=== PATIENT | male | born 1960 | race Caucasian/White ===

== ENCOUNTER → 2018-03-26 | Outpatient (CLI) | payer MEDICARE ==
[2018-03-26 14:36] VITALS: BP 140/82; PULSE 91; RESP 16; TEMP 98.3; BMI 43.4
--- NOTE | 2018-03-26 15:11 | P.HPBAR ---
Bariatric H&P - History & Physicial H&P Date: 03/26/18 History & Physicial: Visit/CC: initial visit Patient initial contact: Initial weight: 153.314 kg Initial weight in pounds: 338.00 Height: 6 ft 2 in Initial BMI: 43.4 Last weight: Current weight: 153.314 kg Current weight in pounds: 338.00 Current BMI: 43.4 [place] body weight (based on NIH guidelines): 86.183 kg Excess body weight loss: 0.0% The patient is a 57 year-old M who presents for Bariatric Assessment. Patient presents today for preoperative sleeve gastrectomy consultation. He has lifetime problems obesity. His current BMI is 44. Past Medical History Past Medical History: Diabetes Mellitus, Hyperlipidemia, Hypertension Additional Past Medical History / Comment(s): Type 2 DM, Right knee ( Orthoscopic x2, replaced x1). Left knee replaced 3x (First time repair broke, 2nd became infected withMRSA, replaced 3rd time). Right rotator cuff repair 2013. History of Any Multi-Drug Resistant Organisms: MRSA Year Discovered:: 2007 MDRO Source:: LEFT KNEE Past Surgical History: Cholecystectomy, Tonsillectomy Additional Past Surgical History / Comment(s): carpal tunnel surgey bilaterally. Right knee (Orthoscopic x2, replaced x1). Left knee replaced 3x ( First time repair broke, 2nd became infected withMRSA, replaced 3rd time). Right rotator cuff repair 09/2014. Past Psychological History: Anxiety, Depression Smoking Status: Current some day smoker Past Alcohol Use History: Daily Additional Past Alcohol Use History / Comment(s): every other day, does drinkn more than 7 drinks/week Past Drug Use History: None Reported, Marijuana - Past Family History Father Family Medical History: Deep Vein Thrombosis (DVT) Mother Family Medical History: No Reported History Surgical - Exam Vital Signs Temp Pulse Resp BP 98.3 F 91 16 140/82 03/26/18 14:30 03/26/18 14:30 03/26/18 14:30 03/26/18 14:30 - General well developed, no distress - Eyes PERRL - ENT normal pinna - Neck no masses - Respiratory normal expansion - Cardiovascular Rhythm: regular - Abdomen Abdomen: soft, non tender Bariatric Assessment & Plan Plan: Morbid obesity with BMI 44. Patient will undergo EGD. We will attempt to obtain insurance authorization for a gastric sleeve surgery. I went over the risks and benefits of surgery. I discussed the risk of possible bleeding, scarring and gastric sleeve perforation. Bariatric Checklist Checklist: Plan: Checklist: EGD: 1. Hiatal hernia: 2. H. Pylori: HgbA1c: Vitamin D: Smoking: Current some day smoker Primary care physician referral: Psychiatry clearance: Cardiology clearance: Sleep study: Diet journal: VTE risk score: VTE risk level: Rehab needs at discharge:
[2018-03-26 15:41] LABS: HCT 39.7 % (39.0-53.0); MCHC 35.4 g/dL (31.0-37.0); MCV 90.5 fL (80.0-100.0); Mean Platelet Volume 7.4; Platelet Count 223 k/uL (150-450); RBC 4.38 m/uL (4.30-5.90); RDW 12.8 % (11.5-15.5); WBC 6.3 k/uL (3.8-10.6)
[2018-03-26 16:07] LABS: ALT 32 U/L (21-72); AST 32 U/L (17-59); Albumin 4.4 g/dL (3.5-5.0); Alkaline Phosphatase 64 U/L (38-126); Anion Gap 14 mmol/L; Blood Urea Nitrogen 18 mg/dL (9-20); Calcium 10.2 mg/dL (8.4-10.2); Carbon Dioxide 26 mmol/L (22-30); Chloride 101 mmol/L (98-107); Glucose 211 mg/dL (74-99); Potassium 4.9 mmol/L (3.5-5.1); Sodium 141 mmol/L (137-145); Total Bilirubin 0.7 mg/dL (0.2-1.3)
[2018-03-27 02:11] LABS: Vitamin D 25 Hydroxy 30.1 ng/mL (30.0-100.0)
[2018-03-27 03:49] LABS: Hemoglobin A1C 6.8 % (4.0-6.0)
== END | disposition home or self-care (01) ==
LOC: BARWHC3 14:11
PROVIDERS: ATTEND Surgery
DX: E66.01 Morbid (severe) obesity due to excess calories (principal); E11.9 Type 2 diabetes mellitus without complications; E78.5 Hyperlipidemia, unspecified; E55.9 Vitamin D deficiency, unspecified; I10 Essential (primary) hypertension; F41.9 Anxiety disorder, unspecified; F32.9 Major depressive disorder, single episode, unspecified; F17.200 Nicotine dependence, unspecified, uncomplicated; Z68.41 Body mass index [BMI] 40.0-44.9, adult; Z98.890 Other specified postprocedural states; Z90.49 Acquired absence of other specified parts of digestive tract
CPT/HCPCS: 80053; 82607; 85027; 82306; 83036; 36415; G0463; 99201

== ENCOUNTER 2018-04-02 10:24 | Day surgery (SDC) | payer MEDICARE ==
[2018-03-29 14:58] VITALS: BMI 42.3
[2018-04-02 11:13] VITALS: TEMP 98.1
[2018-04-02] MEDS: LACTATED RINGERS 1,000 ML IV SCH ×2 (11:23→11:24)
[2018-04-02 11:25] LABS: Glucose,Whole Blood 203 mg/dL (75-99)
[2018-04-02] MEDS ORDERED: PROPOFOL 10 MG/ML 20 ML VIAL IV ONE (11:27)
[2018-04-02] MEDS ORDERED: LIDOCAINE 1% INJ 10MG/ML (20 ML MDV) ONE (11:27)
[2018-04-02] MEDS ORDERED: GLYCOPYRROLATE 0.2 MG/ML 2 ML VIAL ONE (11:27)
[2018-04-02] MEDS ORDERED: KETAMINE 10 MG/ML 20 ML VIAL ONE (11:27)
--- NOTE | 2018-04-02 11:29 | P.GSHP ---
History of Present Illness H&P Date: 04/02/18 Chief Complaint: GERD, morbid obesity Is a 57-year-old male who is undergoing workup for sleeve gastrectomy. Patient' s morbidly obese with BMI 43. He's had issues with GERD. Past Medical History Past Medical History: Diabetes Mellitus, GERD/Reflux, Hyperlipidemia, Hypertension, Sleep Apnea/CPAP/BIPAP Additional Past Medical History / Comment(s): UNABLE TO USE C-PAP MACHINE, HX ULCERATIVE COLITIS, DEGENERATIVE ARTHRITIS, DDD, STATES HX OF RENAL FAILURE 4 YRS AGO BUT RESOLVED., STATES USES INHALER FOR EPISODES OF RASPY VOICE USUALLY IN THE WINTER., CHRONIC KNEE PAIN AND LEG CRAMPS. History of Any Multi-Drug Resistant Organisms: MRSA Date of last positivie culture/infection: 2007 MDRO Source:: LEFT KNEE Past Surgical History: Cholecystectomy, Tonsillectomy Additional Past Surgical History / Comment(s): CATALINO CARPAL TUNNEL. Right knee arthroscopy x2, Total Right Knee. Left knee replaced 3x (First time repair broke, 2nd became infected with MRSA, replaced 3rd time). Right rotator cuff repair Past Anesthesia/Blood Transfusion Reactions: No Reported Reaction Past Psychological History: Anxiety, Depression, Panic Disorder Smoking Status: Current some day smoker Past Alcohol Use History: Heavy Additional Past Alcohol Use History / Comment(s): STATES USUALLY DRINKS OVER 14 DRINKS PER WEEK. SMOKING ON AND OFF FOR 6 YRS. Past Drug Use History: Marijuana Additional Drug Use History / Comment(s): DENIES CURRENT MARIJUANA USE. - Past Family History Brother(s) Family Medical History: CVA/TIA Father Family Medical History: Deep Vein Thrombosis (DVT) Mother Family Medical History: No Reported History Medications and Allergies Home Medications Medication Instructions Recorded Confirmed Type ALPRAZolam [Xanax] 0.25 mg PO TID PRN 11/27/14 04/02/18 History HYDROcodone/APAP 7.5-325MG [[place] 1 tab PO Q4-6H PRN 11/27/14 04/02/18 History 7.5-325] Benazepril HCl [Lotensin] 40 mg PO HS 03/26/18 04/02/18 History Cholecalciferol (Vitamin D3) 50,000 unit PO QMONTH 03/26/18 04/02/18 History [Vitamin D3] Cyclobenzaprine [Flexeril] 10 mg PO TID PRN 03/26/18 04/02/18 History Insulin NPH Hum/Reg Insulin Hm 40 unit SQ BID 03/26/18 04/02/18 History [NovoLIN 70-30 100 UNIT/ML VIAL] Pravastatin Sodium [Pravachol] 80 mg PO HS 03/26/18 04/02/18 History buPROPion HCL [Wellbutrin SR] 150 mg PO BID 03/26/18 04/02/18 History Aspirin [Adult Low Dose Aspirin EC] 81 mg PO DAILY 03/29/18 04/02/18 History Fluticasone Propionate [Flovent 2 puff INHALATION BID PRN 03/29/18 04/02/18 History Hfa 110mcg] Ibuprofen [Motrin] 800 mg PO QID PRN 03/29/18 04/02/18 History hydrALAZINE HCL [Apresoline] 100 mg PO TID 03/29/18 04/02/18 History Allergies Allergy/AdvReac Type Severity Reaction Status Date / Time sulfamethoxazole Allergy Unknown DIZZY, Verified 04/02/18 11:02 [From Bactrim] FELT LIKE HE HAD THE FLU, HOT & COLD FLASHES trimethoprim [From Bactrim] Allergy Unknown DIZZY, Verified 04/02/18 11:02 FELT LIKE HE HAD THE FLU, HOT & COLD FLASHES Surgical - Exam Vital Signs Temp Pulse Resp BP Pulse Ox 98.1 F 78 18 114/78 97 04/02/18 11:12 04/02/18 11:12 04/02/18 11:12 04/02/18 11:12 04/02/18 11:12 - General well developed, well nourished, no distress - Eyes PERRL - ENT normal pinna - Neck no masses - Respiratory normal expansion - Cardiovascular Rhythm: regular - Abdomen Abdomen: soft, non tender Results - Labs Abnormal Lab Results - Last 24 Hours (Table) 04/02/18 Range/Units 11:19 POC Glucose (mg/dL) 203 H (75-99) mg/dL Assessment and Plan Assessment: Morbid obesity GERD. We'll perform EGD
[2018-04-02 11:43] VITALS: RESP 16
[2018-04-02 12:14] VITALS: BP 108/74; PULSE 79
--- NOTE | 2018-04-10 10:54 | P.OP ---
Date of Procedure: 04/10/18 Preoperative Diagnosis: Morbid obesity GERD Postoperative Diagnosis: Antral gastritis Procedure(s) Performed: EGD Anesthesia: MAC Surgeon: Keanu Henderson Pathology: other (Antrum) Condition: stable Disposition: PACU Description of Procedure: The patient's placed on the endoscopy table in the lateral position. The gastric scope was then placed oropharynx passed in the esophagus and stomach. The scope was then placed through the pylorus. The first and second portion of the duodenum appeared normal. The scope was then brought back the antrum this. Mildly inflamed. A biopsies performed. Scope was unretroflexed and remainder stomach appeared normal. There is no significant hiatal hernia. The GE junction was at 40 cm. The distal esophagus appeared normal. The proximal esophagus. Normal. Scope was withdrawn for patient.
== END 2018-04-02 12:14 | disposition home or self-care (01) ==
LOC: ORWHC2ENDO 10:24
PROVIDERS: ATTEND Surgery
DX: K31.9 Disease of stomach and duodenum, unspecified (principal); E66.01 Morbid (severe) obesity due to excess calories; Z68.41 Body mass index [BMI] 40.0-44.9, adult; K21.9 Gastro-esophageal reflux disease without esophagitis; E11.9 Type 2 diabetes mellitus without complications; E78.5 Hyperlipidemia, unspecified; I10 Essential (primary) hypertension; G47.33 Obstructive sleep apnea (adult) (pediatric); K51.90 Ulcerative colitis, unspecified, without complications; M19.90 Unspecified osteoarthritis, unspecified site; M25.569 Pain in unspecified knee; G89.29 Other chronic pain; R25.2 Cramp and spasm; F41.9 Anxiety disorder, unspecified; F32.9 Major depressive disorder, single episode, unspecified; F41.0 Panic disorder [episodic paroxysmal anxiety]; F17.200 Nicotine dependence, unspecified, uncomplicated; Z96.653 Presence of artificial knee joint, bilateral; Z99.89 Dependence on other enabling machines and devices; Z79.82 Long term (current) use of aspirin; Z79.4 Long term (current) use of insulin; Z79.891 Long term (current) use of opiate analgesic; Z79.899 Other long term (current) drug therapy; Z86.14 Personal history of Methicillin resistant Staphylococcus aureus infection; Z88.1 Allergy status to other antibiotic agents; Z88.2 Allergy status to sulfonamides
CPT/HCPCS: 88305; 43239; J2001; J2704

== ENCOUNTER → 2018-04-30 | Outpatient (CLI) | payer MEDICARE ==
[2018-04-30 13:22] VITALS: BP 148/80; PULSE 87; RESP 15; TEMP 98.3; BMI 43.4
--- NOTE | 2018-04-30 15:09 | P.HPBAR ---
Bariatric H&P - History & Physicial H&P Date: 04/30/18 History & Physicial: Visit/CC: sleeve consult Patient initial contact: Initial weight: 153.314 kg Initial weight in pounds: 338.00 Height: 6 ft 2 in Initial BMI: 43.4 Last weight: Current weight: 153.45 kg Current weight in pounds: 338.30 Current BMI: 43.4 [place] body weight (based on NIH guidelines): 86.183 kg Excess body weight loss: The patient is a 57 year-old M who presents for Bariatric Assessment. Patient presents today for preoperative surgical consultation. He is ready be scheduled for sleeve instructed. We will over the consent for sleep yesterday. His BMI is stable at 44. Past Medical History Past Medical History: Diabetes Mellitus, GERD/Reflux, Hyperlipidemia, Hypertension, Sleep Apnea/CPAP/BIPAP Additional Past Medical History / Comment(s): UNABLE TO USE C-PAP MACHINE, HX ULCERATIVE COLITIS, DEGENERATIVE ARTHRITIS, DDD, STATES HX OF RENAL FAILURE 4 YRS AGO BUT RESOLVED., STATES USES INHALER FOR EPISODES OF RASPY VOICE USUALLY IN THE WINTER., CHRONIC KNEE PAIN AND LEG CRAMPS. 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 Right knee arthroscopy x2, Total Right Knee. Left knee replaced 3x (First time repair broke, 2nd became infected with MRSA, replaced 3rd time). Right rotator cuff repair Past Anesthesia/Blood Transfusion Reactions: No Reported Reaction Smoking Status: Current some day smoker - Past Family History Brother(s) Family Medical History: CVA/TIA Father Family Medical History: Deep Vein Thrombosis (DVT) Mother Family Medical History: No Reported History Surgical - Exam Vital Signs Temp Pulse Resp BP 98.3 F 87 15 148/80 04/30/18 13:03 04/30/18 13:03 04/30/18 13:03 04/30/18 13:03 - General well developed, well nourished, no distress - Eyes PERRL - ENT normal pinna - Abdomen Abdomen: soft Bariatric Assessment & Plan Plan: BC with BMI 44. Patient will be scheduled received yesterday. We went over the risks and benefits of surgery including gastric staple line, bleeding scarring or perforation. Bariatric Checklist Checklist: Plan: Checklist: EGD: 1. Hiatal hernia: 2. H. Pylori: HgbA1c: Vitamin D: Smoking: Current some day smoker Primary care physician referral: Sue Psychiatry clearance: Cardiology clearance: Sleep study: Diet journal: VTE risk score: VTE risk level: Rehab needs at discharge:
== END | disposition home or self-care (01) ==
LOC: BARWHC3 12:47
PROVIDERS: ATTEND Surgery
DX: Z01.818 Encounter for other preprocedural examination (principal); F17.200 Nicotine dependence, unspecified, uncomplicated
CPT/HCPCS: 99211

== ENCOUNTER → 2018-05-07 | Outpatient (CLI) | payer MEDICARE ==
[2018-05-07 11:58] VITALS: BMI 43.1
== END | disposition home or self-care (01) ==
LOC: BARWHC3 08:20
PROVIDERS: ATTEND Surgery
DX: E66.01 Morbid (severe) obesity due to excess calories (principal)
CPT/HCPCS: 97804

== ENCOUNTER → 2018-05-07 | Outpatient (CLI) | payer MEDICARE ==
[2018-05-07 13:16] LABS: Basophils % (A) 0 %; Eosinophils # (A) 0.1 k/uL (0-0.7); Eosinophils % (A) 1 %; HCT 42.4 % (39.0-53.0); HGB 14.4 gm/dL (13.0-17.5); Lymphocytes % (A) 25 %; MCH 31.3 pg (25.0-35.0); MCHC 33.9 g/dL (31.0-37.0); MCV 92.3 fL (80.0-100.0); Monocytes # (A) 0.4 k/uL (0-1.0); Monocytes % (A) 6 %; Neutrophils % (A) 65 %; Platelet Count 229 k/uL (150-450); RBC 4.59 m/uL (4.30-5.90); RDW 13.4 % (11.5-15.5); WBC 7.8 k/uL (3.8-10.6)
[2018-05-07 13:31] LABS: ALT 49 U/L (21-72); AST 33 U/L (17-59); Albumin 4.3 g/dL (3.5-5.0); Alkaline Phosphatase 65 U/L (38-126); Anion Gap 12 mmol/L; Blood Urea Nitrogen 14 mg/dL (9-20); Calcium 9.5 mg/dL (8.4-10.2); Carbon Dioxide 26 mmol/L (22-30); Chloride 102 mmol/L (98-107); Glucose 117 mg/dL (74-99); Potassium 4.1 mmol/L (3.5-5.1); Sodium 140 mmol/L (137-145); Total Bilirubin 0.8 mg/dL (0.2-1.3); Total Protein 6.8 g/dL (6.3-8.2)
== END | disposition home or self-care (01) ==
LOC: LABPAT 11:54
PROVIDERS: ATTEND Surgery
DX: Z01.818 Encounter for other preprocedural examination (principal); Z01.812 Encounter for preprocedural laboratory examination
CPT/HCPCS: 36415; 80053; 85025; 93005

== ENCOUNTER 2018-06-04 07:45 | Inpatient (IN) | payer MEDICARE ==
[2018-06-11] MEDS ORDERED: ENOXAPARIN 40 MG/0.4 ML SYRINGE SQ ONE (05:00)
[2018-06-11] MEDS ORDERED: MIDAZOLAM 2 MG/2 ML VIAL IV PRN (06:47)
[2018-06-11] MEDS ORDERED: ONDANSETRON 4 MG/2 ML VIAL IVP ONE (06:47)
[2018-06-11] MEDS ORDERED: fentaNYL (PF) 50 MCG/ML 2 ML AMP IV PRN (06:47)
[2018-06-11] MEDS ORDERED: DEXAMETHASONE SOD PHOSPHATE 10 MG/ML 1 ML VIAL IV ONE (06:47)
[2018-06-11] MEDS ORDERED: LIDOCAINE 1% 20 ML VIAL (10MG/ML) FOR IV START INTRADERMA PRN (06:47)
[2018-06-11] MEDS: LACTATED RINGERS 1,000 ML IV SCH (08:27)
[2018-06-11 08:29] LABS: Glucose,Whole Blood 189 mg/dL (75-99)
--- NOTE | 2018-06-11 08:43 | P.GSHP ---
History of Present Illness H&P Date: 06/11/18 Chief Complaint: Morbid obesity, BMI 43 This is a 57-year-old male who presents today for laparoscopic sleeve yesterday. Patient has had lifetime problems obesity. Patient is well detailed on the procedure sleeve gastrectomy. He is aware the risk of possible gastric staple line disruption, bleeding and scarring and dysphagia and GERD.. He is also aware the risk of possible conversion O procedure and injury to the stomach liver or spleen. Past Medical History Past Medical History: Diabetes Mellitus, GERD/Reflux, Hyperlipidemia, Hypertension, Osteoarthritis (OA), Sleep Apnea/CPAP/BIPAP Additional Past Medical History / Comment(s): UNABLE TO USE C-PAP MACHINE, HX ULCERATIVE COLITIS, DDD, STATES HX OF RENAL FAILURE 4 YRS AGO BUT RESOLVED., STATES USES INHALER FOR EPISODES OF RASPY VOICE USUALLY IN THE WINTER., CHRONIC KNEE PAIN AND LEG CRAMPS. History of Any Multi-Drug Resistant Organisms: MRSA Date of last positivie culture/infection: 2007 MDRO Source:: LEFT KNEE Past Surgical History: Cholecystectomy, Tonsillectomy Additional Past Surgical History / Comment(s): CATALINO CARPAL TUNNEL. Right knee arthroscopy x2, Total Right Knee. Left knee replaced 3x (First time repair broke, 2nd became infected with MRSA, replaced 3rd time). Right rotator cuff repair Past Anesthesia/Blood Transfusion Reactions: No Reported Reaction Smoking Status: Current some day smoker - Past Family History Brother(s) Family Medical History: CVA/TIA Father Family Medical History: Deep Vein Thrombosis (DVT) Mother Family Medical History: No Reported History Medications and Allergies Home Medications Medication Instructions Recorded Confirmed Type ALPRAZolam [Xanax] 0.25 mg PO TID PRN 11/27/14 06/11/18 History HYDROcodone/APAP 7.5-325MG [[place] 1 tab PO Q4-6H PRN 11/27/14 06/11/18 History 7.5-325] Benazepril HCl [Lotensin] 40 mg PO HS 03/26/18 06/11/18 History Cholecalciferol (Vitamin D3) 50,000 unit PO QMONTH 03/26/18 06/11/18 History [Vitamin D3] Cyclobenzaprine [Flexeril] 10 mg PO TID PRN 03/26/18 06/11/18 History Insulin NPH Hum/Reg Insulin Hm 40 unit SQ BID 03/26/18 06/11/18 History [NovoLIN 70-30 100 UNIT/ML VIAL] Pravastatin Sodium [Pravachol] 80 mg PO HS 03/26/18 06/11/18 History buPROPion HCL [Wellbutrin SR] 150 mg PO BID 03/26/18 06/11/18 History Aspirin [Adult Low Dose Aspirin EC] 81 mg PO DAILY 03/29/18 06/11/18 History Fluticasone Propionate [Flovent 2 puff INHALATION BID PRN 03/29/18 06/11/18 History Hfa 110mcg] Ibuprofen [Motrin] 800 mg PO QID PRN 03/29/18 06/11/18 History hydrALAZINE HCL [Apresoline] 100 mg PO TID 03/29/18 06/11/18 History Allergies Allergy/AdvReac Type Severity Reaction Status Date / Time sulfamethoxazole Allergy Unknown DIZZY, Verified 06/11/18 08:15 [From Bactrim] FELT LIKE HE HAD THE FLU, HOT & COLD FLASHES trimethoprim [From Bactrim] Allergy Unknown DIZZY, Verified 06/11/18 08:15 FELT LIKE HE HAD THE FLU, HOT & COLD FLASHES Surgical - Exam Vital Signs Temp Pulse Resp BP Pulse Ox 98.3 F 92 16 149/70 99 06/11/18 08:18 06/11/18 08:18 06/11/18 08:18 06/11/18 08:18 06/11/18 08:18 Body mass index 43 - General well developed, no distress - Eyes PERRL - ENT normal pinna - Neck no masses - Respiratory normal expansion - Cardiovascular Rhythm: regular - Abdomen Abdomen: soft, non tender Results - Labs Abnormal Lab Results - Last 24 Hours (Table) 06/11/18 Range/Units 08:20 POC Glucose (mg/dL) 189 H (75-99) mg/dL Assessment and Plan Assessment: Morbid obesity, BMI 43. We'll perform laparoscopic sleeve gastrectomy.
[2018-06-11] MEDS ORDERED: GLYCOPYRROLATE 0.2 MG/ML 2 ML VIAL ONE (09:18)
[2018-06-11] MEDS ORDERED: PROPOFOL 10 MG/ML 20 ML VIAL IV ONE (09:18)
[2018-06-11] MEDS ORDERED: fentaNYL (PF) 50 MCG/ML 2 ML AMP ONE (09:18)
[2018-06-11] MEDS ORDERED: NEOSTIGMINE 1 MG/ML 10 ML VIAL ONE (09:18)
[2018-06-11] MEDS ORDERED: SUCCINYLCHOLINE CHLORIDE 100 MG/5 ML SYR IV ONE (09:18)
[2018-06-11] MEDS ORDERED: PHENYLEPHRINE-0.9% NACL SYG 1 MG/10 ML SYRINGE ONE (09:18)
[2018-06-11] MEDS ORDERED: HYDROmorphone (PF) 1 MG/ML ONE (09:18)
[2018-06-11] MEDS ORDERED: MIDAZOLAM 2 MG/2 ML VIAL ONE (09:18)
[2018-06-11] MEDS ORDERED: LIDOCAINE 1% INJ 10MG/ML (20 ML MDV) ONE (09:18)
[2018-06-11] MEDS ORDERED: ROCURONIUM BROMIDE 10 MG/ML 10 ML VIAL IV ONE (09:18)
[2018-06-11] MEDS ORDERED: BUPIVACAINE (PF) 0.5% 30 ML VIAL SQ ONE (09:30)
[2018-06-11] MEDS ORDERED: ROPIVACAINE 5 MG/ML 30 ML VIAL MISCELLANE ONE (09:30)
[2018-06-11] MEDS ORDERED: LACTATED RINGERS 1,000 ML IV ONE ×3 (09:47→11:24)
[2018-06-11] MEDS: HYDROmorphone 1 MG/ML 1 ML SYRINGE IVP PRN ×6 (11:05→21:33)
[2018-06-11] MEDS ORDERED: NALOXONE 0.4 MG/ML 1 ML VIAL IV PRN (11:09)
--- NOTE | 2018-06-11 11:14 | P.OP ---
Date of Procedure: 06/11/18 Preoperative Diagnosis: Morbid obesity, BMI 43 Postoperative Diagnosis: Morbid obesity Procedure(s) Performed: Laparoscopic sleeve gastrectomy Anesthesia: [facility] Surgeon: Keanu Henderson Estimated Blood Loss (ml): 10 Pathology: other (Stomach) Condition: stable Disposition: PACU Description of Procedure: The patient was placed on the operating room table in the supine position. She received general anesthesia and then was placed in dorsal lithotomy position. Her abdomen was prepped and draped in sterile fashion. The skin incision sites were anesthetized 1% local Xylocaine. And then the skin was incised with an 11 blade in the left lateral position. Using a blade less trocar under direct visualization the peritoneal cavity was entered. The abdomen was insufflated and then a 5 mm laparoscope was placed into the peritoneal cavity. A 5 mm trocar was placed in the right epigastric, and right lateral position. A 15 mm trocar was placed in the supra-umbilical position and another 5 mm trocar was placed in the left lateral position. The left lateral lobe of the liver was retracted. The stomach was visualized. The greater curvature of the stomach was then dissected using the Harmonic scissors. The dissection occurred approximately 5 cm from the pylorus to the level of the left nehemiah. There was no hiatal hernia seen. At this point a 40-[place] bougie dilator was placed the oropharynx and passed into the esophagus and into the stomach by the ECONOMICS LECTURER. The sleeve gastrectomy was performed by using the powered echelon stapler with a seam guard buttress material. Sequential firings of the stapler were performed. The gastric remnant was then brought out through the 15 mm trocar site. The dilator was withdrawn. And a orogastric tube was replaced into the stomach. The stomach was insufflated with 200 mL of methylene blue normal saline. There was no evidence of extravasation. The abdomen was irrigated there is no bleeding seen. The Kareem-Zbigniew device was used to close the 15 mm trocar with 0 Vicryl. Skin was closed with interrupted 3-0 Monocryl sutures once the trochars withdrawn. Dermabond dressing was applied. Patient was sent to recovery in stable condition.
[2018-06-11] MEDS: ALBUTEROL NEBULIZED 2.5 MG/3 ML INHALATION SCH ×3 (11:27→20:06)
[2018-06-11] MEDS: MEPERIDINE 50 MG/ML SYRINGE IVP ONE ×2 (11:30→11:45)
[2018-06-11 12:06] LABS: Glucose,Whole Blood 304 mg/dL (75-99)
[2018-06-11] MEDS ORDERED: INSULIN ASPART 100 UNIT/ML 1 ML 10 ML VIAL SQ ONE (12:08)
[2018-06-11] MEDS: KETOROLAC 30 MG/ML 1 ML VIAL IVP SCH ×3 (12:24→23:34)
[2018-06-11 12:53] VITALS: BMI 42.7
[2018-06-11] MEDS: 0.9% NACL WITH KCL 20 MEQ/L 1,000 ML IV SCH ×2 (13:07→22:06)
[2018-06-11] MEDS: AMPICILLIN-SULBACTAM 3 GM in SODIUM CHLORIDE 0.9% 100 ML IVPB SCH ×2 (13:09→18:08)
[2018-06-11] MEDS ORDERED: ONDANSETRON 4 MG/2 ML VIAL IVP PRN (14:50)
[2018-06-11] MEDS: hydrALAZINE HCL 50 MG TAB PO SCH (16:35)
[2018-06-11 17:04] LABS: Glucose,Whole Blood 271 mg/dL (75-99)
[2018-06-11] MEDS: INSULIN ASPART 100 UNIT/ML 1 ML 10 ML VIAL SQ SCH ×2 (17:35→21:03)
[2018-06-11 20:54] LABS: Glucose,Whole Blood 248 mg/dL (75-99)
[2018-06-11] MEDS: buPROPion SR 150 MG TABLET.ER PO SCH (21:00)
[2018-06-11] MEDS: INSULIN NPH/REG INSULIN 70/30 300 UNIT/3 ML VIAL SQ SCH (21:01)
[2018-06-12 00:41] LABS: Glucose,Whole Blood 180 mg/dL (75-99)
[2018-06-12] MEDS: HYDROmorphone 1 MG/ML 1 ML SYRINGE IVP PRN ×5 (00:41→19:53)
[2018-06-12] MEDS: SIMETHICONE 40 MG/0.6 ML DROPS 2,000 MG/30 ML BOTTLE PO PRN ×3 (00:41→19:53)
[2018-06-12] MEDS: HYOSCYAMINE ORAL DROPS 1.875 MG/15 ML BOTTLE PO PRN ×3 (00:43→19:53)
[2018-06-12] MEDS: LISINOPRIL 20 MG TAB PO SCH ×2 (00:52→19:54)
[2018-06-12] MEDS: hydrALAZINE HCL 50 MG TAB PO SCH ×4 (00:52→22:34)
[2018-06-12] MEDS: LACTATED RINGERS 1,000 ML IV SCH (02:17)
[2018-06-12] MEDS: 0.9% NACL WITH KCL 20 MEQ/L 1,000 ML IV SCH ×2 (04:39→09:13)
[2018-06-12] MEDS: KETOROLAC 30 MG/ML 1 ML VIAL IVP SCH ×3 (05:15→18:20)
[2018-06-12 07:22] LABS: Glucose,Whole Blood 170 mg/dL (75-99)
[2018-06-12 07:22] LABS: Basophils % (A) 0 %; Eosinophils % (A) 0 %; HCT 36.3 % (39.0-53.0); HGB 12.5 gm/dL (13.0-17.5); Lymphocytes # (A) 1.5 k/uL (1.0-4.8); Lymphocytes % (A) 20 %; MCH 32.1 pg (25.0-35.0); MCHC 34.3 g/dL (31.0-37.0); MCV 93.5 fL (80.0-100.0); Mean Platelet Volume 7.4; Monocytes # (A) 0.7 k/uL (0-1.0); Monocytes % (A) 9 %; Neutrophils # (A) 5.2 k/uL (1.3-7.7); Neutrophils % (A) 69 %; Platelet Count 188 k/uL (150-450); RBC 3.88 m/uL (4.30-5.90); RDW 13.2 % (11.5-15.5); WBC 7.5 k/uL (3.8-10.6)
[2018-06-12] MEDS: ASPIRIN 81 MG PO SCH (07:25)
[2018-06-12] MEDS: buPROPion SR 150 MG TABLET.ER PO SCH ×2 (07:25→19:54)
[2018-06-12] MEDS: INSULIN ASPART 100 UNIT/ML 1 ML 10 ML VIAL SQ SCH ×4 (07:27→20:00)
[2018-06-12] MEDS: ALBUTEROL NEBULIZED 2.5 MG/3 ML INHALATION SCH ×4 (07:32→19:57)
[2018-06-12 07:38] LABS: Anion Gap 6 mmol/L; Blood Urea Nitrogen 18 mg/dL (9-20); Calcium 8.5 mg/dL (8.4-10.2); Carbon Dioxide 28 mmol/L (22-30); Chloride 105 mmol/L (98-107); Magnesium 1.6 mg/dL (1.6-2.3); Phosphorus 4.4 mg/dL (2.5-4.5); Potassium 4.8 mmol/L (3.5-5.1); Sodium 139 mmol/L (137-145)
[2018-06-12] MEDS: ENOXAPARIN 40 MG/0.4 ML SYRINGE SQ SCH ×2 (08:24→19:54)
[2018-06-12] MEDS: 1: MVI, ADULT NO.4 WITH VIT K 10 ML, THIAMINE 100 MG, FOLIC ACID 1 MG, POTASSIUM CHLORID IV SCH ×12 (08:24→16:20)
[2018-06-12] MEDS: INSULIN NPH/REG INSULIN 70/30 300 UNIT/3 ML VIAL SQ SCH ×2 (08:24→19:58)
[2018-06-12] MEDS: PANTOPRAZOLE 40 MG/10 ML VIAL IV SCH (08:25)
--- NOTE | 2018-06-12 10:20 | FL ---
EXAMINATION TYPE: FL UGI DATE OF EXAM: 06/12/2018 CLINICAL HISTORY: Status post gastric sleeve Post- op Gastric sleeve. [address] Narvaez. Isovue 370 50ML. The patient ingested contrast without difficulty or delay. Noted are postsurgical changes of gastric sleeve. There is no evidence for leak or obstruction. Contrast is noted within the duodenum. IMPRESSION: Post-surgical change of gastric sleeve without evidence for obstruction or leak at this point in time.
[2018-06-12 11:13] LABS: Glucose,Whole Blood 101 mg/dL (75-99)
--- NOTE | 2018-06-12 11:46 | PN ---
PROGRESS NOTE DATE OF SERVICE: 06/12/2018 CHIEF COMPLAINT: Status post gastric stapling. HISTORY OF PRESENT ILLNESS: This gentleman is having some mild discomfort, but otherwise doing well. He has no fever, chills, significant pain, nausea, vomiting, etc. PHYSICAL EXAM: Vital signs are normal. Color is good. Chest is clear. Cardiac exam is normal. IMPRESSION: Status post gastric sleeve. PLAN: Probably home today. MMODL / IJN: [id number] /
[2018-06-12 11:50] LABS: Hemoglobin A1C 7.2 % (4.0-6.0)
--- NOTE | 2018-06-12 11:55 | P.PN ---
Subjective Progress Note Date: 06/12/18 Principal diagnosis: Morbid obesity Patient's postoperative day 1 from sleeve gastrectomy. He has some complaints of epigastric pain. His esophagram performed shows no evidence of leak or obstruction. Objective - Vital Signs Vital signs: Vital Signs Temp 98.1 F 06/12/18 07:00 Pulse 88 06/12/18 11:34 Resp 16 06/12/18 11:24 BP 134/83 06/12/18 07:00 Pulse Ox 94 L 06/12/18 07:40 Intake & Output 06/11/18 06/12/18 06/12/18 18:59 06:59 18:59 Intake Total 2500 Output Total 20 350 Balance 2480 -350 Weight 150.9 kg Intake: IV 2500 Output: Urine 350 Estimated Blood Loss 20 Other: Voiding Method Urinal # Voids 1 - Gastrointestinal Gastrointestinal Comment(s): Abdomen soft. Incision sites are clean dry and intact. - Labs CBC & Chem 7: 06/12/18 06:50 06/12/18 06:50 Labs: Abnormal Lab Results - Last 24 Hours (Table) 06/11/18 06/11/18 06/11/18 Range/Units 11:59 17:00 20:40 RBC (4.30-5.90) m/uL Hgb (13.0-17.5) gm/dL Hct (39.0-53.0) % POC Glucose (mg/dL) 304 H 271 H 248 H (75-99) mg/dL 06/12/18 06/12/18 06/12/18 Range/Units 00:39 06:50 07:03 RBC 3.88 L (4.30-5.90) m/uL Hgb 12.5 L (13.0-17.5) gm/dL Hct 36.3 L (39.0-53.0) % POC Glucose (mg/dL) 180 H 170 H (75-99) mg/dL 06/12/18 Range/Units 11:12 RBC (4.30-5.90) m/uL Hgb (13.0-17.5) gm/dL Hct (39.0-53.0) % POC Glucose (mg/dL) 101 H (75-99) mg/dL Assessment and Plan Assessment: Status post sleeve gastrectomy. Patient is doing quite well. He is not ready for discharge. He has had limited oral intake. And has some complaints of pain. Hopefully he'll be discharged home tomorrow.
--- NOTE | 2018-06-12 12:02 | CONS ---
CONSULTATION CHIEF COMPLAINT: Obesity and diabetes with hypertension. HISTORY OF PRESENT ILLNESS: This is another admission for this 57-year-old white male with type 2 insulin-dependent diabetes mellitus, hypertension, and history of alcohol and tobacco abuse. He is brought in for an elective bariatric procedure. REVIEW OF SYSTEMS: He has had no headaches, CVAs, TIAs, difficulty with vision, hearing, chest pain, shortness of breath, cough, hemoptysis, heart disease, angina, orthopnea, PND, murmurs, rheumatic fever. He has had no abdominal pain, vomiting, hematemesis, melena, hematochezia, jaundice, hepatitis, hematuria, frequency, renal disease, arthritis issues except for some problems with his knees and back. Past medical history, family history, personal and social histories reveal he is allergic to SULFA. He is on vitamin D 50,000 units a month, Novolin 70/30 forty units twice a day, Pravastatin 80 mg once a day, benazepril 40 mg a day, bupropion 150 twice a day, hydralazine 100 mg t.i.d., ibuprofen q.i.d. p.r.n., cyclobenzaprine 10 mg t.i.d. p.r.n., alprazolam 0.25 t.i.d. p.r.n., Flovent 110 one puff twice a day, 81 mg of aspirin. Past medical history, family history personal and social histories reveal he has had a T and A and cholecystectomy before. He continues to smoke lightly. He considers himself to be a moderate alcohol consumer. PHYSICAL EXAM: Blood pressure 130/80 with a pulse of 90 and regular, respirations 16 and he is afebrile. In general, he appeared to be well developed, well nourished, in no acute distress and overweight. Head, ears, eyes, nose, mouth, and throat were normal and neck veins are not distended. Thyroid is not enlarged. The chest is clear to auscultation and percussion and the cardiac exam demonstrated normal sinus rhythm and no murmurs or extra sounds. The abdomen is protuberant, soft and there are no masses or visceromegaly. There is no tenderness. The extremities are normal, neurologically intact. IMPRESSION: 1. Obesity. 2. Insulin-dependent diabetes mellitus. 3. Hypertension. 4. Tobacco abuse. 5. Alcohol abuse. PLAN: No change in the treatment plan and I will be happy to follow especially regarding his diabetes. MMODL / IJN: [id number] /
[2018-06-12] MEDS: HYDROcodone/APAP 15 ML SOLUTION PO PRN ×2 (16:26→22:34)
[2018-06-12 17:29] LABS: Glucose,Whole Blood 106 mg/dL (75-99)
[2018-06-12 19:58] LABS: Glucose,Whole Blood 132 mg/dL (75-99)
[2018-06-13] MEDS: KETOROLAC 30 MG/ML 1 ML VIAL IVP SCH ×2 (01:26→05:02)
[2018-06-13] MEDS: 1: MVI, ADULT NO.4 WITH VIT K 10 ML, THIAMINE 100 MG, FOLIC ACID 1 MG, POTASSIUM CHLORID IV SCH ×12 (03:28→12:30)
[2018-06-13] MEDS: HYDROcodone/APAP 15 ML SOLUTION PO PRN (04:26)
[2018-06-13 06:51] LABS: Glucose,Whole Blood 91 mg/dL (75-99)
[2018-06-13] MEDS: LACTATED RINGERS 1,000 ML IV SCH (07:35)
[2018-06-13] MEDS: INSULIN ASPART 100 UNIT/ML 1 ML 10 ML VIAL SQ SCH ×2 (07:35→11:30)
[2018-06-13] MEDS: ALBUTEROL NEBULIZED 2.5 MG/3 ML INHALATION SCH ×2 (07:46→12:01)
[2018-06-13] MEDS: ASPIRIN 81 MG PO SCH (08:08)
[2018-06-13] MEDS: hydrALAZINE HCL 50 MG TAB PO SCH (08:08)
[2018-06-13] MEDS: ENOXAPARIN 40 MG/0.4 ML SYRINGE SQ SCH (08:08)
[2018-06-13] MEDS: buPROPion SR 150 MG TABLET.ER PO SCH (08:08)
[2018-06-13] MEDS: PANTOPRAZOLE 40 MG/10 ML VIAL IV SCH (08:08)
[2018-06-13] MEDS: INSULIN NPH/REG INSULIN 70/30 300 UNIT/3 ML VIAL SQ SCH (08:14)
[2018-06-13 08:16] VITALS: BP 149/81; PULSE 80; RESP 14; TEMP 97.8
[2018-06-13 11:08] LABS: Glucose,Whole Blood 128 mg/dL (75-99)
--- NOTE | 2018-06-13 15:26 | P.DS ---
Providers Date of admission: 06/11/18 07:44 Expected date of discharge: 06/13/18 Attending physician: Keanu Henderson Consults: 06/11/18 11:09 Consult Physician Routine Consulting Provider: Oz Rogers Consult Reason/Comments: Medical management Do you want consulting provider notified?: Yes Primary care physician: Oz Rogers Hospital Course: This is a 57-year-old male who underwent laparoscopic sleeve gastrectomy. Please see hospital chart for details. Procedures: Laparoscopic sleeve gastrectomy Patient Condition at Discharge: Good Plan - Discharge Summary Discharge Rx Participant: Yes New Discharge Prescriptions: New Bisacodyl [Dulcolax] 5 mg PO DAILY PRN #10 tablet. PRN Reason: Constipation Ondansetron Odt [Zofran Odt] 4 mg PO Q8HR PRN #9 tab PRN Reason: Nausea Simethicone 40 mg/0.6 ml Drops [Mylicon Drops] 40 mg PO PCHS PRN #30 ml PRN Reason: Gas Omeprazole 40 mg PO DAILY #60 capsule. Bisacodyl [Dulcolax] 5 mg PO DAILY PRN #10 tablet. PRN Reason: Constipation Ondansetron Odt [Zofran Odt] 4 mg PO Q8HR PRN #9 tab PRN Reason: Nausea Simethicone 40 mg/0.6 ml Drops [Mylicon Drops] 40 mg PO PCHS PRN #30 ml PRN Reason: Gas Omeprazole 40 mg PO DAILY #60 capsule. No Action HYDROcodone/APAP 7.5-325MG [[place] 7.5-325] 1 tab PO Q4-6H PRN PRN Reason: Pain ALPRAZolam [Xanax] 0.25 mg PO TID PRN PRN Reason: Anxiety Insulin NPH Hum/Reg Insulin Hm [NovoLIN 70-30 100 UNIT/ML VIAL] 40 unit SQ BID Pravastatin Sodium [Pravachol] 80 mg PO HS Cyclobenzaprine [Flexeril] 10 mg PO TID PRN PRN Reason: Muscle Spasm buPROPion HCL [Wellbutrin SR] 150 mg PO BID Benazepril HCl [Lotensin] 40 mg PO HS Cholecalciferol (Vitamin D3) [Vitamin D3] 50,000 unit PO Q30D hydrALAZINE HCL [Apresoline] 100 mg PO TID Fluticasone Propionate [Flovent Hfa 110mcg] 2 puff INHALATION RT-BID PRN PRN Reason: Shortness Of Breath Ibuprofen [Motrin] 800 mg PO QID PRN PRN Reason: Pain Aspirin [Adult Low Dose Aspirin EC] 81 mg PO DAILY Discharge Medication List ALPRAZolam [Xanax] 0.25 mg PO TID PRN 11/27/14 [History] HYDROcodone/APAP 7.5-325MG [[place] 7.5-325] 1 tab PO Q4-6H PRN 11/27/14 [History] Benazepril HCl [Lotensin] 40 mg PO HS 03/26/18 [History] Cholecalciferol (Vitamin D3) [Vitamin D3] 50,000 unit PO Q30D 03/26/18 [History] Cyclobenzaprine [Flexeril] 10 mg PO TID PRN 03/26/18 [History] Insulin NPH Hum/Reg Insulin Hm [NovoLIN 70-30 100 UNIT/ML VIAL] 40 unit SQ BID 03/26/18 [History] Pravastatin Sodium [Pravachol] 80 mg PO HS 03/26/18 [History] buPROPion HCL [Wellbutrin SR] 150 mg PO BID 03/26/18 [History] Aspirin [Adult Low Dose Aspirin EC] 81 mg PO DAILY 03/29/18 [History] Fluticasone Propionate [Flovent Hfa 110mcg] 2 puff INHALATION RT-BID PRN [History] Ibuprofen [Motrin] 800 mg PO QID PRN 03/29/18 [History] hydrALAZINE HCL [Apresoline] 100 mg PO TID 03/29/18 [History] Bisacodyl [Dulcolax] 5 mg PO DAILY PRN #10 tablet. 06/13/18 [Rx] Bisacodyl [Dulcolax] 5 mg PO DAILY PRN #10 tablet. 06/13/18 [Rx] Omeprazole 40 mg PO DAILY #60 capsule. 06/13/18 [Rx] Omeprazole 40 mg PO DAILY #60 capsule. 06/13/18 [Rx] Ondansetron Odt [Zofran Odt] 4 mg PO Q8HR PRN #9 tab 06/13/18 [Rx] Ondansetron Odt [Zofran Odt] 4 mg PO Q8HR PRN #9 tab 06/13/18 [Rx] Simethicone 40 mg/0.6 ml Drops [Mylicon Drops] 40 mg PO PCHS PRN #30 ml [Rx] Simethicone 40 mg/0.6 ml Drops [Mylicon Drops] 40 mg PO PCHS PRN #30 ml [Rx] Follow up Appointment(s)/Referral(s): [facility] [[facility]-STAFF] - 07/04/18 1:20 pm Patient Instructions/Handouts: Nutrition after Bariatric Surgery (DC), Laparoscopic Sleeve Gastrectomy (DC) Discharge Disposition: HOME SELF-CARE
--- NOTE | 2018-06-13 16:52 | PN ---
PROGRESS NOTE CHIEF COMPLAINT: Abdominal pain. HISTORY OF PRESENT ILLNESS: This gentleman is having significant amount of generalized abdominal pain following surgery. He has had no fever and chills, vomiting, etc. PHYSICAL EXAM: Bowel sounds are present. Incisions are clean. Chest is clear. Cardiac exam is normal. IMPRESSION: Abdominal pain following a gastric sleeve procedure. PLAN: He will be re-evaluated by surgery this morning before he can go home. MMODL / IJN: [id number] /
== END 2018-06-13 15:15 | disposition home or self-care (01) | DRG 621 ==
LOC: 2ORMAIN 06-11 07:44 → 3SUR 06-11 10:51
PROVIDERS: ADMIT Surgery; ATTEND Surgery
PROC: 0DB64Z3 Excision of Stomach, Percutaneous Endoscopic Approach, Vertical (ICD-10-PCS; principal; 2018-06-11 09:20)
DX: E66.01 Morbid (severe) obesity due to excess calories (principal); Z68.41 Body mass index [BMI] 40.0-44.9, adult; E11.9 Type 2 diabetes mellitus without complications; E78.5 Hyperlipidemia, unspecified; K21.9 Gastro-esophageal reflux disease without esophagitis; I10 Essential (primary) hypertension; G47.30 Sleep apnea, unspecified; G89.29 Other chronic pain; F10.10 Alcohol abuse, uncomplicated; M25.569 Pain in unspecified knee; M19.91 Primary osteoarthritis, unspecified site; F17.200 Nicotine dependence, unspecified, uncomplicated; Z79.82 Long term (current) use of aspirin; Z79.4 Long term (current) use of insulin; Z79.51 Long term (current) use of inhaled steroids; Z79.899 Other long term (current) drug therapy; Z90.49 Acquired absence of other specified parts of digestive tract; Z86.14 Personal history of Methicillin resistant Staphylococcus aureus infection; Z96.653 Presence of artificial knee joint, bilateral; Z88.2 Allergy status to sulfonamides; Z82.3 Family history of stroke; Z83.2 Family history of diseases of the blood and blood-forming organs and certain disorders involving the immune mechanism
CPT/HCPCS: 74240; 80051; 82310; 82565; 83036; 83735; 84100; 84520; 85025; 88307; 94640; 94760; 94762

== ENCOUNTER → 2018-06-25 | Outpatient (CLI) | payer MEDICARE ==
[2018-06-25 14:36] VITALS: BP 128/86; PULSE 91; RESP 16; TEMP 98.4; BMI 41.1
--- NOTE | 2018-06-25 15:19 | P.HPBAR ---
Bariatric H&P - History & Physicial H&P Date: 06/25/18 History & Physicial: Visit/CC: post sleeve Patient initial contact: Initial weight: 153.314 kg Initial weight in pounds: 338.00 Height: 6 ft 2 in Initial BMI: 43.4 Last weight: Current weight: 145.15 kg Current weight in pounds: 320.00 Current BMI: 41.1 [place] body weight (based on NIH guidelines): 86.183 kg Excess body weight loss: 12.1% The patient is a 57 year-old M who presents for Bariatric Assessment. Patient presents today for sleeve gastrectomy follow-up. He really has no complaints. He's had some mild GERD. Past Medical History Past Medical History: Diabetes Mellitus, GERD/Reflux, Hyperlipidemia, Hypertension, Osteoarthritis (OA), Sleep Apnea/CPAP/BIPAP Additional Past Medical History / Comment(s): UNABLE TO USE C-PAP MACHINE, HX ULCERATIVE COLITIS, DDD, STATES HX OF RENAL FAILURE 4 YRS AGO BUT RESOLVED., STATES USES INHALER FOR EPISODES OF RASPY VOICE USUALLY IN THE WINTER., CHRONIC KNEE PAIN AND LEG CRAMPS. 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 Right knee arthroscopy x2, Total Right Knee. Left knee replaced 3x (First time repair broke, 2nd became infected with MRSA, replaced 3rd time). Right rotator cuff repair Past Anesthesia/Blood Transfusion Reactions: No Reported Reaction Smoking Status: Current some day smoker - Past Family History Brother(s) Family Medical History: CVA/TIA Father Family Medical History: Deep Vein Thrombosis (DVT) Mother Family Medical History: No Reported History Surgical - Exam Vital Signs Temp Pulse Resp BP 98.4 F 91 16 128/86 06/25/18 14:34 06/25/18 14:34 06/25/18 14:34 06/25/18 14:34 - General well developed, no distress - Eyes PERRL - ENT normal pinna - Neck no masses - Respiratory normal expansion - Abdomen Abdomen: soft, non tender Bariatric Assessment & Plan Plan: Status post sleeve yesterday. Patient is doing quite well. He will follow-up in 2 weeks. weeks. Bariatric Checklist Checklist: Plan: Checklist: EGD: 1. Hiatal hernia: 2. H. Pylori: HgbA1c: Vitamin D: Smoking: Current some day smoker Primary care physician referral: Sue Psychiatry clearance: Cardiology clearance: Sleep study: Diet journal: VTE risk score: VTE risk level: Rehab needs at discharge:
== END | disposition home or self-care (01) ==
LOC: BARWHC3 13:58
PROVIDERS: ATTEND Surgery
DX: Z48.815 Encounter for surgical aftercare following surgery on the digestive system (principal); F17.200 Nicotine dependence, unspecified, uncomplicated; E11.9 Type 2 diabetes mellitus without complications; K21.9 Gastro-esophageal reflux disease without esophagitis; E78.5 Hyperlipidemia, unspecified; I10 Essential (primary) hypertension; M19.90 Unspecified osteoarthritis, unspecified site; E66.01 Morbid (severe) obesity due to excess calories; Z90.49 Acquired absence of other specified parts of digestive tract; Z90.89 Acquired absence of other organs; Z98.84 Bariatric surgery status; Z68.41 Body mass index [BMI] 40.0-44.9, adult
CPT/HCPCS: 97803; G0463; 99211

== ENCOUNTER → 2018-07-09 | Outpatient (CLI) | payer MEDICARE ==
[2018-07-09 15:39] VITALS: BMI 40.3
--- NOTE | 2018-07-09 16:46 | P.HPBAR ---
Bariatric H&P - History & Physicial H&P Date: 07/18/18 History & Physicial: Visit/CC: Patient initial contact: Initial weight: 153.314 kg Initial weight in pounds: Height: 6 ft 2 in Initial BMI: Last weight: Current weight: 142.428 kg Current weight in pounds: Current BMI: 40.3 [place] body weight (based on NIH guidelines): Excess body weight loss: The patient is a 57 year-old M who presents for Bariatric Assessment. Patient presents today for sleeve gastrectomy follow-up. He has some mild GERD. Past Medical History Past Medical History: Diabetes Mellitus, GERD/Reflux, Hyperlipidemia, Hypertension, Osteoarthritis (OA), Sleep Apnea/CPAP/BIPAP Additional Past Medical History / Comment(s): UNABLE TO USE C-PAP MACHINE, HX ULCERATIVE COLITIS, DDD, STATES HX OF RENAL FAILURE 4 YRS AGO BUT RESOLVED., STATES USES INHALER FOR EPISODES OF RASPY VOICE USUALLY IN THE WINTER., CHRONIC KNEE PAIN AND LEG CRAMPS. 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 Right knee arthroscopy x2, Total Right Knee. Left knee replaced 3x (First time repair broke, 2nd became infected with MRSA, replaced 3rd time). Right rotator cuff repair Past Anesthesia/Blood Transfusion Reactions: No Reported Reaction Smoking Status: Current some day smoker - Past Family History Brother(s) Family Medical History: CVA/TIA Father Family Medical History: Deep Vein Thrombosis (DVT) Mother Family Medical History: No Reported History Surgical - Exam - General well developed, no distress - Eyes PERRL - Abdomen Abdomen: soft, non tender Bariatric Assessment & Plan Plan: Status post sleeve gastrectomy. Patient is doing quite well. His GERD is minimal old be observed. Bariatric Checklist Checklist: Plan: Checklist: EGD: 1. Hiatal hernia: 2. H. Pylori: HgbA1c: Vitamin D: Smoking: Current some day smoker Primary care physician referral: Sue Psychiatry clearance: Cardiology clearance: Sleep study: Diet journal: VTE risk score: VTE risk level: Rehab needs at discharge:
[2018-07-10 09:06] VITALS: BP 135/85; PULSE 80; RESP 16; TEMP 98.3
== END | disposition home or self-care (01) ==
LOC: BARWHC3 14:17
PROVIDERS: ATTEND Surgery
DX: Z48.815 Encounter for surgical aftercare following surgery on the digestive system (principal); F17.200 Nicotine dependence, unspecified, uncomplicated; E66.01 Morbid (severe) obesity due to excess calories; Z68.41 Body mass index [BMI] 40.0-44.9, adult; Z90.49 Acquired absence of other specified parts of digestive tract; Z90.89 Acquired absence of other organs; Z98.84 Bariatric surgery status
CPT/HCPCS: 97803; 99211

== ENCOUNTER 2018-09-09 06:54 | Observation (INO) | payer MEDICARE ==
[2018-09-09] MEDS ORDERED: IOPAMIDOL-300 CONTRAST 30 ML VIAL (ORAL USE) PO PRN (07:07)
[2018-09-09] MEDS ORDERED: HYDROmorphone 1 MG/ML 1 ML SYRINGE IVP STA ×3 (07:07→09:36)
[2018-09-09] MEDS ORDERED: SODIUM CHLORIDE 0.9% 1,000 ML IV STA (07:07)
[2018-09-09] MEDS ORDERED: ONDANSETRON 4 MG/2 ML VIAL IVP STA (07:07)
--- NOTE | 2018-09-09 07:20 | ED ---
Abdominal Pain HPI <Ean Stroud - Last Filed: 09/09/18 10:01> - General Source: patient, RN notes reviewed Mode of arrival: ambulatory Limitations: no limitations <Adán Wahl - Last Filed: 09/09/18 10:22> - General Chief Complaint: Abdominal Pain Stated Complaint: Abdominal Pain Time Seen by Provider: 09/09/18 07:05 - History of Present Illness Initial Comments: This a 58-year-old male presents emergency Department chief complaint of abdominal pain. Patient is 3 months status post gastric sleeve by Dr. Henderson. Patient had no postsurgical complications until last night he developed severe abdominal pain which has worsened throughout the night. He states is nonradiating pain he does admit to slight nausea no vomiting no diarrhea no constipation. Patient states that he has been having bowel movements no difficulty no dysuria no hematuria. Denies any chest pain or shortness of breath. (Adán Wahl) - Related Data Home Medications Medication Instructions Recorded Confirmed ALPRAZolam [Xanax] 0.25 mg PO TID PRN 11/27/14 09/09/18 HYDROcodone/APAP 7.5-325MG [[place] 1 tab PO Q4-6H PRN 11/27/14 09/09/18 7.5-325] Benazepril HCl [Lotensin] 40 mg PO HS 03/26/18 09/09/18 Cholecalciferol (Vitamin D3) 50,000 unit PO Q30D 03/26/18 09/09/18 [Vitamin D3] Cyclobenzaprine [Flexeril] 10 mg PO TID PRN 03/26/18 09/09/18 Pravastatin Sodium [Pravachol] 80 mg PO HS 03/26/18 09/09/18 Aspirin [Adult Low Dose Aspirin EC] 81 mg PO DAILY 03/29/18 09/09/18 Fluticasone Propionate [Flovent 2 puff INHALATION RT-BID PRN 03/29/18 09/09/18 Hfa 110mcg] Ibuprofen [Motrin] 800 mg PO QID PRN 03/29/18 09/09/18 hydrALAZINE HCL [Apresoline] 100 mg PO TID 03/29/18 09/09/18 Previous Rx's Medication Instructions Recorded Omeprazole 40 mg PO DAILY #60 capsule. 06/13/18 Ondansetron Odt [Zofran Odt] 4 mg PO Q8HR PRN #9 tab 06/13/18 Simethicone 40 mg/0.6 ml Drops 40 mg PO PCHS PRN #30 ml 06/13/18 [Mylicon Drops] Allergies Allergy/AdvReac Type Severity Reaction Status Date / Time sulfamethoxazole Allergy Unknown DIZZY, Verified 07/10/18 15:28 [From Bactrim] FELT LIKE HE HAD THE FLU, HOT & COLD FLASHES trimethoprim [From Bactrim] Allergy Unknown DIZZY, Verified 07/10/18 15:28 FELT LIKE HE HAD THE FLU, HOT & COLD FLASHES Review of Systems ROS Other: All systems not noted in ROS Statement are negative. <Ean Stroud - Last Filed: 09/09/18 10:01> ROS Other: All systems not noted in ROS Statement are negative. <Adán Wahl - Last Filed: 09/09/18 10:22> ROS Statement: Those systems with pertinent positive or pertinent negative responses have been documented in the HPI. Past Medical History Past Medical History: Diabetes Mellitus, GERD/Reflux, Hyperlipidemia, Hypertension, Osteoarthritis (OA), Sleep Apnea/CPAP/BIPAP Additional Past Medical History / Comment(s): UNABLE TO USE C-PAP MACHINE, HX ULCERATIVE COLITIS, DDD, STATES HX OF RENAL FAILURE 4 YRS AGO BUT RESOLVED., STATES USES INHALER FOR EPISODES OF RASPY VOICE USUALLY IN THE WINTER., CHRONIC KNEE PAIN AND LEG CRAMPS. History of Any Multi-Drug Resistant Organisms: MRSA Date of last positivie culture/infection: 2007 MDRO Source:: LEFT KNEE Past Surgical History: Cholecystectomy, Tonsillectomy Additional Past Surgical History / Comment(s): CATALINO CARPAL TUNNEL, Gastric sleeve by Dr Henderson. Right knee arthroscopy x2, Total Right Knee. Left knee replaced 3x (First time repair broke, 2nd became infected with MRSA, replaced 3rd time). Right rotator cuff repair Past Anesthesia/Blood Transfusion Reactions: No Reported Reaction Past Psychological History: Anxiety, Depression, Panic Disorder Smoking Status: Current some day smoker - Past Family History Brother(s) Family Medical History: CVA/TIA Father Family Medical History: Deep Vein Thrombosis (DVT) Mother Family Medical History: No Reported History <Adán Wahl - Last Filed: 09/09/18 10:22> General Exam Limitations: no limitations General appearance: alert, in no apparent distress Head exam: Present: atraumatic, normocephalic, normal inspection Neck exam: Present: normal inspection, full ROM. Absent: tenderness, meningismus, lymphadenopathy Respiratory exam: Present: normal lung sounds bilaterally. Absent: respiratory distress, wheezes, rales, rhonchi, stridor Cardiovascular Exam: Present: regular rate, normal rhythm, normal heart sounds. Absent: systolic murmur, diastolic murmur, rubs, gallop, clicks GI/Abdominal exam: Present: soft, tenderness (Severe tenderness in the upper abdomen), normal bowel sounds. Absent: distended, guarding, rebound, rigid Neurological exam: Present: alert, oriented X3, CN II-XII intact Skin exam: Present: warm, dry, intact, normal color. Absent: rash <Adán Wahl - Last Filed: 09/09/18 10:22> Course <Ean Stroud - Last Filed: 09/09/18 10:01> <Adán Wahl - Last Filed: 09/09/18 10:22> Vital Signs 09/09/18 09/09/18 09/09/18 06:58 07:30 07:40 Temperature 98.4 F Pulse Rate 91 77 68 Respiratory 30 H 24 26 H Rate Blood Pressure 135/87 130/80 123/79 O2 Sat by Pulse 100 98 99 Oximetry 09/09/18 09/09/18 09/09/18 08:00 09:00 09:30 Temperature Pulse Rate 67 68 70 Respiratory 22 18 24 Rate Blood Pressure 123/79 125/74 124/78 O2 Sat by Pulse 97 95 96 Oximetry 09/09/18 10:00 Temperature Pulse Rate 67 Respiratory 24 Rate Blood Pressure 145/94 O2 Sat by Pulse 99 Oximetry - Reevaluation(s) Reevaluation #1: 09/09/18 10:01 PA supervision: I proceeded a [id number] evaluation the patient he is had abdominal pain at least since last evening episodic in nature severe. No overt fevers chills sweats he is some discomfort to palpation the epigastrium. No overt guarding rebound masses or bruits. Lab work was evaluated by me as well as CAT scan no definite acute findings. He does have an elevated lactic acid. I did discuss the case with him and his family. I also did discuss case with Dr. Villa. Patient be admitted for inpatient evaluation and hydration. (Ean Stroud) Medical Decision Making - Lab Data Result diagrams: 09/09/18 07:30 09/09/18 07:30 <Ean Stroud - Last Filed: 09/09/18 10:01> - Lab Data Result diagrams: 09/09/18 07:30 09/09/18 07:30 <Adán Wahl - Last Filed: 09/09/18 10:22> - Lab Data Lab Results 09/09/18 09/09/18 09/09/18 Range/Units 07:30 07:30 07:30 WBC 7.1 (3.8-10.6) k/uL RBC 4.49 (4.30-5.90) m/uL Hgb 14.4 (13.0-17.5) gm/dL Hct 42.9 (39.0-53.0) % MCV 95.5 (80.0-100.0) fL MCH 32.1 (25.0-35.0) pg MCHC 33.6 (31.0-37.0) g/dL RDW 14.1 (11.5-15.5) % Plt Count 254 (150-450) k/uL Neutrophils % 45 % Lymphocytes % 42 % Monocytes % 6 % Eosinophils % 3 % Basophils % 0 % Neutrophils # 3.2 (1.3-7.7) k/uL Lymphocytes # 3.0 (1.0-4.8) k/uL Monocytes # 0.5 (0-1.0) k/uL Eosinophils # 0.2 (0-0.7) k/uL Basophils # 0.0 (0-0.2) k/uL PT 9.9 (9.0-12.0) sec INR 1.0 (<1.2) APTT 22.5 (22.0-30.0) sec Sodium 140 (137-145) mmol/L Potassium 4.6 (3.5-5.1) mmol/L Chloride 103 (98-107) mmol/L Carbon Dioxide 21 L (22-30) mmol/L Anion Gap 16 mmol/L BUN 11 (9-20) mg/dL Creatinine 0.72 (0.66-1.25) mg/dL Est GFR (CKD-EPI)AfAm >90 (>60 ml/min/1.73 sqM) Est GFR (CKD-EPI)NonAf >90 (>60 ml/min/1.73 sqM) Glucose 120 H (74-99) mg/dL Plasma Lactic Acid [place] (0.7-2.0) mmol/L Calcium 9.9 (8.4-10.2) mg/dL Total Bilirubin 0.8 (0.2-1.3) mg/dL AST 69 H (17-59) U/L ALT 73 H (21-72) U/L Alkaline Phosphatase 89 (38-126) U/L Total Protein 7.4 (6.3-8.2) g/dL Albumin 4.4 (3.5-5.0) g/dL Amylase 36 (30-110) U/L Lipase 74 (23-300) U/L 09/09/18 Range/Units 07:30 WBC (3.8-10.6) k/uL RBC (4.30-5.90) m/uL Hgb (13.0-17.5) gm/dL Hct (39.0-53.0) % MCV (80.0-100.0) fL MCH (25.0-35.0) pg MCHC (31.0-37.0) g/dL RDW (11.5-15.5) % Plt Count (150-450) k/uL Neutrophils % % Lymphocytes % % Monocytes % % Eosinophils % % Basophils % % Neutrophils # (1.3-7.7) k/uL Lymphocytes # (1.0-4.8) k/uL Monocytes # (0-1.0) k/uL Eosinophils # (0-0.7) k/uL Basophils # (0-0.2) k/uL PT (9.0-12.0) sec INR (<1.2) APTT (22.0-30.0) sec Sodium (137-145) mmol/L Potassium (3.5-5.1) mmol/L Chloride (98-107) mmol/L Carbon Dioxide (22-30) mmol/L Anion Gap mmol/L BUN (9-20) mg/dL Creatinine (0.66-1.25) mg/dL Est GFR (CKD-EPI)AfAm (>60 ml/min/1.73 sqM) Est GFR (CKD-EPI)NonAf (>60 ml/min/1.73 sqM) Glucose (74-99) mg/dL Plasma Lactic Acid [place] 3.9 H* (0.7-2.0) mmol/L Calcium (8.4-10.2) mg/dL Total Bilirubin (0.2-1.3) mg/dL AST (17-59) U/L ALT (21-72) U/L Alkaline Phosphatase (38-126) U/L Total Protein (6.3-8.2) g/dL Albumin (3.5-5.0) g/dL Amylase (30-110) U/L Lipase (23-300) U/L Disposition <Ean Stroud - Last Filed: 09/09/18 10:01> <Adán Wahl - Last Filed: 09/09/18 10:22> Clinical Impression: Intractable epigastric abdominal pain, Dehydration, Status post gastric surgery Disposition: ADMITTED IP TO [facility] Condition: Fair Referrals: Oz Rogers MD [Primary Care Provider] - 1-2 days
[2018-09-09 07:41] LABS: Basophils % (A) 0 %; Eosinophils # (A) 0.2 k/uL (0-0.7); Eosinophils % (A) 3 %; HCT 42.9 % (39.0-53.0); HGB 14.4 gm/dL (13.0-17.5); Lymphocytes % (A) 42 %; MCH 32.1 pg (25.0-35.0); MCHC 33.6 g/dL (31.0-37.0); MCV 95.5 fL (80.0-100.0); Mean Platelet Volume 7.2; Monocytes # (A) 0.5 k/uL (0-1.0); Monocytes % (A) 6 %; Neutrophils # (A) 3.2 k/uL (1.3-7.7); Neutrophils % (A) 45 %; Platelet Count 254 k/uL (150-450); RBC 4.49 m/uL (4.30-5.90); RDW 14.1 % (11.5-15.5); WBC 7.1 k/uL (3.8-10.6)
[2018-09-09 07:52] LABS: ALT 73 U/L (21-72); AST 69 U/L (17-59); Albumin 4.4 g/dL (3.5-5.0); Alkaline Phosphatase 89 U/L (38-126); Amylase 36 U/L (30-110); Anion Gap 16 mmol/L; Blood Urea Nitrogen 11 mg/dL (9-20); Calcium 9.9 mg/dL (8.4-10.2); Carbon Dioxide 21 mmol/L (22-30); Chloride 103 mmol/L (98-107); Glucose 120 mg/dL (74-99); Lipase 74 U/L (23-300); Potassium 4.6 mmol/L (3.5-5.1); Sodium 140 mmol/L (137-145); Total Bilirubin 0.8 mg/dL (0.2-1.3); Total Protein 7.4 g/dL (6.3-8.2)
[2018-09-09 08:00] LABS: Partial Thromboplastin Time 22.5 sec (22.0-30.0); Prothrombin Time 9.9 sec (9.0-12.0)
[2018-09-09] MEDS ORDERED: SODIUM CHLORIDE 0.9% 1,000 ML IV ONE (08:28)
--- NOTE | 2018-09-09 08:57 | CT ---
EXAMINATION TYPE: CT abdomen pelvis w con DATE OF EXAM: 09/09/2018 REFERENCE: NONE. HISTORY: abdominal pain HISTORY: epigastric pain REFERENCE: NONE CT DLP: 1690.4 mGy Automated exposure control for dose reduction was used. TECHNIQUE: Helical acquisition through the abdomen and pelvis was obtained following the oral ingesti on of with Oral Contrast and following intravenous administration of 100 mL of Isovue 300. The data w as reformatted in axial, coronal and sagittal projections. FINDINGS: Visualized portions of the lungs are clear. There is no pleural or pericardial fluid. The heart is minimally enlarged. Within the abdomen, the gallbladder is been removed. The liver is upper limits of normal in size at 1 7.3 cm. It is low attenuating and likely fatty infiltrated. The spleen is unremarkable. There is been previous gastric surgery. Both adrenal glands are normal. Both kidneys demonstrate function and are morphologically normal. The pancreas is unremarkable. There is no significant retroperitoneal, iliac or inguinal adenopathy. The bladder is unremarkable. There is apparent mucosal thickening of part of the sigmoid colon. This may be secondary to lack of d istention. The appendix is normal. Small bowel loops are normal. There is no free fluid and no free air identified. There is a small periumbilical hernia containing fat only with a mouth measuring 12.1 mm. There is degenerative disc disease and hypertrophic spondylosis at L5-S1 as well as T12-L1 there is a bilateral lysis at L5 with a grade 1 spondylolisthesis of L5 on S1. There is a tiny sclerotic focus in the right sixth rib. In light of the lack of additional foci this likely represents a bone island. IMPRESSION: 1. THICKENING OF THE SIGMOID COLON MAY REFLECT LACK OF DISTENTION. PLEASE CORRELATE TO EXCLUDE COLITI S. 2. PROBABLE FATTY INFILTRATION OF THE LIVER. 3. POSTSURGICAL CHANGE. 4. BILATERAL LYSIS AT L5 WITH A GRADE 1 SPONDYLOLISTHESIS OF L5 ON S1. 5. SMALL PERIUMBILICAL HERNIA CONTAINING FAT ONLY WITH A MOUTH MEASURING 12.1 CM. 6. DEGENERATIVE CHANGES WITHIN THE SPINE.
[2018-09-09] MEDS ORDERED: HYDROmorphone 1 MG/ML 1 ML SYRINGE IVP PRN (10:22)
[2018-09-09] MEDS ORDERED: NALOXONE 0.4 MG/ML 1 ML VIAL IV PRN (10:22)
[2018-09-09] MEDS ORDERED: ONDANSETRON 4 MG/2 ML VIAL IVP PRN (10:22)
[2018-09-09] MEDS: SODIUM CHLORIDE 0.9% 1,000 ML IV SCH ×2 (12:01→22:39)
[2018-09-09] MEDS: HYDROmorphone 1 MG/ML 1 ML SYRINGE IVP PRN ×4 (12:07→22:32)
[2018-09-09 18:06] VITALS: BMI 35.9
[2018-09-09 20:02] LABS: Glucose,Whole Blood 88 mg/dL (75-99)
[2018-09-09 20:24] LABS: Appearance,Urine Clear (Clear); Bilirubin,Urine Negative (Negative); Blood,Urine Negative (Negative); Color,Urine Yellow; Glucose,Urine (UA) Negative (Negative); Ketones,Urine 2+ (Negative); Leukocyte Esterase,Urine Negative (Negative); Nitrite,Urine Negative (Negative); PH, Urine 5.5 (5.0-8.0); Protein,Urine Negative (Negative)
[2018-09-09] MEDS ORDERED: CYCLOBENZAPRINE 10 MG TAB PO PRN (22:58)
[2018-09-09] MEDS ORDERED: PRAVASTATIN SODIUM 40 MG TAB PO SCH (23:00)
[2018-09-09] MEDS ORDERED: LISINOPRIL 20 MG TAB PO SCH (23:00)
[2018-09-09] MEDS: buPROPion SR 150 MG TABLET.ER PO SCH (23:44)
[2018-09-09] MEDS: hydrALAZINE HCL 50 MG TAB PO SCH (23:44)
[2018-09-10] MEDS: SODIUM CHLORIDE 0.9% 1,000 ML IV SCH ×2 (05:55→08:58)
[2018-09-10 07:29] LABS: Glucose,Whole Blood 79 mg/dL (75-99)
[2018-09-10 07:31] VITALS: BP 123/80; PULSE 69; RESP 16; TEMP 98
[2018-09-10] MEDS: hydrALAZINE HCL 50 MG TAB PO SCH (08:58)
[2018-09-10] MEDS: buPROPion SR 150 MG TABLET.ER PO SCH (08:58)
[2018-09-10] MEDS ORDERED: FLUoxetine HCL 20 MG CAP PO SCH (09:00)
[2018-09-10 11:29] LABS: Hemoglobin A1C 5.4 % (4.0-6.0)
[2018-09-10] MEDS ORDERED: MULTIVITAMINS, THERA 1 EACH TAB PO SCH (12:00)
--- NOTE | 2018-09-10 12:06 | P.GSHP ---
History of Present Illness H&P Date: 09/10/18 Chief Complaint: Abdominal pain 58-year-old male presented to the emergency room to be evaluated for chief complaint of developing mid epigastric abdominal pain. Patient stated his pain was intense.points to the mid epigastric areas to the reference point. Stated felt nauseated no vomiting. stated that he has not had a bowel movement in several days. Patient states he normally has a bowel movement everyday . Patient is 3 months out from having a post gastric sleeve for morbid obesity. Patient states he has lost 60 pounds since the procedure has been tolerating the diet and doing well up until this event. Patient states the pain felt similar to when he was told he had pancreatitis lipase on admission 74 in the emergency room CAT scan abdomen and pelvis obtained revealing report indicate thickening of the sigmoid colon may reflect lack of distention, probable fatty infiltrations of the liver no free air small bowel loops normal small. Umbilical hernia Currently at the time of my examination states the abdominal pain has completely resolved "feel better now no nausea no vomiting no bowel movement Past surgical history cholecystectomy, tonsillectomy, Past medical history osteoarthritis, sleep apnea, hyperlipidemia - Review of Systems Comment: Essentially unremarkable except as mentioned in the present illness Past Medical History Past Medical History: Diabetes Mellitus, GERD/Reflux, Hypertension, Osteoarthritis (OA), Sleep Apnea/CPAP/BIPAP Additional Past Medical History / Comment(s): UNABLE TO USE C-PAP MACHINE, HX ULCERATIVE COLITIS, DDD, STATES HX OF RENAL FAILURE 4 YRS AGO BUT RESOLVED., STATES USES INHALER FOR EPISODES OF RASPY VOICE USUALLY IN THE WINTER., CHRONIC KNEE PAIN AND LEG CRAMPS. History of Any Multi-Drug Resistant Organisms: MRSA Date of last positivie culture/infection: 2007 MDRO Source:: LEFT KNEE Past Surgical History: Cholecystectomy, Tonsillectomy Additional Past Surgical History / Comment(s): CATALINO CARPAL TUNNEL, Gastric sleeve by Dr Henderson. Right knee arthroscopy x2, Total Right Knee. Left knee replaced 3x (First time repair broke, 2nd became infected with MRSA, replaced 3rd time). Right rotator cuff repair Past Anesthesia/Blood Transfusion Reactions: No Reported Reaction Past Psychological History: Anxiety, Depression, Panic Disorder Smoking Status: Former smoker Past Alcohol Use History: Heavy Additional Past Alcohol Use History / Comment(s): STATES USUALLY DRINKS OVER 14 DRINKS PER WEEK. hasn't smoked since sleeve in may 2018 Past Drug Use History: Marijuana Additional Drug Use History / Comment(s): DENIES CURRENT MARIJUANA USE-years ago - Past Family History Brother(s) Family Medical History: CVA/TIA Father Family Medical History: Deep Vein Thrombosis (DVT) Mother Family Medical History: No Reported History Medications and Allergies Home Medications Medication Instructions Recorded Confirmed Type ALPRAZolam [Xanax] 0.25 mg PO TID PRN 11/27/14 09/09/18 History HYDROcodone/APAP 7.5-325MG [[place] 1 tab PO Q4-6H PRN 11/27/14 09/09/18 History 7.5-325] Benazepril HCl [Lotensin] 40 mg PO HS 03/26/18 09/09/18 History Cholecalciferol (Vitamin D3) 50,000 unit PO Q30D 03/26/18 09/09/18 History [Vitamin D3] Cyclobenzaprine [Flexeril] 10 mg PO TID PRN 03/26/18 09/09/18 History Pravastatin Sodium [Pravachol] 40 mg PO HS 03/26/18 09/09/18 History Aspirin [Adult Low Dose Aspirin EC] 81 mg PO DAILY 03/29/18 09/09/18 History Fluticasone Propionate [Flovent 2 puff INHALATION RT-BID PRN 03/29/18 09/09/18 History Hfa 110mcg] hydrALAZINE HCL [Apresoline] 100 mg PO BID 03/29/18 09/09/18 History buPROPion HCL [Wellbutrin SR] 150 mg PO BID 09/09/18 09/09/18 History Allergies Allergy/AdvReac Type Severity Reaction Status Date / Time sulfamethoxazole Allergy Unknown DIZZY, Verified 09/09/18 10:33 [From Bactrim] FELT LIKE HE HAD THE FLU, HOT & COLD FLASHES trimethoprim [From Bactrim] Allergy Unknown DIZZY, Verified 09/09/18 10:33 FELT LIKE HE HAD THE FLU, HOT & COLD FLASHES Surgical - Exam Vital Signs Temp Pulse Resp BP Pulse Ox 98.4 F 91 30 H 135/87 100 09/09/18 06:58 09/09/18 06:58 09/09/18 06:58 09/09/18 06:58 09/09/18 06:58 GENERAL APPEARANCE: Pleasant 58-year-old male patient is alert, oriented, in no acute distress. States abdominal pain is gone now VITAL SIGNS: Reviewed HEENT: Head is normocephalic and atraumatic. Pupils are equal and reactive. The nares are patent. Oropharynx is clear without lesions. NECK: Supple without lymphadenopathy. Traches midline. HEART: S1, S2. Regular rate and rhythm. Denying chest pain no murmur LUNGS: No crackles or wheezes are heard. Air movement on room air ABDOMEN: Soft, nontender, nondistended with good bowel sounds. No peritoneal signs. No palpable organomegaly or masses. States no nausea vomiting passing gas no stool urinating no difficulty EXTREMITIES: Normal skin color and turgor. No cyanosis, rash, ulceration, clubbing or edema. Radial pedal pulses are 2/4 bilaterally. NEUROLOGICAL: No focal deficits. Strength and sensation are grossly intact. Results - Labs 09/09/18 07:30 09/09/18 07:30 Abnormal Lab Results - Last 24 Hours (Table) 09/09/18 Range/Units 20:10 Urine Ketones 2+ H (Negative) Diabetes panel 09/09/18 Range/Units 07:30 Hemoglobin A1c 5.4 (4.0-6.0) % Assessment and Plan Assessment: Impression Present on admission midepigastric pain unclear etiology History of a recent 3 month prior gastric sleeve done for morbid obesity Obesity BMI 35 History of cholecystectomy Plan Resume home meds as appropriate Resume bariatric diet DVT and GI prophylaxis Increase activity No evidence of an acute surgical abdomen Possible discharge in the next 24 hours The above impression and plan of care have been discussed and directed by signing physician. Brandy Antoine nurse practitioner acting as scribe for signing physician.
[2018-09-10 12:18] LABS: Glucose,Whole Blood 83 mg/dL (75-99)
--- NOTE | 2018-09-10 14:00 | P.DS ---
Providers Date of admission: 09/09/18 10:03 Expected date of discharge: 09/10/18 Attending physician: Keanu Clark Primary care physician: Oz [facility] Hospital Course: Pleasant 58-year-old presented to the emergency room on the day of admission with episode of severe midepigastric abdominal pain. Stated the pain did not radiate. Slightly nauseated no vomiting no diarrhea Patient stated that the pain was unbearable was pain that he had not experienced in the past. Came on suddenly. Continue to persist came into the emergency room to be evaluated. Patient stated that he was told in the past he had pancreatitis unclear the details lipase on admission was 74. Patient has a history of a recent 3 month prior gastric sleeve done for morbid obesity states he has lost 60 pounds since the surgery had been doing well In the emergency room a computed tomography scan of the abdomen pelvis. Reviewing the report the gallbladder has been removed thickening of the sigmoid colon may reflect lack of distention correlate to exclude colitis. Probable fatty infiltration of the liver. Degenerative changes in the spine and a small. Umbilical hernia containing fat only measuring 12 x 1 cm. Patient stated that shortly after being admitted the pain in his abdomen is completely gone patient was able to tolerate his bariatric diet with no difficulty On the day of discharge patient was pain-free up ambulating on the unit no nausea no vomiting tolerating diet and was anxious to be discharged. Impression discharge diagnosis Present on admission midepigastric pain unclear etiology History of a recent 3 month prior gastric sleeve done for morbid obesity Obesity BMI 35 History of cholecystectomy The above impression and plan of care have been discussed and directed by signing physician. Brandy Antoine nurse practitioner acting as scribe for signing physician. Patient Condition at Discharge: Fair Plan - Discharge Summary Discharge Rx Participant: Yes New Discharge Prescriptions: Continue HYDROcodone/APAP 7.5-325MG [[place] 7.5-325] 1 tab PO Q4-6H PRN PRN Reason: Pain ALPRAZolam [Xanax] 0.25 mg PO TID PRN PRN Reason: Anxiety Pravastatin Sodium [Pravachol] 40 mg PO HS Cyclobenzaprine [Flexeril] 10 mg PO TID PRN PRN Reason: Muscle Spasm Benazepril HCl [Lotensin] 40 mg PO HS Cholecalciferol (Vitamin D3) [Vitamin D3] 50,000 unit PO Q30D hydrALAZINE HCL [Apresoline] 100 mg PO BID Fluticasone Propionate [Flovent Hfa 110mcg] 2 puff INHALATION RT-BID PRN PRN Reason: Shortness Of Breath Aspirin [Adult Low Dose Aspirin EC] 81 mg PO DAILY buPROPion HCL [Wellbutrin SR] 150 mg PO BID Discharge Medication List ALPRAZolam [Xanax] 0.25 mg PO TID PRN 11/27/14 [History] HYDROcodone/APAP 7.5-325MG [[place] 7.5-325] 1 tab PO Q4-6H PRN 11/27/14 [History] Benazepril HCl [Lotensin] 40 mg PO HS 03/26/18 [History] Cholecalciferol (Vitamin D3) [Vitamin D3] 50,000 unit PO Q30D 03/26/18 [History] Cyclobenzaprine [Flexeril] 10 mg PO TID PRN 03/26/18 [History] Pravastatin Sodium [Pravachol] 40 mg PO HS 03/26/18 [History] Aspirin [Adult Low Dose Aspirin EC] 81 mg PO DAILY 03/29/18 [History] Fluticasone Propionate [Flovent Hfa 110mcg] 2 puff INHALATION RT-BID PRN [History] hydrALAZINE HCL [Apresoline] 100 mg PO BID 03/29/18 [History] buPROPion HCL [Wellbutrin SR] 150 mg PO BID 09/09/18 [History] Follow up Appointment(s)/Referral(s): Oz Rogers MD [Primary Care Provider] - 1-2 days Keanu Clark MD [STAFF PHYSICIAN] - 09/13/18 Activity/Diet/Wound Care/Special Instructions: Resume home meds Follow-up with Dr. clark in the bariatric clinic this Resume home diet Discharge Disposition: HOME SELF-CARE
--- NOTE | 2018-09-10 18:10 | PN ---
PROGRESS NOTE DATE OF SERVICE: 09/10/2018. CHIEF COMPLAINT: Abdominal pain. HISTORY OF PRESENT ILLNESS: This gentleman is doing a little bit better. Discomfort seems to be improving. He has had no further vomiting. PHYSICAL EXAM: Hydration is good. Color is good. He had generalized mild upper abdominal tenderness without masses. IMPRESSION: 1. Upper abdominal pain. 2. History of pancreatitis. 3. Diabetes. 4. Hypertension. PLAN: Continue to follow with Surgery. He seems to be somewhat improved. MMODL / IJN: [id number] /
--- NOTE | 2018-09-10 18:13 | CONS ---
CONSULTATION CHIEF COMPLAINT: Abdominal pain. HISTORY OF PRESENT ILLNESS: This gentleman presented to the emergency room after 2-day history of fairly generalized, but mostly upper abdominal pain. He has had pancreatitis in the past and this reminded him of it. He has had no nausea or vomiting. He has had no fever chills. He has had no diarrhea. He has had a gastric stapling in the recent past and he is diabetic. He also abuses alcohol and nicotine. REVIEW OF SYSTEMS: He has had no jaundice, neurologic problems, change in vision hearing, cough, hemoptysis, shortness of breath, chest pain, palpitations, orthopnea, PND, syncope, melena, hematochezia, urinary complaints, etc. Past medical history, family history personal and social histories are all otherwise essentially unremarkable or unchanged. MEDICATIONS: He is currently on Prozac, vitamin D, Novolin 70/30 40 units twice a day, pravastatin 80, benazepril 40, bupropion 150 twice a day, hydralazine 100 3 times a day, Motrin 800, cyclobenzaprine, Xanax 0.25, Flovent, aspirin. The remainder of his history is unremarkable. He has had some problems with depression in the past. PHYSICAL EXAM: VITAL SIGNS: Blood pressure 138/82 with a pulse of 90, respirations 16. He is afebrile. GENERAL: He appeared to be overweight in no acute distress. Skin color is normal. Skin is warm, dry. Lymph nodes are not enlarged. Head, ears, eyes, nose, mouth, and throat were normal and neck veins not distended. Thyroid not enlarged. CHEST: Clear. Cardiac exam is normal. The abdomen is protuberant, soft, nontender. There are no definite masses. Bowel sounds present. EXTREMITIES normal. NEUROLOGICAL is intact. IMPRESSION: 1. Abdominal pain, etiology unknown. 2. History of pancreatitis. 3. History of type 2 IDDM. 4. History of hypertension. 5. History of alcohol abuse. 6. History of nicotine abuse. PLAN: Follow with General surgery looking for the etiology of his pain. MMODL / IJN: [id number] /
== END 2018-09-10 15:24 | disposition home or self-care (01) ==
LOC: EC 06:54 → 4SSUR 10:03
PROVIDERS: ADMIT Surgery; ATTEND Surgery
DX: R10.13 Epigastric pain (principal); R10.10 Upper abdominal pain, unspecified; Z98.84 Bariatric surgery status; E66.9 Obesity, unspecified; Z68.35 Body mass index [BMI] 35.0-35.9, adult; R11.0 Nausea; E11.9 Type 2 diabetes mellitus without complications; K21.9 Gastro-esophageal reflux disease without esophagitis; E78.5 Hyperlipidemia, unspecified; I10 Essential (primary) hypertension; M19.90 Unspecified osteoarthritis, unspecified site; G47.30 Sleep apnea, unspecified; R74.0 Nonspecific elevation of levels of transaminase and lactic acid dehydrogenase [LDH]; R25.2 Cramp and spasm; G89.29 Other chronic pain; M25.569 Pain in unspecified knee; F17.200 Nicotine dependence, unspecified, uncomplicated; F41.0 Panic disorder [episodic paroxysmal anxiety]; F32.9 Major depressive disorder, single episode, unspecified; E86.0 Dehydration; F10.10 Alcohol abuse, uncomplicated; Z90.49 Acquired absence of other specified parts of digestive tract; Z79.82 Long term (current) use of aspirin; Z79.899 Other long term (current) drug therapy; Z88.2 Allergy status to sulfonamides; Z86.14 Personal history of Methicillin resistant Staphylococcus aureus infection; Z87.19 Personal history of other diseases of the digestive system; Z82.49 Family history of ischemic heart disease and other diseases of the circulatory system; Z82.3 Family history of stroke
CPT/HCPCS: 99285; 96374 ×2; 96375 ×2; 96361 ×5; 96376 ×6; 36415; 80053; 82150; 83605; 83690; 85025; 85610; 85730; 81003; 83036; 74177; G0378 ×2; S0106; J2405; J1170; Q9967

== ENCOUNTER → 2018-10-08 | Outpatient (CLI) | payer MEDICARE ==
[2018-10-08 15:27] VITALS: BP 141/86; PULSE 86; TEMP 97.8; BMI 35.4
--- NOTE | 2018-10-08 15:43 | P.HPBAR ---
Bariatric H&P - History & Physicial H&P Date: 10/08/18 History & Physicial: Visit/CC: three month follow up Patient initial contact: Initial weight: 153.314 kg Initial weight in pounds: 338.00 Height: 6 ft 2 in Initial BMI: 43.4 Last weight: Current weight: 125.191 kg Current weight in pounds: 276.00 Current BMI: 35.4 [place] body weight (based on NIH guidelines): 86.183 kg Excess body weight loss: 41.8% The patient is a 58 year-old M who presents for Bariatric Assessment. Patient has had complaints of some rectal bleeding. He states he has a family history of ulcerative colitis. Past Medical History Past Medical History: Diabetes Mellitus, GERD/Reflux, Hypertension, Osteoarthritis (OA), Sleep Apnea/CPAP/BIPAP Additional Past Medical History / Comment(s): UNABLE TO USE C-PAP MACHINE, HX ULCERATIVE COLITIS, DDD, STATES HX OF RENAL FAILURE 4 YRS AGO BUT RESOLVED., STATES USES INHALER FOR EPISODES OF RASPY VOICE USUALLY IN THE WINTER., CHRONIC KNEE PAIN AND LEG CRAMPS. History of Any Multi-Drug Resistant Organisms: MRSA Year Discovered:: 2007 MDRO Source:: LEFT KNEE Past Surgical History: Cholecystectomy, Tonsillectomy Additional Past Surgical History / Comment(s): CATALINO CARPAL TUNNEL, Gastric sleeve by Dr Henderson. Right knee arthroscopy x2, Total Right Knee. Left knee replaced 3x (First time repair broke, 2nd became infected with MRSA, replaced 3rd time). Right rotator cuff repair Past Anesthesia/Blood Transfusion Reactions: No Reported Reaction Past Psychological History: Anxiety, Depression, Panic Disorder Smoking Status: Former smoker Past Alcohol Use History: Heavy Additional Past Alcohol Use History / Comment(s): STATES USUALLY DRINKS OVER 14 DRINKS PER WEEK. hasn't smoked since sleeve in may 2018 Past Drug Use History: Marijuana Additional Drug Use History / Comment(s): DENIES CURRENT MARIJUANA USE-years ago - Past Family History Brother(s) Family Medical History: CVA/TIA Father Family Medical History: Deep Vein Thrombosis (DVT) Mother Family Medical History: No Reported History Surgical - Exam Vital Signs Temp Pulse BP 97.8 F 86 141/86 10/08/18 15:22 10/08/18 15:22 10/08/18 15:22 - General well developed, well nourished, no distress - Eyes PERRL - ENT normal pinna - Neck no masses - Respiratory normal expansion - Cardiovascular Rhythm: regular - Abdomen Abdomen: soft, non tender Bariatric Assessment & Plan Plan: GI bleed. Patient was scheduled for upper and lower endoscopy. Bariatric Checklist Checklist: Plan: Checklist: EGD: 1. Hiatal hernia: 2. H. Pylori: HgbA1c: Vitamin D: Smoking: Former smoker Primary care physician referral: Sue Psychiatry clearance: Cardiology clearance: Sleep study: Diet journal: VTE risk score: VTE risk level: Rehab needs at discharge:
== END ==
LOC: BARWHC3 13:06
PROVIDERS: ATTEND Surgery
DX: Z48.815 Encounter for surgical aftercare following surgery on the digestive system (principal); K92.2 Gastrointestinal hemorrhage, unspecified; Z87.891 Personal history of nicotine dependence; Z98.84 Bariatric surgery status
CPT/HCPCS: 99211

== ENCOUNTER 2018-10-25 07:39 | Day surgery (SDC) | payer MEDICARE ==
[2018-10-23 15:45] VITALS: BMI 34.7
[~2018-10-25 07:39] MED LIST: LACTATED RINGERS 1,000 ML IV SCH
[2018-10-25] MEDS ORDERED: KETAMINE 10 MG/ML 20 ML VIAL ONE (08:43)
[2018-10-25] MEDS ORDERED: LIDOCAINE 1% INJ 10MG/ML (20 ML MDV) ONE (08:43)
[2018-10-25] MEDS ORDERED: GLYCOPYRROLATE 0.2 MG/ML 2 ML VIAL ONE (08:43)
[2018-10-25] MEDS ORDERED: PROPOFOL 10 MG/ML 20 ML VIAL IV ONE (08:43)
--- NOTE | 2018-10-25 08:48 | P.GSHP ---
History of Present Illness H&P Date: 10/25/18 Chief Complaint: GI bleed, dysphagia This a 58-year-old male presents today for EGD and colonoscopy. Patient's had issues with rectal bleeding. He states he sees blood when he wipes himself. He is also had some mild dysphagia. He has previous history of gastric sleeve. Past Medical History Past Medical History: Diabetes Mellitus, GERD/Reflux, Hypertension, Osteoarthritis (OA), Sleep Apnea/CPAP/BIPAP Additional Past Medical History / Comment(s): UNABLE TO USE C-PAP MACHINE, HX ULCERATIVE COLITIS YEARS AGO., DDD, STATES HX OF RENAL FAILURE WITH DIALYSIS., STATES USES INHALER FOR EPISODES OF RASPY VOICE USUALLY IN THE WINTER (NO CURRENT RX), CHRONIC KNEE PAIN ., TYPE 2 DIABETES- NO RX SINCE SLEEVE., NO GERD SINCE SLEEVE., STATES ABDOMINAL PAIN AND BLOOD IN STOOL. History of Any Multi-Drug Resistant Organisms: MRSA Date of last positivie culture/infection: 2007 MDRO Source:: LEFT KNEE Past Surgical History: Bariatric Surgery, Cholecystectomy, Tonsillectomy Additional Past Surgical History / Comment(s): CATALINO CARPAL TUNNEL, Gastric sleeve ( Dr Henderson 06/11/18). Right knee arthroscopy x2, Total Right Knee. Left knee replaced 3x (First time repair broke, 2nd became infected with MRSA, replaced 3rd time). Right rotator cuff repair Past Anesthesia/Blood Transfusion Reactions: No Reported Reaction Past Psychological History: Anxiety, Depression, Panic Disorder Smoking Status: Former smoker Past Alcohol Use History: Daily, Heavy Additional Past Alcohol Use History / Comment(s): STATES USUALLY DRINKS OVER 14 DRINKS PER WEEK. QUIT SMOKING MAY 2018, SMOKED ON AND OFF SINCE 23 YRS OLD . Past Drug Use History: Marijuana Additional Drug Use History / Comment(s): DENIES CURRENT MARIJUANA USE-years ago - Past Family History Brother(s) Family Medical History: CVA/TIA Father Family Medical History: Deep Vein Thrombosis (DVT) Mother Family Medical History: No Reported History Medications and Allergies Home Medications Medication Instructions Recorded Confirmed Type ALPRAZolam [Xanax] 0.25 mg PO TID PRN 11/27/14 10/25/18 History Benazepril HCl [Lotensin] 40 mg PO HS 03/26/18 10/23/18 History Cholecalciferol (Vitamin D3) 50,000 unit PO Q30D 03/26/18 10/23/18 History [Vitamin D3] Pravastatin Sodium [Pravachol] 80 mg PO Q48H 03/26/18 10/23/18 History Aspirin [Adult Low Dose Aspirin EC] 81 mg PO DAILY 03/29/18 10/23/18 History hydrALAZINE HCL [Apresoline] 100 mg PO BID 03/29/18 10/23/18 History buPROPion HCL [Wellbutrin SR] 150 mg PO BID 09/09/18 10/23/18 History FLUoxetine HCL [PROzac] 40 mg PO DAILY 10/23/18 10/23/18 History HYDROcodone/APAP 5-325MG [[place] 1 tab PO Q4-6H PRN 10/23/18 10/23/18 History 5-325] Ibuprofen [Motrin] 800 mg PO DIRECTED PRN 10/23/18 10/23/18 History Multivitamins, Thera [Multivitamin 1 tab PO DAILY 10/23/18 10/25/18 History (formulary)] Allergies Allergy/AdvReac Type Severity Reaction Status Date / Time sulfamethoxazole Allergy Unknown DIZZY, Verified 10/25/18 07:52 [From Bactrim] FELT LIKE HE HAD THE FLU, HOT & COLD FLASHES trimethoprim [From Bactrim] Allergy Unknown DIZZY, Verified 10/25/18 07:52 FELT LIKE HE HAD THE FLU, HOT & COLD FLASHES Surgical - Exam Vital Signs Pulse Resp BP Pulse Ox 87 16 141/84 97 10/25/18 07:57 10/25/18 07:57 10/25/18 07:57 10/25/18 07:57 - General well developed, no distress - Eyes PERRL - ENT normal pinna - Neck no masses - Respiratory normal expansion - Cardiovascular Rhythm: regular - Abdomen Abdomen: soft, non tender Assessment and Plan Assessment: GI bleed, dysphagia. We'll perform EGD and colonoscopy.
[2018-10-25 09:19] VITALS: RESP 18
--- NOTE | 2018-10-25 09:20 | P.OP ---
Date of Procedure: 10/25/18 Preoperative Diagnosis: GI bleed Dysphagia Postoperative Diagnosis: Antral gastritis Esophagitis Colitis of mid transverse and descending colon Inflammatory polyp left colon Procedure(s) Performed: EGD Colonoscopy Anesthesia: MAC Surgeon: Keanu Henderson Pathology: other (Multiple biopsies of distal transverse and left colon) Condition: stable Disposition: PACU Description of Procedure: The patient's placed on the endoscopy table in the lateral position. He received IV sedation. The gastric was placed oropharynx and passed in the esophagus and into the stomach. Scope was placed through the pylorus. The first and second portion of the duodenum appeared normal. Scope was then brought back the antrum and this appeared mildly inflamed. A biopsies performed. Scope was then brought back through the gastric sleeve and this appeared normal. The GE junction was at 40 cm. There was evidence of some esophagitis this was biopsied. The proximal esophagus appeared normal. Scope was then withdrawn. Next digital rectal exam was performed which revealed no abnormalities. The flexible colonoscope was then placed patient anus and passed throughout the entire colon. The ileocecal valve was visualized. The cecum appeared normal. The ascending colon was normal. The proximal transverse colon appeared normal. In the distal transverse colon and left colon there was evidence of inflammation. Multiple biopsies of the this area was performed with a cold forcep. There was also inflammatory polyp was removed with a snare. The mid descending colon then appeared to be normal. The sigmoid colon was normal. Scope was then brought back the rectum and this was normal.. Scope was withdrawn for patient.
[2018-10-25 09:38] VITALS: BP 125/86; PULSE 75
== END 2018-10-25 09:55 | disposition home or self-care (01) ==
LOC: ORWHC2ENDO 07:39
PROVIDERS: ATTEND Surgery
DX: K51.90 Ulcerative colitis, unspecified, without complications (principal); K52.9 Noninfective gastroenteritis and colitis, unspecified; K21.0 Gastro-esophageal reflux disease with esophagitis; K29.50 Unspecified chronic gastritis without bleeding; M19.90 Unspecified osteoarthritis, unspecified site; I10 Essential (primary) hypertension; E11.9 Type 2 diabetes mellitus without complications; G47.33 Obstructive sleep apnea (adult) (pediatric); K51.40 Inflammatory polyps of colon without complications; F32.9 Major depressive disorder, single episode, unspecified; F41.0 Panic disorder [episodic paroxysmal anxiety]; F39 Unspecified mood [affective] disorder; G89.29 Other chronic pain; M25.569 Pain in unspecified knee; Z79.82 Long term (current) use of aspirin; Z87.891 Personal history of nicotine dependence; Z88.2 Allergy status to sulfonamides; Z98.84 Bariatric surgery status; Z79.891 Long term (current) use of opiate analgesic; Z99.89 Dependence on other enabling machines and devices; Z86.14 Personal history of Methicillin resistant Staphylococcus aureus infection; Z96.652 Presence of left artificial knee joint; Z79.899 Other long term (current) drug therapy
CPT/HCPCS: 88305; 45385; 45380; 43239; J2001; J2704

== ENCOUNTER → 2018-11-05 | Outpatient (CLI) | payer MEDICARE ==
[2018-11-05 14:22] VITALS: BP 156/92; PULSE 83; TEMP 98.3; BMI 35.6
--- NOTE | 2018-11-09 14:37 | P.HPBAR ---
Bariatric H&P - History & Physicial H&P Date: 11/05/18 History & Physicial: Visit/CC: 5 month sleeve f/u (EGD colonsocopy results) Patient initial contact: Initial weight: 153.314 kg Initial weight in pounds: 338.00 Height: 6 ft 2 in Initial BMI: 43.4 Last weight: Current weight: 125.917 kg Current weight in pounds: 277.60 Current BMI: 35.6 [place] body weight (based on NIH guidelines): 86.183 kg Excess body weight loss: 40.8% The patient is a 58 year-old M who presents for Bariatric Assessment. Patient presents today for sleeve gastrectomy follow-up. He was recently diagnosed with colitis. He has been on steroids. He states his diarrhea has improved. 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 History of Any Multi-Drug Resistant Organisms: MRSA Year Discovered:: 2007 MDRO Source:: LEFT KNEE Past Surgical History: Bariatric Surgery, Cholecystectomy, Tonsillectomy Additional Past Surgical History / Comment(s): CATALINO CARPAL TUNNEL, Gastric sleeve ( Dr Henderson 06/11/18). Right knee arthroscopy x2, Total Right Knee. Left knee replaced 3x (First time repair broke, 2nd became infected with MRSA, replaced 3rd time). Right rotator cuff repair Past Anesthesia/Blood Transfusion Reactions: No Reported Reaction Past Psychological History: Anxiety, Depression, Panic Disorder Smoking Status: Former smoker Past Alcohol Use History: Daily, Heavy Additional Past Alcohol Use History / Comment(s): STATES USUALLY DRINKS OVER 14 DRINKS PER WEEK. QUIT SMOKING MAY 2018, SMOKED ON AND OFF SINCE 23 YRS OLD . Past Drug Use History: Marijuana Additional Drug Use History / Comment(s): DENIES CURRENT MARIJUANA USE-years ago - Past Family History Brother(s) Family Medical History: CVA/TIA Father Family Medical History: Deep Vein Thrombosis (DVT) Mother Family Medical History: No Reported History Surgical - Exam Vital Signs Temp Pulse BP 98.3 F 83 156/92 11/05/18 14:18 11/05/18 14:18 11/05/18 14:18 - General well developed, no distress - Eyes PERRL - ENT normal pinna - Cardiovascular Rhythm: regular - Abdomen Abdomen: soft, non tender Bariatric Assessment & Plan Plan: Patient's obesity has improved. His current BMI is 35. His colitis has improved. He'll continue to maintain on prednisone. He'll follow-up in 4 weeks. Bariatric Checklist Checklist: Plan: Checklist: EGD: 1. Hiatal hernia: 2. H. Pylori: HgbA1c: Vitamin D: Smoking: Former smoker Primary care physician referral: Sue Psychiatry clearance: Cardiology clearance: Sleep study: Diet journal: VTE risk score: VTE risk level: Rehab needs at discharge:
== END | disposition home or self-care (01) ==
LOC: BARWHC3 13:41
PROVIDERS: ATTEND Surgery
DX: Z48.815 Encounter for surgical aftercare following surgery on the digestive system (principal); Z98.84 Bariatric surgery status; Z90.49 Acquired absence of other specified parts of digestive tract; Z87.891 Personal history of nicotine dependence; Z79.899 Other long term (current) drug therapy
CPT/HCPCS: 99211

== ENCOUNTER → 2018-11-16 | Outpatient (CLI) | payer MEDICARE ==
[2018-11-16 14:17] LABS: HCT 40.1 % (39.0-53.0); HGB 13.1 gm/dL (13.0-17.5); MCH 32.6 pg (25.0-35.0); MCHC 32.7 g/dL (31.0-37.0); MCV 99.9 fL (80.0-100.0); Platelet Count 231 k/uL (150-450); RBC 4.01 m/uL (4.30-5.90); RDW 12.4 % (11.5-15.5); WBC 6.3 k/uL (3.8-10.6)
[2018-11-16 14:29] LABS: ALT 59 U/L (21-72); AST 35 U/L (17-59); Albumin 4.1 g/dL (3.5-5.0); Alkaline Phosphatase 49 U/L (38-126); Anion Gap 9 mmol/L; Blood Urea Nitrogen 20 mg/dL (9-20); Calcium 9.6 mg/dL (8.4-10.2); Carbon Dioxide 26 mmol/L (22-30); Chloride 104 mmol/L (98-107); Glucose 220 mg/dL (74-99); Potassium 4.5 mmol/L (3.5-5.1); Sodium 139 mmol/L (137-145); Total Bilirubin 0.4 mg/dL (0.2-1.3); Total Protein 6.8 g/dL (6.3-8.2)
[2018-11-16 18:58] LABS: Vitamin D 25 Hydroxy 34.9 ng/mL (30.0-100.0)
== END | disposition home or self-care (01) ==
LOC: LABPAT 13:24
PROVIDERS: ATTEND Surgery
DX: E44.0 Moderate protein-calorie malnutrition (principal); E55.9 Vitamin D deficiency, unspecified
CPT/HCPCS: 80053; 82306; 82607; 82746; 84134; 84425; 84443; 85027

== ENCOUNTER → 2018-12-03 | Outpatient (CLI) | payer MEDICARE ==
[2018-12-03 13:55] VITALS: BP 147/92; PULSE 71; RESP 16; TEMP 98.3; BMI 35.0
--- NOTE | 2018-12-03 16:43 | P.HPBAR ---
Bariatric H&P - History & Physicial H&P Date: 12/03/18 History & Physicial: Visit/CC: sleeve follow up Patient initial contact: Initial weight: 153.314 kg Initial weight in pounds: 338.00 Height: 6 ft 2 in Initial BMI: 43.4 Last weight: Current weight: 123.831 kg Current weight in pounds: 273.00 Current BMI: 35.0 [place] body weight (based on NIH guidelines): 86.183 kg Excess body weight loss: 43.9% The patient is a 58 year-old M who presents for Bariatric Assessment. Patient presents today for sleeve gastrectomy follow-up. He still has some issues with some minimal rectal bleeding. He's had some trouble constipation. He is currently weaning his steroids. 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 History of Any Multi-Drug Resistant Organisms: MRSA Year Discovered:: 2007 MDRO Source:: LEFT KNEE Past Surgical History: Bariatric Surgery, Cholecystectomy, Tonsillectomy Additional Past Surgical History / Comment(s): CATALINO CARPAL TUNNEL, Gastric sleeve ( Dr Henderson 06/11/18). Right knee arthroscopy x2, Total Right Knee. Left knee replaced 3x (First time repair broke, 2nd became infected with MRSA, replaced 3rd time). Right rotator cuff repair Past Anesthesia/Blood Transfusion Reactions: No Reported Reaction Past Psychological History: Anxiety, Depression, Panic Disorder Smoking Status: Former smoker Past Alcohol Use History: Daily, Heavy Additional Past Alcohol Use History / Comment(s): STATES USUALLY DRINKS OVER 14 DRINKS PER WEEK. QUIT SMOKING MAY 2018, SMOKED ON AND OFF SINCE 23 YRS OLD . Past Drug Use History: Marijuana Additional Drug Use History / Comment(s): DENIES CURRENT MARIJUANA USE-years ago - Past Family History Brother(s) Family Medical History: CVA/TIA Father Family Medical History: Deep Vein Thrombosis (DVT) Mother Family Medical History: No Reported History Surgical - Exam Vital Signs Temp Pulse Resp BP 98.3 F 71 16 147/92 12/03/18 13:52 12/03/18 13:52 12/03/18 13:52 12/03/18 13:52 - General well developed, no distress - Abdomen Abdomen: soft, non tender Bariatric Assessment & Plan Plan: The patient's colitis is improved. I've asked him to increase his water intake and a trial Metamucil or Benefiber daily. He'll follow-up in 8 weeks. Bariatric Checklist Checklist: Plan: Checklist: EGD: 1. Hiatal hernia: 2. H. Pylori: HgbA1c: Vitamin D: Smoking: Former smoker Primary care physician referral: Sue Psychiatry clearance: Cardiology clearance: Sleep study: Diet journal: VTE risk score: VTE risk level: Rehab needs at discharge:
== END ==
LOC: BARWHC3 13:28
PROVIDERS: ATTEND Surgery
DX: Z48.815 Encounter for surgical aftercare following surgery on the digestive system (principal); K59.00 Constipation, unspecified; K52.9 Noninfective gastroenteritis and colitis, unspecified; E66.01 Morbid (severe) obesity due to excess calories; Z98.84 Bariatric surgery status; Z87.891 Personal history of nicotine dependence; Z90.49 Acquired absence of other specified parts of digestive tract; Z68.35 Body mass index [BMI] 35.0-35.9, adult
CPT/HCPCS: 99211

== ENCOUNTER 2019-08-21 13:08 | Inpatient (IN) | payer MEDICARE ==
[2019-08-21] MEDS ORDERED: SODIUM CHLORIDE 0.9% 500 ML 500 ML IV STA (13:33)
--- NOTE | 2019-08-21 13:40 | ED ---
General Adult HPI - General Chief complaint: Arrhythmia/Palpitations Stated complaint: A Fib/chest pain Time Seen by Provider: 08/21/19 13:10 Source: patient, RN notes reviewed Mode of arrival: ambulatory Limitations: no limitations - History of Present Illness Initial comments: This is a 59-year-old male with a past medical history significant for gastric bypass and high blood pressure. Patient states over the last week he has been having some left shoulder pain that is very sharp in severe in nature. Patient states Motrin does help knock it down. Patient states she's also noticed the pain changing areas. Patient states it's always in the shoulder but he also has had in his back and underneath the left rib cage. Patient states all of the a reas are sharp in nature. Patient states she's also very short of breath. Patient denies any diaphoresis patient denies any palpitations. Patient denies any nausea. Patient denies abdominal pain. Patient denies any headache patient denies any confusion patient denies any numbness or weakness. Patient denies any anterior chest pain. Patient states the pain is in the left shoulder area. Movement does not seem to make it worse nor does palpation. Patient denies any recent fever chills or cough. - Related Data Home Medications Medication Instructions Recorded Confirmed ALPRAZolam [Xanax] 0.25 mg PO TID PRN 11/27/14 08/21/19 Benazepril HCl [Lotensin] 40 mg PO HS 03/26/18 08/21/19 Pravastatin Sodium [Pravachol] 80 mg PO Q48H 03/26/18 08/21/19 hydrALAZINE HCL [Apresoline] 100 mg PO BID 03/29/18 08/21/19 buPROPion HCL [Wellbutrin SR] 150 mg PO BID 09/09/18 08/21/19 Ibuprofen [Motrin] 800 mg PO QID PRN 10/23/18 08/21/19 Cyclobenzaprine [Flexeril] 10 mg PO TID PRN 08/21/19 08/21/19 Ergocalciferol (Vitamin D2) 50,000 unit PO Q30D 08/21/19 08/21/19 [Drisdol] HYDROcodone/APAP 7.5-325MG [[place] 1 tab PO Q4-6H PRN 08/21/19 08/21/19 7.5-325] Allergies Allergy/AdvReac Type Severity Reaction Status Date / Time sulfamethoxazole AdvReac Unknown DIZZY, Verified 08/21/19 14:04 [From Bactrim] FELT LIKE HE HAD THE FLU, HOT & COLD FLASHES trimethoprim [From Bactrim] AdvReac Unknown DIZZY, Verified 08/21/19 14:04 FELT LIKE HE HAD THE FLU, HOT & COLD FLASHES Review of Systems ROS Statement: Those systems with pertinent positive or pertinent negative responses have been documented in the HPI. ROS Other: All systems not noted in ROS Statement are negative. 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 History of Any Multi-Drug Resistant Organisms: MRSA Date of last positivie culture/infection: 2007 MDRO Source:: LEFT KNEE Past Surgical History: Bariatric Surgery, Cholecystectomy, Tonsillectomy Additional Past Surgical History / Comment(s): CATALINO CARPAL TUNNEL, Gastric sleeve ( Dr Henderson 06/11/18). Right knee arthroscopy x2, Total Right Knee. Left knee replaced 3x (First time repair broke, 2nd became infected with MRSA, replaced 3rd time). Right rotator cuff repair Past Anesthesia/Blood Transfusion Reactions: No Reported Reaction Past Psychological History: Anxiety, Depression, Panic Disorder Smoking Status: Former smoker Past Alcohol Use History: Daily Past Drug Use History: None Reported - Past Family History Brother(s) Family Medical History: CVA/TIA Father Family Medical History: Deep Vein Thrombosis (DVT) Mother Family Medical History: No Reported History General Exam - General Exam Comments Initial Comments: GENERAL: Patient is well-developed and well-nourished. Patient is nontoxic and well- hydrated and is in mild distress. ENT: Neck is soft and supple. No significant lymphadenopathy is noted. Oropharynx is clear. Moist mucous membranes. Neck has full range of motion without eliciting any pain. EYES: The sclera were anicteric and conjunctiva were pink and moist. Extraocular movements were intact and pupils were equal round and reactive to light. Eyelids were unremarkable. PULMONARY: Unlabored respirations. Good breath sounds bilaterally. No audible rales rhonchi or wheezing was noted. CARDIOVASCULAR: Patient is a regular rate and rhythm at about 150 beats a minute. ABDOMEN: Soft and nontender with normal bowel sounds. No palpable organomegaly was noted. There is no palpable pulsatile mass. SKIN: Skin is clear with no lesions or rashes and otherwise unremarkable. NEUROLOGIC: Patient is alert and oriented x3. Cranial nerves II through XII are grossly intact. Motor and sensory are also intact. Normal speech, volume and content. Symmetrical smile. MUSCULOSKELETAL: Normal extremities with adequate strength and full range of motion. LYMPHATICS: No significant lymphadenopathy is noted PSYCHIATRIC: Normal psychiatric evaluation. Limitations: no limitations Course Vital Signs 08/21/19 08/21/19 13:09 14:06 Temperature 97.8 F Pulse Rate 155 H 152 H Respiratory 18 18 Rate Blood Pressure 120/80 118/96 O2 Sat by Pulse 99 94 L Oximetry Medical Decision Making - Medical Decision Making EKG shows atrial flutter with a 2-1 block at 141 bpm QRS is 100 QT interval is 262 QT C is 411. No ST segment elevation or depression Patient's chest x-ray shows possible left sided infiltrate. Patient had an elevated d-dimer so I did a computed tomography scan that showed that there was a significant pleural effusion on the left as well as pericardial effusion which was described as mild to moderate which was not there one year ago. I started the patient on heparin I also started the patient on Cardizem and Cardizem drip secondary to the flutter. I spoke with Dr. Liriano and he agreed to admit the patient admitted the patient I consult to cardiology. I continued heparin and Cardizem on the floor - Lab Data Result diagrams: 08/21/19 13:33 08/21/19 13:33 Lab Results 08/21/19 08/21/19 08/21/19 Range/Units 13:33 13:33 13:33 WBC 8.8 (3.8-10.6) k/uL RBC 4.29 L (4.30-5.90) m/uL Hgb 14.1 (13.0-17.5) gm/dL Hct 41.6 (39.0-53.0) % MCV 97.1 (80.0-100.0) fL MCH 32.9 (25.0-35.0) pg MCHC 33.9 (31.0-37.0) g/dL RDW 12.2 (11.5-15.5) % Plt Count 370 (150-450) k/uL Neutrophils % 73 % Lymphocytes % 14 % Monocytes % 6 % Eosinophils % 5 % Basophils % 1 % Neutrophils # 6.5 (1.3-7.7) k/uL Lymphocytes # 1.2 (1.0-4.8) k/uL Monocytes # 0.5 (0-1.0) k/uL Eosinophils # 0.4 (0-0.7) k/uL Basophils # 0.1 (0-0.2) k/uL PT 11.2 (9.0-12.0) sec INR 1.1 (<1.2) APTT 27.7 (22.0-30.0) sec D-Dimer 6.60 H (<0.60) mg/L FEU Sodium 139 (137-145) mmol/L Potassium 4.0 (3.5-5.1) mmol/L Chloride 100 (98-107) mmol/L Carbon Dioxide 26 (22-30) mmol/L Anion Gap 13 mmol/L BUN 18 (9-20) mg/dL Creatinine 0.71 (0.66-1.25) mg/dL Est GFR (CKD-EPI)AfAm >90 (>60 ml/min/1.73 sqM) Est GFR (CKD-EPI)NonAf >90 (>60 ml/min/1.73 sqM) Glucose 150 H (74-99) mg/dL Calcium 9.7 (8.4-10.2) mg/dL Magnesium 1.8 (1.6-2.3) mg/dL Total Bilirubin 0.8 (0.2-1.3) mg/dL AST 37 (17-59) U/L ALT 36 (21-72) U/L Alkaline Phosphatase 146 H (38-126) U/L Troponin I (0.000-0.034) ng/mL Total Protein 7.1 (6.3-8.2) g/dL Albumin 4.0 (3.5-5.0) g/dL TSH 2.380 (0.465-4.680) mIU/L 08/21/19 Range/Units 13:33 WBC (3.8-10.6) k/uL RBC (4.30-5.90) m/uL Hgb (13.0-17.5) gm/dL Hct (39.0-53.0) % MCV (80.0-100.0) fL MCH (25.0-35.0) pg MCHC (31.0-37.0) g/dL RDW (11.5-15.5) % Plt Count (150-450) k/uL Neutrophils % % Lymphocytes % % Monocytes % % Eosinophils % % Basophils % % Neutrophils # (1.3-7.7) k/uL Lymphocytes # (1.0-4.8) k/uL Monocytes # (0-1.0) k/uL Eosinophils # (0-0.7) k/uL Basophils # (0-0.2) k/uL PT (9.0-12.0) sec INR (<1.2) APTT (22.0-30.0) sec D-Dimer (<0.60) mg/L FEU Sodium (137-145) mmol/L Potassium (3.5-5.1) mmol/L Chloride (98-107) mmol/L Carbon Dioxide (22-30) mmol/L Anion Gap mmol/L BUN (9-20) mg/dL Creatinine (0.66-1.25) mg/dL Est GFR (CKD-EPI)AfAm (>60 ml/min/1.73 sqM) Est GFR (CKD-EPI)NonAf (>60 ml/min/1.73 sqM) Glucose (74-99) mg/dL Calcium (8.4-10.2) mg/dL Magnesium (1.6-2.3) mg/dL Total Bilirubin (0.2-1.3) mg/dL AST (17-59) U/L ALT (21-72) U/L Alkaline Phosphatase (38-126) U/L Troponin I <0.012 (0.000-0.034) ng/mL Total Protein (6.3-8.2) g/dL Albumin (3.5-5.0) g/dL TSH (0.465-4.680) mIU/L Critical Care Time Critical Care Time: Yes Total Critical Care Time: 35 Disposition Clinical Impression: Atrial flutter with rapid ventricular response, Pleural effusion, Pericardial effusion Disposition: ADMITTED IP TO THIS HOSP Referrals: Oz Rogers MD [Primary Care Provider] - 1-2 days Time of Disposition: 16:05
--- NOTE | 2019-08-21 13:54 | XR ---
EXAMINATION TYPE: XR chest 2V DATE OF EXAM: 08/21/2019 1:58:38 PM COMPARISON: 04/17/15 HISTORY: Shortness of breath TECHNIQUE: Frontal and lateral views of the chest are obtained. FINDINGS: Scattered senescent parenchymal changes noted. Hyperinflation compatible with COPD. Patchy density left lower lobe may reflect pneumonia. Correlate clinically and progress studies are a dvised. Heart size is stable. Mediastinal structures are stable and grossly unremarkable. No evidence for hilar prominence. Degenerative changes dorsal spine. IMPRESSION: 1. No evidence for acute pulmonary disease.
[2019-08-21 13:57] LABS: Basophils # (A) 0.1 k/uL (0-0.2); Basophils % (A) 1 %; Eosinophils # (A) 0.4 k/uL (0-0.7); Eosinophils % (A) 5 %; HCT 41.6 % (39.0-53.0); HGB 14.1 gm/dL (13.0-17.5); Lymphocytes # (A) 1.2 k/uL (1.0-4.8); Lymphocytes % (A) 14 %; MCH 32.9 pg (25.0-35.0); MCHC 33.9 g/dL (31.0-37.0); MCV 97.1 fL (80.0-100.0); Mean Platelet Volume 7.1; Monocytes # (A) 0.5 k/uL (0-1.0); Monocytes % (A) 6 %; Neutrophils # (A) 6.5 k/uL (1.3-7.7); Neutrophils % (A) 73 %; Platelet Count 370 k/uL (150-450); RBC 4.29 m/uL (4.30-5.90); RDW 12.2 % (11.5-15.5); WBC 8.8 k/uL (3.8-10.6)
[2019-08-21] MEDS ORDERED: HYDROmorphone 1 MG/ML 1 ML SYRINGE IVP STA (13:58)
[2019-08-21] MEDS ORDERED: ONDANSETRON 4 MG/2 ML VIAL IVP STA (13:58)
[2019-08-21 14:12] LABS: ALT 36 U/L (21-72); AST 37 U/L (17-59); African American GFR (CKD) >90 (>60 ml/min/1.73 sqM); Alkaline Phosphatase 146 U/L (38-126); Anion Gap 13 mmol/L; Blood Urea Nitrogen 18 mg/dL (9-20); Calcium 9.7 mg/dL (8.4-10.2); Carbon Dioxide 26 mmol/L (22-30); Chloride 100 mmol/L (98-107); Glucose 150 mg/dL (74-99); Magnesium 1.8 mg/dL (1.6-2.3); Non-African American GFR(CKD) >90 (>60 ml/min/1.73 sqM); Sodium 139 mmol/L (137-145); Total Bilirubin 0.8 mg/dL (0.2-1.3); Total Protein 7.1 g/dL (6.3-8.2)
[2019-08-21 14:27] LABS: INR 1.1 (<1.2); Partial Thromboplastin Time 27.7 sec (22.0-30.0); Prothrombin Time 11.2 sec (9.0-12.0)
[2019-08-21 14:31] LABS: D-Dimer 6.6 mg/L FEU (<0.60)
--- NOTE | 2019-08-21 15:20 | CT ---
EXAMINATION TYPE: CT chest angio for PE DATE OF EXAM: 08/21/2019 COMPARISON: Same day chest x-ray. HISTORY: Bilateral shoulder pain and Left sided chest pain with shortness of breath. CT DLP: 812.3 mGycm. Automated Exposure Control for Dose Reduction was Utilized. CONTRAST: CTA scan of the thorax is performed with IV Contrast, patient injected with 100 mL of Isovue 370, pul monary embolism protocol. MIP Images are created on CT scanner and reviewed. FINDINGS: LUNGS: Small to borderline moderate sized left pleural effusion with associated compressive atelectas is in the left lung base. Additional patchy left basilar linear scarring and/or atelectasis Patchy de pendent atelectatic changes right lower lobe. No suspicious masses. No pneumothorax bilaterally. MEDIASTINUM: There is suboptimal study with near equal contrast the right and left heart systems with no convincing CT evidence for significant pulmonary embolism. There are no greater than 1 cm hilar or mediastinal lymph nodes. Cardiomegaly is seen. Small to moderate-sized pericardial effusion measur ing up to 21 mm in thickness anteriorly image 99. OTHER: Partial visualization of 2.0 cm low dense lesion anterior left kidney upper to midpole level l ikely reflecting simple exophytic cyst axial image 174. Slight scoliotic curvature with mild to moder ate multilevel spurring. There is bilateral subareolar gynecomastia was slightly more nodular promine nce on the right axial image 67. Correlation with physical exam is advised to rule out mass. IMPRESSION: 1. Suboptimal study without CT evidence for acute pulmonary embolism. 2. New small to borderline moderate size left pleural effusion with associated basilar compressive at electasis. New small to moderate-sized pericardial effusion. 3. Attention to right breast as detailed above.
[2019-08-21] MEDS ORDERED: KETOROLAC 60 MG/2 ML VIAL IVP STA (15:34)
[2019-08-21] MEDS ORDERED: DILTIAZEM DRIP BOLUS FROM BAG 1 MG SOLN IV ONE (15:36)
[2019-08-21] MEDS ORDERED: HEPARIN SODIUM,PORCINE 5,000 UNIT/ML 1 ML VIAL IV ONE (15:38)
[2019-08-21] MEDS ORDERED: HEPARIN SOD,PORK IN 0.45% NACL 25,000 UNIT in 0.45% NACL 1 250ML.BAG IV SCH ×2 (15:45→19:45)
[2019-08-21] MEDS ORDERED: NITROGLYCERIN SL TABS 0.4 MG TAB SUBLINGUAL PRN (16:05)
[2019-08-21] MEDS: DILTIAZEM 125 MG in SODIUM CHLORIDE 0.9% 100 ML IV SCH (16:10)
[2019-08-21] MEDS ORDERED: HEPARIN SODIUM,PORCINE 5,000 UNIT/ML 1 ML VIAL IV PRN (19:33)
[2019-08-21] MEDS ORDERED: HEPARIN SODIUM,PORCINE 10,000 UNIT/ML 1 ML VIAL IV ONE (19:33)
[2019-08-21] MEDS: HEPARIN SOD,PORK IN 0.45% NACL 25,000 UNIT in 0.45% NACL 1 250ML.BAG IV SCH (20:58)
[2019-08-21 21:43] LABS: Glucose,Whole Blood 175 mg/dL (75-99)
[2019-08-21 21:55] VITALS: BMI 36.3
[2019-08-21] MEDS ORDERED: ALPRAZolam 0.25 MG TAB PO PRN (22:07)
[2019-08-21] MEDS: HYDROmorphone 0.5 MG/0.5 ML SYRINGE IVP PRN (22:13)
[2019-08-22] MEDS: HYDROmorphone 0.5 MG/0.5 ML SYRINGE IVP PRN ×3 (04:13→18:03)
[2019-08-22 06:20] LABS: Glucose,Whole Blood 129 mg/dL (75-99)
[2019-08-22 07:24] LABS: Cholesterol 124 mg/dL (<200); HDL Cholesterol 52 mg/dL (40-60); LDL Cholesterol,Calculated 53 mg/dL (0-99); Triglycerides 96 mg/dL (<150)
--- NOTE | 2019-08-22 08:54 | P.CRDCN ---
History of Present Illness Consult date: 08/22/19 Requesting physician: Oz Rogers Consult reason: atrial flutter Chief complaint: Left shoulder pain, pain in the left chest area just beneath his breast. History of present illness: This is a 59-year-old gentleman with history of hypertension, diabetes, hyperlipidemia, who underwent gastric sleep surgery, since then the patient no longer requires diabetic medications, does not take medications for his cholesterol, continues to take blood pressure pills. He presented to the hospital with symptoms of left shoulder discomfort, with a sharp discomfort underneath his left breast. The patient states he's been taking Motrin at home which seemed to be helping initially. He does also state that he's been having some episodes where he wakes up quite diaphoretic, unsure if he actually has a fever or not. Denies any recent upper respiratory infection. His EKG on presentation here shows atrial flutter with a rapid ventricular response. Chest x-ray did not show any evidence for acute pulmonary disease. CT of the chest was performed, did not reveal any evidence for acute pulmonary embolism. New small to borderline moderate sized left pleural effusion with associated basilar compressive atelectasis. New small to moderate pericardial effusion. Blood pressure 120/80, with a heart rate of 150 on arrival, 99% on room air. Blood pressure this morning 120/70 with a heart rate in the 80s, 94% on 2 L of oxygen. White blood cell count 8.8, hemoglobin 14.1, platelet count 370. D-dimer 6.6. Sodium 139, potassium 4.0, BUN 18, creatinine 0.7. Troponin 0.0123, magnesium 1.8. TSH 2.3. At the time of my examination this morning, patient continues to complain of pain underneath his left breast area, worse with deep breathing. Past Medical History Past Medical History: Diabetes Mellitus, GERD/Reflux, Hypertension, Osteoa rthritis (OA), Sleep Apnea/CPAP/BIPAP Additional Past Medical History / Comment(s): UNABLE TO USE C-PAP MACHINE, ULCERATIVE COLITIS "years ago", (Colitis /gastritis dx October 2018) DDD, STATES HX OF RENAL FAILURE WITH DIALYSIS., STATES USES INHALER FOR EPISODES OF RASPY VOICE USUALLY IN THE WINTER (NO CURRENT RX), CHRONIC KNEE PAIN ., TYPE 2 DIABETES- NO RX SINCE SLEEVE., NO GERD SINCE SLEEVE., STATES ABDOMINAL PAIN AND BLOOD IN STOOL. History of Any Multi-Drug Resistant Organisms: MRSA Date of last positivie culture/infection: 2007 MDRO Source:: LEFT KNEE Past Surgical History: Bariatric Surgery, Cholecystectomy, Tonsillectomy Additional Past Surgical History / Comment(s): CATALINO CARPAL TUNNEL, Gastric sleeve ( Dr Henderson 06/11/18). Right knee arthroscopy x2, Total Right Knee. Left knee replaced 3x (First time repair broke, 2nd became infected with MRSA, replaced 3rd time). Right rotator cuff repair Past Anesthesia/Blood Transfusion Reactions: No Reported Reaction Past Psychological History: Anxiety, Depression, Panic Disorder Smoking Status: Former smoker Past Alcohol Use History: Daily Additional Past Alcohol Use History / Comment(s): STATES USUALLY DRINKS OVER 14 DRINKS PER WEEK. QUIT SMOKING MAY 2018, SMOKED ON AND OFF SINCE 23 YRS OLD . Past Drug Use History: None Reported Additional Drug Use History / Comment(s): DENIES CURRENT MARIJUANA USE-years ago - Past Family History Brother(s) Family Medical History: CVA/TIA Father Family Medical History: Deep Vein Thrombosis (DVT) Mother Family Medical History: No Reported History Medications and Allergies Home Medications Medication Instructions Recorded Confirmed Type ALPRAZolam [Xanax] 0.25 mg PO TID PRN 11/27/14 08/21/19 History Benazepril HCl [Lotensin] 40 mg PO HS 03/26/18 08/21/19 History Pravastatin Sodium [Pravachol] 80 mg PO Q48H 03/26/18 08/21/19 History hydrALAZINE HCL [Apresoline] 100 mg PO BID 03/29/18 08/21/19 History buPROPion HCL [Wellbutrin SR] 150 mg PO BID 09/09/18 08/21/19 History Ibuprofen [Motrin] 800 mg PO QID PRN 10/23/18 08/21/19 History Cyclobenzaprine [Flexeril] 10 mg PO TID PRN 08/21/19 08/21/19 History Ergocalciferol (Vitamin D2) 50,000 unit PO Q30D 08/21/19 08/21/19 History [Drisdol] HYDROcodone/APAP 7.5-325MG [[place] 1 tab PO Q4-6H PRN 08/21/19 08/21/19 History 7.5-325] Allergies Allergy/AdvReac Type Severity Reaction Status Date / Time sulfamethoxazole AdvReac Unknown DIZZY, Verified 08/21/19 14:04 [From Bactrim] FELT LIKE HE HAD THE FLU, HOT & COLD FLASHES trimethoprim [From Bactrim] AdvReac Unknown DIZZY, Verified 08/21/19 14:04 FELT LIKE HE HAD THE FLU, HOT & COLD FLASHES Physical Exam Vitals: Vital Signs Temp Pulse Pulse Resp BP BP Pulse Ox 08/22/19 03:10 97.8 F 86 17 120/70 94 L 08/21/19 23:23 98.9 F 87 18 118/72 92 L 08/21/19 21:41 99.0 F 87 22 135/80 95 08/21/19 17:00 116 H 26 H 110/79 98 08/21/19 16:30 125 H 20 115/95 98 08/21/19 16:00 121 H 18 127/94 96 08/21/19 15:30 141 H 17 112/95 93 L 08/21/19 14:30 151 H 18 118/96 95 08/21/19 14:06 152 H 18 118/96 94 L 08/21/19 14:00 146 H 17 116/78 98 08/21/19 13:30 154 H 17 131/92 98 08/21/19 13:09 97.8 F 155 H 18 120/80 99 Intake and Output 08/21/19 08/22/19 08/22/19 22:59 06:59 14:59 Intake Total 54.167 102.635 Balance 54.167 102.635 Intake: Intake, IV Titration 54.167 102.635 Amount Diltiazem 125 mg In 20 Sodium Chloride 0.9% 100 ml @ 5 MG/HR 5 mls/hr IV .Q24H [facility] Rx#:[id number] Heparin Sod,Pork in 0.45% 34.167 102.635 NaCl 25,000 unit In 0.45 % NaCl 1 250ml.bag @ 8. 165 UNITS/KG/HR 10 mls/hr IV .Q24H [facility] Rx#: [id number] Other: Voiding Method Toilet Toilet Urinal Urinal # Voids 1 Weight 128.5 kg PHYSICAL EXAMINATION: GENERAL: 59-year-old gentleman in no acute distress at the time of my examination HEENT: Head is atraumatic, normocephalic. Pupils equal, round. Sclera anicteric. Conjunctiva are clear. Mucous membranes of the mouth are moist. Neck is supple. There is no elevated jugular venous pressure. No carotid bruit is heard. HEART EXAMINATION: Heart S1 and S2 irregularly irregular CHEST EXAMINATION: Lungs are clear to auscultation and precussion. Positive chest wall tenderness is noted on palpation and with deep breathing. ABDOMEN: Soft, nontender. Bowel sounds are heard. No organomegaly noted. EXTREMITIES: 2+ peripheral pulses with no evidence of peripheral edema and no calf tenderness noted. NEUROLOGIC patient is awake, alert and oriented 3 . . Results 08/21/19 13:33 08/21/19 13:33 Cardiac Enzymes 08/21/19 08/21/19 08/21/19 Range/Units 13:33 13:33 19:54 AST 37 (17-59) U/L Troponin I <0.012 <0.012 (0.000-0.034) ng/mL 08/22/19 Range/Units 01:40 AST (17-59) U/L Troponin I <0.012 (0.000-0.034) ng/mL Coagulation 08/21/19 08/21/19 08/22/19 Range/Units 13:33 22:55 06:15 PT 11.2 (9.0-12.0) sec APTT 27.7 27.0 27.4 (22.0-30.0) sec Lipids 08/22/19 Range/Units 06:15 Triglycerides 96 (<150) mg/dL Cholesterol 124 (<200) mg/dL HDL Cholesterol 52 (40-60) mg/dL CBC 08/21/19 Range/Units 13:33 WBC 8.8 (3.8-10.6) k/uL RBC 4.29 L (4.30-5.90) m/uL Hgb 14.1 (13.0-17.5) gm/dL Hct 41.6 (39.0-53.0) % Plt Count 370 (150-450) k/uL Comprehensive Metabolic Panel 08/21/19 Range/Units 13:33 Sodium 139 (137-145) mmol/L Potassium 4.0 (3.5-5.1) mmol/L Chloride 100 (98-107) mmol/L Carbon Dioxide 26 (22-30) mmol/L BUN 18 (9-20) mg/dL Creatinine 0.71 (0.66-1.25) mg/dL Glucose 150 H (74-99) mg/dL Calcium 9.7 (8.4-10.2) mg/dL AST 37 (17-59) U/L ALT 36 (21-72) U/L Alkaline Phosphatase 146 H (38-126) U/L Total Protein 7.1 (6.3-8.2) g/dL Albumin 4.0 (3.5-5.0) g/dL Current Medications Generic Name Dose Route Start Last Admin Trade Name Freq PRN Reason Stop Dose Admin Alprazolam 0.25 mg 08/21/19 22:07 08/21/19 22:12 Xanax PO 0.25 mg TID PRN Administration Anxiety Aspirin 325 mg 08/22/19 09:00 Aspirin PO DAILY MIGUEL Heparin Sodium (Porcine) 0 unit 08/21/19 19:46 Heparin IV PER PROTOCOL PRN Low PTT Protocol Hydromorphone HCl 0.5 mg 08/21/19 22:08 08/22/19 04:13 Dilaudid IVP 0.5 mg Q6HR PRN Administration Pain Diltiazem HCl 125 mg/ Sodium 125 mls @ 5 mls/hr 08/21/19 15:45 08/21/19 16:10 Chloride IV 5 mg/hr .Q24H MIGUEL 5 mls/hr Administration 5 MG/HR Heparin Sodium/Sodium Chloride 250 mls @ 10 mls/hr 08/21/19 20:00 08/22/19 0 7:56 25,000 unit/ Sodium Chloride IV 14.41 units/kg/hr .Q24H [facility]EL 17.648 mls/hr Titration Protocol 8.165 UNITS/KG/HR Nitroglycerin 0.4 mg 08/21/19 16:05 Nitrostat SUBLINGUAL Q5M PRN Chest Pain Intake and Output 08/21/19 08/22/19 08/22/19 22:59 06:59 14:59 Intake Total 54.167 102.635 Balance 54.167 102.635 Intake: Intake, IV Titration 54.167 102.635 Amount Diltiazem 125 mg In 20 Sodium Chloride 0.9% 100 ml @ 5 MG/HR 5 mls/hr IV .Q24H [facility] Rx#:[id number] Heparin Sod,Pork in 0.45% 34.167 102.635 NaCl 25,000 unit In 0.45 % NaCl 1 250ml.bag @ 8. 165 UNITS/KG/HR 10 mls/hr IV .Q24H [facility] Rx#: [id number] Other: Voiding Method Toilet Toilet Urinal Urinal # Voids 1 Weight 128.5 kg 08/21/19 13:33 08/21/19 13:33 EKG Interpretations (text) EKG shows atrial flutter with a rapid ventricular response Assessment and Plan Plan: Assessment and plan #1 atypical atrial flutter with rapid ventricular response #2 left shoulder and left chest discomfort, atypical for acute coronary syndrome, worsens with deep breathing. Troponins negative 3. Evidence of small to moderate pericardial effusion on CAT scan. Evidence of left sided pleural effusion. CTA of the chest negative for pulmonary embolism. #3 history of gastric sleeve surgery #4 hypertension #5 prior history of diabetes, since his gastric sleeve surgery he does not take any diabetic meds #6 hyperlipidemia Plan We will continue heparin drip, obtain echocardiogram with Doppler study, continue Cardizem drip. Request an ultrasound of the chest to assess the pleural effusion. Obtain sed rate. Further recommendations to follow. DNP note has been reviewed, I agree with a documented findings and plan of care. Patient was seen and examined.
[2019-08-22] MEDS ORDERED: ASPIRIN 325 MG TAB PO SCH (09:00)
[2019-08-22] MEDS: HEPARIN SOD,PORK IN 0.45% NACL 25,000 UNIT in 0.45% NACL 1 250ML.BAG IV SCH ×2 (09:43→22:36)
[2019-08-22] MEDS: HEPARIN SODIUM,PORCINE 5,000 UNIT/ML 1 ML VIAL IV PRN ×2 (09:43→15:58)
[2019-08-22] MEDS: ASPIRIN 81 MG PO SCH (10:04)
--- NOTE | 2019-08-22 10:54 | US ---
EXAMINATION TYPE: US chest DATE OF EXAM: 08/22/2019 COMPARISON: CT & xray CLINICAL HISTORY: left sided pleural effusion. TECHNIQUE: Targeted ultrasound of the posterior lower left hemithorax EXAM MEASUREMENTS: Left Pleural Effusion pocket size: 5.8 cm Left skin surface to fluid distance: 5.0 cm Left side marked for possible thoracentesis outside the dept. Pulmonologists are able to review the images in the patient?s EMR. IMPRESSIONS: Small left pleural effusion
[2019-08-22 11:49] LABS: Glucose,Whole Blood 126 mg/dL (75-99)
--- NOTE | 2019-08-22 11:55 | ECHOF ---
Referral Reason:aflutter MEASUREMENTS -------- HEIGHT: 182.9 cm WEIGHT: 117.9 kg BP: RVIDd: 4.2 cm (< 3.3) IVSd: 1.4 cm (0.6 - 1.1) LVIDd: 4.5 cm (3.9 - 5.3) LVPWd: 1.3 cm (0.6 - 1.1) IVSs: 1.6 cm LVIDs: 4.6 cm LVPWs: 1.5 cm Ao Diam: 3.4 cm (2.0 - 3.7) AV Cusp: 2.2 cm (1.5 - 2.6) LA Diam: 4.5 cm (2.7 - 3.8) MV EXCURSION: 17.354 mm (> 18.000) MV EF SLOPE: 114 mm/s (70 - 150) EPSS: 0.5 cm FINDINGS -------- The rhythm appears to be atrial flutter. Morbid Obesity This was a techncally difficult study with suboptimal views, , Lumason utilized for enhancement of im ages. The left ventricular size is normal. There is mild concentric left ventricular hypertrophy. Overa ll left ventricular systolic function is normal with, an EF between 55 - 60 %. The right ventricle is moderate to severely enlarged. The left atrial size is normal. The right atrial size is normal. 5.0mg OF Lumason UTLIZED: 2 OR MORE WALL SEGMENTS NOT VISUALIZED. The aortic valve was not well visualized. The mitral valve was not well visualized. The tricuspid valve was not well visualized. The pulmonic valve was not well visualized. There is a small, generalized pericardial effusion present. CONCLUSIONS -------- 1. The rhythm appears to be atrial flutter. 2. Morbid Obesity 3. This was a techncally difficult study with suboptimal views, , Lumason utilized for enhancement of images. 4. The left ventricular size is normal. 5. There is mild concentric left ventricular hypertrophy. 6. Overall left ventricular systolic function is normal with, an EF between 55 - 60 %. 7. The right ventricle is moderate to severely enlarged. 8. The left atrial size is normal. 9. The right atrial size is normal. 10. 5.0mg OF Lumason UTLIZED: 2 OR MORE WALL SEGMENTS NOT VISUALIZED. 11. The aortic valve was not well visualized. 12. The mitral valve was not well visualized. 13. The tricuspid valve was not well visualized. 14. The pulmonic valve was not well visualized. 15. There is a small, generalized pericardial effusion present. BAIL BOND AGENT: Melissa Lara RDCS
[2019-08-22] MEDS: NAPROXEN 250 MG TAB PO SCH ×2 (12:31→20:45)
[2019-08-22] MEDS: methylPREDNISolone SOD SUCCI 40 MG/ML 1 ML VIAL IV SCH ×2 (12:32→20:45)
[2019-08-22] MEDS: COLCHICINE 0.6 MG EACH PO SCH ×2 (12:32→20:45)
--- NOTE | 2019-08-22 13:18 | P.CNPUL ---
History of Present Illness Consult date: 08/22/19 Requesting physician: Oz Rogers Reason for consult: dyspnea, chest pain, pleural effusion Chief complaint: Pleuritic chest pain, shortness of breath History of present illness: This is a 59-year-old white male patient of Dr. Rogers, with past medical history of diabetes mellitus, hypertension, sleep apnea intolerant to CPAP, morbid obesity status post gastric sleeve surgery in May 2018, previous MRSA infection in the left knee, anxiety, depression, brief history of smoking less than a pack a day for 4 years, in remission for last 4 years. Patient presented to the emergency department on 08/21/2019 with complaints of stabbing sharp pain across the shoulders, anterior chest, and along the rib cage margin anteriorly. The pain was aggravated with deep breathing and moving, and would get better with NSAIDs. The pain started on Monday, last week patient had some fever and c hills and night sweats on 2 different occasions at night. He normally has a cough with some mucus production related to his chronic sinus problem, and patient states his been coughing up more phlegm. Denied any heaviness or dizziness, denied any syncopal episodes. No hemoptysis. No lower extremity swelling. Denies any chronic lung condition, no history of asthma or COPD, not on any inhalers oxygen or nebulized treatments at home. Denied any palpitations, on presentation to the emergency department patient was found to be in atrial flutter with rapid ventricular response, which is new for the patient, chest x-ray showed no evidence of acute pulmonary disease, labs showed normal white count, hemoglobin was 14.1, d-dimer was 6.60, electrolytes and renal profile were within normal limits, ESR was only mildly elevated at 22, bun was negative 3. CTA chest was a suboptimal study without evidence of acute pulmonary embolism, and it showed new small to borderline moderate size left pleural effusion with basilar compressive atelectasis, and a small to moderate- sized pericardial effusion. Echocardiogram showed a small generalized pericardial effusion present, LVEF of 55-60%, moderate to severe enlargement of the right ventricle, aortic, mitral, tricuspid and pulmonic valves not well visualized. Chest ultrasound was obtained showing left pleural effusion pocket of 5.8 cm. Review of Systems All systems: negative Constitutional: Denies chills, Denies fever Eyes: denies blurred vision, denies pain Ears, nose, mouth and throat: Denies headache, Denies sore throat Cardiovascular: Reports chest pain, Denies shortness of breath Respiratory: Reports dyspnea, Reports pain on inspiration, Denies cough Gastrointestinal: Denies abdominal pain, Denies diarrhea, Denies nausea, Denies vomiting Musculoskeletal: Denies myalgias Integumentary: Denies pruritus, Denies rash Neurological: Denies numbness, Denies weakness Psychiatric: Denies anxiety, Denies depression Endocrine: Denies fatigue, Denies weight change Past Medical History Past Medical History: Diabetes Mellitus, GERD/Reflux, Hypertension, Osteoarthritis (OA), Sleep Apnea/CPAP/BIPAP Additional Past Medical History / Comment(s): UNABLE TO USE C-PAP MACHINE, ULCERATIVE COLITIS "years ago", (Colitis /gastritis dx October 2018) DDD, STATES HX OF RENAL FAILURE WITH DIALYSIS., STATES USES INHALER FOR EPISODES OF RASPY VOICE USUALLY IN THE WINTER (NO CURRENT RX), CHRONIC KNEE PAIN ., TYPE 2 DIABETES- NO RX SINCE SLEEVE., NO GERD SINCE SLEEVE., STATES ABDOMINAL PAIN AND BLOOD IN STOOL. History of Any Multi-Drug Resistant Organisms: MRSA Date of last positivie culture/infection: 2007 MDRO Source:: LEFT KNEE Past Surgical History: Bariatric Surgery, Cholecystectomy, Tonsillectomy Additional Past Surgical History / Comment(s): CATALINO CARPAL TUNNEL, Gastric sleeve ( Dr Henderson 06/11/18). Right knee arthroscopy x2, Total Right Knee. Left knee replaced 3x (First time repair broke, 2nd became infected with MRSA, replaced 3rd time). Right rotator cuff repair Past Anesthesia/Blood Transfusion Reactions: No Reported Reaction Past Psychological History: Anxiety, Depression, Panic Disorder Smoking Status: Former smoker Past Alcohol Use History: Daily Additional Past Alcohol Use History / Comment(s): STATES USUALLY DRINKS OVER 14 DRINKS PER WEEK. QUIT SMOKING MAY 2018, SMOKED ON AND OFF SINCE 23 YRS OLD . Past Drug Use History: None Reported Additional Drug Use History / Comment(s): DENIES CURRENT MARIJUANA USE-years ago - Past Family History Brother(s) Family Medical History: CVA/TIA Father Family Medical History: Deep Vein Thrombosis (DVT) Mother Family Medical History: No Reported History Medications and Allergies Home Medications Medication Instructions Recorded Confirmed Type ALPRAZolam [Xanax] 0.25 mg PO TID PRN 11/27/14 08/21/19 History Benazepril HCl [Lotensin] 40 mg PO HS 03/26/18 08/21/19 History Pravastatin Sodium [Pravachol] 80 mg PO Q48H 03/26/18 08/21/19 History hydrALAZINE HCL [Apresoline] 100 mg PO BID 03/29/18 08/21/19 History buPROPion HCL [Wellbutrin SR] 150 mg PO BID 09/09/18 08/21/19 History Ibuprofen [Motrin] 800 mg PO QID PRN 10/23/18 08/21/19 History Cyclobenzaprine [Flexeril] 10 mg PO TID PRN 08/21/19 08/21/19 History Ergocalciferol (Vitamin D2) 50,000 unit PO Q30D 08/21/19 08/21/19 History [Drisdol] HYDROcodone/APAP 7.5-325MG [[place] 1 tab PO Q4-6H PRN 08/21/19 08/21/19 History 7.5-325] Allergies Allergy/AdvReac Type Severity Reaction Status Date / Time sulfamethoxazole AdvReac Unknown DIZZY, Verified 08/21/19 14:04 [From Bactrim] FELT LIKE HE HAD THE FLU, HOT & COLD FLASHES trimethoprim [From Bactrim] AdvReac Unknown DIZZY, Verified 08/21/19 14:04 FELT LIKE HE HAD THE FLU, HOT & COLD FLASHES Physical Exam Vitals: Vital Signs Temp Pulse Pulse Resp BP BP Pulse Ox 08/22/19 11:07 100.0 F H 65 21 120/76 94 L 08/22/19 09:25 130 H 18 08/22/19 07:40 99.2 F 130 H 18 125/81 96 08/22/19 03:10 97.8 F 86 17 120/70 94 L 08/21/19 23:23 98.9 F 87 18 118/72 92 L 08/21/19 21:41 99.0 F 87 22 135/80 95 08/21/19 17:00 116 H 26 H 110/79 98 08/21/19 16:30 125 H 20 115/95 98 08/21/19 16:00 121 H 18 127/94 96 08/21/19 15:30 141 H 17 112/95 93 L 08/21/19 14:30 151 H 18 118/96 95 08/21/19 14:06 152 H 18 118/96 94 L 08/21/19 14:00 146 H 17 116/78 98 08/21/19 13:30 154 H 17 131/92 98 08/21/19 13:09 97.8 F 155 H 18 120/80 99 Intake and Output 08/21/19 08/22/19 08/22/19 22:59 06:59 14:59 Intake Total 54.167 134.107 Balance 54.167 134.107 Intake: Intake, IV Titration 54.167 134.107 Amount Diltiazem 125 mg In 20 Sodium Chloride 0.9% 100 ml @ 5 MG/HR 5 mls/hr IV .Q24H [facility] Rx#:[id number] Heparin Sod,Pork in 0.45% 34.167 134.107 NaCl 25,000 unit In 0.45 % NaCl 1 250ml.bag @ 8. 165 UNITS/KG/HR 10 mls/hr IV .Q24H [facility] Rx#: [id number] Oral 0 Other: Voiding Method Toilet Toilet Toilet Urinal Urinal Urinal # Voids 1 1 Weight 128.5 kg GENERAL EXAM: Alert, pleasant, 59-year-old white male, on room air, with a pulse ox of 94%. Patient is in mild to moderate amount of discomfort with deep breathing and pleuritic chest pain HEAD: Normocephalic/atraumatic. EYES: Normal reaction of pupils, equal size. Conjunctiva pink, sclera white. NOSE: Clear with pink turbinates. THROAT: No erythema or exudates. NECK: No masses, no JVD, no thyroid enlargement, no adenopathy. CHEST: No chest wall deformity. Symmetrical expansion. LUNGS: Diminished air entry with bibasilar rales, wheeze, rhonchi. Diminished breath sounds at left lower lobe, with dullness to percussion CVS: Regular rate and rhythm, normal S1 and S2, no gallops, no murmurs, no rubs ABDOMEN: Soft, nontender. No hepatosplenomegaly, normal bowel sounds, no guarding or rigidity. EXTREMITIES: No clubbing, no edema, no cyanosis, 2+ pulses and upper and lower extremities. MUSCULOSKELETAL: Muscle strength and tone normal. SPINE: No scoliosis or deformity SKIN: No rashes CENTRAL NERVOUS SYSTEM: Alert and oriented -3. No focal deficits, tone is normal in all 4 extremities. PSYCHIATRIC: Alert and oriented -3. Appropriate affect. Intact judgment and insight. Results - Laboratory Findings CBC and BMP: 08/21/19 13:33 08/21/19 13:33 PT/INR, D-dimer PT 11.2 sec (9.0-12.0) 08/21/19 13:33 INR 1.1 (<1.2) 08/21/19 13:33 D-Dimer 8.92 mg/L FEU (<0.60) H 08/22/19 06:15 Abnormal lab findings: Abnormal Labs 08/21/19 08/21/19 08/21/19 13:33 13:33 13:33 RBC 4.29 L ESR D-Dimer 6.60 H Glucose 150 H POC Glucose (mg/dL) Alkaline Phosphatase 146 H 08/21/19 08/22/19 08/22/19 21:41 06:15 06:15 RBC ESR 22 H D-Dimer 8.92 H Glucose POC Glucose (mg/dL) 175 H Alkaline Phosphatase 08/22/19 08/22/19 06:18 11:47 RBC ESR D-Dimer Glucose POC Glucose (mg/dL) 129 H 126 H Alkaline Phosphatase - Diagnostic Findings Chest x-ray: report reviewed, image reviewed CT scan - chest: report reviewed, image reviewed Additional studies: Echocardiogram reviewed, chest ultrasound reviewed, EKG reviewed Assessment and Plan Plan: Assessment: #1. Pleuritic chest pain, CTA chest negative for any evidence of PE, but did show small left pleural effusion #2. New onset A. fib flutter with a rapid ventricular response #3. Small generalized pericardial effusion with unknown etiology #4. Morbid obesity status post gastric sleeve #5. Hypertension #6. Hyperlipidemia #7. Obstructive sleep apnea unable to use CPAP machine #8. Diabetes mellitus type 2 #9. Osteoarthritis #10. Severe of previous MRSA infection #11. Brief history of smoking, in remission, patient only smoked for 4 years less than a pack a day, no chronic lung disease #12. Anxiety/depression/panic disorder Plan: Results of the chest x-ray, CTA chest, and echocardiogram have been reviewed, ultrasound chest showed a small pleural effusion pocket on the left, which we may consider draining if the pain persists. Patient is still having significant pleuritic chest pain, will add IV steroids. Did not set of blood cultures, procalcitonin, will check influenza screen. ESR was not significantly elevated only at 22, cardiology is following, and patient is on IV diltiazem and heparin drip for a flutter with RVR. Does have JVD, but good peripheral pulses, no hypotension. Echocardiogram showed a small generalized pericardial effusion. We'll continue to follow and make further recommendations I performed a history & physical examination of the patient and discussed their management with my nurse practitioner, Lorelei Ellison. I reviewed the nurse practitioner's note and agree with the documented findings and plan of care. Lung sounds are positive for diminished breath sounds at the left base. The findings and the impression was discussed with the patient. I attest to the documentation by the nurse practitioner.
[2019-08-22] MEDS: DILTIAZEM 125 MG in SODIUM CHLORIDE 0.9% 100 ML IV SCH (15:54)
[2019-08-22] MEDS: FUROSEMIDE 20 MG TAB PO SCH (15:54)
[2019-08-22 17:09] LABS: Glucose,Whole Blood 218 mg/dL (75-99)
[2019-08-22] MEDS: INSULIN ASPART (NovoLOG) 100 UNIT/ML VIAL SQ SCH ×2 (18:04→20:47)
--- NOTE | 2019-08-22 18:35 | HP ---
HISTORY AND PHYSICAL CHIEF COMPLAINT: Chest pain, shortness of breath and tightness in his shoulders. HISTORY OF PRESENT ILLNESS: This is another admission for this is a 59-year-old white male who has a history of alcoholism, COPD and diabetes. He came into the office after a 4- or 5-day history of some pain across the anterior chest from shoulder to shoulder and up into his collar bones. In the office he was found to have atrial fib fibrillation/flutter with a rate of 150. X-ray did not demonstrate any evidence of heart failure, hemo- or pneumothorax, etc. He was directed to the emergency room, where he was to be evaluated and admitted. There was no suggestion of ischemia on his EKG. In the ER, his D-dimer was high and CTA revealed pulmonary emboli. REVIEW OF SYSTEMS: He has no other complaints. He has had no syncope and he has had no vomiting. Past medical history, family history, and personal and social histories reveal that he is ALLERGIC to SULFA. He is currently on: 1. Prozac. 2. Bupropion 150 mg twice a day. 3. Vicodin p.r.n. 4. Cyclobenzaprine 10 mg t.i.d. p.r.n. 5. Benazepril 40 mg once a day. 6. Vitamin D. 7. Pravastatin 80 mg once a day. 8. Hydralazine 100 t.i.d. 9. Ibuprofen. 10.Xanax 0.25 t.i.d. p.r.n. 11.Aspirin 81 mg. He used to smoke but has not lately. He does drink heavy quantities of alcohol. PHYSICAL EXAMINATION: Pulse is 150 and irregularly irregular. Blood pressure 112/80, respirations of 36. In general he appeared to be acutely ill. He was slightly pale. He was not diaphoretic. Head, ears, eyes, nose, mouth and throat were otherwise normal. Neck veins were are not distended and the thyroid was not enlarged. Chest demonstrated decreased breath sounds with occasional rales and rhonchi scattered throughout the lung nobles. Cardiac exam demonstrated tachycardia. Abdomen was soft, nontender. Extremities were normal. Neurologically he was intact. He was admitted to the hospital with the diagnoses: 1. Chest pain with new-onset atrial fibrillation with rapid ventricular response. 2. Hypertension. 3. Diabetes. 4. Chronic obstructive pulmonary disease. PLAN: 1. Bed rest. 2. IV fluids. 3. Nasal oxygen. 4. IV heparin. 5. Analgesics. MMODL / IJN: [id number] /
[2019-08-22 20:31] LABS: Glucose,Whole Blood 260 mg/dL (75-99)
[2019-08-22 23:42] VITALS: RESP 18
[2019-08-23] MEDS: HYDROmorphone 0.5 MG/0.5 ML SYRINGE IVP PRN (00:22)
[2019-08-23] MEDS: methylPREDNISolone SOD SUCCI 40 MG/ML 1 ML VIAL IV SCH (04:07)
[2019-08-23] MEDS: DILTIAZEM 125 MG in SODIUM CHLORIDE 0.9% 100 ML IV SCH (04:47)
[2019-08-23 06:20] LABS: Glucose,Whole Blood 224 mg/dL (75-99)
[2019-08-23] MEDS: INSULIN ASPART (NovoLOG) 100 UNIT/ML VIAL SQ SCH (06:25)
[2019-08-23] MEDS: NAPROXEN 250 MG TAB PO SCH (09:36)
[2019-08-23] MEDS: ASPIRIN 81 MG PO SCH (09:37)
[2019-08-23] MEDS: FUROSEMIDE 20 MG TAB PO SCH (09:38)
[2019-08-23] MEDS: COLCHICINE 0.6 MG EACH PO SCH (09:38)
[2019-08-23] MEDS ORDERED: DILTIAZEM CD 120 MG CAP.ER.24H PO SCH (10:15)
--- NOTE | 2019-08-23 10:41 | XR ---
EXAMINATION TYPE: XR chest 2V DATE OF EXAM: 08/23/2019 COMPARISON: 08/21/2019 INDICATION: Pleural effusion TECHNIQUE: Frontal and lateral views of the chest are obtained. FINDINGS: The heart size is normal. The pulmonary vasculature is normal. There is a small left pleural effusion. This is slightly greater than comparison. Suspicious consolid ations are not evident.. IMPRESSION: 1. Small left pleural effusion.
[2019-08-23 11:32] VITALS: BP 125/70; PULSE 89; TEMP 97.8
[2019-08-23 14:31] LABS: Hemoglobin A1C 5.4 % (4.0-6.0)
--- NOTE | 2019-08-23 16:02 | PN ---
PROGRESS NOTE DATE OF SERVICE: 08/22/2019 CHIEF COMPLAINT: Atrial fibrillation with RVR. HISTORY OF PRESENT ILLNESS: This gentleman continues to have a great deal of shortness of breath and bilateral anterior chest pain which is a little bit worse on the left than on the right. He has had no hemoptysis and he has had no fever or chills. PHYSICAL EXAMINATION: His color is good. Chest demonstrates decreased breath sounds throughout with scattered rales and rhonchi. He is still in atrial flutter. Abdomen is soft and nontender. IMPRESSION: 1. New-onset atrial fibrillation. 2. Continued chest pain. 3. Possible pulmonary embolism. PLAN: 1. Continue with current treatment. 2. Increase his analgesics. 3. He continues with Cardizem and has not converted. MMODL / IJN: [id number] /
--- NOTE | 2019-08-23 16:20 | P.PN ---
Subjective Progress Note Date: 08/23/19 Principal diagnosis: Pleuritic chest pain, pleural effusion, pericardial effusion This is a 59-year-old white male patient of Dr. Rogers, with past medical history of diabetes mellitus, hypertension, sleep apnea intolerant to CPAP, morbid obesity status post gastric sleeve surgery in May 2018, previous MRSA infection in the left knee, anxiety, depression, brief history of smoking less than a pack a day for 4 years, in remission for last 4 years. Patient presented to the emergency department on 08/21/2019 with complaints of stabbing sharp pain across the shoulders, anterior chest, and along the rib cage margin anteriorly. The pain was aggravated with deep breathing and moving, and would get better with NSAIDs. The pain started on Monday, last week patient had some fever and chills and night sweats on 2 different occasions at night. He normally has a cough with some mucus production related to his chronic sinus problem, and patient states his been coughing up more phlegm. Denied any heaviness or dizziness, denied any syncopal episodes. No hemoptysis. No lower extremity swelling. Denies any chronic lung condition, no history of asthma or COPD, not on any inhalers oxygen or nebulized treatments at home. Denied any palpitations, on presentation to the emergency department patient was found to be in atrial flutter with rapid ventricular response, which is new for the patient, chest x-ray showed no evidence of acute pulmonary disease, labs showed normal white count, hemoglobin was 14.1, d-dimer was 6.60, electrolytes and renal profile were within normal limits, ESR was only mildly elevated at 22, bun was negative 3. CTA chest was a suboptimal study without evidence of acute pulmonary embolism, and it showed new small to borderline moderate size left pleural effusion with basilar compressive atelectasis, and a small to moderate- sized pericardial effusion. Echocardiogram showed a small generalized pericardial effusion present, LVEF of 55-60%, moderate to severe enlargement of the right ventricle, aortic, mitral, tricuspid and pulmonic valves not well visualized. Chest ultrasound was obtained showing left pleural effusion pocket of 5.8 cm. On 08/23/2019 patient seen in follow-up. His pleuritic chest pain has completely resolved, no complaint of chest pain, no dyspnea, patient is afebrile, lung sounds are clear to auscultation, blood cultures showed no growth, no acute events overnight, his been treated with a combination of Solu- Medrol, colchicine, and NSAIDs, his echocardiogram showed only small pericardial effusion, left pleural effusion pocket was 5.8 cm, she was given a dose of IV Lasix, he diuresis, he is feeling better today, tolerating ambulation, his discharge home is pending today, he will need follow-up appointment with Dr. Buchanan in the office Objective - Vital Signs Vital signs: Vital Signs Temp 97.8 F 08/23/19 11:31 Pulse 89 08/23/19 11:31 Resp 18 08/23/19 11:31 BP 125/70 08/23/19 11:31 Pulse Ox 96 08/23/19 11:31 Intake & Output 08/22/19 08/23/19 08/23/19 18:59 06:59 18:59 Intake Total 924.721 428.470 180 Output Total 600 Balance 924.721 -171.530 180 Weight 126.7 kg Intake: Intake, IV Titration 360.721 206.470 Amount Diltiazem 125 mg In 118.667 64.417 Sodium Chloride 0.9% 100 ml @ 10 MG/HR 10 mls/hr IV .[id number] MIGUEL Rx#: [id number] Heparin Sod,Pork in 0.45% 242.054 142.053 NaCl 25,000 unit In 0.45 % NaCl 1 250ml.bag @ 8. 165 UNITS/KG/HR 10 mls/hr IV .Q24H MIGUEL Rx#: [id number] Oral 564 222 180 Output: Urine 600 Other: Voiding Method Toilet Toilet Toilet Urinal # Voids 1 1 - Exam GENERAL EXAM: Alert, pleasant, 59-year-old white male, on room air, with a pulse ox of 94%. HEAD: Normocephalic/atraumatic. EYES: Normal reaction of pupils, equal size. Conjunctiva pink, sclera white. NOSE: Clear with pink turbinates. THROAT: No erythema or exudates. NECK: No masses, no JVD, no thyroid enlargement, no adenopathy. CHEST: No chest wall deformity. Symmetrical expansion. LUNGS: Diminished air entry with bibasilar rales, wheeze, rhonchi. Diminished breath sounds at left lower lobe, with dullness to percussion CVS: Regular rate and rhythm, normal S1 and S2, no gallops, no murmurs, no rubs ABDOMEN: Soft, nontender. No hepatosplenomegaly, normal bowel sounds, no guarding or rigidity. EXTREMITIES: No clubbing, no edema, no cyanosis, 2+ pulses and upper and lower extremities. MUSCULOSKELETAL: Muscle strength and tone normal. SPINE: No scoliosis or deformity SKIN: No rashes CENTRAL NERVOUS SYSTEM: Alert and oriented -3. No focal deficits, tone is normal in all 4 extremities. PSYCHIATRIC: Alert and oriented -3. Appropriate affect. Intact judgment and insight - Labs CBC & Chem 7: 08/21/19 13:33 08/21/19 13:33 Labs: Abnormal Lab Results - Last 24 Hours (Table) 08/22/19 08/22/19 08/22/19 Range/Units 10:41 17:07 20:30 APTT (22.0-30.0) sec POC Glucose (mg/dL) 218 H 260 H (75-99) mg/dL Procalcitonin 0.13 H (0.02-0.09) ng/mL 08/22/19 08/23/19 08/23/19 Range/Units 21:59 06:00 06:19 APTT 40.6 H 49.6 H (22.0-30.0) sec POC Glucose (mg/dL) 224 H (75-99) mg/dL Procalcitonin (0.02-0.09) ng/mL Microbiology - Last 24 Hours (Table) 08/22/19 10:48 Blood Culture - Preliminary Blood No Growth after 24 hours 08/22/19 10:41 Blood Culture - Preliminary Blood No Growth after 24 hours Assessment and Plan Plan: Assessment: #1. Pleuritic chest pain, CTA chest negative for any evidence of PE, but did show small left pleural effusion #2. New onset A. fib flutter with a rapid ventricular response #3. Small generalized pericardial effusion with unknown etiology #4. Morbid obesity status post gastric sleeve #5. Hypertension #6. Hyperlipidemia #7. Obstructive sleep apnea unable to use CPAP machine #8. Diabetes mellitus type 2 #9. Osteoarthritis #10. Severe of previous MRSA infection #11. Brief history of smoking, in remission, patient only smoked for 4 years less than a pack a day, no chronic lung disease #12. Anxiety/depression/panic disorder Plan: Patient is doing much better today, his pleuritic chest pain has resolved, no acute events overnight, from pulmonary perspective he can be discharged home today, he will need outpatient follow-up with Dr. Buchanan in the office I performed a history & physical examination of the patient and discussed their management with my nurse practitioner, Lorelei Ellison. I reviewed the nurse practitioner's note and agree with the documented findings and plan of care. Lung sounds are positive for diminished breath sounds at the left base. The findings and the impression was discussed with the patient. I attest to the documentation by the nurse practitioner. Time with Patient: Less than 30
[2019-08-23] MEDS ORDERED: RIVAROXABAN 15 MG TAB PO SCH (17:30)
--- NOTE | 2019-08-23 22:35 | PN ---
PROGRESS NOTE Mr. Rojas came in with atrial fibrillation, paroxysmal in nature. Also had some pericardial fluid. Clinical picture was that of pericarditis. He has converted to sinus rhythm. He feels well. Vitals stable. S1-S2 heard normally. Short systolic murmur audible. Lungs reveal decent air entry. Abdomen and lower extremity exam unchanged. I am going to give him colchicine 0.6 mg b.i.d. for 2 weeks and also Naprosyn with antacids and I will see him in the office in 2 weeks and we will repeat echocardiogram at that time. He has hypertension and pericarditis. We will not anticoagulate him because of his low DWIGHT score and pericardial effusion. MMODL / IJN: [id number] /
--- NOTE | 2019-08-24 01:47 | DS ---
DISCHARGE SUMMARY CHIEF COMPLAINT: Chest pain and shortness of breath. HISTORY OF PRESENT ILLNESS AND PHYSICAL EXAM: Details of this man's history and physical can be found in the initial workup. LABORATORY STUDIES: While he was in a hospital he had laboratory studies, details of which can be found in the laboratory section of his chart. COURSE IN HOSPITAL: After admission he was placed on bedrest, started on intravenous fluids, Cardizem drip and anticoagulation. Report from the emergency room was that his CTA was positive for pulmonary embolism after his D-dimer was reported elevated. However, the final report did not confirm the presence of a pulmonary embolism. He was seen by Cardiology and he subsequently converted to normal sinus rhythm. Pain disappeared as well as shortness of breath. He is doing well. It was felt that he could go home on the . He will go home on the usual activity and will be on 81 mg of aspirin a day along with Cardizem. He will be seen in the office in a day or two. FINAL DIAGNOSES: 1. New onset atrial fibrillation/atrial flutter with rapid ventricular response. 2. History of type 2 diabetes mellitus. 3. Nicotine abuse. 4. Alcohol abuse. 5. Probable alcoholic cardiomyopathy. OPERATIONS: None. CONSULTATIONS: Cardiology. He is improved. MMODL / IJN: [id number] /
== END 2019-08-23 12:55 | disposition home or self-care (01) | DRG 309 ==
LOC: EC 13:08 → 3SCARD 16:05
PROVIDERS: ADMIT Family Medicine; ATTEND Family Medicine
DX: I48.4 Atypical atrial flutter (principal); I31.3 Pericardial effusion (noninflammatory); J90 Pleural effusion, not elsewhere classified; J98.11 Atelectasis; I48.0 Paroxysmal atrial fibrillation; I42.6 Alcoholic cardiomyopathy; E66.01 Morbid (severe) obesity due to excess calories; I10 Essential (primary) hypertension; E78.5 Hyperlipidemia, unspecified; E11.9 Type 2 diabetes mellitus without complications; J44.9 Chronic obstructive pulmonary disease, unspecified; F32.9 Major depressive disorder, single episode, unspecified; F41.0 Panic disorder [episodic paroxysmal anxiety]; F10.20 Alcohol dependence, uncomplicated; G47.33 Obstructive sleep apnea (adult) (pediatric); M25.512 Pain in left shoulder; M19.90 Unspecified osteoarthritis, unspecified site; Z68.35 Body mass index [BMI] 35.0-35.9, adult; Z79.899 Other long term (current) drug therapy; Z98.84 Bariatric surgery status; Z87.19 Personal history of other diseases of the digestive system; Z86.14 Personal history of Methicillin resistant Staphylococcus aureus infection; Z90.49 Acquired absence of other specified parts of digestive tract; Z96.653 Presence of artificial knee joint, bilateral; Z87.891 Personal history of nicotine dependence; Z88.2 Allergy status to sulfonamides; Z82.3 Family history of stroke; Z83.2 Family history of diseases of the blood and blood-forming organs and certain disorders involving the immune mechanism
CPT/HCPCS: 36415; 71046; 71275; 76604; 80053; 80061; 83036; 83735; 84145; 84443; 84484; 85025; 85379; 85610; 85652; 85730; 87040; 87502; 93005; 93306; 94760; 96361; 96365; 96366; 96368; 96375; 96376; 99291

== ENCOUNTER → 2019-08-30 | Outpatient (CLI) | payer MEDICARE ==
[2019-08-30 13:58] LABS: HCT 36.7 % (39.0-53.0); HGB 12.6 gm/dL (13.0-17.5); MCH 33.1 pg (25.0-35.0); MCHC 34.2 g/dL (31.0-37.0); MCV 96.8 fL (80.0-100.0); Mean Platelet Volume 5.9; Platelet Count 374 k/uL (150-450); Poikilocytosis Slight; RBC 3.79 m/uL (4.30-5.90); RDW 11.9 % (11.5-15.5); WBC 7.3 k/uL (3.8-10.6)
[2019-08-30 21:14] LABS: African American GFR (CKD) 121.4 (60.0-200.0)
== END ==
LOC: LABWHC1 13:03
PROVIDERS: ATTEND Internal Medicine Interventional Cardiology
DX: I31.9 Disease of pericardium, unspecified (principal)
CPT/HCPCS: 36415; 82565; 84450; 84460; 84520; 85027

== ENCOUNTER 2019-09-16 12:53 | Observation (INO) | payer MEDICARE ==
[2019-09-16 12:59] VITALS: RESP 18
[2019-09-16] MEDS ORDERED: ASPIRIN 81 MG PO STA (13:28)
--- NOTE | 2019-09-16 13:38 | ED ---
General Adult HPI - General Chief complaint: Chest Pain Stated complaint: Chest Pain Time Seen by Provider: 09/16/19 13:13 Source: patient Mode of arrival: wheelchair Limitations: no limitations - History of Present Illness Initial comments: Dictation was produced using [employer] dictation software. please excuse any grammatical, word or spelling errors. Chief Complaint: 59-year-old male presents with chest pain. History of Present Illness: 9-year-old male who presents today with chest pain. Patient states he's been having intermittent episodes for the last month. Patient was admitted earlier this month on the third where he was diagnosed with pericardial effusion. He is evaluated by cardiology and found to have pe ricarditis P she states that he has sharp stabbing chest pain to the left anterior chest worse with deep inspiration. He states the pain does radiate to the left shoulder and left jaw. He does report worsening pain with lying flat versus sitting up and with deep inspiration. Patient does have associated diaphoresis. Patient states that his symptoms have been ongoing the last month. This episode feels slightly improved. He was supposed follow-up with cardiology however has not made that appointment since being discharge. The ROS documented in this emergency department record has been reviewed and confirmed by me. Those systems with pertinent positive or negative responses have been documented in the HPI. All other systems are other negative and/or noncontributory. PHYSICAL EXAM: General Impression: Alert and oriented x3, mild distress secondary to pain, diaphoretic HEENT: Normocephalic atraumatic, extra-ocular movements intact, pupils equal and reactive to light bilaterally, mucous membranes moist. Cardiovascular: Heart regular rate and rhythm, S1&S2 audible, no murmurs, rubs or gallops Chest: Lungs clear to auscultation bilaterally, no rhonchi, no wheeze, no rales Abdomen: Bowel sounds present, abdomen soft, non-tender, non-distended, no organomegaly Musculoskeletal: Pulses present and equal in all extremities, no peripheral edema Motor: no focal deficits noted Neurological: CN II-XII grossly intact, no focal motor or sensory deficits noted Skin: Intact with no visualized rashes Psych: Normal affect and mood ED course: 59-year-old male with recently diagnosed pericarditis presents with persistent chest pain. Signs upon arrival are within acceptable limits. EKG was obtained right away showing possible inferior ST elevations with reciprocal T-wave inversions possibly depressions and high lateral leads. EKG was obtained 10 minutes later showing no dynamic changes. The patient case was discussed with Dr. Pineda upon obtaining EKG. It was discussed with him that there is some concern for infarction given EKG however given history of recent pericarditis Dr. Pineda requested that patient get stat echocardiogram and to not call a code STEMI at this time. His symptomatology is suggestive of pericarditis is post infarction however he does have some features concerning for myocardial infarction. Chart review was performed. Patient did have CT angioma showing pericardial effusion. Did have echocardiogram that showed suboptimal study. Cardiology at bedside evaluated patient. They also evaluated the stat echocardiogram. No other recommendations patient at this time. They will order patient steroids and have patient observed overnight. Lab return evaluation obtained. CBC, coag panel, metabolic panel was obtained. Patient is magnesium 1.5. Negative troponin. Patient given pain medicine for pain control. Patient understandable and agreeable disposition. He received an aspirin. EKG interpretation: Ventricular rate 86, normal sinus rhythm, OK interval 160, care is 80, QTc 423. ST elevations in II, III, and F aVF with T-wave inversions in the high lateral leads. No obvious reciprocal changes. - Related Data Home Medications Medication Instructions Recorded Confirmed ALPRAZolam [Xanax] 0.25 mg PO HS 11/27/14 09/16/19 Benazepril HCl [Lotensin] 40 mg PO HS 03/26/18 09/16/19 Pravastatin Sodium [Pravachol] 80 mg PO HS 03/26/18 09/16/19 buPROPion HCL [Wellbutrin SR] 150 mg PO BID 09/09/18 09/16/19 Cyclobenzaprine [Flexeril] 10 mg PO TID PRN 08/21/19 09/16/19 Ergocalciferol (Vitamin D2) 50,000 unit PO Q30D 08/21/19 09/16/19 [Drisdol] HYDROcodone/APAP 7.5-325MG [[place] 1 tab PO Q4-6H PRN 08/21/19 09/16/19 7.5-325] Aspirin 81 mg PO HS 09/16/19 09/16/19 Fluticasone Propionate [Flovent 2 puff INHALATION RT-BID PRN 09/16/19 09/16/19 Hfa 110 mcg] Previous Rx's Medication Instructions Recorded Diltiazem HCl [Cardizem CD] 120 mg PO DAILY #90 cap 08/23/19 Allergies Allergy/AdvReac Type Severity Reaction Status Date / Time sulfamethoxazole AdvReac Unknown DIZZY, Verified 09/16/19 13:42 [From Bactrim] FELT LIKE HE HAD THE FLU, HOT & COLD FLASHES trimethoprim [From Bactrim] AdvReac Unknown DIZZY, Verified 09/16/19 13:42 FELT LIKE HE HAD THE FLU, HOT & COLD FLASHES Review of Systems ROS Statement: Those systems with pertinent positive or pertinent negative responses have been documented in the HPI. ROS Other: All systems not noted in ROS Statement are negative. 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 History of Any Multi-Drug Resistant Organisms: MRSA Date of last positivie culture/infection: 2007 MDRO Source:: LEFT KNEE Past Surgical History: Bariatric Surgery, Cholecystectomy, Tonsillectomy Additional Past Surgical History / Comment(s): CATALINO CARPAL TUNNEL, Gastric sleeve ( Dr Hendreson 06/11/18). Right knee arthroscopy x2, Total Right Knee. Left knee replaced 3x (First time repair broke, 2nd became infected with MRSA, replaced 3rd time). Right rotator cuff repair Past Anesthesia/Blood Transfusion Reactions: No Reported Reaction Past Psychological History: No Psychological Hx Reported, Anxiety, Depression, Panic Disorder Smoking Status: Former smoker Past Alcohol Use History: Daily Past Drug Use History: None Reported - Past Family History Brother(s) Family Medical History: CVA/TIA Father Family Medical History: Deep Vein Thrombosis (DVT) Mother Family Medical History: No Reported History General Exam Limitations: no limitations Course Vital Signs 09/16/19 09/16/19 09/16/19 12:54 13:24 14:33 Temperature 97.8 F Pulse Rate 91 87 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 ] Respiratory 18 18 Rate Blood Pressure 138/88 126/93 O2 Sat by Pulse 98 98 Oximetry Medical Decision Making - Lab Data Result diagrams: 09/16/19 13:10 09/16/19 13:10 Lab Results 09/16/19 09/16/19 09/16/19 Range/Units 13:10 13:10 13:10 WBC 8.9 (3.8-10.6) k/uL RBC 4.35 (4.30-5.90) m/uL Hgb 14.3 (13.0-17.5) gm/dL Hct 41.2 (39.0-53.0) % MCV 94.7 (80.0-100.0) fL MCH 32.8 (25.0-35.0) pg MCHC 34.6 (31.0-37.0) g/dL RDW 13.3 (11.5-15.5) % Plt Count 240 (150-450) k/uL Neutrophils % 71 % Lymphocytes % 18 % Monocytes % 7 % Eosinophils % 1 % Basophils % 1 % Neutrophils # 6.4 (1.3-7.7) k/uL Lymphocytes # 1.6 (1.0-4.8) k/uL Monocytes # 0.6 (0-1.0) k/uL Eosinophils # 0.1 (0-0.7) k/uL Basophils # 0.1 (0-0.2) k/uL PT 10.9 (9.0-12.0) sec INR 1.0 (<1.2) APTT 25.8 (22.0-30.0) sec Sodium 138 (137-145) mmol/L Potassium 4.0 (3.5-5.1) mmol/L Chloride 101 (98-107) mmol/L Carbon Dioxide 24 (22-30) mmol/L Anion Gap 13 mmol/L BUN 13 (9-20) mg/dL Creatinine 0.53 L (0.66-1.25) mg/dL Est GFR (CKD-EPI)AfAm >90 (>60 ml/min/1.73 sqM) Est GFR (CKD-EPI)NonAf >90 (>60 ml/min/1.73 sqM) Glucose 164 H (74-99) mg/dL Calcium 9.5 (8.4-10.2) mg/dL Magnesium 1.5 L (1.6-2.3) mg/dL Total Bilirubin 1.6 H (0.2-1.3) mg/dL AST 20 (17-59) U/L ALT 30 (21-72) U/L Alkaline Phosphatase 83 (38-126) U/L Troponin I (0.000-0.034) ng/mL Total Protein 7.3 (6.3-8.2) g/dL Albumin 4.2 (3.5-5.0) g/dL 09/16/19 Range/Units 13:10 WBC (3.8-10.6) k/uL RBC (4.30-5.90) m/uL Hgb (13.0-17.5) gm/dL Hct (39.0-53.0) % MCV (80.0-100.0) fL MCH (25.0-35.0) pg MCHC (31.0-37.0) g/dL RDW (11.5-15.5) % Plt Count (150-450) k/uL Neutrophils % % Lymphocytes % % Monocytes % % Eosinophils % % Basophils % % Neutrophils # (1.3-7.7) k/uL Lymphocytes # (1.0-4.8) k/uL Monocytes # (0-1.0) k/uL Eosinophils # (0-0.7) k/uL Basophils # (0-0.2) k/uL PT (9.0-12.0) sec INR (<1.2) APTT (22.0-30.0) sec Sodium (137-145) mmol/L Potassium (3.5-5.1) mmol/L Chloride (98-107) mmol/L Carbon Dioxide (22-30) mmol/L Anion Gap mmol/L BUN (9-20) mg/dL Creatinine (0.66-1.25) mg/dL Est GFR (CKD-EPI)AfAm (>60 ml/min/1.73 sqM) Est GFR (CKD-EPI)NonAf (>60 ml/min/1.73 sqM) Glucose (74-99) mg/dL Calcium (8.4-10.2) mg/dL Magnesium (1.6-2.3) mg/dL Total Bilirubin (0.2-1.3) mg/dL AST (17-59) U/L ALT (21-72) U/L Alkaline Phosphatase (38-126) U/L Troponin I <0.012 (0.000-0.034) ng/mL Total Protein (6.3-8.2) g/dL Albumin (3.5-5.0) g/dL Disposition Clinical Impression: Chest pain Disposition: ADMITTED IP TO THIS HOSP Condition: Fair Referrals: Oz Rogers MD [Primary Care Provider] - 1-2 days Decision Time: 14:49
[2019-09-16 13:40] LABS: Basophils # (A) 0.1 k/uL (0-0.2); Basophils % (A) 1 %; Eosinophils # (A) 0.1 k/uL (0-0.7); Eosinophils % (A) 1 %; HCT 41.2 % (39.0-53.0); HGB 14.3 gm/dL (13.0-17.5); Lymphocytes # (A) 1.6 k/uL (1.0-4.8); Lymphocytes % (A) 18 %; MCH 32.8 pg (25.0-35.0); MCHC 34.6 g/dL (31.0-37.0); MCV 94.7 fL (80.0-100.0); Mean Platelet Volume 6.3; Monocytes # (A) 0.6 k/uL (0-1.0); Monocytes % (A) 7 %; Neutrophils # (A) 6.4 k/uL (1.3-7.7); Neutrophils % (A) 71 %; Platelet Count 240 k/uL (150-450); RBC 4.35 m/uL (4.30-5.90); RDW 13.3 % (11.5-15.5); WBC 8.9 k/uL (3.8-10.6)
--- NOTE | 2019-09-16 13:44 | XR ---
EXAMINATION TYPE: XR chest 1V portable DATE OF EXAM: 09/16/2019 COMPARISON: Prior chest x-ray 08/23/2019 CT chest 08/21/2019 HISTORY: Chest pain and shortness of breath TECHNIQUE: Single frontal view of the chest is obtained. FINDINGS: There are overlying cardiac leads. Patient is rotated. Heart remains enlarged. Left hemidia phragm is obscured. There is some perihilar vascular indistinctness. IMPRESSION: Correlate for possible interstitial edema or interstitial lung disease, possible left lo wer lobe atelectasis versus pneumonia and associated effusion. Follow-up recommended. Appearance of t he heart may be accentuated by technique, patient with previously identified pericardial effusion.
[2019-09-16 13:49] LABS: ALT 30 U/L (21-72); AST 20 U/L (17-59); African American GFR (CKD) >90 (>60 ml/min/1.73 sqM); Albumin 4.2 g/dL (3.5-5.0); Alkaline Phosphatase 83 U/L (38-126); Anion Gap 13 mmol/L; Blood Urea Nitrogen 13 mg/dL (9-20); Calcium 9.5 mg/dL (8.4-10.2); Carbon Dioxide 24 mmol/L (22-30); Chloride 101 mmol/L (98-107); Glucose 164 mg/dL (74-99); Magnesium 1.5 mg/dL (1.6-2.3); Non-African American GFR(CKD) >90 (>60 ml/min/1.73 sqM); Sodium 138 mmol/L (137-145); Total Bilirubin 1.6 mg/dL (0.2-1.3); Total Protein 7.3 g/dL (6.3-8.2)
[2019-09-16 13:55] LABS: Prothrombin Time 10.9 sec (9.0-12.0)
[2019-09-16 13:56] LABS: Partial Thromboplastin Time 25.8 sec (22.0-30.0)
--- NOTE | 2019-09-16 14:44 | P.CRDCN ---
History of Present Illness Consult date: 09/16/19 Requesting physician: Oz Rogers Consult reason: chest pain Chief complaint: Chest pain History of present illness: This is a 59-year-old gentleman with history of hypertension, diabetes, hyperlipidemia, who underwent gastric sleep surgery, since then the patient no longer requires diabetic medications, does not take medications for his cholesterol, continues to take blood pressure pills. Patient was just recently in the hospital on August 22, presented at that time with symptoms of left shoulder discomfort with sharp discomfort underneath the left breast area. On that admission the patient was in atrial flutter with a rapid ventricular response, he also had an echocardiogram with Doppler study performed on August 22 which revealed a small generalized pericardial effusion. An ultrasound of the chest was also performed on that admission which revealed a left-sided pleural effusion measuring 5.8 cm. Patient was seen by Dr. MAL Umanzor prior to discharge, his recommendation was to start the patient on colchicine 0.6 mg twice a day for 2 weeks as well as Naprosyn with antiacids, a follow-up appointment was recommended in the office in 2 weeks with a repeat echo. Patient was felt to have pericarditis. He was not anticoagulated on that admission, because of his low chads score and evidence of pericardial effusion. He presents to the hospital on this occasion again with similar symptoms to what he had earlier in the month, he was also extremely diaphoretic in the emergency room. According to the patient, he gets extremely diaphoretic whenever he walks into a hospital. His EKG performed here showed normal sinus rhythm with T wave inversion noted in 1 [address] mild [address]-T wave changes noted in the inferior leads. A repeat echocardiogram with Doppler study has been performed, not yet reviewed by cardiology. His chest x-ray performed here showed possible interstitial edema or interstitial lung disease, possible left lower lobe atelectasis versus pneumonia and associated effusion. His blood pressure is 126/90 with a heart rate in the 80s, 98% on room air. White blood cell count 8.9, hemoglobin 14.3, platelet count 240. Sodium 138, potassium 4.0, BUN 13 and creatinine 0.5. Magnesium level is 1.5 total bilirubin 1.6 troponin 0.012. We will repeat a sed rate as well as a d-dimer. We will also start the patient on some steroids as it does appear he has persistent pericarditis. Further recommendations to follow. 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 History of Any Multi-Drug Resistant Organisms: MRSA Date of last positivie culture/infection: 2007 MDRO Source:: LEFT KNEE Past Surgical History: Bariatric Surgery, Cholecystectomy, Tonsillectomy Additional Past Surgical History / Comment(s): CATALINO CARPAL TUNNEL, Gastric sleeve ( Dr Henderson 06/11/18). Right knee arthroscopy x2, Total Right Knee. Left knee replaced 3x (First time repair broke, 2nd became infected with MRSA, replaced 3rd time). Right rotator cuff repair Past Anesthesia/Blood Transfusion Reactions: No Reported Reaction Past Psychological History: No Psychological Hx Reported, Anxiety, Depression, Panic Disorder Smoking Status: Former smoker Past Alcohol Use History: Daily Past Drug Use History: None Reported - Past Family History Brother(s) Family Medical History: CVA/TIA Father Family Medical History: Deep Vein Thrombosis (DVT) Mother Family Medical History: No Reported History Medications and Allergies Home Medications Medication Instructions Recorded Confirmed Type ALPRAZolam [Xanax] 0.25 mg PO HS 11/27/14 09/16/19 History Benazepril HCl [Lotensin] 40 mg PO HS 03/26/18 09/16/19 History Pravastatin Sodium [Pravachol] 80 mg PO HS 03/26/18 09/16/19 History buPROPion HCL [Wellbutrin SR] 150 mg PO BID 09/09/18 09/16/19 History Cyclobenzaprine [Flexeril] 10 mg PO TID PRN 08/21/19 09/16/19 History Ergocalciferol (Vitamin D2) 50,000 unit PO Q30D 08/21/19 09/16/19 History [Drisdol] HYDROcodone/APAP 7.5-325MG [[place] 1 tab PO Q4-6H PRN 08/21/19 09/16/19 History 7.5-325] Diltiazem HCl [Cardizem CD] 120 mg PO DAILY #90 cap 08/23/19 09/16/19 Rx Aspirin 81 mg PO HS 09/16/19 09/16/19 History Fluticasone Propionate [Flovent 2 puff INHALATION RT-BID PRN 09/16/19 09/16/19 History Hfa 110 mcg] Allergies Allergy/AdvReac Type Severity Reaction Status Date / Time sulfamethoxazole AdvReac Unknown DIZZY, Verified 09/16/19 13:42 [From Bactrim] FELT LIKE HE HAD THE FLU, HOT & COLD FLASHES trimethoprim [From Bactrim] AdvReac Unknown DIZZY, Verified 09/16/19 13:42 FELT LIKE HE HAD THE FLU, HOT & COLD FLASHES Physical Exam Vitals: Vital Signs Temp Pulse Pulse Resp BP Pulse Ox 09/16/19 13:24 86 09/16/19 12:54 97.8 F 91 18 138/88 98 Intake and Output 09/15/19 09/16/19 09/16/19 22:59 06:59 14:59 Other: Weight 124.738 kg PHYSICAL EXAMINATION: GENERAL: 59-year-old gentleman in no acute distress at the time of my examination HEENT: Head is atraumatic, normocephalic. Pupils equal, round. Sclera anicter ic. Conjunctiva are clear. Mucous membranes of the mouth are moist. Neck is supple. There is no elevated jugular venous pressure. No carotid bruit is heard. HEART EXAMINATION: Heart S1 and S2 irregularly irregular CHEST EXAMINATION: Lungs are clear with diminished air entry to the bases . Po sitive chest wall tenderness is noted on palpation and with deep breathing. ABDOMEN: Soft, nontender. Bowel sounds are heard. No organomegaly noted. EXTREMITIES: 2+ peripheral pulses with no evidence of peripheral edema and no calf tenderness noted. NEUROLOGIC patient is awake, alert and oriented 3 . Results 09/16/19 13:10 09/16/19 13:10 Cardiac Enzymes 09/16/19 09/16/19 Range/Units 13:10 13:10 AST 20 (17-59) U/L Troponin I <0.012 (0.000-0.034) ng/mL Coagulation 09/16/19 Range/Units 13:10 PT 10.9 (9.0-12.0) sec APTT 25.8 (22.0-30.0) sec CBC 09/16/19 Range/Units 13:10 WBC 8.9 (3.8-10.6) k/uL RBC 4.35 (4.30-5.90) m/uL Hgb 14.3 (13.0-17.5) gm/dL Hct 41.2 (39.0-53.0) % Plt Count 240 (150-450) k/uL Comprehensive Metabolic Panel 09/16/19 Range/Units 13:10 Sodium 138 (137-145) mmol/L Potassium 4.0 (3.5-5.1) mmol/L Chloride 101 (98-107) mmol/L Carbon Dioxide 24 (22-30) mmol/L BUN 13 (9-20) mg/dL Creatinine 0.53 L (0.66-1.25) mg/dL Glucose 164 H (74-99) mg/dL Calcium 9.5 (8.4-10.2) mg/dL AST 20 (17-59) U/L ALT 30 (21-72) U/L Alkaline Phosphatase 83 (38-126) U/L Total Protein 7.3 (6.3-8.2) g/dL Albumin 4.2 (3.5-5.0) g/dL Intake and Output 09/15/19 09/16/19 09/16/19 22:59 06:59 14:59 Other: Weight 124.738 kg Patient Weight 09/17/19 06:59 Weight 124.738 kg 09/16/19 13:10 09/16/19 13:10 EKG Interpretations (text) EKG shows a normal sinus rhythm with lateral T-wave inversion and mild ST changes in the inferior leads Assessment and Plan Plan: Assessment and plan #1 pleuritic type chest pain, likely secondary to persistent pericarditis #2 hypertension #3 history of gastric sleep surgery #4 prior history of diabetes, since his gastric sleep surgery has not taken any diabetic meds #5 hyperlipidemia #6 episode of atrial flutter earlier this month. Plan We will repeat an echocardiogram with Doppler study to assess the pericardial effusion. We will continue the colchicine along with nonsteroidals and PPI, but we will also initiate steroids. And we'll give the patient a dose of Toradol for his pain. It appears that the patient has likely persistent pericarditis. Initial troponin was negative, we will subsequent troponins, repeat a sed rate and d-dimer. Further recommendations to follow. DNP note has been reviewed, I agree with a documented findings and plan of care. Patient was seen and examined.
[2019-09-16] MEDS ORDERED: NALOXONE 0.4 MG/ML 1 ML VIAL IV PRN (14:49)
[2019-09-16] MEDS ORDERED: KETOROLAC 30 MG/ML 1 ML VIAL IM STA (14:52)
[2019-09-16] MEDS ORDERED: SODIUM CHLORIDE 0.9% 1,000 ML IV SCH (15:00)
[2019-09-16] MEDS ORDERED: HYDROmorphone 0.5 MG/0.5 ML SYRINGE IVP STA (15:04)
[2019-09-16] MEDS ORDERED: prednisoLONE ORAL SOLUTION 15MG/5ML CUP PO SCH (15:15)
[2019-09-16] MEDS: COLCHICINE 0.6 MG EACH PO SCH ×2 (15:55→20:13)
--- NOTE | 2019-09-16 19:17 | CT ---
EXAMINATION TYPE: CT angio chest DATE OF EXAM: 09/16/2019 7:11 PM COMPARISON: HISTORY: Elevated d-dimer and chest pain. CT DLP: 720.3 mGycm Automated exposure control for dose reduction was used. CONTRAST: CTA scan of the thorax is performed with IV Contrast, patient injected with 100ml mL of Isovue 300, p ulmonary embolism protocol. There are 3-D post processed images.. FINDINGS: There is mild to moderate left pleural effusion. There is left basilar atelectasis. Heart size is nor mal. There is small pericardial effusion. There is no mediastinal adenopathy. Thoracic aorta shows no aneurysm or dissection. There is normal contrast opacification of the pulmonary arteries. There are no filling defects. Upper abdominal soft tissues are intact. There is bariatric surgery on the stomach. IMPRESSION: NO EVIDENCE OF PULMONARY EMBOLISM. LEFT BASILAR ATELECTASIS AND LEFT PLEURAL EFFUSION. SMALL PERICARDIAL EFFUSION.
[2019-09-16] MEDS: HYDROcodone/APAP 7.5-325MG 1 EACH TAB PO PRN ×2 (19:36→23:50)
[2019-09-16] MEDS ORDERED: ALPRAZolam 0.25 MG TAB PO SCH (21:00)
[2019-09-16] MEDS ORDERED: PRAVASTATIN SODIUM 80 MG TAB PO SCH (21:00)
[2019-09-17] MEDS: HYDROcodone/APAP 7.5-325MG 1 EACH TAB PO PRN (03:37)
[2019-09-17 07:31] VITALS: BP 116/79; PULSE 68; TEMP 97.4
--- NOTE | 2019-09-17 07:32 | ECHOF ---
Referral Reason:chest pain MEASUREMENTS -------- HEIGHT: 182.9 cm WEIGHT: 124.7 kg BP: FINDINGS -------- Echo 08/22/19: Limited study. Overall left ventricular systolic function is normal with, an EF between 55 - 60 %. 5.0mg OF [place] UTLIZED: 2 OR MORE WALL SEGMENTS NOT VISUALIZED. Echo free space represents a pericardial fat pad. CONCLUSIONS -------- 1. Overall left ventricular systolic function is normal with, an EF between 55 - 60 %. 2. 5.0mg OF [place] UTLIZED: 2 OR MORE WALL SEGMENTS NOT VISUALIZED. 3. Echo free space represents a pericardial fat pad. SHANK THREADER: Melissa Lara RDCS
[2019-09-17] MEDS ORDERED: COLCHICINE 0.6 MG EACH PO SCH (09:00)
[2019-09-17] MEDS ORDERED: DILTIAZEM CD 120 MG CAP.ER.24H PO SCH (09:00)
--- NOTE | 2019-09-17 09:05 | P.PN ---
Subjective This is a pleasant 59-year-old male past medical history significant for hypertension, dyslipidemia, diabetes mellitus and atrial flutter. He was recently discharged from the hospital with the diagnosis of pericarditis. He states he finished his course of prescribed colchicine however a few days later he had another episode of pleuritic chest discomfort similar to how he felt earlier this month however less intense. He has been started again on colchicine and steroids for recurrent pericarditis. He is seen and examined resting comfortably in bed in no acute distress. He denies any symptoms of chest discomfort. He is able to take a deep breath without recurrent pain. He denies shortness of breath, dizziness or palpitations. Repeat echocardiogram revealed preserved LV systolic function with ejection fraction 55-60%. CT chest is negative for pulmonary embolism, left basilar atelectasis and left pleural effusion with a small pericardial effusion noted. Blood pressure 116/79 heart rate 68 afebrile maintaining oxygen saturation on room air. GENERAL: Well-appearing, well-nourished and in no acute distress. NECK: Supple without JVD or thyromegaly. LUNGS: Breath sounds clear to auscultation bilaterally. Respiration equal and unlabored. No wheezes, rales or rhonchi. HEART: Regular rate and rhythm without murmurs, rubs or gallops. S1 and S2 heard. EXTREMITIES: Normal range of motion, no edema. No clubbing or cyanosis. Peripheral pulses intact. ASSESSMENT Pleuritic chest discomfort secondary to recurrent pericarditis Hypertension History of gastric sleeve Prior history of diabetes that has resolved since weight loss surgery Episode of atrial flutter earlier this month however continues to maintain sinus mechanism currently. Dyslipidemia Obstructive sleep apnea Daily alcohol intake Former nicotine dependence Anxiety Obesity, BMI 35 PLAN Discontinue prednisone. Decrease colchicine to 0.3 mg BID and continue this dose at home for 3 weeks. Complete alcohol cessation recommended. Follow up with Dr. Umanzor in the office 09/27/2019. Compliance with medical therapy and office visits strongly advised. Nurse Practitioner note has been reviewed, I agree with a documented findings and plan of care. Patient was seen and examined. Objective - Vital Signs Vital signs: Vital Signs Temp 97.4 F L 09/17/19 07:00 Pulse 68 09/17/19 07:00 Resp 18 09/17/19 07:00 BP 116/79 09/17/19 07:00 Pulse Ox 94 L 09/17/19 07:00 Intake & Output 09/16/19 09/17/19 09/17/19 18:59 06:59 18:59 Weight 124.738 kg Other: Voiding Method Toilet Toilet # Voids 1 1 - Labs CBC & Chem 7: 09/16/19 13:10 09/16/19 13:10 Labs: Abnormal Lab Results - Last 24 Hours (Table) 09/16/19 09/16/19 09/16/19 Range/Units 13:10 13:10 13:10 ESR 16 H (0-15) mm/hr D-Dimer 1.57 H (<0.60) mg/L FEU Creatinine 0.53 L (0.66-1.25) mg/dL Glucose 164 H (74-99) mg/dL Magnesium 1.5 L (1.6-2.3) mg/dL Total Bilirubin 1.6 H (0.2-1.3) mg/dL
--- NOTE | 2019-09-17 16:49 | HP ---
HISTORY AND PHYSICAL CHIEF COMPLAINT: Anterior chest pain. HISTORY OF PRESENT ILLNESS: This is another recent admission for this 59-year-old white male. He was recently in the hospital for chest pain. At that time he was found to have bilateral small effusions and a small pericardial effusion and was diagnosed as having pericarditis. At that time there was a question as to whether or not he also had a pulmonary embolism on the right, but this was not confirmed on the CTA. He went home and he has been doing well until the day of admission, when he redeveloped left anterior chest pain just at the left sternal border. He did have some shortness of breath but no fever, chills, hemoptysis, sputum production, diaphoresis, etc. Pain hurts when he takes a deep breath or coughs. He also has a history of alcoholism, diabetes mellitus and smoking. REVIEW OF SYSTEMS: He has had no neurologic problems, difficulty with the vision or the hearing, murmurs, rheumatic fever, orthopnea, PND, abdominal pain, nausea, vomiting, hematemesis, melena, hematochezia, jaundice, hepatitis, cirrhosis, renal failure, hematuria, dysuria, urgency, incontinence, fever, chills, etc. Past medical history, family history, and personal and social histories are unchanged from his recent admitting and discharge summaries. He is ALLERGIC to SULFA. He is on: 1. Pravastatin 80. 2. Prozac 40. 3. Colcrys 0.6 twice a day. 4. Bupropion 150 mg twice a day. 5. Benazepril 40 mg once a day. 6. Cardizem CD 120 mg once a day. 7. Vicodin 7.5. 8. Flexeril p.r.n. 9. Vitamin D 50,000 units a month. 10.Ibuprofen 800 mg 4 times a day as needed. 11.Xanax 0.250 t.i.d. p.r.n. 12.Aspirin once a day. The remainder of his history is unremarkable. PHYSICAL EXAMINATION: Blood pressure is 124/82 with a pulse of 80, respirations of 16. He is afebrile. In general he appeared to be well developed, well nourished, slightly overweight and slightly sweaty. Skin color was normal. Head, ears, eyes, nose, mouth and throat were normal. Neck veins were not distended. Carotids were normal. Chest was clear. There was no chest wall tenderness. There was no evidence of any rales, rhonchi, pleural rubs, pericardial rubs, murmurs, etc. Abdomen was soft, nontender without visceromegaly or masses. Bowel sounds were present. Extremities were normal. Neurologically he was intact. ADMITTING DIAGNOSES: He is admitted to the hospital with diagnoses: 1. Left anterior chest pain. 2. Pleurisy. 3. Recent episode of pericarditis. 4. History of nicotine use. 5. Type 2 [id number] diabetes mellitus. 6. Recent episode of atrial fibrillation. PLAN: 1. Bed rest. 2. Serial EKGs and enzymes. 3. Consult with Cardiology. 4. Rule out pulmonary embolism. BELODL / COLEMANN: [id number] /
--- NOTE | 2019-09-19 09:40 | DS ---
DISCHARGE SUMMARY CHIEF COMPLAINT: Chest pain. HISTORY OF PRESENT ILLNESS AND PHYSICAL EXAMINATION: Details of this man's history and physical can be found in the initial workup. LABORATORY STUDIES: While he was in the hospital he had laboratory studies, details of which can be found in the laboratory section of his chart. COURSE IN THE HOSPITAL: After admission he was placed on bedrest and started on intravenous fluids. He had serial EKGs and enzymes that are normal. He was seen by Cardiology and it was felt that his pain was probably chest wall. It was felt that he could be discharged home and he will go home on his usual activity, diet, and medications and be seen in the office in several days. FINAL DIAGNOSES: 1. Left anterior chest wall pain. 2. History of recent pericarditis. 3. History of recent pneumonitis. 4. History of recent episode of atrial fibrillation-resolved. 5. Nicotine abuse. 6. Alcoholism. 7. Type 2 diabetes mellitus. OPERATIONS: None. CONSULTATIONS: Cardiology. He is improved. MMODL / IJN: [id number] /
== END 2019-09-17 11:40 | disposition home or self-care (01) ==
LOC: EC 12:53 → 1SOBS 14:49
PROVIDERS: ADMIT Family Medicine; ATTEND Family Medicine
DX: R07.89 Other chest pain (principal); I31.3 Pericardial effusion (noninflammatory); I10 Essential (primary) hypertension; E11.9 Type 2 diabetes mellitus without complications; J98.11 Atelectasis; J90 Pleural effusion, not elsewhere classified; M19.90 Unspecified osteoarthritis, unspecified site; K21.9 Gastro-esophageal reflux disease without esophagitis; I48.91 Unspecified atrial fibrillation; I48.92 Unspecified atrial flutter; G47.33 Obstructive sleep apnea (adult) (pediatric); E78.5 Hyperlipidemia, unspecified; F41.9 Anxiety disorder, unspecified; G89.29 Other chronic pain; M25.569 Pain in unspecified knee; E66.9 Obesity, unspecified; F41.0 Panic disorder [episodic paroxysmal anxiety]; F32.9 Major depressive disorder, single episode, unspecified; F17.200 Nicotine dependence, unspecified, uncomplicated; Z68.35 Body mass index [BMI] 35.0-35.9, adult; F10.20 Alcohol dependence, uncomplicated; Z99.89 Dependence on other enabling machines and devices; Z79.82 Long term (current) use of aspirin; Z79.891 Long term (current) use of opiate analgesic; Z79.51 Long term (current) use of inhaled steroids; Z79.899 Other long term (current) drug therapy; Z88.1 Allergy status to other antibiotic agents; Z88.2 Allergy status to sulfonamides; Z86.14 Personal history of Methicillin resistant Staphylococcus aureus infection; Z87.01 Personal history of pneumonia (recurrent); Z90.49 Acquired absence of other specified parts of digestive tract; Z98.84 Bariatric surgery status; Z87.19 Personal history of other diseases of the digestive system; Z87.448 Personal history of other diseases of urinary system; Z96.653 Presence of artificial knee joint, bilateral; Z82.49 Family history of ischemic heart disease and other diseases of the circulatory system; Z82.3 Family history of stroke
CPT/HCPCS: 93005 ×2; 96372; 96374; 99285; 36415; 85379; 80053; 85652; 83735; 84484 ×2; 85025; 85610; 85730; 71045; 71275; G0378 ×2; C8924; J1885; J7510; J1170; Q9950; Q9967; 93308

== ENCOUNTER → 2019-10-18 | Outpatient (CLI) | payer MEDICARE ==
[2019-10-18 18:47] LABS: African American GFR (CKD) 109.5 (60.0-200.0); Albumin 4.7 g/dL (3.80-4.90); Albumin/Globulin Ratio 2.04 (1.60-3.17); Anion Gap 11.3 mmol/L (4.00-12.00); BUN/Creat Ratio 17.78 Ratio (12.00-20.00); Calcium 9.7 mg/dL (8.7-10.3); Carbon Dioxide 26.7 mmol/L (21.6-31.8); Globulin 2.3 g/dL (1.6-3.3); Magnesium 1.5 mg/dL (1.5-2.4); Non-African American GFR(CKD) 94.5 (60.0-200.0); Potassium 4.4 mmol/L (3.5-5.5); Total Bilirubin 0.6 mg/dL (0.3-1.2)
== END | disposition home or self-care (01) ==
LOC: LABWHC1 13:25
PROVIDERS: ATTEND Nurse Practitioner
DX: I31.3 Pericardial effusion (noninflammatory) (principal)
CPT/HCPCS: 36415; 80053; 83735

== ENCOUNTER 2019-11-29 12:12 | Day surgery (SDC) | payer MEDICAID, MEDICARE ==
[2019-11-27 10:39] VITALS: BMI 35.3
[~2019-11-29 12:12] MED LIST changes: +DEXAMETHASONE SOD PHOSPHATE 10 MG/ML 1 ML VIAL IV ONE; +HYDROmorphone 0.5 MG/0.5 ML SYRINGE IVP PRN; +MIDAZOLAM 2 MG/2 ML VIAL IV PRN; +ONDANSETRON 4 MG/2 ML VIAL IVP ONE; +Pre Op ABX Message 1 EACH MISC MISCELLANE ONE; +SCOPOLAMINE 1.5MG/72HR PATCH TRANSDERM ONE
[2019-11-29] MEDS ORDERED: LIDOCAINE 1% 20 ML VIAL (10MG/ML) FOR IV START INTRADERMA ONE (13:00)
[2019-11-29] MEDS ORDERED: ROPIVACAINE 5 MG/ML 30 ML VIAL MISCELLANE ONE ×2 (14:32→15:27)
[2019-11-29] MEDS ORDERED: LIDOCAINE 2%-EPI 1:100,000 20 ML VIAL SQ ONE ×2 (14:32→15:27)
[2019-11-29] MEDS ORDERED: LACTATED RINGERS 1,000 ML IV ONE (14:33)
[2019-11-29 15:49] VITALS: TEMP 98
[2019-11-29 16:06] VITALS: RESP 18
[2019-11-29 16:23] VITALS: PULSE 77
[2019-11-29 16:37] VITALS: BP 114/75
--- NOTE | 2019-12-04 14:55 | P.OP ---
Date of Procedure: 11/29/19 Preoperative Diagnosis: Left cubital tunnel syndrome Postoperative Diagnosis: Left cubital tunnel syndrome Procedure(s) Performed: Left elbow ulnar nerve decompression (cubital tunnel release) Anesthesia: ROLANDA Surgeon: Javier Skaggs Estimated Blood Loss (ml): 3 Condition: stable Disposition: PACU Indications for Procedure: The patient is a 59-year-old male, who was diagnosed with left cubital tunnel syndrome. Treatment options (and associated risks and benefits) were discussed in the office. The patient elected to undergo surgical release. In preop, additional questions/concerns were addressed and the patient wished to proceed with surgery. Consent forms were signed. The operative site was confirmed and marked. Description of Procedure: The patient was positioned supine with the operative limb on a hand table. Anesthesia was administered uneventfully. A tourniquet was placed on the left arm, which was then prepped and draped in standard, sterile fashion. A time-out was performed, confirming patient identifiers, the operative side, the site and the procedure to be performed: all team members expressed agreement. The limb was exsanguinated with an Esmarch and the tourniquet was inflated. A curvilinear incision was marked, just posterior to the medial epicondyle. Loupe magnification was utilized throughout the case for optimum visualization. The skin was sharply incised and the subcutaneous tissues were spread, cauterizing superficial vessels as needed. Spreading dissection proceeded down to the medial epicondyle. The ulnar nerve was palpated behind the epicondyle. The medial head of the triceps was quite prominent and causing additional compr ession. Peripheral expansions of the triceps fascia were released, which helped to decompress the nerve, but the triceps insertion itself was left undisturbed. The nerve was carefully dissected free. Proximal fascial adhesions along the medial intermuscular septum were released under direct visualization. The nerve was then traced distally to the cubital tunnel itself. Mehta's ligament was s harply released on its posterior aspect, leaving a cuff of tissue to prevent anterior subluxation. A thick fascial band was identified, extending obliquely from the flexor-pronator fascia and causing direct compression just distal to the cubital tunnel. This was sharply released. The fascia over the flexor- pronator musculature was sharply incised and the muscle fibers were bluntly spread. The nerve was carefully dissected free distally, taking care to protect the exiting motor branches. The segment of the nerve between the epicondyle and the first motor branch was encased in a thick sheet of perineural tissue, causing persistent compression. A neurolysis was performed, which substantially improved both the appearance and mobility of the nerve. Once adequate release had been achieved, the elbow was taken through a full range of motion: there was no tethering or steffanie subluxation, but the nerve did perch slightly at the epicondyle with full flexion. It did not demonstrate gross instability. No further treatment was deemed necessary. No other sites of compression were identified. The tourniquet was released. Good overall hemostasis was obtained with manual pressure and bleeding vessels were coagulated with electrocautery; however, some diffuse, persistent sanguineous drainage was noted throughout the subcutaneous tissues. The wound was thoroughly irrigated with normal saline. The subcutaneous tissues were reapproximated with interrupted Vicryl sutures. The incision was closed with 4-0 nylon. Local anesthetic with epinephrine was injected into the perioperative s ubcutaneous tissues for adjunctive postoperative pain control and hemostasis. A soft, sterile dressing was applied, followed by a long arm plaster splint with the elbow in approximately 50 of flexion. All sponge, needle and instrument counts were correct at the end of the case. The patient tolerated the procedure well and was transferred to recovery in stable condition.
== END 2019-11-29 17:00 | disposition home or self-care (01) ==
LOC: OR 12:12
PROVIDERS: ATTEND Orthopaedic Surgery
DX: G56.22 Lesion of ulnar nerve, left upper limb (principal); I48.91 Unspecified atrial fibrillation; I11.0 Hypertensive heart disease with heart failure; I50.9 Heart failure, unspecified; G47.33 Obstructive sleep apnea (adult) (pediatric); E11.9 Type 2 diabetes mellitus without complications; K52.9 Noninfective gastroenteritis and colitis, unspecified; Z88.2 Allergy status to sulfonamides; Z79.82 Long term (current) use of aspirin; Z79.899 Other long term (current) drug therapy; Z90.49 Acquired absence of other specified parts of digestive tract; Z98.84 Bariatric surgery status; Z96.653 Presence of artificial knee joint, bilateral; Z98.890 Other specified postprocedural states; Z87.891 Personal history of nicotine dependence; Z99.89 Dependence on other enabling machines and devices
CPT/HCPCS: 64718; J1100; J2405; J2795

== ENCOUNTER 2019-12-17 04:21 | Inpatient (IN) | payer MEDICAID, MEDICARE ==
[2019-12-17] MEDS ORDERED: MORPHINE SULFATE 4 MG/ML SYRINGE IVP STA (04:26)
[2019-12-17] MEDS ORDERED: MORPHINE SULFATE 4 MG/ML SYRINGE IM STA (04:31)
--- NOTE | 2019-12-17 04:35 | ED ---
Extremity Problem HPI - General Stated complaint: arm pain, post op Time Seen by Provider: 12/17/19 04:23 - History of Present Illness Initial comments: Adán is a 59-year-old gentleman who underwent left cubital tunnel surgery on November 29 patient had been healing well. Patient reports he was in his usual state of health when he went to bed last night, he woke up from sleep with a severe 10 out of 10 stabbing aching pain in his left elbow. Pain is worse with any movement or palpation, no relieving factors to the pain. He took [place] with no relief. at bedside reports that they've been following with orthopedic there has been some weeping from the wound but no purulent drainage, today she noticed that the wound is very swollen and red prior to deciding to drive him to the hospital. - Related Data Home Medications Medication Instructions Recorded Confirmed ALPRAZolam [Xanax] 0.25 mg PO HS 11/27/14 11/29/19 Benazepril HCl [Lotensin] 40 mg PO HS 03/26/18 11/29/19 Pravastatin Sodium [Pravachol] 80 mg PO HS 03/26/18 11/29/19 buPROPion HCL [Wellbutrin SR] 150 mg PO BID 09/09/18 11/29/19 Cyclobenzaprine [Flexeril] 10 mg PO TID PRN 08/21/19 11/29/19 HYDROcodone/APAP 7.5-325MG [[place] 1 tab PO Q4-6H PRN 08/21/19 11/29/19 7.5-325] Aspirin 81 mg PO HS 09/16/19 11/29/19 Fluticasone Propionate [Flovent 2 puff INHALATION RT-BID PRN 09/16/19 11/29/19 Hfa 110 mcg] FLUoxetine HCL [PROzac] 40 mg PO DAILY 11/27/19 11/29/19 Ibuprofen 800 mg PO Q6H PRN 11/27/19 11/29/19 Previous Rx's Medication Instructions Recorded Diltiazem HCl [Cardizem CD] 120 mg PO DAILY #90 cap 08/23/19 Allergies Allergy/AdvReac Type Severity Reaction Status Date / Time sulfamethoxazole AdvReac Unknown DIZZY, Verified 11/29/19 12:41 [From Bactrim] FELT LIKE HE HAD THE FLU, HOT & COLD FLASHES trimethoprim [From Bactrim] AdvReac Unknown DIZZY, Verified 11/29/19 12:41 FELT LIKE HE HAD THE FLU, HOT & COLD FLASHES Review of Systems ROS Statement: Those systems with pertinent positive or pertinent negative responses have been documented in the HPI. ROS Other: All systems not noted in ROS Statement are negative. Past Medical History Past Medical History: Atrial Fibrillation, Atrial Flutter, Diabetes Mellitus, GERD/Reflux, GI Bleed, Hyperlipidemia, Hypertension, Osteoarthritis (OA), Sleep Apnea/CPAP/BIPAP Additional Past Medical History / Comment(s): one episode of Afib/flutter with RVR/small pericardial effusion/L pleural effusion, pericarditis in 2018-no further problems, Other hx: NIDDM type II-not on any Rx since wt loss, chronic knee pain, L foot neuropathy, L shoulder pain, PAULINA-never able to tolerate mask and thinks no longer an issue since weight loss, past lower GI bleed, hx acute kidney failure 4 yrs. ago-one dialysis tx. & kidneys functioning fine now per pt-not sure what caused it History of Any Multi-Drug Resistant Organisms: MRSA Date of last positivie culture/infection: 2007 MDRO Source:: LEFT KNEE Past Surgical History: Bariatric Surgery, Cholecystectomy, Joint Replacement, Orthopedic Surgery, Tonsillectomy Additional Past Surgical History / Comment(s): 2018 gastric sleeve, bilateral carpal tunnel releases, R knee arthroscopies, R total knee arthroplasty, L knee arthroscopy, L total knee-hardware problem/replaced then infection and replaced again-multiple surgeries on, R rotator cuff repair, L patellar stabilization, EGD, colonoscopy. Past Anesthesia/Blood Transfusion Reactions: No Reported Reaction Smoking Status: Former smoker - Past Family History Brother(s) Family Medical History: CVA/TIA Additional Family Medical History / Comment(s): Brother had a CVA at the age of 52 yrs. Father Additional Family Medical History / Comment(s): Father had phlebitis. Mother Family Medical History: No Reported History General Exam - General Exam Comments Initial Comments: Physical Exam GENERAL: Acutely distressed due to pain HENT: Normocephalic, Atraumatic. EYES: PERRL, EOMI PULMONARY: Tachypnea CARDIOVASCULAR: Tachycardia ABDOMEN: Soft and nontender with normal bowel sounds. SKIN: Left elbow surgical incision, mildly red with no purulent or malodorous discharge Erythema surrounding incision : Deferred NEUROLOGIC: Patient is alert and oriented x3. Moving all extremities spontaneously MUSCULOSKELETAL: Normal extremities with adequate strength and full range of motion. No lower extremity swelling or edema. No calf tenderness. PSYCHIATRIC: Normal psychiatric evaluation. Course Vital Signs 12/17/19 12/17/19 04:22 06:09 Temperature 97.9 F 99 F Pulse Rate 122 H 104 H Respiratory 18 20 Rate Blood Pressure 115/94 147/98 O2 Sat by Pulse 98 98 Oximetry Medical Decision Making - Medical Decision Making The patient was seen and evaluated, history was obtained from the patient and at bedside History and physical exam are concerning for postoperative infection as the patient has redness swelling and decreased range of motion of the elbow in a sinus sepsis workup was initiated Labs resulted with mild leukocytosis of 12, lactic acidosis of 3, mildly elevated CRP and hyperglycemia likely reactive Patient care was discussed with Dr. Betancourt's partner Dr. Holland who recommended the patient be admitted to Dr. Skaggs with medicine on consult for IV antibiotics for presumed postoperative infection. - Lab Data Result diagrams: 12/17/19 04:29 12/17/19 04:29 Lab Results 12/17/19 12/17/19 12/17/19 Range/Units 04:29 04:29 04:29 WBC 12.0 H (3.8-10.6) k/uL RBC 4.54 (4.30-5.90) m/uL Hgb 14.3 (13.0-17.5) gm/dL Hct 41.9 (39.0-53.0) % MCV 92.3 (80.0-100.0) fL MCH 31.5 (25.0-35.0) pg MCHC 34.1 (31.0-37.0) g/dL RDW 12.7 (11.5-15.5) % Plt Count 360 (150-450) k/uL Neutrophils % 77 % Lymphocytes % 15 % Monocytes % 5 % Eosinophils % 1 % Basophils % 1 % Neutrophils # 9.3 H (1.3-7.7) k/uL Lymphocytes # 1.7 (1.0-4.8) k/uL Monocytes # 0.6 (0-1.0) k/uL Eosinophils # 0.1 (0-0.7) k/uL Basophils # 0.1 (0-0.2) k/uL PT (9.0-12.0) sec INR (<1.2) APTT (22.0-30.0) sec Sodium 137 (137-145) mmol/L Potassium 4.3 (3.5-5.1) mmol/L Chloride 99 (98-107) mmol/L Carbon Dioxide 25 (22-30) mmol/L Anion Gap 13 mmol/L BUN 14 (9-20) mg/dL Creatinine 0.79 (0.66-1.25) mg/dL Est GFR (CKD-EPI)AfAm >90 (>60 ml/min/1.73 sqM) Est GFR (CKD-EPI)NonAf >90 (>60 ml/min/1.73 sqM) Glucose 247 H (74-99) mg/dL Plasma Lactic Acid [place] 3.0 H* (0.7-2.0) mmol/L Calcium 9.7 (8.4-10.2) mg/dL Total Bilirubin 0.4 (0.2-1.3) mg/dL AST 28 (17-59) U/L ALT 23 (4-49) U/L Alkaline Phosphatase 101 (38-126) U/L Creatine Kinase 91 (55-170) U/L C-Reactive Protein 29.5 H (<10.0) mg/L Total Protein 7.8 (6.3-8.2) g/dL Albumin 4.5 (3.5-5.0) g/dL Urine Color Urine Appearance (Clear) Urine pH (5.0-8.0) Ur Specific [place] (1.001-1.035) Urine Protein (Negative) Urine Glucose (UA) (Negative) Urine Ketones (Negative) Urine Blood (Negative) Urine Nitrite (Negative) Urine Bilirubin (Negative) Urine Urobilinogen (<2.0) mg/dL Ur Leukocyte Esterase (Negative) 12/17/19 12/17/19 Range/Units 04:29 06:08 WBC (3.8-10.6) k/uL RBC (4.30-5.90) m/uL Hgb (13.0-17.5) gm/dL Hct (39.0-53.0) % MCV (80.0-100.0) fL MCH (25.0-35.0) pg MCHC (31.0-37.0) g/dL RDW (11.5-15.5) % Plt Count (150-450) k/uL Neutrophils % % Lymphocytes % % Monocytes % % Eosinophils % % Basophils % % Neutrophils # (1.3-7.7) k/uL Lymphocytes # (1.0-4.8) k/uL Monocytes # (0-1.0) k/uL Eosinophils # (0-0.7) k/uL Basophils # (0-0.2) k/uL PT 10.4 (9.0-12.0) sec INR 1.0 (<1.2) APTT 23.0 (22.0-30.0) sec Sodium (137-145) mmol/L Potassium (3.5-5.1) mmol/L Chloride (98-107) mmol/L Carbon Dioxide (22-30) mmol/L Anion Gap mmol/L BUN (9-20) mg/dL Creatinine (0.66-1.25) mg/dL Est GFR (CKD-EPI)AfAm (>60 ml/min/1.73 sqM) Est GFR (CKD-EPI)NonAf (>60 ml/min/1.73 sqM) Glucose (74-99) mg/dL Plasma Lactic Acid [place] (0.7-2.0) mmol/L Calcium (8.4-10.2) mg/dL Total Bilirubin (0.2-1.3) mg/dL AST (17-59) U/L ALT (4-49) U/L Alkaline Phosphatase (38-126) U/L Creatine Kinase (55-170) U/L C-Reactive Protein (<10.0) mg/L Total Protein (6.3-8.2) g/dL Albumin (3.5-5.0) g/dL Urine Color Yellow Urine Appearance Clear (Clear) Urine pH 6.0 (5.0-8.0) Ur Specific [place] 1.014 (1.001-1.035) Urine Protein Negative (Negative) Urine Glucose (UA) Trace H (Negative) Urine Ketones 1+ H (Negative) Urine Blood Negative (Negative) Urine Nitrite Negative (Negative) Urine Bilirubin Negative (Negative) Urine Urobilinogen <2.0 (<2.0) mg/dL Ur Leukocyte Esterase Negative (Negative) - EKG Data -: EKG Interpreted by Me EKG Comments: EKG was obtained as part of sepsis workup EKG was obtained at 4:45 AM, rate was 109 rhythm was sinus tachycardia normal axis normal intervals, MA 154, QRS 84, QTC 428 there are no acute ST elevations or depressions no evidence of acute ischemia or infarction. No evidence of A. fib which patient has had previously. Disposition Clinical Impression: Post-operative pain Disposition: ADMITTED IP TO THIS HOSP Condition: Stable Is patient prescribed a controlled substance at d/c from ED?: No Referrals: Oz Rogers MD [Primary Care Provider] - 1-2 days
[2019-12-17] MEDS ORDERED: HYDROmorphone 1 MG/ML 1 ML SYRINGE IVP STA (04:44)
[2019-12-17 04:51] LABS: Basophils # (A) 0.1 k/uL (0-0.2); Basophils % (A) 1 %; Eosinophils # (A) 0.1 k/uL (0-0.7); Eosinophils % (A) 1 %; HCT 41.9 % (39.0-53.0); HGB 14.3 gm/dL (13.0-17.5); Lymphocytes # (A) 1.7 k/uL (1.0-4.8); Lymphocytes % (A) 15 %; MCH 31.5 pg (25.0-35.0); MCHC 34.1 g/dL (31.0-37.0); MCV 92.3 fL (80.0-100.0); Mean Platelet Volume 7.4; Monocytes # (A) 0.6 k/uL (0-1.0); Monocytes % (A) 5 %; Neutrophils # (A) 9.3 k/uL (1.3-7.7); Neutrophils % (A) 77 %; Platelet Count 360 k/uL (150-450); RBC 4.54 m/uL (4.30-5.90); RDW 12.7 % (11.5-15.5)
[2019-12-17 05:06] LABS: Prothrombin Time 10.4 sec (9.0-12.0)
[2019-12-17 05:16] LABS: ALT 23 U/L (4-49); AST 28 U/L (17-59); African American GFR (CKD) >90 (>60 ml/min/1.73 sqM); Albumin 4.5 g/dL (3.5-5.0); Alkaline Phosphatase 101 U/L (38-126); Anion Gap 13 mmol/L; Blood Urea Nitrogen 14 mg/dL (9-20); Calcium 9.7 mg/dL (8.4-10.2); Carbon Dioxide 25 mmol/L (22-30); Chloride 99 mmol/L (98-107); Creatine Kinase 91 U/L (55-170); Glucose 247 mg/dL (74-99); Non-African American GFR(CKD) >90 (>60 ml/min/1.73 sqM); Potassium 4.3 mmol/L (3.5-5.1); Sodium 137 mmol/L (137-145); Total Bilirubin 0.4 mg/dL (0.2-1.3); Total Protein 7.8 g/dL (6.3-8.2)
[2019-12-17 05:35] LABS: C Reactive Protein 29.5 mg/L (<10.0)
--- NOTE | 2019-12-17 05:50 | XR ---
EXAM: XR Left Elbow Complete, 2 Views CLINICAL HISTORY: post op swelling TECHNIQUE: Frontal and lateral views of the left elbow. Oblique view was not provided, which limits evaluation. COMPARISON: No relevant prior studies available. FINDINGS: Bones/joints: No evidence of acute fracture or dislocation. Soft tissues: Moderate soft tissue swelling overlying the posteromedial aspect of the elbow, likely postoperative. IMPRESSION: 1. No evidence of acute fracture or dislocation. 2. Moderate soft tissue swelling overlying the posteromedial aspect of the elbow, likely postoperative. Correlate clinically.
[2019-12-17] MEDS ORDERED: SODIUM CHLORIDE 0.9% 1,000 ML IV STA (05:58)
[2019-12-17 06:21] LABS: Appearance,Urine Clear (Clear); Bilirubin,Urine Negative (Negative); Blood,Urine Negative (Negative); Color,Urine Yellow; Glucose,Urine (UA) Trace (Negative); Ketones,Urine 1+ (Negative); Leukocyte Esterase,Urine Negative (Negative); Nitrite,Urine Negative (Negative); Protein,Urine Negative (Negative); Specific Gravity,Urine 1.014 (1.001-1.035); Urobilinogen,Urine <2.0 mg/dL (<2.0)
[2019-12-17] MEDS ORDERED: VANCOMYCIN IV PER PHARMACY 1 EACH MISC MISCELLANE PRN (06:37)
[2019-12-17] MEDS ORDERED: NALOXONE 0.4 MG/ML 1 ML VIAL IV PRN (06:57)
[2019-12-17] MEDS ORDERED: VANCOMYCIN 2,000 MG in SODIUM CHLORIDE 0.9% 500 ML 500 ML IVPB ONE (07:00)
[2019-12-17 07:34] LABS: Glucose,Whole Blood 176 mg/dL (75-99)
[2019-12-17] MEDS: HYDROmorphone 1 MG/ML 1 ML SYRINGE IVP PRN ×6 (07:45→23:39)
[2019-12-17] MEDS: INSULIN ASPART (NovoLOG) 100 UNIT/ML VIAL SQ SCH ×3 (07:46→16:58)
[2019-12-17] MEDS: ACETAMINOPHEN TAB 325 MG TAB PO PRN (09:15)
--- NOTE | 2019-12-17 13:27 | P.HPOR ---
<Janae Thompson Shadia - Last Filed: 12/17/19 13:08> History of Present Illness H&P Date: 12/17/19 Chief Complaint: Left elbow post op infection The patient is a 59-year-old male who is status post cubital tunnel release of the left elbow on 11/29/[address] Skaggs. He states he was doing well p ostoperatively with some drainage from the incision site especially in the morning. He was seen in the office last week and sutures were kept in place. No wound dehiscence was noted at that time. The patient states that the elbow seemed to be improving until 4:00 am this morning when he woke up with excruciating pain in the elbow. There was also increased swelling and redness. He states that he had some increased left shoulder pain yesterday but denies fever or chills and rigors yesterday. The patient came to the emergency department early this morning due to the severe elbow pain and not feeling well. Labs in the ER revealed white blood cell count 12.0, lactic acid 3.0, and C-reactive protein 29.5. An x-ray was taken of the elbow as well with evidence of soft tissue swelling. He was started on Vancomycin and admitted to orthopedics for further treatment. Upon exam in the emergency department, the patient is visibly diaphoretic and shaky. He states his pain is somewhat controlled at this time and the IV pain medications seem to help. Review of Systems Constitutional: Reports chills, Reports fever Cardiovascular: Denies chest pain, Denies shortness of breath Respiratory: Denies cough Gastrointestinal: Denies abdominal pain, Denies diarrhea, Denies nausea, Denies vomiting Musculoskeletal: left: elbow pain, elbow stiffness, elbow swelling Past Medical History Past Medical History: Atrial Fibrillation, Atrial Flutter, Diabetes Mellitus, GERD/Reflux, GI Bleed, Hyperlipidemia, Hypertension, Osteoarthritis (OA), Sleep Apnea/CPAP/BIPAP Additional Past Medical History / Comment(s): one episode of Afib/flutter with RVR/small pericardial effusion/L pleural effusion, pericarditis in 2018-no further problems, Other hx: NIDDM type II-not on any Rx since wt loss, chronic knee pain, L foot neuropathy, L shoulder pain, PAULINA-never able to tolerate mask and thinks no longer an issue since weight loss, past lower GI bleed, hx acute kidney failure 4 yrs. ago-one dialysis tx. & kidneys functioning fine now per pt-not sure what caused it History of Any Multi-Drug Resistant Organisms: MRSA Date of last positivie culture/infection: 2007 MDRO Source:: LEFT KNEE Past Surgical History: Bariatric Surgery, Cholecystectomy, Joint Replacement, Orthopedic Surgery, Tonsillectomy Additional Past Surgical History / Comment(s): 2018 gastric sleeve, bilateral carpal tunnel releases, R knee arthroscopies, R total knee arthroplasty, L knee arthroscopy, L total knee-hardware problem/replaced then infection and replaced again-multiple surgeries on, R rotator cuff repair, L patellar stabilization, EGD, colonoscopy. Past Anesthesia/Blood Transfusion Reactions: No Reported Reaction Smoking Status: Former smoker - Past Family History Brother(s) Family Medical History: CVA/TIA Additional Family Medical History / Comment(s): Brother had a CVA at the age of 52 yrs. Father Additional Family Medical History / Comment(s): Father had phlebitis. Mother Family Medical History: No Reported History Medications and Allergies Home Medications Medication Instructions Recorded Confirmed Type ALPRAZolam [Xanax] 0.25 mg PO TID PRN 11/27/14 12/17/19 History Benazepril HCl [Lotensin] 40 mg PO HS 03/26/18 12/17/19 History Pravastatin Sodium [Pravachol] 80 mg PO HS 03/26/18 12/17/19 History buPROPion HCL [Wellbutrin SR] 150 mg PO BID 09/09/18 12/17/19 History HYDROcodone/APAP 7.5-325MG [[place] 1 tab PO Q4-6H PRN 08/21/19 12/17/19 History 7.5-325] Diltiazem HCl [Cardizem CD] 120 mg PO DAILY #90 cap 08/23/19 12/17/19 Rx Aspirin 81 mg PO HS 09/16/19 12/17/19 History FLUoxetine HCL [PROzac] 40 mg PO DAILY 11/27/19 12/17/19 History Ibuprofen 800 mg PO Q6H PRN 11/27/19 12/17/19 History Allergies Allergy/AdvReac Type Severity Reaction Status Date / Time sulfamethoxazole AdvReac Unknown DIZZY, Verified 12/17/19 07:40 [From Bactrim] FELT LIKE HE HAD THE FLU, HOT & COLD FLASHES trimethoprim [From Bactrim] AdvReac Unknown DIZZY, Verified 12/17/19 07:40 FELT LIKE HE HAD THE FLU, HOT & COLD FLASHES Physical Examination The patient is a 59-year-old male who is visibly diaphoretic and shaky on exam. He is alert and oriented 3. Exam of the left upper extremity reveals swelling and redness to the left elbow incision site. Some sutures were removed and about 10 cc of purulent fluid was expressed. Dressing applied. Erythema and swelling extends into the upper arm and forearm. Minimal swelling to the hand and fingers. Pain with any motion of the arm and elbow. Neurological status is intact. Circulatory status is intact, capillary refill less than 2 seconds. Results - Labs Labs: Abnormal Lab Results - Last 24 Hours (Table) 12/17/19 12/17/19 12/17/19 Range/Units 04:29 04:29 04:29 WBC 12.0 H (3.8-10.6) k/uL Neutrophils # 9.3 H (1.3-7.7) k/uL Glucose 247 H (74-99) mg/dL POC Glucose (mg/dL) (75-99) mg/dL Plasma Lactic Acid [place] 3.0 H* (0.7-2.0) mmol/L C-Reactive Protein 29.5 H (<10.0) mg/L Urine Glucose (UA) (Negative) Urine Ketones (Negative) 12/17/19 12/17/19 Range/Units 06:08 07:33 WBC (3.8-10.6) k/uL Neutrophils # (1.3-7.7) k/uL Glucose (74-99) mg/dL POC Glucose (mg/dL) 176 H (75-99) mg/dL Plasma Lactic Acid [place] (0.7-2.0) mmol/L C-Reactive Protein (<10.0) mg/L Urine Glucose (UA) Trace H (Negative) Urine Ketones 1+ H (Negative) H & H 12/17/19 Range/Units 04:29 Hgb 14.3 (13.0-17.5) gm/dL Hct 41.9 (39.0-53.0) % Coagulation 12/17/19 Range/Units 04:29 INR 1.0 (<1.2) Result Diagrams: 12/17/19 04:29 12/17/19 04:29 - Diagnostic results Elbow x-ray: image reviewed (Two views of the left elbow reveal soft tissue swelling. No bony destruction present.) Assessment and Plan (1) Fever Current Visit: Yes Status: Acute Code(s): R50.9 - FEVER, UNSPECIFIED SNOMED Code(s): 573760669 (2) Cellulitis of left elbow Current Visit: Yes Status: Acute Code(s): L03.114 - CELLULITIS OF LEFT UPPER LIMB SNOMED Code(s): 106797175 (3) Post-operative infection Current Visit: Yes Status: Acute Code(s): T81.40XA - INFECTION FOLLOWING A PROCEDURE, UNSPECIFIED, INIT SNOMED Code(s): 45404772 (4) Diabetes type 2, controlled Current Visit: Yes Status: Acute Code(s): E11.9 - TYPE 2 DIABETES MELLITUS WITHOUT COMPLICATIONS SNOMED Code(s): 30275829 (5) Hypertension Current Visit: Yes Status: Acute Code(s): I10 - ESSENTIAL (PRIMARY) HYPERTENSION SNOMED Code(s): 89033243 (6) A-fib Current Visit: Yes Status: Acute Code(s): I48.91 - UNSPECIFIED ATRIAL FIBRILLATION SNOMED Code(s): 03593777 Plan: The clinical, x-ray, and lab findings were discussed with the patient. The case was discussed at length with Dr. Skaggs. The patient will be NPO today for an urgent I&D of the left elbow this afternoon. Continue IV antibiotics. Continue pain control. Continue sepsis treatment. We will continue to follow patient closely and make further recommendations after the I&D this afternoon. <Javier Skaggs - Last Filed: 12/17/19 20:51> Results - Labs Labs: Abnormal Lab Results - Last 24 Hours (Table) 12/17/19 12/17/19 12/17/19 Range/Units 04:29 04:29 04:29 WBC 12.0 H (3.8-10.6) k/uL Neutrophils # 9.3 H (1.3-7.7) k/uL ESR (0-15) mm/hr Glucose 247 H (74-99) mg/dL POC Glucose (mg/dL) (75-99) mg/dL Plasma Lactic Acid [place] 3.0 H* (0.7-2.0) mmol/L C-Reactive Protein 29.5 H (<10.0) mg/L Urine Glucose (UA) (Negative) Urine Ketones (Negative) 12/17/19 12/17/19 12/17/19 Range/Units 04:29 06:08 07:33 WBC (3.8-10.6) k/uL Neutrophils # (1.3-7.7) k/uL ESR 25 H (0-15) mm/hr Glucose (74-99) mg/dL POC Glucose (mg/dL) 176 H (75-99) mg/dL Plasma Lactic Acid [place] (0.7-2.0) mmol/L C-Reactive Protein (<10.0) mg/L Urine Glucose (UA) Trace H (Negative) Urine Ketones 1+ H (Negative) 12/17/19 Range/Units 16:26 WBC (3.8-10.6) k/uL Neutrophils # (1.3-7.7) k/uL ESR (0-15) mm/hr Glucose (74-99) mg/dL POC Glucose (mg/dL) 256 H (75-99) mg/dL Plasma Lactic Acid [place] (0.7-2.0) mmol/L C-Reactive Protein (<10.0) mg/L Urine Glucose (UA) (Negative) Urine Ketones (Negative) Microbiology - Last 24 Hours (Table) 12/17/19 11:00 Anaerobic Culture - Preliminary Elbow - Left 12/17/19 11:00 Fungal Culture - Preliminary Elbow - Left 12/17/19 11:00 Wound Culture - Preliminary Elbow - Left H & H 12/17/19 Range/Units 04:29 Hgb 14.3 (13.0-17.5) gm/dL Hct 41.9 (39.0-53.0) % Coagulation 12/17/19 Range/Units 04:29 INR 1.0 (<1.2) Result Diagrams: 12/17/19 04:29 12/17/19 04:29 Assessment and Plan Plan: Discussed with CATHY Thompson and agree with above. Patient was also seen and examined by me. S: He states that the pain woke amount of a sound sleep last night. He did note some flulike symptoms a few days after the cubital tunnel release which seemed to improve gradually over the next several days. He admits that he has not been checking his blood sugars regularly. O: Significant soft tissue swelling on the medial aspect of the arm with surro unding erythema. Two of the crossing sutures at the center of the incision were released and about 10 mL of purulent fluid was expressed. Culture swab of this fluid was obtained. A: 1. Postoperative wound infection/cellulitis status post cubital tunnel release 2. Sepsis 3. Diabetes mellitus P: Recommend formal surgical irrigation and debridement. Continue empiric antibiotics. PRN pain management. NPO. Javier Skaggs D.O. [facility]
[2019-12-17] MEDS ORDERED: ALPRAZolam 0.25 MG TAB PO PRN (15:46)
[2019-12-17] MEDS ORDERED: IBUPROFEN 800 MG TAB PO PRN (15:46)
[2019-12-17 16:31] LABS: Glucose,Whole Blood 256 mg/dL (75-99)
[2019-12-17] MEDS: VANCOMYCIN 2,000 MG in SODIUM CHLORIDE 0.9% 500 ML 500 ML IVPB SCH (16:37)
[2019-12-17] MEDS ORDERED: HYDROmorphone 0.5 MG/0.5 ML SYRINGE IVP PRN (20:22)
[2019-12-17] MEDS ORDERED: ACETAMINOPHEN IV (For NPO) 1,000 MG in EMPTY BAG 1 BAG IVPB ONE (20:30)
[2019-12-17] MEDS ORDERED: SUCCINYLCHOLINE CHLORIDE 100 MG/5 ML SYR IV ONE (20:57)
[2019-12-17] MEDS ORDERED: ONDANSETRON 4 MG/2 ML VIAL ONE (20:57)
[2019-12-17] MEDS ORDERED: PHENYLEPHRINE-0.9% NACL SYG 1 MG/10 ML SYRINGE ONE (20:57)
[2019-12-17] MEDS ORDERED: MIDAZOLAM 2 MG/2 ML VIAL ONE (20:57)
[2019-12-17] MEDS ORDERED: IV FLUID CONTINUATION 1,000 ML IV ONE (20:57)
[2019-12-17] MEDS ORDERED: PROPOFOL 10 MG/ML 20 ML VIAL IV ONE (20:57)
[2019-12-17] MEDS ORDERED: KETOROLAC 30 MG/ML 1 ML VIAL ONE (20:57)
[2019-12-17] MEDS ORDERED: fentaNYL (PF) 50 MCG/ML 2 ML AMP ONE (20:57)
[2019-12-17] MEDS ORDERED: LACTATED RINGERS 1,000 ML IV ONE (22:03)
[2019-12-17] MEDS ORDERED: ROPIVACAINE 5 MG/ML 30 ML VIAL MISCELLANE ONE (22:14)
--- NOTE | 2019-12-17 22:35 | HP ---
HISTORY AND PHYSICAL CHIEF COMPLAINT: Pain and swelling in the left elbow. HISTORY OF PRESENT ILLNESS: This is another admission for this 59-year-old white male. He just had an elective procedure on his left elbow and it gradually became more painful, red and swollen. On the morning of admission, the pain became acutely severe and he could not move the elbow. He came to the emergency room. It was felt that he had a wound infection. REVIEW OF SYSTEMS: He has had no confusion, shortness of breath, chest pain, abdominal pain, vomiting and diarrhea, etc. Past medical history, family history, personal and social histories are otherwise unremarkable. ALLERGIES: ALLERGIC to SULFA. MEDICATIONS: He takes Prozac 40 mg a day, bupropion 150 mg twice a day, benazepril 40 mg once a day, Flovent HFA, cyclobenzaprine 10 mg t.i.d. p.r.n., colchicine 0.5 mg twice a day, Cardizem CD 120 mg once a day, Xanax 0.25 q.h.s., pravastatin 80 mg once a day, Vicodin 7.5 q.4h p.r.n., ibuprofen 800 mg q.i.d., and aspirin 81 mg a day. The remainder of history is unremarkable. REVIEW OF SYSTEMS: He has had no headaches, neurologic problems, difficulty with the vision, hearing, chest pain, cough, hemoptysis, heart disease, syncope, palpitations, orthopnea, PND, abdominal pain, nausea, vomiting, hematemesis, melena, hematochezia, colitis, diverticulosis, hematuria, renal failure, dysuria, etc. He used to drink a significant amount of alcohol but has cut down and he is not smoking at the present time. PHYSICAL EXAMINATION: Blood pressure 118/80 with a pulse of 94, respirations 35 and temperature of 100.1. In general, he appeared to be uncomfortable with the elbow. Skin was dry. Head, ears, eyes, nose, mouth, and throat were normal and the chest is clear to auscultation and percussion. Cardiac exam is normal. No murmurs or extra sounds. Abdomen is soft and nontender and extremities are normal except for the left elbow where he had extensive cellulitis and slight drainage from the recent operative incision. Neurologically he is intact. IMPRESSION: He is admitted to the hospital with diagnoses of: 1. Cellulitis left elbow and secondary surgical wound infection. 2. Hypertension. 3. Diet-controlled noninsulin diabetes mellitus. PLAN: 1. Bed rest. 2. IV fluids. 3. IV antibiotics. 4. Consult with Orthopedics and Infectious Disease. KIMBERLEY / UMM: [id number] /
[2019-12-17] MEDS ORDERED: ONDANSETRON 4 MG/2 ML VIAL IVP PRN (22:38)
--- NOTE | 2019-12-17 23:03 | P.OP ---
Date of Procedure: 12/17/19 Preoperative Diagnosis: 1. Left elbow postoperative wound infection status post cubital tunnel release Postoperative Diagnosis: 1. Left elbow postoperative wound infection status post cubital tunnel release Procedure(s) Performed: Irrigation and debridement of left elbow wound Anesthesia: [facility]PSON Surgeon: Javier Skaggs Estimated Blood Loss (ml): 35 Pathology: none sent Condition: stable Disposition: PACU Indications for Procedure: The patient is a 59-year-old male who underwent left ulnar nerve decompression (cubital tunnel release) on 11/29/19. He presented to the emergency department with increasing pain and swelling. The wound showed evidence of acute infection and surgical debridement was recommended. Risks and benefits were reviewed including (but not limited to) the risks of bleeding, injury to tendons or neurovascular structures, persistent or recurrent infection, wound healing problems, scar tissue formation and possible need for additional surgery. The patient expressed understanding, willingness to accept these risks and wished to proceed with surgery. Consent forms were signed. The surgical site was confirmed and marked preoperatively. Description of Procedure: The patient was brought to the operating suite by the anesthesia team and was positioned supine. All bony prominences were well-padded. General anesthesia was administered uneventfully. The left upper extremity was prepped and draped in standard, sterile fashion. A sterile tourniquet was placed on the operative limb, but was not inflated. The arm was positioned across the chest. A time-out was performed, confirming patient identifiers, the operative side, site and the procedure to be performed: all team members expressed agreement. The sutures from the prior surgery were removed and the central aspect of the incision was bluntly spread. A moderate amount of thin, cloudy fluid was encountered. Cultures of this fluid had been obtained previously in the ER. The proximal and distal aspects of the incision was sharply reopened. Spreading dissection was used to explore the wound. There was moderate amount of thickened, fibrous tissue throughout the wound. The ulnar nerve was identified, encased in scar tissue. This was carefully dissected free. A Demetrio drain was passed around the nerve for atraumatic handling. Finger dissection was used to explore the wound. Several pockets of thin fluid were encountered but no large area of purulent fluid was encountered that would represent a likely source of the infection. A combination of sharp and mechanical debridement was used to resect infected/unhealthy tissue. The wound was copiously irrigated with 6 L of normal saline using cystoscopy tubing with gravity inflow. The surrounding soft tissues were mechanically debrided with a curette. Good hemostasis was maintained throughout the case without using a tourniquet. Small bleeders were controlled with electrocautery. The subcutaneous tissues were reapproximated with interrupted 2-0 PDS sutures. A 10 mm channel drain was inserted into the wound and passed through a small stab incision at the distal end of the wound. Incision was loosely closed with interrupted 3-0 Prolene sutures. Local anesthetic without epinephrine was injected into the perioperative subcutaneous tissues for postoperative pain control. Sterile dressings of Adaptic, 4 x 4's, Kerlix and Coban were applied. All sponge, needle and instrument counts were correct at the end of the case. The patient tolerated the procedure well and was taken to recovery in stable condition. The patient will be returned to the floor for continued monitoring and IV antibiotics, to be guided by intraoperative cultures.
[2019-12-17 23:16] LABS: Glucose,Whole Blood 208 mg/dL (75-99)
[2019-12-17] MEDS ORDERED: SODIUM CHLORIDE 0.9% 1,000 ML IV ONE (23:16)
[2019-12-18 00:01] LABS: Glucose,Whole Blood 193 mg/dL (75-99)
[2019-12-18] MEDS: buPROPion SR 150 MG TABLET.ER PO SCH ×3 (00:02→22:46)
[2019-12-18] MEDS: ASPIRIN 81 MG PO SCH ×2 (00:02→22:18)
[2019-12-18] MEDS: CEFEPIME 2 GM in SODIUM CHLORIDE 0.9% 100 ML IVPB SCH ×2 (00:05→10:55)
[2019-12-18] MEDS: INSULIN ASPART (NovoLOG) 100 UNIT/ML VIAL SQ SCH ×5 (00:06→22:20)
[2019-12-18] MEDS: LISINOPRIL 20 MG TAB PO SCH ×2 (00:07→22:19)
[2019-12-18] MEDS: VANCOMYCIN 2,000 MG in SODIUM CHLORIDE 0.9% 500 ML 500 ML IVPB SCH ×2 (01:26→07:40)
[2019-12-18] MEDS: HYDROmorphone 1 MG/ML 1 ML SYRINGE IVP PRN ×6 (01:40→22:19)
[2019-12-18 03:31] LABS: Glucose,Whole Blood 117 mg/dL (75-99)
[2019-12-18] MEDS: LACTATED RINGERS 1,000 ML IV SCH ×2 (06:18→22:20)
[2019-12-18] MEDS: ACETAMINOPHEN TAB 325 MG TAB PO PRN (06:18)
--- NOTE | 2019-12-18 06:36 | CONS ---
CONSULTATION DATE OF SERVICE: 12/17/2019 REASON FOR CONSULTATION: Sepsis. HISTORY OF PRESENT ILLNESS: The patient is a 59-year-old male who is status post cubital tunnel release of the left elbow on November 29, [address] Skaggs. The patient was doing well postoperatively and apparently the patient did have some serous drainage from the incision site that apparently was slowly slowing down. The patient woke up this morning with significant pain to the left elbow area which is becoming more swollen and red. The patient describes the pain to be sharp, excruciating, almost 10/10 with associated swelling and redness. The patient also started running a fever with rigors and chills. With these symptoms, the patient presented to hospital. On arrival to the ER, the patient has been afebrile. Subsequently did spike a fever 102.9 degrees Fahrenheit. The patient has been tachycardic. White count was elevated at 12 and Sed rate to 25, lactic acid of 3. The patient did have a local wound cultures obtained as well as blood culture. He was started on vancomycin and admitted to the hospital. Infectious Disease was consulted for further recommendations regarding antibiotic therapy. REVIEW OF SYSTEMS: CONSTITUTIONAL: Positive for fever and weakness. EYES: No complaint. ENT: No complaint. RESPIRATORY: No shortness of breath. CARDIOVASCULAR: No complaint. GENITOURINARY: No complaint. GASTROINTESTINAL: No complaint. MUSCULOSKELETAL: As per HPI. INTEGUMENTARY: As per HPI. PSYCHOLOGIC: No complaint. ENDOCRINE: No complaint. NEUROLOGICAL: No complaint. PAST MEDICAL HISTORY: Atrial fibrillation, atrial flutter, diabetes mellitus, gastroesophageal reflux disease, GI bleed, hypertension, hyperlipidemia, osteoarthritis, sleep apnea. PAST SURGICAL HISTORY: Bariatric surgery, cholecystectomy, bilateral carpal tunnel release, right knee arthroscopy, right knee arthroplasty, left total knee hardware problem, replaced, rotator cuff repair. SOCIAL HISTORY: Remote history of smoking. No drinking or drug use. FAMILY HISTORY: Brother has a CVA, TIA. ALLERGIES: Allergies to BACTRIM. MEDICATIONS: Medications include the patient is currently on Tylenol, [place], Xanax, aspirin, Wellbutrin SR, Cardizem, Prozac, Dilaudid, Motrin, NovoLog, vancomycin q.8 hour. PHYSICAL EXAMINATION: Blood pressure is 119/73 with a pulse of 120, temperature 102.3. He is 97% on room air. General description is a middle-aged male lying in bed in no distress. No tachypnea or accessory muscle of respiration use. HEENT: Examination shows no pallor or scleral icterus. Oral mucous membranes dry. No pharyngeal erythema or thrush. NECK: Trachea central. No thyromegaly. LUNGS: Unlabored breathing. Clear to auscultation anteriorly. No wheeze or crackles. HEART: S1, S2. Tachycardic. ABDOMEN: Soft. No tenderness. No guarding or rigidity. EXTREMITIES: No edema of feet. Examination of the left elbow area swollen and red, warm to touch and tender. Minimal drainage. NEUROLOGICALLY: Patient is awake, alert, oriented x3. Mood and affect normal. LABS: Hemoglobin is 14.3, white count 12,000. BUN of 14, creatinine 0.79. Electrolytes have been normal. Liver enzymes are normal. CRP 29.5. Lactic acid showed 3 on arrival down to 1.9. DIAGNOSTIC IMPRESSION AND PLAN: Patient admitted to the hospital with sepsis in this patient recently had surgery on the left elbow now with that site swollen and red with concern for underlying infection and abscess. Likely from a gram-positive skin garrick such as strep and methicillin- resistant Staphylococcus aureus. Gram-negative infection not entirely excluded. PLAN: 1. Vancomycin pharmacy to dose target of 15, . 2. Will add cefepime 2 grams q.12 hours . 3. Await surgical exploration and drainage of the abscess and deep cultures. 4. We will follow up on clinical condition and culture to further adjust medication if needed. Thank you for this consultation. Will follow this patient along with you. MMODL / IJN: [id number] /
[2019-12-18 06:59] LABS: Glucose,Whole Blood 212 mg/dL (75-99)
[2019-12-18] MEDS: FLUoxetine HCL 20 MG CAP PO SCH (07:33)
[2019-12-18] MEDS: DILTIAZEM CD 120 MG CAP.ER.24H PO SCH (07:34)
[2019-12-18] MEDS: HYDROcodone/APAP 7.5-325MG 1 EACH TAB PO PRN ×2 (08:38→12:05)
[2019-12-18 09:55] LABS: ALT 92 U/L (4-49); AST 159 U/L (17-59); African American GFR (CKD) >90 (>60 ml/min/1.73 sqM); Albumin 3.4 g/dL (3.5-5.0); Alkaline Phosphatase 130 U/L (38-126); Anion Gap 15 mmol/L; Blood Urea Nitrogen 19 mg/dL (9-20); Calcium 8.3 mg/dL (8.4-10.2); Carbon Dioxide 20 mmol/L (22-30); Chloride 99 mmol/L (98-107); Glucose 225 mg/dL (74-99); Non-African American GFR(CKD) >90 (>60 ml/min/1.73 sqM); Potassium 4.2 mmol/L (3.5-5.1); Sodium 134 mmol/L (137-145); Total Bilirubin 1.1 mg/dL (0.2-1.3); Total Protein 6.3 g/dL (6.3-8.2)
[2019-12-18 10:19] LABS: HCT 37.7 % (39.0-53.0); HGB 12.7 gm/dL (13.0-17.5); MCH 31.8 pg (25.0-35.0); MCHC 33.6 g/dL (31.0-37.0); MCV 94.6 fL (80.0-100.0); Mean Platelet Volume 8.7; Platelet Count 241 k/uL (150-450); RBC 3.99 m/uL (4.30-5.90); RDW 12.9 % (11.5-15.5); WBC 26.2 k/uL (3.8-10.6)
[2019-12-18 10:42] LABS: Band Neutrophils % 9 %; Lymphocytes # (M) 0.26 k/uL (1.0-4.8); Monocytes # (M) 0.52 k/uL (0-1.0); Myelocytes # (M) 0.26 k/uL (0); Myelocytes % 1 %; Neutrophils % (M) 89 %; Nucleated Red Blood Cells 0 /100 WBC (0-0); Total Cells Counted 200; Toxic Granulation Present
[2019-12-18 10:43] LABS: Anisocytosis (M) Present; Toxic Vacuolation Present
[2019-12-18 11:30] LABS: Glucose,Whole Blood 152 mg/dL (75-99)
[2019-12-18] MEDS: CLINDAMYCIN 900 MG in DEXTROSE 5% IN WATER 50 ML IVPB SCH ×6 (11:54→23:36)
[2019-12-18] MEDS: SODIUM CHLORIDE 0.9% 1,000 ML IV SCH ×2 (11:55→22:21)
--- NOTE | 2019-12-18 14:48 | XR ---
EXAMINATION TYPE: XR chest 1V portable DATE OF EXAM: 12/18/2019 COMPARISON: Prior chest x-ray 09/08/2019 HISTORY: Sepsis protocol, atrial fibrillation and abnormal chest x-ray TECHNIQUE: Single frontal view of the chest is obtained. FINDINGS: Technique somewhat apical lordotic and rotated. There are overlying cardiac leads. There i s no focal air space opacity, pleural effusion, or pneumothorax seen. The cardiac silhouette size is enlarged. The osseous structures are intact. IMPRESSION: Rotated exam. No acute abnormalities evident. Cardiomegaly.
[2019-12-18 15:23] LABS: Amorphous Sediment,Urine Rare /hpf; Appearance,Urine Cloudy (Clear); Bacteria,Urine Occasional /hpf; Bilirubin,Urine Negative (Negative); Blood,Urine Negative (Negative); Color,Urine Yellow; Glucose,Urine (UA) Negative (Negative); Ketones,Urine Negative (Negative); Leukocyte Esterase,Urine Negative (Negative); Mucus,Urine Rare /hpf; Nitrite,Urine Negative (Negative); Protein,Urine 1+ (Negative); RBC,Urine 1 /hpf (0-5); Specific Gravity,Urine 1.026 (1.001-1.035); Squamous Epithelial Cell,Urine <1 /hpf (0-4); Urobilinogen,Urine <2.0 mg/dL (<2.0); WBC,Urine 4 /hpf (0-5)
[2019-12-18] MEDS ORDERED: HYDROcodone/APAP 7.5-325MG 1 EACH TAB PO PRN ×2 (17:12→17:13)
[2019-12-18 17:13] LABS: Glucose,Whole Blood 114 mg/dL (75-99)
--- NOTE | 2019-12-18 19:20 | P.PN ---
Subjective Progress Note Date: 12/18/19 The patient states that the pain in the left elbow has improved slightly compared to its preoperative level. He reports intermittent chills. He still feels lousy. He admits to a sore throat today, but also had similar symptoms several days prior to admission and he felt he might have an upper respiratory infection. He is still requiring IV narcotics at regular intervals. Objective - Vital Signs Vital signs: Vital Signs Temp 97.6 F 12/18/19 10:25 Pulse 91 12/18/19 10:25 Resp 16 12/18/19 10:25 BP 96/65 12/18/19 10:25 Pulse Ox 98 12/18/19 10:25 Intake & Output 12/17/19 12/18/19 12/18/19 18:59 06:59 18:59 Intake Total 1300 Output Total 190 275 Balance 1110 -275 Weight 122.47 kg Intake: IV 1300 Output: Drainage 80 Left Elbow 80 Urine 75 275 Estimated Blood Loss 35 Other: Voiding Method Toilet Urinal # Voids 2 2 1 - Exam General: Upon entering, the patient was ambulating unassisted, returning from the bathroom. Slow, but steady gait. Demonstrates shaking & c/o chills Patient still appears ill, but not in acute distress. Musculoskeletal: The dressings were removed. There is diffuse erythema along the medial aspect of the elbow and distal arm. The redness is much less intense and not as well- demarcated as it was before surgery. Mild calor. Is still quite tender to palpation. No discrete subcutaneous fluctuance. The drain is in place with about 10-15 cc of serosanguineous output. - Labs CBC & Chem 7: 12/18/19 09:09 12/18/19 09:09 Labs: Abnormal Lab Results - Last 24 Hours (Table) 12/17/19 12/17/19 12/18/19 Range/Units 23:08 23:58 03:26 WBC (3.8-10.6) k/uL RBC (4.30-5.90) m/uL Hgb (13.0-17.5) gm/dL Hct (39.0-53.0) % Neutrophils # (Manual) (1.3-7.7) k/uL Lymphocytes # (Manual) (1.0-4.8) k/uL Myelocytes # (Manual) (0) k/uL Sodium (137-145) mmol/L Carbon Dioxide (22-30) mmol/L Glucose (74-99) mg/dL POC Glucose (mg/dL) 208 H 193 H 117 H (75-99) mg/dL Plasma Lactic Acid [place] (0.7-2.0) mmol/L Calcium (8.4-10.2) mg/dL AST (17-59) U/L ALT (4-49) U/L Alkaline Phosphatase (38-126) U/L Albumin (3.5-5.0) g/dL Urine Protein (Negative) Amorphous Sediment (None) /hpf Urine Bacteria (None) /hpf Urine Mucus (None) /hpf 12/18/19 12/18/19 12/18/19 Range/Units 06:56 09:09 09:09 WBC 26.2 H (3.8-10.6) k/uL RBC 3.99 L (4.30-5.90) m/uL Hgb 12.7 L (13.0-17.5) gm/dL Hct 37.7 L (39.0-53.0) % Neutrophils # (Manual) 25.60 H (1.3-7.7) k/uL Lymphocytes # (Manual) 0.26 L (1.0-4.8) k/uL Myelocytes # (Manual) 0.26 H (0) k/uL Sodium 134 L (137-145) mmol/L Carbon Dioxide 20 L (22-30) mmol/L Glucose 225 H (74-99) mg/dL POC Glucose (mg/dL) 212 H (75-99) mg/dL Plasma Lactic Acid [place] (0.7-2.0) mmol/L Calcium 8.3 L (8.4-10.2) mg/dL AST 159 H (17-59) U/L ALT 92 H (4-49) U/L Alkaline Phosphatase 130 H (38-126) U/L Albumin 3.4 L (3.5-5.0) g/dL Urine Protein (Negative) Amorphous Sediment (None) /hpf Urine Bacteria (None) /hpf Urine Mucus (None) /hpf 12/18/19 12/18/19 12/18/19 Range/Units 09:09 11:27 13:17 WBC (3.8-10.6) k/uL RBC (4.30-5.90) m/uL Hgb (13.0-17.5) gm/dL Hct (39.0-53.0) % Neutrophils # (Manual) (1.3-7.7) k/uL Lymphocytes # (Manual) (1.0-4.8) k/uL Myelocytes # (Manual) (0) k/uL Sodium (137-145) mmol/L Carbon Dioxide (22-30) mmol/L Glucose (74-99) mg/dL POC Glucose (mg/dL) 152 H (75-99) mg/dL Plasma Lactic Acid [place] 3.8 H* 2.2 H* (0.7-2.0) mmol/L Calcium (8.4-10.2) mg/dL AST (17-59) U/L ALT (4-49) U/L Alkaline Phosphatase (38-126) U/L Albumin (3.5-5.0) g/dL Urine Protein (Negative) Amorphous Sediment (None) /hpf Urine Bacteria (None) /hpf Urine Mucus (None) /hpf 12/18/19 12/18/19 Range/Units 17:06 Unknown WBC (3.8-10.6) k/uL RBC (4.30-5.90) m/uL Hgb (13.0-17.5) gm/dL Hct (39.0-53.0) % Neutrophils # (Manual) (1.3-7.7) k/uL Lymphocytes # (Manual) (1.0-4.8) k/uL Myelocytes # (Manual) (0) k/uL Sodium (137-145) mmol/L Carbon Dioxide (22-30) mmol/L Glucose (74-99) mg/dL POC Glucose (mg/dL) 114 H (75-99) mg/dL Plasma Lactic Acid [place] (0.7-2.0) mmol/L Calcium (8.4-10.2) mg/dL AST (17-59) U/L ALT (4-49) U/L Alkaline Phosphatase (38-126) U/L Albumin (3.5-5.0) g/dL Urine Protein 1+ H (Negative) Amorphous Sediment Rare H (None) /hpf Urine Bacteria Occasional H (None) /hpf Urine Mucus Rare H (None) /hpf Microbiology - Last 24 Hours (Table) 12/17/19 11:00 Gram Stain - Preliminary Elbow - Left Wound Culture - Preliminary Strep pyogenes (grp a) 12/17/19 04:40 Blood Culture - Preliminary Blood No Growth after 24 hours 12/17/19 11:00 Anaerobic Culture - Preliminary Elbow - Left 12/17/19 11:00 Fungal Culture - Preliminary Elbow - Left Assessment and Plan Assessment: Postoperative day #1 status post irrigation & debridement of left elbow abscess Wound infection/cellulitis status post left cubital tunnel release on 11/29/19 Preliminary wound cultures positive for Group A strep pyogenes Sepsis Diabetes mellitus Plan: I discussed the clinical and intraoperative findings with the patient. A new dressing was applied. The dressing and drain should remain in place. Empty drain and record output every six hours. The patient was instructed to perform active and passive range of motion of the hand, wrist and elbow frequently throughout the day. Encourage ambulation for DVT prophylaxis. Continue IV antibiotics per infectious disease recommendations. Increase [place] to 2 tabs every 4 hours PRN. Dilaudid for breakthrough pain only. We will obtain a throat swab for rapid strep test.
--- NOTE | 2019-12-18 20:24 | PN ---
PROGRESS NOTE CHIEF COMPLAINT: Postoperative infection of the left elbow. HISTORY OF PRESENT ILLNESS: This gentleman is doing well. The elbow was drained. He is on IV fluids and antibiotics and having quite a bit of discomfort. Later in the morning he apparently became hypotensive and tachycardic and the A-team was called. He was given a fluid bolus and moved to telemetry. PHYSICAL EXAMINATION: Chest is clear. Cardiac exam is normal. Abdomen is soft, nontender. Left arm is dressed with Fausto wraps and a drain. IMPRESSION: 1. Septicemia. 2. Postoperative infection of the left elbow after ulnar release. 3. Hypertension. 4. Diabetes. 5. History of alcohol abuse. PLAN: Continue with IV fluids and antibiotics and obtain appropriate cultures. He will also be sent for a chest x-ray and have a urinalysis done. MMODL / IJN: [id number] /
[2019-12-18 20:54] LABS: Glucose,Whole Blood 210 mg/dL (75-99)
--- NOTE | 2019-12-18 21:58 | PN ---
PROGRESS NOTE DATE OF SERVICE: 12/18/2019 REASON FOR FOLLOWUP: Left elbow abscess and cellulitis. HISTORY OF PRESENT ILLNESS: The patient is a 59-year-old male who presented to hospital with left elbow abscess and cellulitis. The patient was taken to the OR last night and the patient did have I&D of the left elbow wound. The patient tolerated the procedure. This morning he overall feels better and has improved compared to yesterday. He is feeling slightly better. Denies having any chest pain, shortness of breath or cough. Pain to the left elbow is still throbbing, about 7 to 8 out of 10, and no radiation. No nausea, vomiting or diarrhea. PHYSICAL EXAMINATION: Blood pressure 96/65 with a pulse of 91, temperature 97.6. He is 98% on room air. General description is a middle-aged male lying in bed in no distress. RESPIRATORY SYSTEM: Unlabored breathing. Clear to auscultation anteriorly. HEART: S1, S2. Regular rate and rhythm. ABDOMEN: Soft. No tenderness. Left elbow is currently dressed up. No obvious drainage on the dressing. LAB: Hemoglobin is 12.7, white 26.2. The wound culture finalized with Streptococcus pyogenes. DIAGNOSTIC IMPRESSION AND PLAN: Patient admitted to hospital with sepsis secondary to left elbow infection in this patient who recently did have surgery. The patient is status post drainage of the left elbow abscess. The patient's culture has been positive for Streptococcus pyogenes. The patient's antibiotic has been adjusted to cefazolin and clindamycin this morning. That will be continued. We will monitor his clinical course closely. In view of extensive infection, he will need outpatient IV antibiotic therapy on discharge. Continue with supportive care. MMODL / IJN: [id number] /
[2019-12-18] MEDS ORDERED: VANCOMYCIN TROUGH DUE 1 EACH MISC MISCELLANE ONE (23:00)
[2019-12-19] MEDS: HYDROmorphone 1 MG/ML 1 ML SYRINGE IVP PRN (03:16)
[2019-12-19] MEDS: SODIUM CHLORIDE 0.9% 1,000 ML IV SCH ×3 (03:16→16:07)
[2019-12-19 06:02] LABS: Glucose,Whole Blood 172 mg/dL (75-99)
[2019-12-19] MEDS: INSULIN ASPART (NovoLOG) 100 UNIT/ML VIAL SQ SCH ×4 (06:39→22:10)
[2019-12-19] MEDS: CLINDAMYCIN 900 MG in DEXTROSE 5% IN WATER 50 ML IVPB SCH ×4 (08:24→16:07)
[2019-12-19] MEDS: DILTIAZEM CD 120 MG CAP.ER.24H PO SCH (08:33)
[2019-12-19] MEDS: FLUoxetine HCL 20 MG CAP PO SCH (08:34)
[2019-12-19] MEDS: buPROPion SR 150 MG TABLET.ER PO SCH ×2 (08:36→22:10)
--- NOTE | 2019-12-19 08:45 | P.PN ---
Subjective Progress Note Date: 12/19/19 Principal diagnosis: Status post left elbow I&D. This is a 59 year-old male post op left elbow I&D. This is post-op day 2. The patient was evaluated at the bedside today. The patient denies nausea, vomiting, abdominal pain, chest pain, or shortness of breath this morning. He is still not feeling well. He states his pain is not controlled and he is unable to sleep due to the pain. He is currently on cefazolin and clindamycin. No new complaints today. Rapid strep was negative. Objective - Vital Signs Vital signs: Vital Signs Temp 98.9 F 12/19/19 07:32 Pulse 93 12/19/19 07:32 Resp 18 12/19/19 07:32 BP 104/71 12/19/19 07:32 Pulse Ox 98 12/19/19 07:32 Intake & Output 12/18/19 12/19/19 12/19/19 18:59 06:59 18:59 Intake Total 100 Output Total 295 445 Balance -295 -345 Weight 128.7 kg Intake: Oral 100 Output: Drainage 20 20 Left Elbow 20 20 Urine 275 425 Other: # Voids 1 1 - Exam The patient is a 59 y/o male who still appears ill but not in acute distress. Demonstrates shaking & c/o chills. Fausto wrap were removed and rewrapped per patient request.. There is diffuse erythema along the medial aspect of the elbow and distal arm. The redness is much less intense and not as well- demarcated as it was before surgery. The elbow still quite tender to palpation. No discrete subcutaneous fluctuance. The drain is in place with minimal serosanguineous output in the drain at this time. No numbness present. Circulatory status is intact. - Labs CBC & Chem 7: 12/19/19 11:53 12/19/19 11:53 Labs: Abnormal Lab Results - Last 24 Hours (Table) 12/18/19 12/18/19 12/18/19 Range/Units 09:09 09:09 09:09 WBC 26.2 H (3.8-10.6) k/uL RBC 3.99 L (4.30-5.90) m/uL Hgb 12.7 L (13.0-17.5) gm/dL Hct 37.7 L (39.0-53.0) % Neutrophils # (Manual) 25.60 H (1.3-7.7) k/uL Lymphocytes # (Manual) 0.26 L (1.0-4.8) k/uL Myelocytes # (Manual) 0.26 H (0) k/uL Sodium 134 L (137-145) mmol/L Carbon Dioxide 20 L (22-30) mmol/L Glucose 225 H (74-99) mg/dL POC Glucose (mg/dL) (75-99) mg/dL Plasma Lactic Acid [place] 3.8 H* (0.7-2.0) mmol/L Calcium 8.3 L (8.4-10.2) mg/dL AST 159 H (17-59) U/L ALT 92 H (4-49) U/L Alkaline Phosphatase 130 H (38-126) U/L Albumin 3.4 L (3.5-5.0) g/dL Urine Protein (Negative) Amorphous Sediment (None) /hpf Urine Bacteria (None) /hpf Urine Mucus (None) /hpf 12/18/19 12/18/19 12/18/19 Range/Units 11:27 13:17 17:06 WBC (3.8-10.6) k/uL RBC (4.30-5.90) m/uL Hgb (13.0-17.5) gm/dL Hct (39.0-53.0) % Neutrophils # (Manual) (1.3-7.7) k/uL Lymphocytes # (Manual) (1.0-4.8) k/uL Myelocytes # (Manual) (0) k/uL Sodium (137-145) mmol/L Carbon Dioxide (22-30) mmol/L Glucose (74-99) mg/dL POC Glucose (mg/dL) 152 H 114 H (75-99) mg/dL Plasma Lactic Acid [place] 2.2 H* (0.7-2.0) mmol/L Calcium (8.4-10.2) mg/dL AST (17-59) U/L ALT (4-49) U/L Alkaline Phosphatase (38-126) U/L Albumin (3.5-5.0) g/dL Urine Protein (Negative) Amorphous Sediment (None) /hpf Urine Bacteria (None) /hpf Urine Mucus (None) /hpf 12/18/19 12/18/19 12/18/19 Range/Units 17:13 20:52 Unknown WBC (3.8-10.6) k/uL RBC (4.30-5.90) m/uL Hgb (13.0-17.5) gm/dL Hct (39.0-53.0) % Neutrophils # (Manual) (1.3-7.7) k/uL Lymphocytes # (Manual) (1.0-4.8) k/uL Myelocytes # (Manual) (0) k/uL Sodium (137-145) mmol/L Carbon Dioxide (22-30) mmol/L Glucose (74-99) mg/dL POC Glucose (mg/dL) 210 H (75-99) mg/dL Plasma Lactic Acid [place] 4.3 H* (0.7-2.0) mmol/L Calcium (8.4-10.2) mg/dL AST (17-59) U/L ALT (4-49) U/L Alkaline Phosphatase (38-126) U/L Albumin (3.5-5.0) g/dL Urine Protein 1+ H (Negative) Amorphous Sediment Rare H (None) /hpf Urine Bacteria Occasional H (None) /hpf Urine Mucus Rare H (None) /hpf 12/19/19 Range/Units 06:01 WBC (3.8-10.6) k/uL RBC (4.30-5.90) m/uL Hgb (13.0-17.5) gm/dL Hct (39.0-53.0) % Neutrophils # (Manual) (1.3-7.7) k/uL Lymphocytes # (Manual) (1.0-4.8) k/uL Myelocytes # (Manual) (0) k/uL Sodium (137-145) mmol/L Carbon Dioxide (22-30) mmol/L Glucose (74-99) mg/dL POC Glucose (mg/dL) 172 H (75-99) mg/dL Plasma Lactic Acid [place] (0.7-2.0) mmol/L Calcium (8.4-10.2) mg/dL AST (17-59) U/L ALT (4-49) U/L Alkaline Phosphatase (38-126) U/L Albumin (3.5-5.0) g/dL Urine Protein (Negative) Amorphous Sediment (None) /hpf Urine Bacteria (None) /hpf Urine Mucus (None) /hpf Microbiology - Last 24 Hours (Table) 12/17/19 04:40 Blood Culture - Preliminary Blood No Growth after 48 hours 12/18/19 17:52 Group A Strep Throat Culture - Preliminary Throat 12/17/19 11:00 Gram Stain - Preliminary Elbow - Left Wound Culture - Preliminary Strep pyogenes (grp a) Assessment and Plan (1) Fever Current Visit: Yes Status: Acute Code(s): R50.9 - FEVER, UNSPECIFIED SNOMED Code(s): 641546374 (2) Cellulitis of left elbow Current Visit: Yes Status: Acute Code(s): L03.114 - CELLULITIS OF LEFT UPPER LIMB SNOMED Code(s): 830465785 (3) Post-operative infection Current Visit: Yes Status: Acute Code(s): T81.40XA - INFECTION FOLLOWING A PROCEDURE, UNSPECIFIED, INIT SNOMED Code(s): 14979360 (4) Diabetes type 2, controlled Current Visit: Yes Status: Acute Code(s): E11.9 - TYPE 2 DIABETES MELLITUS WITHOUT COMPLICATIONS SNOMED Code(s): 64500774 (5) Hypertension Current Visit: Yes Status: Acute Code(s): I10 - ESSENTIAL (PRIMARY) HYPERTENSION SNOMED Code(s): 83948509 (6) A-fib Current Visit: Yes Status: Acute Code(s): I48.91 - UNSPECIFIED ATRIAL FIBRILLATION SNOMED Code(s): 91147407 Plan: The clinical findings were discussed with patient. The dressing and drain should remain in place. Empty drain and record output every six hours. The patient was instructed to perform active and passive range of motion of the hand, wrist and elbow frequently throughout the day. Encourage ambulation for DVT prophylaxis. Continue IV antibiotics per infectious disease recommendations. Increase to [place] 10 1-2 tabs PRN. Dilaudid for breakthrough pain only. We will await probable PICC line placement.
[2019-12-19] MEDS: HYDROcodone/APAP 10-325MG 1 EACH TAB PO PRN ×4 (09:42→19:51)
[2019-12-19 12:08] LABS: Glucose,Whole Blood 181 mg/dL (75-99)
[2019-12-19 12:36] LABS: ALT 70 U/L (4-49); AST 79 U/L (17-59); African American GFR (CKD) >90 (>60 ml/min/1.73 sqM); Albumin 3.2 g/dL (3.5-5.0); Alkaline Phosphatase 190 U/L (38-126); Anion Gap 12 mmol/L; Blood Urea Nitrogen 11 mg/dL (9-20); Calcium 8.5 mg/dL (8.4-10.2); Carbon Dioxide 23 mmol/L (22-30); Chloride 102 mmol/L (98-107); Glucose 151 mg/dL (74-99); Non-African American GFR(CKD) >90 (>60 ml/min/1.73 sqM); Potassium 3.9 mmol/L (3.5-5.1); Sodium 137 mmol/L (137-145); Total Bilirubin 1.1 mg/dL (0.2-1.3); Total Protein 6.2 g/dL (6.3-8.2)
[2019-12-19 12:44] LABS: Basophils # (A) 0.1 k/uL (0-0.2); Basophils % (A) 1 %; Eosinophils # (A) 0.3 k/uL (0-0.7); Eosinophils % (A) 2 %; HCT 35.3 % (39.0-53.0); HGB 11.9 gm/dL (13.0-17.5); Lymphocytes # (A) 0.6 k/uL (1.0-4.8); Lymphocytes % (A) 4 %; MCH 31.7 pg (25.0-35.0); MCHC 33.6 g/dL (31.0-37.0); MCV 94.3 fL (80.0-100.0); Mean Platelet Volume 8.3; Monocytes # (A) 0.2 k/uL (0-1.0); Monocytes % (A) 1 %; Neutrophils # (A) 14.6 k/uL (1.3-7.7); Neutrophils % (A) 92 %; Platelet Count 230 k/uL (150-450); RBC 3.75 m/uL (4.30-5.90); RDW 12.7 % (11.5-15.5); WBC 15.9 k/uL (3.8-10.6)
[2019-12-19 17:05] LABS: Glucose,Whole Blood 148 mg/dL (75-99)
--- NOTE | 2019-12-19 19:26 | PN ---
PROGRESS NOTE CHIEF COMPLAINT: Wound infection, left elbow, with sepsis. HISTORY OF PRESENT ILLNESS: This gentleman still has a lot of pain in the left elbow. Temperature has been down. His white count is down slightly. He has had no chest pain, chills, shortness of breath, abdominal pain, nausea, vomiting, etc. PHYSICAL EXAMINATION: Face is slightly flushed. Vital signs are normal. Chest is clear. Cardiac exam is normal. Abdomen is soft, nontender. Extremities are normal except for the left arm, which is dressed with a drain. IMPRESSION: 1. Postoperative wound infection of the left elbow after ulnar release with secondary septicemia. 2. Hypertension. 3. Diabetes. PLAN: Continue to follow with Infectious Disease, monitoring his blood sugar, which is up slightly, and for which he is receiving sliding scale insulin. MMODL / IJN: [id number] /
[2019-12-19 20:43] LABS: Glucose,Whole Blood 180 mg/dL (75-99)
[2019-12-19] MEDS: ASPIRIN 81 MG PO SCH (22:09)
[2019-12-19] MEDS: LISINOPRIL 20 MG TAB PO SCH (22:09)
--- NOTE | 2019-12-19 23:25 | PN ---
PROGRESS NOTE DATE OF SERVICE: 12/19/2019 REASON FOR FOLLOWUP: Left elbow abscess and cellulitis. INTERVAL HISTORY: The patient is currently afebrile, has been breathing comfortably. The left elbow pain and discomfort have slightly decreased. Denies having any chest pain, shortness of breath or cough. No nausea, no vomiting, no abdominal pain or diarrhea. PHYSICAL EXAMINATION: Blood pressure 128/64 with a pulse of 90, temperature 99.4. She is 99% on room air. General description is a middle-aged female lying in bed in no distress. RESPIRATORY SYSTEM: Unlabored breathing. Clear to auscultation anteriorly. HEART: S1, S2. Regular rate and rhythm. ABDOMEN: Soft. No tenderness. Left elbow area did have erythema. LABS: Hemoglobin 11.9, white count 15.9. BUN of 11, creatinine 0.63. DIAGNOSTIC IMPRESSION AND PLAN: Patient with left elbow abscess and cellulitis secondary to Streptococcus pyogenes, group B. Patient at this time is covered with cefazolin and clindamycin; to continue. The patient will need a midline for outpatient IV antibiotic therapy, possibly Rocephin 2 grams daily or Cefazolin, depending upon his insurance coverage. Continue with supportive care. MMODL / IJN: [id number] /
[2019-12-20] MEDS: HYDROcodone/APAP 10-325MG 1 EACH TAB PO PRN ×4 (00:24→19:34)
[2019-12-20] MEDS: CLINDAMYCIN 900 MG in DEXTROSE 5% IN WATER 50 ML IVPB SCH ×8 (00:25→23:49)
[2019-12-20 06:04] LABS: Glucose,Whole Blood 165 mg/dL (75-99)
[2019-12-20] MEDS: INSULIN ASPART (NovoLOG) 100 UNIT/ML VIAL SQ SCH ×4 (06:34→21:33)
[2019-12-20] MEDS: buPROPion SR 150 MG TABLET.ER PO SCH ×2 (08:00→21:33)
[2019-12-20] MEDS: DILTIAZEM CD 120 MG CAP.ER.24H PO SCH (08:00)
[2019-12-20] MEDS: FLUoxetine HCL 20 MG CAP PO SCH (08:01)
--- NOTE | 2019-12-20 08:38 | P.PN ---
<Janae Thompson - Last Filed: 12/20/19 08:33> Subjective Progress Note Date: 12/20/19 Principal diagnosis: Status post left elbow I&D. This is a 59 year-old male post op left elbow I&D. This is post-op day 3. The patient was evaluated at the bedside today. The patient denies nausea, vomi ting, abdominal pain, chest pain, or shortness of breath this morning. He is feeling much better this morning. He states his pain is much more controlled on 2 [place] 10. He is currently on cefazolin and clindamycin. No new complaints today. Rapid strep was negative. Cultures are showing group A strep. Objective - Vital Signs Vital signs: Vital Signs Temp 97.2 F L 12/20/19 07:58 Pulse 90 12/20/19 07:58 Resp 16 12/20/19 07:58 BP 115/68 12/20/19 07:58 Pulse Ox 96 12/20/19 07:58 Intake & Output 12/19/19 12/20/19 12/20/19 18:59 06:59 18:59 Intake Total 480 240 Output Total 3635 455 Balance -3155 -455 240 Weight 128.2 kg Intake: Oral 480 240 Output: Drainage 35 55 Left Elbow 35 55 Urine 3600 400 Other: Voiding Method Toilet Toilet # Voids 1 1 - Exam The patient is a 59 y/o male who looking better this morning, in no acute distress. Dressing removed. There is diffuse erythema along the medial aspect of the elbow and posterior area. The redness has worsened since yesterday. The area has been marked and extends slightly past the marked area. The elbow still quite tender to palpation. No discrete subcutaneous fluctuance. The drain is in place with small amount serosanguineous output in the drain at this time. No numbness present. Circulatory status is intact. - Labs CBC & Chem 7: 12/19/19 11:53 12/19/19 11:53 Labs: Abnormal Lab Results - Last 24 Hours (Table) 12/19/19 12/19/19 12/19/19 Range/Units 11:53 11:53 11:53 WBC 15.9 H (3.8-10.6) k/uL RBC 3.75 L (4.30-5.90) m/uL Hgb 11.9 L (13.0-17.5) gm/dL Hct 35.3 L (39.0-53.0) % Neutrophils # 14.6 H (1.3-7.7) k/uL Lymphocytes # 0.6 L (1.0-4.8) k/uL Creatinine 0.63 L (0.66-1.25) mg/dL Glucose 151 H (74-99) mg/dL POC Glucose (mg/dL) (75-99) mg/dL Hemoglobin A1c 7.0 H (4.0-6.0) % AST 79 H (17-59) U/L ALT 70 H (4-49) U/L Alkaline Phosphatase 190 H (38-126) U/L Total Protein 6.2 L (6.3-8.2) g/dL Albumin 3.2 L (3.5-5.0) g/dL 12/19/19 12/19/19 12/19/19 Range/Units 12:02 16:43 20:42 WBC (3.8-10.6) k/uL RBC (4.30-5.90) m/uL Hgb (13.0-17.5) gm/dL Hct (39.0-53.0) % Neutrophils # (1.3-7.7) k/uL Lymphocytes # (1.0-4.8) k/uL Creatinine (0.66-1.25) mg/dL Glucose (74-99) mg/dL POC Glucose (mg/dL) 181 H 148 H 180 H (75-99) mg/dL Hemoglobin A1c (4.0-6.0) % AST (17-59) U/L ALT (4-49) U/L Alkaline Phosphatase (38-126) U/L Total Protein (6.3-8.2) g/dL Albumin (3.5-5.0) g/dL 12/20/19 Range/Units 06:03 WBC (3.8-10.6) k/uL RBC (4.30-5.90) m/uL Hgb (13.0-17.5) gm/dL Hct (39.0-53.0) % Neutrophils # (1.3-7.7) k/uL Lymphocytes # (1.0-4.8) k/uL Creatinine (0.66-1.25) mg/dL Glucose (74-99) mg/dL POC Glucose (mg/dL) 165 H (75-99) mg/dL Hemoglobin A1c (4.0-6.0) % AST (17-59) U/L ALT (4-49) U/L Alkaline Phosphatase (38-126) U/L Total Protein (6.3-8.2) g/dL Albumin (3.5-5.0) g/dL Microbiology - Last 24 Hours (Table) 12/17/19 04:40 Blood Culture - Preliminary Blood No Growth after 72 hours 12/17/19 11:00 Anaerobic Culture - Preliminary Elbow - Left 12/18/19 17:52 Group A Strep Throat Culture - Preliminary Throat Assessment and Plan (1) Fever Current Visit: Yes Status: Acute Code(s): R50.9 - FEVER, UNSPECIFIED SNOMED Code(s): 205114469 (2) Cellulitis of left elbow Current Visit: Yes Status: Acute Code(s): L03.114 - CELLULITIS OF LEFT UPPER LIMB SNOMED Code(s): 008292029 (3) Post-operative infection Current Visit: Yes Status: Acute Code(s): T81.40XA - INFECTION FOLLOWING A PROCEDURE, UNSPECIFIED, INIT SNOMED Code(s): 92746730 (4) Diabetes type 2, controlled Current Visit: Yes Status: Acute Code(s): E11.9 - TYPE 2 DIABETES MELLITUS WITHOUT COMPLICATIONS SNOMED Code(s): 93485730 (5) Hypertension Current Visit: Yes Status: Acute Code(s): I10 - ESSENTIAL (PRIMARY) HYPERTENSION SNOMED Code(s): 65333254 (6) A-fib Current Visit: Yes Status: Acute Code(s): I48.91 - UNSPECIFIED ATRIAL FIBRILLATION SNOMED Code(s): 70728599 Plan: The clinical findings were discussed with patient. The dressing and drain should remain in place. Empty drain and record output every six hours. The patient was instructed to perform active and passive range of motion of the hand, wrist and elbow frequently throughout the day. Encourage ambulation for DVT prophylaxis. Continue IV antibiotics per infectious disease recommendations. Continue [place] 10 1-2 tabs PRN. Dilaudid for breakthrough pain only. We will await probable PICC/midline placement. He may be discharged home today when cleared by infectious disease. <Javier Skaggs - Last Filed: 12/23/19 07:22> Objective - Vital Signs Vital signs: Vital Signs Temp 97.9 F 12/23/19 04:15 Pulse 70 12/23/19 04:15 Resp 16 12/23/19 04:15 BP 134/74 12/23/19 04:15 Pulse Ox 94 L 12/23/19 04:15 Intake & Output 12/22/19 12/23/19 12/23/19 18:59 06:59 18:59 Intake Total 1280 600 Balance 1280 600 Weight 130.5 kg Intake: IV 360 100 Clindamycin 900 mg In 100 50 Dextrose 5% in Water 50 ml @ 50 mls/hr IVPB Q8HR [facility] Rx#:[id number] Dextrose 5%-0.2% NaCl 1, 160 000 ml @ 20 mls/hr IV . Q24H [facility] Rx#:[id number] ceFAZolin 2 gm In Sodium 100 50 Chloride 0.9% 50 ml @ 100 mls/hr IVPB Q8HR [facility] Rx# :[id number] Oral 920 500 Other: Voiding Method Toilet # Voids 0 3 - Labs CBC & Chem 7: 12/21/19 05:34 12/21/19 05:34 Labs: Abnormal Lab Results - Last 24 Hours (Table) 12/22/19 12/22/19 12/22/19 Range/Units 11:56 16:30 20:53 POC Glucose (mg/dL) 183 H 178 H 243 H (75-99) mg/dL 12/23/19 Range/Units 06:16 POC Glucose (mg/dL) 159 H (75-99) mg/dL Microbiology - Last 24 Hours (Table) 12/17/19 04:40 Blood Culture - Final Blood No Growth after 144 hours 12/19/19 11:53 Blood Culture - Preliminary Blood No Growth after 72 hours Assessment and Plan Plan: The patient was subsequently seen by me as well. He reports significant improvement in pain control and is feeling better overall. PE: Moderate persistent erythema but less TTP. Less pain with elbow AROM. A/P: s/p I&D left elbow Patient has shown significant clinical improvement. Ok to DC home from ortho standpoint once PICC inserted and abx plan in place. Follow up outpt in 1 week.
[2019-12-20] MEDS: SODIUM CHLORIDE 0.9% 1,000 ML IV SCH ×3 (11:58→21:33)
[2019-12-20] MEDS: LACTATED RINGERS 1,000 ML IV SCH (11:58)
[2019-12-20 11:59] LABS: Glucose,Whole Blood 158 mg/dL (75-99)
--- NOTE | 2019-12-20 14:16 | PN ---
PROGRESS NOTE DATE OF SERVICE: 12/20/2019 CHIEF COMPLAINT: Sepsis and cellulitis and wound infection left elbow. HISTORY OF PRESENT ILLNESS: This gentleman is doing slightly better. Pain is improved a little bit. PHYSICAL EXAMINATION: Chest is clear. Cardiac exam is normal. Abdomen is soft, nontender. The left arm is still extremely swollen and there is erythema all way up to the shoulder. He is able to move the elbow without a great deal of difficulty. Sensory and motor function is the hand is normal. IMPRESSION: Postoperative wound infection with cellulitis of the left elbow and left arm. PLAN: 1. Continue with IV fluids and antibiotics. 2. He is scheduled for a PICC line this afternoon after which he will likely be able to go home. MMODL / IJN: [id number] /
[2019-12-20 17:03] LABS: Glucose,Whole Blood 127 mg/dL (75-99)
[2019-12-20 20:42] LABS: Glucose,Whole Blood 192 mg/dL (75-99)
[2019-12-20] MEDS: ASPIRIN 81 MG PO SCH (21:33)
[2019-12-20] MEDS: LISINOPRIL 20 MG TAB PO SCH (21:33)
--- NOTE | 2019-12-20 22:49 | PN ---
PROGRESS NOTE DATE OF SERVICE: 12/20/2019. REASON FOR FOLLOW UP: Left elbow infection. INTERVAL HISTORY: The patient is currently afebrile. Patient has been breathing comfortably. The patient denies having any chest pain, shortness of breath or cough. No nausea, vomiting. No abdominal pain or diarrhea. PHYSICAL EXAMINATION: Blood pressure 150/100 with a pulse of 84, temperature 98.3. He is 97% on room air. General description is a middle-aged male lying in bed in no distress. Respiratory system: Unlabored breathing. Clear to auscultation anteriorly. Heart S1, S2. Regular rate and rhythm. ABDOMEN: Soft. No tenderness. Left elbow swelling and redness slightly decreased. LABS: No new labs have been obtained today. Cultures have been Group B Strep. Blood culture has been negative. DIAGNOSTIC IMPRESSION AND PLAN: Patient with left elbow abscess with cellulitis, status post drainage. Culture with group B strep. The patient at this time to continue cefazolin and clindamycin. He did get a mid line. Currently waiting for the outpatient antibiotic coverage before discharge. Continue supportive care. MMODL / IJN: [id number] /
[2019-12-21 05:44] LABS: Glucose,Whole Blood 156 mg/dL (75-99)
[2019-12-21] MEDS: HYDROcodone/APAP 10-325MG 1 EACH TAB PO PRN ×3 (05:45→18:38)
[2019-12-21] MEDS: SODIUM CHLORIDE 0.9% 1,000 ML IV SCH ×4 (05:47→20:54)
[2019-12-21] MEDS: INSULIN ASPART (NovoLOG) 100 UNIT/ML VIAL SQ SCH ×4 (05:48→20:53)
[2019-12-21 07:31] LABS: Basophils % (A) 1 %; Eosinophils # (A) 0.3 k/uL (0-0.7); Eosinophils % (A) 4 %; HCT 31.1 % (39.0-53.0); HGB 10.6 gm/dL (13.0-17.5); Lymphocytes # (A) 1.1 k/uL (1.0-4.8); Lymphocytes % (A) 14 %; MCH 32.1 pg (25.0-35.0); MCHC 33.9 g/dL (31.0-37.0); MCV 94.6 fL (80.0-100.0); Mean Platelet Volume 9.3; Monocytes # (A) 0.4 k/uL (0-1.0); Monocytes % (A) 5 %; Neutrophils # (A) 5.7 k/uL (1.3-7.7); Neutrophils % (A) 74 %; Platelet Count 223 k/uL (150-450); RBC 3.29 m/uL (4.30-5.90); RDW 12.6 % (11.5-15.5); WBC 7.7 k/uL (3.8-10.6)
[2019-12-21 07:44] LABS: African American GFR (CKD) >90 (>60 ml/min/1.73 sqM); Anion Gap 10 mmol/L; Blood Urea Nitrogen 6 mg/dL (9-20); Carbon Dioxide 26 mmol/L (22-30); Chloride 104 mmol/L (98-107); Glucose 145 mg/dL (74-99); Non-African American GFR(CKD) >90 (>60 ml/min/1.73 sqM); Potassium 3.7 mmol/L (3.5-5.1); Sodium 140 mmol/L (137-145)
[2019-12-21] MEDS: CLINDAMYCIN 900 MG in DEXTROSE 5% IN WATER 50 ML IVPB SCH ×6 (09:49→23:31)
[2019-12-21] MEDS: DILTIAZEM CD 120 MG CAP.ER.24H PO SCH (09:49)
[2019-12-21] MEDS: FLUoxetine HCL 20 MG CAP PO SCH (09:49)
[2019-12-21] MEDS: buPROPion SR 150 MG TABLET.ER PO SCH ×2 (10:00→20:53)
--- NOTE | 2019-12-21 11:21 | PN ---
PROGRESS NOTE DATE OF SERVICE: 12/21/2019 CHIEF COMPLAINT: Postoperative wound infection of the left elbow with cellulitis and sepsis. HISTORY OF PRESENT ILLNESS: This gentleman is doing well. PICC line was placed in the right arm yesterday, and as soon as his antibiotic is approved for home use, he will be discharged. He is doing well otherwise. PHYSICAL EXAMINATION: Vital signs are normal. He is not febrile. Head, ears, eyes, nose, mouth and throat are normal. Chest is clear. Cardiac exam is normal. Abdomen is soft, nontender. Left arm is still dressed with a drain. There is a PICC line in the right upper arm. IMPRESSION: 1. Postoperative infection of the left elbow with cellulitis. 2. Diabetes. PLAN: Home when there is approval for his IV medication. KIMBERLEY / UMM: [id number] /
--- NOTE | 2019-12-21 11:29 | P.PN ---
Subjective Progress Note Date: 12/21/19 Principal diagnosis: Postop infection left elbow. Status post I&D left elbow. This is a 59 year-old male post op left elbow I&D. This is post-op day 4. The patient was evaluated at the bedside today. His midline was inserted yesterday into the right upper arm. The patient denies nausea, vomiting, abdominal pain, chest pain, or shortness of breath this morning. He is feeling much better this morning. He states his pain is much more controlled on 2 [place] 10. He is currently on cefazolin and clindamycin. No new complaints today. Rapid strep was negative. Cultures are showing group A strep. Objective - Vital Signs Vital signs: Vital Signs Temp 97.8 F 12/21/19 08:00 Pulse 72 12/21/19 08:00 Resp 18 12/21/19 08:00 BP 149/90 12/21/19 08:00 Pulse Ox 97 12/21/19 08:00 Intake & Output 12/20/19 12/21/19 12/21/19 18:59 06:59 18:59 Intake Total 480 850 250 Output Total 40 Balance 440 850 250 Weight 130 kg Intake: IV 10 Invasive Line 2 10 Intake, IV Titration 850 Amount Clindamycin 900 mg In 50 Dextrose 5% in Water 50 ml @ 50 mls/hr IVPB Q8HR [facility] Rx#:[id number] Sodium Chloride 0.9% 1, 750 000 ml @ 150 mls/hr IV . Q6H40M [facility] Rx#:[id number] ceFAZolin 2 gm In Sodium 50 Chloride 0.9% 50 ml @ 100 mls/hr IVPB Q8HR [facility] Rx# :[id number] Oral 480 240 Output: Drainage 40 Left Elbow 40 Other: Voiding Method Toilet Toilet # Voids 1 1 - Exam This is a pleasant 59-year-old male in no acute distress. He is alert and oriented 3. Exam of the left elbow reveals that his incision looks good. There is no active drainage. The area of erythema is about the same and has not spread past the marked area. There is less induration today. The tissues are a little more soft and pliable today. He has full wrist and finger motion without difficulty or pain. Neurovascular status the upper extremities intact. - Labs CBC & Chem 7: 12/21/19 05:34 12/21/19 05:34 Labs: Abnormal Lab Results - Last 24 Hours (Table) 12/20/19 12/20/19 12/20/19 Range/Units 11:54 17:00 20:41 RBC (4.30-5.90) m/uL Hgb (13.0-17.5) gm/dL Hct (39.0-53.0) % BUN (9-20) mg/dL Creatinine (0.66-1.25) mg/dL Glucose (74-99) mg/dL POC Glucose (mg/dL) 158 H 127 H 192 H (75-99) mg/dL Calcium (8.4-10.2) mg/dL 12/21/19 12/21/19 12/21/19 Range/Units 05:34 05:34 05:43 RBC 3.29 L (4.30-5.90) m/uL Hgb 10.6 L (13.0-17.5) gm/dL Hct 31.1 L (39.0-53.0) % BUN 6 L (9-20) mg/dL Creatinine 0.58 L (0.66-1.25) mg/dL Glucose 145 H (74-99) mg/dL POC Glucose (mg/dL) 156 H (75-99) mg/dL Calcium 8.0 L (8.4-10.2) mg/dL Microbiology - Last 24 Hours (Table) 12/17/19 04:40 Blood Culture - Preliminary Blood No Growth after 96 hours 12/18/19 17:52 Group A Strep Throat Culture - Final Throat Strep pyogenes (grp a) 12/19/19 11:53 Blood Culture - Preliminary Blood No Growth after 24 hours 12/17/19 11:00 Gram Stain - Final Elbow - Left Wound Culture - Final Strep pyogenes (grp a) Assessment and Plan (1) Cellulitis of left elbow Current Visit: Yes Status: Acute Code(s): L03.114 - CELLULITIS OF LEFT UPPER LIMB SNOMED Code(s): 328671330 (2) Diabetes type 2, controlled Current Visit: Yes Status: Acute Code(s): E11.9 - TYPE 2 DIABETES MELLITUS WITHOUT COMPLICATIONS SNOMED Code(s): 51384368 (3) Fever Current Visit: Yes Status: Acute Code(s): R50.9 - FEVER, UNSPECIFIED SNOMED Code(s): 585022934 (4) Post-operative infection Current Visit: Yes Status: Acute Code(s): T81.40XA - INFECTION FOLLOWING A PROCEDURE, UNSPECIFIED, INIT SNOMED Code(s): 50738801 Plan: The clinical findings are discussed with the patient. His dressing is changed today. He may be discharged to home when cleared medically on IV antibiotics per infectious disease.
[2019-12-21 11:47] LABS: Glucose,Whole Blood 193 mg/dL (75-99)
[2019-12-21 16:38] LABS: Glucose,Whole Blood 205 mg/dL (75-99)
[2019-12-21 20:46] LABS: Glucose,Whole Blood 176 mg/dL (75-99)
[2019-12-21] MEDS: LISINOPRIL 20 MG TAB PO SCH (20:53)
[2019-12-21] MEDS: ASPIRIN 81 MG PO SCH (20:53)
--- NOTE | 2019-12-22 00:04 | PN ---
PROGRESS NOTE DATE OF SERVICE: 12/21/2019 REASON FOR FOLLOWUP: Left elbow abscess, cellulitis. INTERVAL HISTORY: The patient is currently afebrile. The patient has been breathing comfortably. Denies having any chest pain, shortness of breath or cough, left elbow pain is currently controlled. No nausea, vomiting. No abdominal pain. No diarrhea. PHYSICAL EXAMINATION: Blood pressure 135/90 with a pulse of 74, temperature 98.2 he is 95% on room air. General description is a middle-aged male lying in bed in no distress. Respiratory system: unlabored breathing. Clear to auscultation anteriorly. Heart S1, S2. Regular rate and rhythm. Abdomen soft, no tenderness. Left eye was currently dressed up no obvious drainage on the dressing. LABS: Hemoglobin is 10.3, white count 7.7, BUN of 6, creatinine 0.58. DIAGNOSTIC IMPRESSION AND PLAN: Patient with left elbow cellulitis, postsurgical. Culture has been positive for group B strep. The patient is currently covered with cefepime and clindamycin to continue. Waiting for outpatient antibiotic therapy before discharge. Continue supportive care. MMODL / IJN: [id number] /
[2019-12-22] MEDS: HYDROcodone/APAP 10-325MG 1 EACH TAB PO PRN ×3 (03:57→18:42)
[2019-12-22] MEDS: SODIUM CHLORIDE 0.9% 1,000 ML IV SCH ×2 (04:50→13:07)
[2019-12-22 06:01] LABS: Glucose,Whole Blood 177 mg/dL (75-99)
[2019-12-22] MEDS: INSULIN ASPART (NovoLOG) 100 UNIT/ML VIAL SQ SCH ×4 (06:40→21:11)
[2019-12-22] MEDS: CLINDAMYCIN 900 MG in DEXTROSE 5% IN WATER 50 ML IVPB SCH ×6 (09:02→23:49)
[2019-12-22] MEDS: FLUoxetine HCL 20 MG CAP PO SCH (09:02)
[2019-12-22] MEDS: DILTIAZEM CD 120 MG CAP.ER.24H PO SCH (09:02)
[2019-12-22] MEDS: buPROPion SR 150 MG TABLET.ER PO SCH ×2 (09:02→21:11)
--- NOTE | 2019-12-22 11:35 | P.PN ---
Subjective Progress Note Date: 12/22/19 Principal diagnosis: Postop infection left elbow. Status post I&D left elbow. This is a 59 year-old male post op left elbow I&D. This is post-op day 5. The patient was evaluated at the bedside today. His midline was inserted on 12/20/2019 into the right upper arm. The patient denies nausea, vomiting, abdominal pain, chest pain, or shortness of breath this morning. He is feeling much better this morning. He is awaiting authorization for home IV antibiotic therapy. He has no new complaints or concerns today. Objective - Vital Signs Vital signs: Vital Signs Temp 98.0 F 12/22/19 09:00 Pulse 70 12/22/19 09:00 Resp 18 12/22/19 09:00 BP 140/88 12/22/19 09:00 Pulse Ox 96 12/22/19 09:00 Intake & Output 12/21/19 12/22/19 12/22/19 18:59 06:59 18:59 Intake Total 730 720 120 Balance 730 720 120 Weight 129.9 kg Intake: IV 30 10 Invasive Line 2 30 10 Intake, IV Titration 100 Amount Clindamycin 900 mg In 50 Dextrose 5% in Water 50 ml @ 50 mls/hr IVPB Q8HR [facility] Rx#:[id number] ceFAZolin 2 gm In Sodium 50 Chloride 0.9% 50 ml @ 100 mls/hr IVPB Q8HR [facility] Rx# :[id number] Oral 700 610 120 Other: Voiding Method Toilet Toilet # Voids 1 3 0 - Exam This is a pleasant 59-year-old male in no acute distress. He is alert and oriented 3. Exam of the left elbow reveals that his incision looks good. There is no active drainage. The area of erythema is fading and has not spread past the marked area. There is less induration today. The tissues are a little more soft and pliable today. He has full wrist and finger motion without difficulty or pain. Neurovascular status the upper extremities intact. - Labs CBC & Chem 7: 12/21/19 05:34 12/21/19 05:34 Labs: Abnormal Lab Results - Last 24 Hours (Table) 12/21/19 12/21/19 12/21/19 Range/Units 11:35 16:36 20:42 POC Glucose (mg/dL) 193 H 205 H 176 H (75-99) mg/dL 12/22/19 Range/Units 05:59 POC Glucose (mg/dL) 177 H (75-99) mg/dL Microbiology - Last 24 Hours (Table) 12/17/19 04:40 Blood Culture - Preliminary Blood No Growth after 120 hours 12/17/19 11:00 Anaerobic Culture - Final Elbow - Left 12/19/19 11:53 Blood Culture - Preliminary Blood No Growth after 48 hours Assessment and Plan (1) Cellulitis of left elbow Current Visit: Yes Status: Acute Code(s): L03.114 - CELLULITIS OF LEFT UPPER LIMB SNOMED Code(s): 571149891 (2) Diabetes type 2, controlled Current Visit: Yes Status: Acute Code(s): E11.9 - TYPE 2 DIABETES MELLITUS WITHOUT COMPLICATIONS SNOMED Code(s): 81021595 (3) Fever Current Visit: Yes Status: Acute Code(s): R50.9 - FEVER, UNSPECIFIED SNOMED Code(s): 314206830 (4) Post-operative infection Current Visit: Yes Status: Acute Code(s): T81.40XA - INFECTION FOLLOWING A PROCEDURE, UNSPECIFIED, INIT SNOMED Code(s): 10249195 Plan: The clinical findings are discussed with the patient. He would like to leave the dressing off for a while today. The nursing staff will put a new dressing on later.. He may be discharged to home when cleared medically on IV antibiotics per infectious disease.
[2019-12-22 12:01] LABS: Glucose,Whole Blood 183 mg/dL (75-99)
--- NOTE | 2019-12-22 13:07 | PN ---
PROGRESS NOTE DATE OF SERVICE: 12/22/2019 CHIEF COMPLAINT: Wound infection and cellulitis of left elbow. HISTORY OF PRESENT ILLNESS: This gentleman is doing well. Nearly all the pain and redness has gone out of the elbow. He has nearly a full range of motion. He is waiting for approval for his IV antibiotic before he can be discharged. Laboratories studies were normal. Blood sugar is slightly high. This will be watched. PHYSICAL EXAMINATION: He is afebrile. Chest is clear. Cardiac exam is normal. Abdomen is soft, nontender. The elbow is much less red and swollen and he almost has complete ability to extend and flexion is nearly full. Neurologically the arm is intact. IMPRESSION: Secondary wound infection, left elbow with cellulitis. PLAN: 1. Cut his IV to keep open. 2. Await approval for his home IV antibiotic. MMODL / COLEMANN: [id number] /
[2019-12-22] MEDS: DEXTROSE 5%-0.2% NACL 1,000 ML IV SCH (16:06)
[2019-12-22 16:34] LABS: Glucose,Whole Blood 178 mg/dL (75-99)
[2019-12-22 20:54] LABS: Glucose,Whole Blood 243 mg/dL (75-99)
[2019-12-22] MEDS: LISINOPRIL 20 MG TAB PO SCH (21:11)
[2019-12-22] MEDS: ASPIRIN 81 MG PO SCH (21:11)
[2019-12-23 06:17] LABS: Glucose,Whole Blood 159 mg/dL (75-99)
[2019-12-23] MEDS: INSULIN ASPART (NovoLOG) 100 UNIT/ML VIAL SQ SCH ×2 (06:21→12:34)
[2019-12-23] MEDS: HYDROcodone/APAP 10-325MG 1 EACH TAB PO PRN ×2 (06:21)
[2019-12-23] MEDS: CLINDAMYCIN 900 MG in DEXTROSE 5% IN WATER 50 ML IVPB SCH ×2 (08:43)
[2019-12-23] MEDS: FLUoxetine HCL 20 MG CAP PO SCH (08:43)
[2019-12-23] MEDS: DILTIAZEM CD 120 MG CAP.ER.24H PO SCH (08:43)
[2019-12-23] MEDS: buPROPion SR 150 MG TABLET.ER PO SCH (08:43)
--- NOTE | 2019-12-23 10:45 | PN ---
PROGRESS NOTE DATE OF SERVICE: 12/22/2019. REASON FOR FOLLOWUP: Left elbow abscess and cellulitis. INTERVAL HISTORY: The patient is currently afebrile. Has been breathing comfortably. The patient denies having any chest pain, shortness of breath, or cough. No nausea or vomiting. No abdominal pain. His left elbow pain and swelling have improved. PHYSICAL EXAMINATION: Blood pressure is 156/89 with a pulse of 76, temperature 98.2, he is 98% on room air. General description is a middle-aged male lying in bed in no distress. RESPIRATORY SYSTEM: Unlabored breathing. Clear to auscultation anteriorly. HEART: S1, S2. Regular rate and rhythm. ABDOMEN: Soft. No tenderness. Left elbow swelling and redness have improved. No drainage. LABS: White count normal at 7.7 yesterday. Blood culture has been negative. DIAGNOSTIC IMPRESSION AND PLAN: Patient with Streptococcus pyogenes and left elbow abscess, post surgery. The patient is status post drainage of this abscess. Blood culture has been negative and in view of extensive infection he is waiting for the outpatient IV antibiotic arrangement before discharge. Continue with clindamycin and cefazolin and continue with supportive care. MMODL / IJN: [id number] /
[2019-12-23 12:11] LABS: Glucose,Whole Blood 172 mg/dL (75-99)
[2019-12-23] MEDS: DEXTROSE 5%-0.2% NACL 1,000 ML IV SCH (12:34)
[2019-12-23 12:47] VITALS: PULSE 71
[2019-12-23 12:48] VITALS: BP 126/63; RESP 16; TEMP 98.3
--- NOTE | 2019-12-23 13:54 | PN ---
PROGRESS NOTE DATE OF SERVICE: 12/23/2019 REASON FOR FOLLOWUP: Left elbow abscess and cellulitis. INTERVAL HISTORY: The patient is currently afebrile, has been breathing comfortably. Denies having any chest pain, shortness of breath or cough. No nausea, vomiting. The pain to the left lobe is currently controlled, no diarrhea. PHYSICAL EXAMINATION: Blood pressure 126/63 with a pulse of 71, temperature 98.3, he is 99% on room air. General description is a middle-aged male, lying in bed in no distress. RESPIRATORY SYSTEM: Unlabored breathing, clear to auscultation anteriorly. HEART: S1, S2. Regular rate and rhythm. ABDOMEN: Soft, no tenderness. Left elbow swelling has much improved. DIAGNOSTIC IMPRESSION AND PLAN: Patient with left elbow abscess post surgery, status post drainage of this abscess, culture with Streptococcus pyogenes. Blood culture has been negative. Antibiotic was switched to Rocephin 2 g daily for 2 weeks with close outpatient followup. Continue supportive care. MMODL / IJN: [id number] /
--- NOTE | 2019-12-24 14:01 | CDI ---
Documentation Clarification Form Date: 12/24/19 From: Bonny Fraser Phone: If you have a question about this query, please contact Tamika Qiu, [employer] Out Scarfing Operator at [phone] between 8am and 5pm. Admit Date: 12/17/19 Discharge Date: 12/23/19 Patient Name: Adán Reza Visit Number: [id number] ATTENTION: The Clinical Documentation Specialists (CDI) and [facility] Coding Staff appreciate your assistance in clarifying documentation. Please respond to the clarification below the line at the bottom and electronically sign. The CDI & [facility] Coding staff will review the response and follow-up if needed. Please note: Queries are made part of the Legal Health Record. If you have any questions, please contact the author of this message via ITS. Dear Dr. Javier Skaggs, Per your operative note, a combination of sharp and mechanical debridement was performed on the left elbow. History/Risk Factors: Recent left elbow cubital tunnel release. Clinical Indicators: increasing pain and swelling Treatment: irrigation and debridement of left elbow wound In order to capture the severity of condition and code the appropriate procedure; could you please document the following: Excisional debridement (the removal of necrotic, devitalized tissue or slough by means of cutting away of tissue) Non-excisional debridement (the removal of necrotic, devitalized tissue or slough by means of flushing, brushing, or washing. (Irrigation) Other; please specify Unable to determine Sharp excisional debridement was performed. ANA
--- NOTE | 2019-12-25 15:43 | PN ---
PROGRESS NOTE DATE OF SERVICE: 12/22/2019 CHIEF COMPLAINT: Postop wound infection and cellulitis of the left elbow. HISTORY OF PRESENT ILLNESS: This gentleman is doing well. Elbow pain and swelling are going down and his range of motion is greatly improved. He has had no fever or chills. PICC line has been placed and he is awaiting insurance approval for his home IV antibiotic therapy. PHYSICAL EXAMINATION: Chest is clear. Cardiac exam is normal. Abdomen is soft and nontender. A great deal of swelling, redness, and pain have gone down in the left elbow and the dressing is dry. He has fairly good range of motion and can almost fully extend the elbow. IMPRESSION: Wound infection and cellulitis, left elbow. PLAN: Continue with inpatient treatment until his insurance approves his IV home program. GREGORIAL / COLEMANN: [id number] /
--- NOTE | 2019-12-25 22:23 | DS ---
DISCHARGE SUMMARY DATE OF DISCHARGE: 12/23/2019 CHIEF COMPLAINT: Pain, swelling and redness, left elbow. HISTORY OF PRESENT ILLNESS AND PHYSICAL EXAMINATION: Details of this man's history and physical can be found in the initial workup. LABORATORY STUDIES: While he was in the hospital he had laboratory studies, details of which can be found in the laboratory section of his chart. COURSE IN THE HOSPITAL: After admission he was placed on bedrest and started on intravenous fluids and IV antibiotics. He was seen by Orthopedics and Infectious Disease. After he was admitted he said he dropped his blood pressure and A-team was called. IV fluids were administered and blood pressure was restored. He was continued on IV antibiotics and the redness, pain and swelling slowly began to recede from the elbow. His range of motion was improved. It was determined that he could go home, but he was to be set up for home IV antibiotics. A PICC line was placed in his right arm and he was discharged on the 12/23/2019. FINAL DIAGNOSES: 1. Wound infection with secondary cellulitis of the left elbow. 2. Hypertension. 3. Type 2 pxa-idmryxm-[id number] diabetes mellitus. 4. Chronic obstructive pulmonary disease. 5. Alcoholism. OPERATION: Drainage of elbow. CONSULTATIONS: 1. Orthopedics. 2. Infectious Disease. He is improved. MMODL / IJN: [id number] /
== END 2019-12-23 13:52 | disposition home health service (06) | DRG 856 ==
LOC: EC 04:21 → 6NMEDSUR 06:59 → OBSVTOIN 22:38 → 3SCARD 12-18 11:23
PROVIDERS: ADMIT Family Medicine; ATTEND Family Medicine
PROC: 0JBH0ZZ Excision of Left Lower Arm Subcutaneous Tissue and Fascia, Open Approach (ICD-10-PCS; principal; 2019-12-17 08:40)
PROC: 05HD33Z Insertion of Infusion Device into Right Cephalic Vein, Percutaneous Approach (ICD-10-PCS; 2019-12-20 11:45)
DX: T81.44XA Sepsis following a procedure, initial encounter (principal); A40.0 Sepsis due to streptococcus, group A; E87.2 Acidosis; L02.414 Cutaneous abscess of left upper limb; L03.114 Cellulitis of left upper limb; I48.92 Unspecified atrial flutter; T81.42XA Infection following a procedure, deep incisional surgical site, initial encounter; E11.41 Type 2 diabetes mellitus with diabetic mononeuropathy; I48.91 Unspecified atrial fibrillation; J44.9 Chronic obstructive pulmonary disease, unspecified; E11.65 Type 2 diabetes mellitus with hyperglycemia; E78.5 Hyperlipidemia, unspecified; I10 Essential (primary) hypertension; G47.33 Obstructive sleep apnea (adult) (pediatric); M19.90 Unspecified osteoarthritis, unspecified site; K21.9 Gastro-esophageal reflux disease without esophagitis; F10.21 Alcohol dependence, in remission; Z79.82 Long term (current) use of aspirin; Z79.51 Long term (current) use of inhaled steroids; Z79.899 Other long term (current) drug therapy; Z90.49 Acquired absence of other specified parts of digestive tract; Z98.84 Bariatric surgery status; Z96.653 Presence of artificial knee joint, bilateral; Z87.891 Personal history of nicotine dependence; Z98.890 Other specified postprocedural states; Z99.89 Dependence on other enabling machines and devices; Z87.19 Personal history of other diseases of the digestive system; Z86.14 Personal history of Methicillin resistant Staphylococcus aureus infection; Z82.3 Family history of stroke
CPT/HCPCS: 36410; 36415; 71045; 76937; 80048; 80053; 81001; 81003; 82550; 83036; 83605; 84145; 85025; 85610; 85652; 85730; 86140; 87040; 87070; 87075; 87077; 87081; 87102; 87186; 87205; 87430; 94760; 96361; 96365; 96366; 96367; 96375; 96376; 99285

== ENCOUNTER 2020-08-14 04:24 | Emergency (ER) | payer MEDICAID, MEDICARE ==
[2020-08-14 04:31] VITALS: TEMP 99
--- NOTE | 2020-08-14 04:43 | ED ---
Pediatric SOB HPI - General Chief Complaint: Shortness of Breath Stated Complaint: SOB Time Seen by Provider: 08/14/20 04:42 Source: patient, family Mode of arrival: ambulatory Limitations: no limitations - Related Data Home Medications Medication Instructions Recorded Confirmed ALPRAZolam [Xanax] 0.25 mg PO TID PRN 11/27/14 12/17/19 Benazepril HCl [Lotensin] 40 mg PO HS 03/26/18 12/17/19 Pravastatin Sodium [Pravachol] 80 mg PO HS 03/26/18 12/17/19 buPROPion HCL [Wellbutrin SR] 150 mg PO BID 09/09/18 12/17/19 Aspirin 81 mg PO HS 09/16/19 12/17/19 FLUoxetine HCL [PROzac] 40 mg PO DAILY 11/27/19 12/17/19 Ibuprofen 800 mg PO Q6H PRN 11/27/19 12/17/19 Previous Rx's Medication Instructions Recorded Diltiazem HCl [Cardizem CD] 120 mg PO DAILY #90 cap 08/23/19 Allergies Allergy/AdvReac Type Severity Reaction Status Date / Time sulfamethoxazole AdvReac Unknown DIZZY, Verified 08/14/20 04:31 [From Bactrim] FELT LIKE HE HAD THE FLU, HOT & COLD FLASHES trimethoprim [From Bactrim] AdvReac Unknown DIZZY, Verified 08/14/20 04:31 FELT LIKE HE HAD THE FLU, HOT & COLD FLASHES Review of Systems ROS Statement: Those systems with pertinent positive or pertinent negative responses have been documented in the HPI. ROS Other: All systems not noted in ROS Statement are negative. Past Medical History Past Medical History: Atrial Fibrillation, Atrial Flutter, Diabetes Mellitus, GERD/Reflux, GI Bleed, Hyperlipidemia, Hypertension, Osteoarthritis (OA), Sleep Apnea/CPAP/BIPAP Additional Past Medical History / Comment(s): one episode of Afib/flutter with RVR/small pericardial effusion/L pleural effusion, pericarditis in 2018-no further problems, Other hx: NIDDM type II-not on any Rx since wt loss, chronic knee pain, L foot neuropathy, L shoulder pain, PAULINA-never able to tolerate mask and thinks no longer an issue since weight loss, past lower GI bleed, hx acute kidney failure 4 yrs. ago-one dialysis tx. & kidneys functioning fine now per pt-not sure what caused it History of Any Multi-Drug Resistant Organisms: MRSA Date of last positivie culture/infection: 2007 MDRO Source:: LEFT KNEE Past Surgical History: Bariatric Surgery, Cholecystectomy, Joint Replacement, Orthopedic Surgery, Tonsillectomy Additional Past Surgical History / Comment(s): 2018 gastric sleeve, bilateral carpal tunnel releases, R knee arthroscopies, R total knee arthroplasty, L knee arthroscopy, L total knee-hardware problem/replaced then infection and replaced again-multiple surgeries on, R rotator cuff repair, L patellar stabilization, EGD, colonoscopy. Past Anesthesia/Blood Transfusion Reactions: No Reported Reaction Past Psychological History: Anxiety, Depression, Panic Disorder Smoking Status: Former smoker Past Alcohol Use History: Daily Past Drug Use History: None Reported - Past Family History Brother(s) Family Medical History: CVA/TIA Additional Family Medical History / Comment(s): Brother had a CVA at the age of 52 yrs. Father Additional Family Medical History / Comment(s): Father had phlebitis. Mother Family Medical History: No Reported History General Exam Limitations: no limitations Course Vital Signs 08/14/20 04:27 Temperature 99 F Pulse Rate 70 Respiratory 24 Rate Blood Pressure 156/102 O2 Sat by Pulse 98 Oximetry Medical Decision Making - EKG Data -: EKG Interpreted by Me EKG shows normal: sinus rhythm (With PVC.), axis (Normal), intervals (Normal), QRS complexes (Normal) Interpretation: nonspecific ST-T wave changes Disposition Referrals: Oz Rogers MD [Primary Care Provider] - 1-2 days
--- NOTE | 2020-08-14 04:56 | ED ---
Chest Pain HPI - General Chief Complaint: Shortness of Breath Stated Complaint: SOB Time Seen by Provider: 08/14/20 04:42 Source: patient, family Mode of arrival: ambulatory Limitations: no limitations - History of Present Illness Initial Comments: This patient is a 59-year-old man who presents to be evaluated for right-sided chest pain. The patient states that his symptoms started about 24 hours ago but the pain was located in the epigastric area. He describes it as sometimes aching sometimes sharp, moderate intensity initially now becoming severe as it has seemed to his right chest or right upper back. Patient is not discovered any worsening or relieving factors. No fever or chills. No cough. No diaphoresis, palpitations, or syncope. He states that this is similar to the pain that he had used diagnosed with atrial fibrillation. MD Complaint: chest pain Onset/Timin -: hour(s) Onset: during rest Pain Location: right chest Pain Radiation: back Severity: severe Quality: aching Consistency: intermittent Improves With: nothing Worsens With: nothing Treatments Prior to Arrival: none - Related Data Home Medications Medication Instructions Recorded Confirmed ALPRAZolam [Xanax] 0.25 mg PO TID PRN 11/27/14 12/17/19 Benazepril HCl [Lotensin] 40 mg PO HS 03/26/18 12/17/19 Pravastatin Sodium [Pravachol] 80 mg PO HS 03/26/18 12/17/19 buPROPion HCL [Wellbutrin SR] 150 mg PO BID 09/09/18 12/17/19 Aspirin 81 mg PO HS 09/16/19 12/17/19 FLUoxetine HCL [PROzac] 40 mg PO DAILY 11/27/19 12/17/19 Ibuprofen 800 mg PO Q6H PRN 11/27/19 12/17/19 Previous Rx's Medication Instructions Recorded Diltiazem HCl [Cardizem CD] 120 mg PO DAILY #90 cap 08/23/19 Allergies Allergy/AdvReac Type Severity Reaction Status Date / Time sulfamethoxazole AdvReac Unknown DIZZY, Verified 08/14/20 04:31 [From Bactrim] FELT LIKE HE HAD THE FLU, HOT & COLD FLASHES trimethoprim [From Bactrim] AdvReac Unknown DIZZY, Verified 08/14/20 04:31 FELT LIKE HE HAD THE FLU, HOT & COLD FLASHES Review of Systems ROS Statement: Those systems with pertinent positive or pertinent negative responses have been documented in the HPI. ROS Other: All systems not noted in ROS Statement are negative. Constitutional: Denies: fever, chills, weakness Respiratory: Reports: dyspnea. Denies: cough, wheezes, hemoptysis Cardiovascular: Reports: as per HPI, chest pain. Denies: palpitations, orthopnea, edema, syncope Gastrointestinal: Reports: as per HPI, abdominal pain. Denies: nausea, vomiting, diarrhea, constipation Genitourinary: Denies: dysuria, frequency, hematuria Musculoskeletal: Reports: as per HPI, back pain Skin: Denies: rash Neurological: Denies: headache, weakness Past Medical History Past Medical History: Atrial Fibrillation, Atrial Flutter, Diabetes Mellitus, GERD/Reflux, GI Bleed, Hyperlipidemia, Hypertension, Osteoarthritis (OA), Sleep Apnea/CPAP/BIPAP Additional Past Medical History / Comment(s): one episode of Afib/flutter with RVR/small pericardial effusion/L pleural effusion, pericarditis in 2018-no further problems, Other hx: NIDDM type II-not on any Rx since wt loss, chronic knee pain, L foot neuropathy, L shoulder pain, PAULINA-never able to tolerate mask and thinks no longer an issue since weight loss, past lower GI bleed, hx acute kidney failure 4 yrs. ago-one dialysis tx. & kidneys functioning fine now per pt-not sure what caused it History of Any Multi-Drug Resistant Organisms: MRSA Date of last positivie culture/infection: 2007 MDRO Source:: LEFT KNEE Past Surgical History: Bariatric Surgery, Cholecystectomy, Joint Replacement, Orthopedic Surgery, Tonsillectomy Additional Past Surgical History / Comment(s): 2018 gastric sleeve, bilateral carpal tunnel releases, R knee arthroscopies, R total knee arthroplasty, L knee arthroscopy, L total knee-hardware problem/replaced then infection and replaced again-multiple surgeries on, R rotator cuff repair, L patellar stabilization, EGD, colonoscopy. Past Anesthesia/Blood Transfusion Reactions: No Reported Reaction Past Psychological History: Anxiety, Depression, Panic Disorder Smoking Status: Former smoker Past Alcohol Use History: Daily Past Drug Use History: None Reported - Past Family History Brother(s) Family Medical History: CVA/TIA Additional Family Medical History / Comment(s): Brother had a CVA at the age of 52 yrs. Father Additional Family Medical History / Comment(s): Father had phlebitis. Mother Family Medical History: No Reported History General Exam Limitations: no limitations General appearance: alert, in no apparent distress Head exam: Present: atraumatic, normocephalic Eye exam: Present: normal appearance. Absent: scleral icterus, conjunctival injection Respiratory exam: Present: normal lung sounds bilaterally. Absent: respiratory distress, wheezes, rales, rhonchi, stridor Cardiovascular Exam: Present: regular rate, normal rhythm, normal heart sounds. Absent: systolic murmur, diastolic murmur, rubs, gallop GI/Abdominal exam: Present: soft. Absent: distended, tenderness, guarding, rebound, rigid, mass, pulsatile mass Extremities exam: Present: normal inspection, normal capillary refill. Absent: pedal edema, calf tenderness Back exam: Present: normal inspection. Absent: CVA tenderness (R), CVA tenderness (L) Neurological exam: Present: alert Skin exam: Present: warm, dry, intact, normal color. Absent: rash Course Vital Signs 08/14/20 08/14/20 08/14/20 04:27 04:45 06:45 Temperature 99 F Pulse Rate 70 73 73 Respiratory 24 22 18 Rate Blood Pressure 156/102 138/82 125/73 O2 Sat by Pulse 98 99 96 Oximetry Disposition Clinical Impression: Chest pain Disposition: Left Against Medical Advice Condition: Good Instructions (If sedation given, give patient instructions): Chest Pain (ED) Is patient prescribed a controlled substance at d/c from ED?: No Referrals: Oz Rogers MD [Primary Care Provider] - 1-2 days Eleni Umanzor MD [STAFF PHYSICIAN] - 1-2 days
[2020-08-14] MEDS ORDERED: MORPHINE SULFATE 4 MG/ML SYRINGE IVP STA (05:02)
[2020-08-14 05:07] LABS: Basophils % (A) 0 %; Eosinophils # (A) 0.2 k/uL (0-0.7); Eosinophils % (A) 3 %; HCT 40.8 % (39.0-53.0); HGB 14.4 gm/dL (13.0-17.5); Lymphocytes % (A) 16 %; MCH 33.3 pg (25.0-35.0); MCHC 35.4 g/dL (31.0-37.0); Mean Platelet Volume 7.2; Monocytes # (A) 0.3 k/uL (0-1.0); Monocytes % (A) 4 %; Neutrophils % (A) 76 %; Platelet Count 223 k/uL (150-450); RBC 4.34 m/uL (4.30-5.90); RDW 12.6 % (11.5-15.5); WBC 6.6 k/uL (3.8-10.6)
[2020-08-14 05:16] LABS: ALT 28 U/L (4-49); AST 32 U/L (17-59); African American GFR (CKD) >90 (>60 ml/min/1.73 sqM); Albumin 4.4 g/dL (3.5-5.0); Alkaline Phosphatase 75 U/L (38-126); Amylase 38 U/L (30-110); Anion Gap 7 mmol/L; Blood Urea Nitrogen 13 mg/dL (9-20); Calcium 9.4 mg/dL (8.4-10.2); Carbon Dioxide 29 mmol/L (22-30); Chloride 103 mmol/L (98-107); Glucose 143 mg/dL (74-99); Non-African American GFR(CKD) >90 (>60 ml/min/1.73 sqM); Potassium 3.9 mmol/L (3.5-5.1); Sodium 139 mmol/L (137-145); Total Bilirubin 0.7 mg/dL (0.2-1.3); Total Protein 7.4 g/dL (6.3-8.2)
[2020-08-14 05:24] LABS: Partial Thromboplastin Time 23.7 sec (22.0-30.0)
[2020-08-14 05:31] LABS: D-Dimer 0.91 mg/L FEU (<0.60)
--- NOTE | 2020-08-14 06:38 | CT ---
EXAMINATION TYPE: CT chest angio for PE DATE OF EXAM: 08/14/2020 COMPARISON: 09/16/2019 HISTORY: Chest pains, elevated d-dimer CT DLP: 917.4 mGycm Automated exposure control for dose reduction was used. CONTRAST: Performed with IV Contrast, patient injected with 100 mL of Isovue 370. There are 3-D post processed images. There is mild interstitial density in the lung bases bilaterally . There is mild subsegmental atelectasis at the posterior lung bases. There are small pleural effusio ns. Heart appears enlarged. There is no pericardial effusion. There is normal contrast opacification of the pulmonary arteries. There are no filling defects. There is no mediastinal adenopathy. There are no hilar masses. There is no evidence of thoracic aorti c aneurysm or dissection. Thoracic spine is intact. Sternum is intact. I see no bony destructive process. IMPRESSION: No evidence of pulmonary embolism. Cardiomegaly that appears worse than old exam. There is clearing of the small pericardial effusion co mpared to old exam. There is improvement in the pleural effusions compared to old exam.
[2020-08-14 06:58] VITALS: RESP 18
[2020-08-14] MEDS ORDERED: MORPHINE SULFATE 4 MG/ML SYRINGE IV STA (07:05)
[2020-08-14 07:32] VITALS: BP 132/91; PULSE 66
== END 2020-08-14 07:29 | disposition left against medical advice (07) ==
LOC: EC 04:24
DX: R07.9 Chest pain, unspecified (principal); F41.9 Anxiety disorder, unspecified; F32.9 Major depressive disorder, single episode, unspecified; F41.0 Panic disorder [episodic paroxysmal anxiety]; M19.90 Unspecified osteoarthritis, unspecified site; I10 Essential (primary) hypertension; G47.33 Obstructive sleep apnea (adult) (pediatric); Z79.899 Other long term (current) drug therapy; Z79.82 Long term (current) use of aspirin; Z86.14 Personal history of Methicillin resistant Staphylococcus aureus infection; Z87.891 Personal history of nicotine dependence; Z96.651 Presence of right artificial knee joint; Z99.89 Dependence on other enabling machines and devices; Z88.2 Allergy status to sulfonamides; Z53.29 Procedure and treatment not carried out because of patient's decision for other reasons
CPT/HCPCS: 36415; 93005; 85379; 80053; 82150; 83605; 83690; 84484; 85025; 85610; 85730; 71275; 99285; 96374; 96376; J2270; Q9967

== ENCOUNTER → 2020-09-30 | Outpatient (CLI) | payer MEDICAID, MEDICARE ==
[2020-09-30 16:38] LABS: Basophils % (A) 1 %; Eosinophils # (A) 0.1 k/uL (0-0.7); Eosinophils % (A) 2 %; HCT 42.4 % (39.0-53.0); HGB 14.3 gm/dL (13.0-17.5); Lymphocytes # (A) 1.4 k/uL (1.0-4.8); Lymphocytes % (A) 26 %; MCH 32.9 pg (25.0-35.0); MCHC 33.7 g/dL (31.0-37.0); MCV 97.8 fL (80.0-100.0); Mean Platelet Volume 6.8; Monocytes # (A) 0.3 k/uL (0-1.0); Monocytes % (A) 5 %; Neutrophils # (A) 3.6 k/uL (1.3-7.7); Neutrophils % (A) 65 %; Platelet Count 239 k/uL (150-450); RBC 4.33 m/uL (4.30-5.90); RDW 12.7 % (11.5-15.5); WBC 5.5 k/uL (3.8-10.6)
[2020-10-01 00:17] LABS: Erythrocyte Sedimentation Rate 21 mm/Hr (0-20)
[2020-10-01 00:40] LABS: C Reactive Protein 1.5 mg/dL (0.0-0.8)
[2020-10-01 01:10] LABS: Folate, Serum 19.2 ng/mL
[2020-10-01 01:36] LABS: Gliadin AB IgA, Deaminated NEGATIVE (NEGATIVE); Gliadin AB IgA, Unit 2.8 U/mL; Gliadin AB IgG, Deaminated NEGATIVE (NEGATIVE)
[2020-10-01 11:14] LABS: Anti-Endomysial IgA Antibody <1:10 Titer (<1:10)
== END | disposition home or self-care (01) ==
LOC: LABWHC1 15:44
PROVIDERS: ATTEND Otolaryngology
DX: M35.9 Systemic involvement of connective tissue, unspecified (principal); K12.1 Other forms of stomatitis
CPT/HCPCS: 36415; 82607; 82746; 83516; 85025; 85652; 86038; 86140; 86255; 86431

== ENCOUNTER 2020-11-14 21:06 | Emergency (ER) | payer MEDICAID ==
[2020-11-14 21:13] VITALS: TEMP 98.5
--- NOTE | 2020-11-14 21:14 | ED ---
Abdominal Pain HPI - General Chief Complaint: Abdominal Pain Stated Complaint: diarrhea, facial swelling Time Seen by Provider: 11/14/20 21:14 Source: patient Mode of arrival: ambulatory Limitations: no limitations - History of Present Illness Initial Comments: Patient 60-year-old male presenting to the emergency department with multiple chief complaints. Patient states he has developed some lesions on his tongue recently and has seen an ENT specialist who obtain a biopsy and referred him to a mold car pusher. Patient states the mold car pusher also obtained laboratory work and was advised to follow up with a GI specialist for concern of Crohn's d isease. Patient states she has an appointment scheduled next week to see for colonoscopy. Patient reports she prescribed mesalamine and so far he is only taken one dose of medication on in the following days developed nausea vomiting and more lesions in his mouth. He also reports noticing a lesion on his forehead earlier today. Patient does report nausea and he's been having diarrhea for the past week. Denies chest pain and shortness of breath. Denies any drooling or dyspnea. He denies any hematuria, hematochezia or melena. - Related Data Home Medications Medication Instructions Recorded Confirmed Benazepril HCl [Lotensin] 40 mg PO HS 03/26/18 11/10/20 Pravastatin Sodium [Pravachol] 80 mg PO HS 03/26/18 11/10/20 buPROPion HCL [Wellbutrin SR] 150 mg PO DAILY 09/09/18 11/10/20 Aspirin 81 mg PO HS 09/16/19 11/10/20 FLUoxetine HCL [PROzac] 40 mg PO DAILY 11/27/19 11/10/20 Ibuprofen 800 mg PO Q6H PRN 11/27/19 11/10/20 Diltiazem HCl [Diltiazem HCl 24Hr 120 mg PO DAILY 11/10/20 11/10/20 ER] Ergocalciferol [Vitamin D2] 50,000 unit PO QMONTHLY 11/10/20 11/10/20 Fluticasone Nasal [place] [Flonase 2 spr EA NOSTRIL DAILY 11/10/20 11/10/20 Nasal [place]] Hydrocodone/Acetaminophen [[place] 1 tab PO QID PRN 11/10/20 11/10/20 10-325] Magnesium 500 mg PO QAM 11/10/20 11/10/20 Melatonin 10 mg PO HS 11/10/20 11/10/20 Multivitamins, Thera [Multivitamin 1 tab PO DAILY 11/10/20 11/10/20 (formulary)] hydrALAZINE HCL [Apresoline] 100 mg PO QAM 11/10/20 11/10/20 Previous Rx's Medication Instructions Recorded predniSONE 50 mg PO DAILY #5 tab 11/14/20 Allergies Allergy/AdvReac Type Severity Reaction Status Date / Time sulfamethoxazole AdvReac Unknown DIZZY, Verified 11/14/20 21:12 [From Bactrim] FELT LIKE HE HAD THE FLU, HOT & COLD FLASHES trimethoprim [From Bactrim] AdvReac Unknown DIZZY, Verified 11/14/20 21:12 FELT LIKE HE HAD THE FLU, HOT & COLD FLASHES Review of Systems ROS Statement: Those systems with pertinent positive or pertinent negative responses have been documented in the HPI. ROS Other: All systems not noted in ROS Statement are negative. Past Medical History Past Medical History: Atrial Fibrillation, Atrial Flutter, Diabetes Mellitus, GI Bleed, Hypertension, Osteoarthritis (OA), Pneumonia, Sleep Apnea/CPAP/BIPAP Additional Past Medical History / Comment(s): pericarditis in 2018, L foot neuropathy, L shoulder pain, hx acute kidney failure 4 yrs. ago-one dialysis tx. & kidneys functioning fine now per pt-not sure what caused it. no cpap used, ulcerative colitiis, no rx for diabetes since wt loss-now diet control only, sepsis left elbow after surgery 2018 History of Any Multi-Drug Resistant Organisms: MRSA Date of last positivie culture/infection: 2007 MDRO Source:: LEFT KNEE Past Surgical History: Bariatric Surgery, Cholecystectomy, Joint Replacement, Orthopedic Surgery, Tonsillectomy Additional Past Surgical History / Comment(s): 2018 gastric sleeve, bilateral carpal tunnel releases, zuly knee arthroscopies, R total knee arthroplasty, L total knee-hardware problem/replaced then infection and replaced again-multiple surgeries on, R rotator cuff repair, L patellar stabilization, EGD, colonoscopy. left elbow surgery/developed post op sepsis Past Anesthesia/Blood Transfusion Reactions: No Reported Reaction Past Psychological History: No Psychological Hx Reported Smoking Status: Former smoker Past Alcohol Use History: None Reported Past Drug Use History: None Reported - Past Family History Brother(s) Family Medical History: CVA/TIA Additional Family Medical History / Comment(s): Brother had a CVA at the age of 52 yrs. Father Family Medical History: Deep Vein Thrombosis (DVT) Additional Family Medical History / Comment(s): . Mother Family Medical History: No Reported History General Exam Limitations: no limitations General appearance: alert, in no apparent distress, obese Head exam: Present: atraumatic, normocephalic, normal inspection Eye exam: Present: normal appearance, PERRL, EOMI Pupils: Present: normal accommodation ENT exam: Present: normal exam, mucous membranes moist, TM's normal bilaterally, normal external ear exam. Absent: normal oropharynx (Nodular-like lesions on the lateral aspect of tongue. No tonsillar exudates. Patent airways.) Neck exam: Present: normal inspection, full ROM. Absent: tenderness Respiratory exam: Present: normal lung sounds bilaterally. Absent: respiratory distress, wheezes, rales Cardiovascular Exam: Present: regular rate, normal rhythm, normal heart sounds. Absent: systolic murmur, diastolic murmur Extremities exam: Present: normal inspection, full ROM, normal capillary refill. Absent: tenderness, pedal edema, joint swelling, calf tenderness Back exam: Present: normal inspection, full ROM. Absent: tenderness, CVA tenderness (R), CVA tenderness (L) Neurological exam: Present: alert, oriented X3 Psychiatric exam: Present: normal affect, normal mood Skin exam: Present: warm, dry, intact, normal color Course Vital Signs 11/14/20 21:09 Temperature 98.5 F Pulse Rate 100 Respiratory 20 Rate Blood Pressure 150/105 O2 Sat by Pulse 97 Oximetry Medical Decision Making - Medical Decision Making 60-year-old male presenting to emergency department with multiple chief complaints. On physical examination, patient has some oral lesions on the lateral aspect. This was already evaluated by ENT. Patient has also had a tho rough evaluation by a mold car pusher. Patient is set to see a GI specialist this week for colonoscopy for possible Crohn's disease. Patient was given IV fluids and Decadron in the emergency department. He is complaining of some pain in joints and facial swelling, however there is no signs of angioedema. Patient is not in any respiratory distress. He did report improvement in his symptoms after the Decadron. Patient will be discharged with a 5 day course of 50 mg of prednisone. Return parameters were thoroughly discussed with patient was understanding and agreeable. Case discussed with physician. - Lab Data Result diagrams: 11/14/20 21:51 11/14/20 21:51 Lab Results 11/14/20 11/14/20 11/14/20 Range/Units 21:51 21:51 21:58 WBC 6.6 (3.8-10.6) k/uL RBC 5.28 (4.30-5.90) m/uL Hgb 16.9 (13.0-17.5) gm/dL Hct 50.2 (39.0-53.0) % MCV 95.0 (80.0-100.0) fL MCH 32.0 (25.0-35.0) pg MCHC 33.7 (31.0-37.0) g/dL RDW 12.9 (11.5-15.5) % Plt Count 282 (150-450) k/uL MPV 8.1 Neutrophils % 70 % Lymphocytes % 25 % Monocytes % 3 % Eosinophils % 1 % Basophils % 0 % Neutrophils # 4.6 (1.3-7.7) k/uL Lymphocytes # 1.6 (1.0-4.8) k/uL Monocytes # 0.2 (0-1.0) k/uL Eosinophils # 0.1 (0-0.7) k/uL Basophils # 0.0 (0-0.2) k/uL Sodium 137 (137-145) mmol/L Potassium 4.0 (3.5-5.1) mmol/L Chloride 102 (98-107) mmol/L Carbon Dioxide 20 L (22-30) mmol/L Anion Gap 15 mmol/L BUN 16 (9-20) mg/dL Creatinine 0.82 (0.66-1.25) mg/dL Est GFR (CKD-EPI)AfAm >90 (>60 ml/min/1.73 sqM) Est GFR (CKD-EPI)NonAf >90 (>60 ml/min/1.73 sqM) Glucose 137 H (74-99) mg/dL Calcium 10.5 H (8.4-10.2) mg/dL Total Bilirubin 0.8 (0.2-1.3) mg/dL AST 45 (17-59) U/L ALT 30 (4-49) U/L Alkaline Phosphatase 105 (38-126) U/L Total Protein 9.0 H (6.3-8.2) g/dL Albumin 5.0 (3.5-5.0) g/dL Lipase 56 (23-300) U/L Urine Color Yellow Urine Appearance Clear (Clear) Urine pH 6.0 (5.0-8.0) Ur Specific [place] 1.041 H (1.001-1.035) Urine Protein 2+ H (Negative) Urine Glucose (UA) Negative (Negative) Urine Ketones 1+ H (Negative) Urine Blood Negative (Negative) Urine Nitrite Negative (Negative) Urine Bilirubin 1+ H (Negative) Urine Urobilinogen <2.0 (<2.0) mg/dL Ur Leukocyte Esterase Negative (Negative) Urine RBC 4 (0-5) /hpf Urine WBC 3 (0-5) /hpf Ur Squamous Epith Cells <1 (0-4) /hpf Urine Bacteria Rare H (None) /hpf Hyaline Casts 147 H (0-2) /lpf Urine Mucus Moderate H (None) /hpf Disposition Clinical Impression: Diarrhea, Joint pain Disposition: HOME SELF-CARE Condition: Stable Instructions (If sedation given, give patient instructions): Crohn Disease (ED) Additional Instructions: Take prescribed medication as directed. Follow with GI. Return to emergency department if symptoms worsen. Prescriptions: predniSONE 50 mg PO DAILY #5 tab Is patient prescribed a controlled substance at d/c from ED?: No Referrals: Oz Rogers MD [Primary Care Provider] - 1-2 days Time of Disposition: 23:41
[2020-11-14] MEDS ORDERED: ONDANSETRON 4 MG/2 ML VIAL IVP STA (21:31)
[2020-11-14] MEDS ORDERED: SODIUM CHLORIDE 0.9% 1,000 ML IV STA (21:31)
[2020-11-14] MEDS ORDERED: DEXAMETHASONE SOD PHOSPHATE 10 MG/ML 1 ML VIAL IV STA (22:04)
[2020-11-14 22:09] LABS: ALT 30 U/L (4-49); AST 45 U/L (17-59); African American GFR (CKD) >90 (>60 ml/min/1.73 sqM); Alkaline Phosphatase 105 U/L (38-126); Anion Gap 15 mmol/L; Blood Urea Nitrogen 16 mg/dL (9-20); Calcium 10.5 mg/dL (8.4-10.2); Carbon Dioxide 20 mmol/L (22-30); Chloride 102 mmol/L (98-107); Glucose 137 mg/dL (74-99); Lipase 56 U/L (23-300); Non-African American GFR(CKD) >90 (>60 ml/min/1.73 sqM); Sodium 137 mmol/L (137-145); Total Bilirubin 0.8 mg/dL (0.2-1.3)
[2020-11-14 22:28] LABS: Basophils % (A) 0 %; Eosinophils # (A) 0.1 k/uL (0-0.7); Eosinophils % (A) 1 %; HCT 50.2 % (39.0-53.0); HGB 16.9 gm/dL (13.0-17.5); Lymphocytes # (A) 1.6 k/uL (1.0-4.8); Lymphocytes % (A) 25 %; MCHC 33.7 g/dL (31.0-37.0); Mean Platelet Volume 8.1; Monocytes # (A) 0.2 k/uL (0-1.0); Monocytes % (A) 3 %; Neutrophils # (A) 4.6 k/uL (1.3-7.7); Neutrophils % (A) 70 %; Platelet Count 282 k/uL (150-450); RBC 5.28 m/uL (4.30-5.90); RDW 12.9 % (11.5-15.5); WBC 6.6 k/uL (3.8-10.6)
[2020-11-14 22:46] LABS: Appearance,Urine Clear (Clear); Bacteria,Urine Rare /hpf; Bilirubin,Urine 1+ (Negative); Blood,Urine Negative (Negative); Color,Urine Yellow; Glucose,Urine (UA) Negative (Negative); Hyaline Casts,Urine 147 /lpf (0-2); Ketones,Urine 1+ (Negative); Leukocyte Esterase,Urine Negative (Negative); Mucus,Urine Moderate /hpf; Nitrite,Urine Negative (Negative); Protein,Urine 2+ (Negative); RBC,Urine 4 /hpf (0-5); Specific Gravity,Urine 1.041 (1.001-1.035); Squamous Epithelial Cell,Urine <1 /hpf (0-4); Urobilinogen,Urine <2.0 mg/dL (<2.0); WBC,Urine 3 /hpf (0-5)
[2020-11-15] VITALS: BP 119/82; PULSE 75; RESP 18
== END 2020-11-15 | disposition home or self-care (01) ==
LOC: EC 21:06
DX: R19.7 Diarrhea, unspecified (principal); M25.50 Pain in unspecified joint; K14.8 Other diseases of tongue; R22.0 Localized swelling, mass and lump, head; I10 Essential (primary) hypertension; G47.30 Sleep apnea, unspecified; M19.90 Unspecified osteoarthritis, unspecified site; I48.91 Unspecified atrial fibrillation; I48.92 Unspecified atrial flutter; Z79.890 Hormone replacement therapy; Z79.82 Long term (current) use of aspirin; Z79.899 Other long term (current) drug therapy; Z79.51 Long term (current) use of inhaled steroids; Z88.2 Allergy status to sulfonamides; Z88.1 Allergy status to other antibiotic agents; Z99.89 Dependence on other enabling machines and devices; Z90.49 Acquired absence of other specified parts of digestive tract; Z96.653 Presence of artificial knee joint, bilateral; Z87.891 Personal history of nicotine dependence; Z98.84 Bariatric surgery status
CPT/HCPCS: 36415; 93005; 80053; 83690; 85025; 81001; 99284; 96374; 96375; 96361; J1100; J2405

== ENCOUNTER → 2020-11-16 | Day surgery (SDC) | payer MEDICAID, MEDICARE ==
[2020-11-10 09:37] VITALS: BMI 36.6
[~2020-11-16] MED LIST changes: -DEXAMETHASONE SOD PHOSPHATE 10 MG/ML 1 ML VIAL IV ONE; -HYDROmorphone 0.5 MG/0.5 ML SYRINGE IVP PRN; +LACTATED RINGERS 1,000 ML IV ONE; +LIDOCAINE 1% (10MG/ML) FOR IV START INTRADERMA ONE; -MIDAZOLAM 2 MG/2 ML VIAL IV PRN; -ONDANSETRON 4 MG/2 ML VIAL IVP ONE; +PROPOFOL 10 MG/ML 20 ML VIAL IV ONE; -Pre Op ABX Message 1 EACH MISC MISCELLANE ONE; -SCOPOLAMINE 1.5MG/72HR PATCH TRANSDERM ONE
[2020-11-16 09:49] VITALS: RESP 18; TEMP 97.8
[2020-11-16 09:58] LABS: Glucose,Whole Blood 228 mg/dL (75-99)
--- NOTE | 2020-11-16 11:03 | P.PCN ---
Date of Procedure: 11/16/20 Procedure(s) Performed: BRIEF HISTORY: Patient is a 60-year-old pleasant white male scheduled for an elective colonoscopy as a part of evaluation of long-standing history of ulcerative colitis diagnosed in 1999. he was in clinical remission until 2 years ago. Lately has been having severe diarrhea with multiple oral canker sores and hence scheduled for colonoscopy to evaluate for active colitis. He has been maintained on Lialda 4 tablets daily with no help. PROCEDURE PERFORMED: Colonoscopyrandom biopsies. PREOPERATIVE DIAGNOSIS: long-standing history of ulcerative colitis diagnosed in 1999.chronic diarrhea for the last few months duration with cholestatic was. IV sedation per Anesthesia. PROCEDURE: After informed consent was obtained, the patient, was brought into the endoscopy unit. IV sedation was administered by Anesthesia under continuous monitoring. Digital rectal examination was normal. Initially the Olympus CF-160 flexible video colonoscope was then inserted in the rectum, gradually advanced into the cecum without any difficulty. Careful examination was performed as the scope was gradually being withdrawn. Ileocecal valve and the appendiceal orifice were visualized and appeared normal. Prep was fair.. Mucosa of the cecum, ascending colon, transverse colon, descending colon, sigmoid colon, and rectum mild diffuse colitis with mild mucosal erythema granularity throughout the entire colon more predominant in the left colon at system with mild active colitis and multiple biopsies were done from these areas. Retroflexion was performed in the rectum and no lesions were seen. The patient tolerated the procedure well. IMPRESSION: Mild diffuse active colitis involving the entire colon with mild mucosal erythema friability granularity but no ulcerations noted consistent with active colitis No evidence of colorectal neoplasia RECOMMENDATIONS: Findings of this examination were discussed with the patient As well as his family. He was advised to follow with the biopsy results. He'll be seen in office in 1 week.
[2020-11-16 11:22] VITALS: BP 145/88; PULSE 75
== END ==
LOC: ORWHC2ENDO 09:32
PROVIDERS: ATTEND Internal Medicine Gastroenterology
DX: K52.9 Noninfective gastroenteritis and colitis, unspecified (principal); I10 Essential (primary) hypertension; E11.9 Type 2 diabetes mellitus without complications; G47.33 Obstructive sleep apnea (adult) (pediatric); K21.9 Gastro-esophageal reflux disease without esophagitis; Z88.2 Allergy status to sulfonamides; Z79.82 Long term (current) use of aspirin; Z79.84 Long term (current) use of oral hypoglycemic drugs; Z79.899 Other long term (current) drug therapy; Z87.891 Personal history of nicotine dependence
CPT/HCPCS: 88305; 45380; J2704

== ENCOUNTER → 2020-11-23 | Outpatient (CLI) | payer MEDICAID ==
[2020-11-24 05:46] LABS: Hepatitis A Antibody IgM Non-Reactive (Non-Reactive); Hepatitis B Core IgM Non-Reactive (Non-Reactive); Hepatitis B Surface Antigen Non-Reactive (Non-Reactive); Hepatitis C IgG Antibody Non-Reactive (Non-Reactive)
== END | disposition home or self-care (01) ==
LOC: LABWHC1 16:10
PROVIDERS: ATTEND Physician Assistant
DX: K52.9 Noninfective gastroenteritis and colitis, unspecified (principal)
CPT/HCPCS: 36415; 80074; 86480

== ENCOUNTER → 2021-02-10 | Outpatient (CLI) | payer MEDICAID ==
[2021-02-11 11:27] LABS: Hepatitis A Antibody IgM Non-Reactive (Non-Reactive); Hepatitis B Core IgM Non-Reactive (Non-Reactive); Hepatitis B Surface Antigen Non-Reactive (Non-Reactive); Hepatitis C IgG Antibody Non-Reactive (Non-Reactive)
== END | disposition home or self-care (01) ==
LOC: LABWHC1 14:54
PROVIDERS: ATTEND Physician Assistant
DX: K52.9 Noninfective gastroenteritis and colitis, unspecified (principal)
CPT/HCPCS: 36415; 80074; 86480

== ENCOUNTER → 2021-02-18 | Outpatient (CLI) | payer MEDICAID | END | disposition home or self-care (01) | LOC: LABWHC1 14:04 | PROVIDERS: ATTEND Physician Assistant | DX: K52.9 Noninfective gastroenteritis and colitis, unspecified (principal) | CPT/HCPCS: 36415; 85652; 86140 ==

== ENCOUNTER 2021-10-05 16:08 | Emergency (ER) | payer OTHER, MEDICARE ==
[2021-10-05] MEDS ORDERED: KETOROLAC 30 MG/ML 1 ML VIAL IVP STA (18:53)
[2021-10-05] MEDS ORDERED: KETOROLAC 15 MG/ML 1 ML VIAL IM STA (19:32)
[2021-10-05 19:36] VITALS: RESP 20
--- NOTE | 2021-10-05 19:58 | XR ---
EXAMINATION TYPE: XR chest 2V DATE OF EXAM: 10/05/2021 CLINICAL HISTORY: cough. TECHNIQUE: Frontal and lateral view of the chest. COMPARISON: 12/18/2019 FINDINGS: The cardiomediastinal silhouette is within normal limits for size. Pulmonary vasculature i s normal. There is asymmetric interstitial coarsening and peribronchial thickening of the left mid an d upper lung. There are mild patchy airspace opacities of the bilateral peripheral lungs. No pleural effusion. No pneumothorax seen. Degenerative changes of the spine. IMPRESSION: Asymmetric interstitial thickening and peribronchial thickening of the left lung. Differential includ es interstitial edema, atypical pneumonitis, and small airway disease. There are also mild superimpos ed patchy airspace opacities bilaterally.
[2021-10-05] MEDS ORDERED: HYDROcodone/APAP 10-325MG 1 EACH TAB PO ONE (19:59)
--- NOTE | 2021-10-05 20:47 | ED ---
URI HPI - General Chief Complaint: Upper Respiratory Infection Stated Complaint: Vomiting/cough up blood Time Seen by Provider: 10/05/21 18:47 Source: patient, RN notes reviewed Mode of arrival: ambulatory Limitations: no limitations - History of Present Illness Initial Comments: Patient is a 61-year-old male that presents to the emergency department co mplaining of upper respiratory tract symptoms including sore throat, chest congestion and cough. He notes that he was coughing up some bright red blood in streaking pattern. He also notes that he was vomiting several days earlier. She was otherwise well-appearing. He is not have any aggravating or alleviating factors at this time. He denied any chest pain headache diarrhea constipation fever fatigue chills. - Related Data Home Medications Medication Instructions Recorded Confirmed Benazepril HCl [Lotensin] 40 mg PO HS 03/26/18 10/05/21 buPROPion HCL [Wellbutrin SR] 150 mg PO DAILY 09/09/18 10/05/21 Aspirin 81 mg PO HS 09/16/19 10/05/21 FLUoxetine HCL [PROzac] 40 mg PO DAILY 11/27/19 10/05/21 Ibuprofen 800 mg PO Q6H PRN 11/27/19 10/05/21 Diltiazem HCl [Diltiazem HCl 24Hr 120 mg PO DAILY 11/10/20 10/05/21 ER] Ergocalciferol [Vitamin D2] 50,000 unit PO QMONTHLY 11/10/20 10/05/21 Fluticasone Nasal [place] [Flonase 1 - 2 spr EA NOSTRIL DAILY PRN 11/10/20 10/05/21 Nasal [place]] Hydrocodone/Acetaminophen [[place] 1 tab PO QID PRN 11/10/20 10/05/21 10-325] Magnesium 500 mg PO DAILY 11/10/20 10/05/21 Melatonin 30 mg PO HS PRN 11/10/20 10/05/21 Multivitamins, Thera [Multivitamin 1 tab PO DAILY 11/10/20 10/05/21 (formulary)] hydrALAZINE HCL [Apresoline] 100 mg PO DAILY 11/10/20 10/05/21 Adalimumab [Humira Pen] 40 mg SQ [id number] 10/05/21 10/05/21 Pravastatin Sodium [Pravachol] 40 mg PO HS 10/05/21 10/05/21 Previous Rx's Medication Instructions Recorded Levofloxacin [Levaquin] 500 mg PO DAILY #10 tab 10/05/21 methylPREDNISolone [Medrol Dose 4 mg PO DIRECTED #1 packet 10/05/21 Pack] Allergies Allergy/AdvReac Type Severity Reaction Status Date / Time sulfamethoxazole AdvReac Unknown DIZZY, Verified 10/05/21 20:22 [From Bactrim] FELT LIKE HE HAD THE FLU, HOT & COLD FLASHES trimethoprim [From Bactrim] AdvReac Unknown DIZZY, Verified 10/05/21 20:22 FELT LIKE HE HAD THE FLU, HOT & COLD FLASHES Review of Systems ROS Statement: Those systems with pertinent positive or pertinent negative responses have been documented in the HPI. ROS Other: All systems not noted in ROS Statement are negative. Past Medical History Past Medical History: Atrial Fibrillation, Atrial Flutter, Diabetes Mellitus, GI Bleed, Hypertension, Osteoarthritis (OA), Pneumonia, Sleep Apnea/CPAP/BIPAP Additional Past Medical History / Comment(s): pericarditis in 2018, L foot neuropathy, L shoulder pain, hx acute kidney failure 4 yrs. ago-one dialysis tx. & kidneys functioning fine now per pt-not sure what caused it. no cpap used, ulcerative colitiis, no rx for diabetes since wt loss-now diet control only, sepsis left elbow after surgery 2018 History of Any Multi-Drug Resistant Organisms: MRSA Date of last positivie culture/infection: 2007 MDRO Source:: LEFT KNEE Past Surgical History: Bariatric Surgery, Cholecystectomy, Joint Replacement, Orthopedic Surgery, Tonsillectomy Additional Past Surgical History / Comment(s): 2018 gastric sleeve, bilateral carpal tunnel releases, zuly knee arthroscopies, R total knee arthroplasty, L total knee-hardware problem/replaced then infection and replaced again-multiple surgeries on, R rotator cuff repair, L patellar stabilization, EGD, colonoscopy. left elbow surgery/developed post op sepsis Past Anesthesia/Blood Transfusion Reactions: No Reported Reaction Past Psychological History: No Psychological Hx Reported Smoking Status: Former smoker Past Alcohol Use History: None Reported Past Drug Use History: None Reported - Past Family History Brother(s) Family Medical History: CVA/TIA Additional Family Medical History / Comment(s): Brother had a CVA at the age of 52 yrs. Father Family Medical History: Deep Vein Thrombosis (DVT) Additional Family Medical History / Comment(s): . Mother Family Medical History: No Reported History General Exam Limitations: no limitations General appearance: alert, in no apparent distress, obese Head exam: Present: atraumatic, normocephalic, normal inspection Eye exam: Present: normal appearance, PERRL, EOMI. Absent: scleral icterus, conjunctival injection, periorbital swelling ENT exam: Present: normal exam, mucous membranes moist. Absent: normal oropharynx (Erythematous) Neck exam: Present: normal inspection. Absent: tenderness, lymphadenopathy Respiratory exam: Present: normal lung sounds bilaterally. Absent: respiratory distress, wheezes, rales, rhonchi, stridor Cardiovascular Exam: Present: regular rate, normal rhythm, normal heart sounds. Absent: systolic murmur, diastolic murmur, rubs, gallop, clicks Extremities exam: Present: normal inspection, full ROM, normal capillary refill. Absent: tenderness, pedal edema, joint swelling, calf tenderness Neurological exam: Present: alert, oriented X3 Psychiatric exam: Present: normal affect, normal mood Skin exam: Present: warm, dry, intact, normal color. Absent: rash Course Vital Signs 10/05/21 10/05/21 17:38 19:34 Temperature 98 F Pulse Rate 86 Respiratory 18 20 Rate Blood Pressure 155/101 O2 Sat by Pulse 97 Oximetry Medical Decision Making - Medical Decision Making 61-year-old male complaining of sore throat and upper respiratory symptoms. Covid test, strep test, chest x-ray ordered. Strep test and Covid test both negative. Chest x-ray shows left-sided congestion consistent with atypical pneumonitis. Antibiotics will be sent to pharmacy. Case discussed with Dr. Sandra, patient can discharge home. - Lab Data Lab Results 10/05/21 10/05/21 Range/Units 19:23 19:23 Coronavirus (PCR) Not Detected (Not Detectd) Group A Strep Rapid Negative (Negative) - Radiology Data Radiology results: report reviewed, image reviewed Chest x-ray: Asymmetric interstitial thickening and peribronchial thickening of the left lung. Differential includes interstitial edema, atypical pneumonitis, and small airway disease. There are also mild superimposed patchy airspace opacities bilaterally. Disposition Clinical Impression: Pneumonitis Disposition: HOME SELF-CARE Condition: Stable Instructions (If sedation given, give patient instructions): Upper Respiratory Infection (ED) Additional Instructions: Please return to the Emergency Department if symptoms worsen or any other concerns. Follow-up with primary care 1-2 days. Take antibiotics as prescribed until complete. Is patient prescribed a controlled substance at d/c from ED?: No Referrals: Shon Vann MD [Primary Care Provider] - 1-2 days Time of Disposition: 20:47
[2021-10-05 20:57] VITALS: BP 150/73; PULSE 82; TEMP 98.4
== END 2021-10-05 20:57 | disposition home or self-care (01) ==
LOC: EC 16:08
DX: J18.9 Pneumonia, unspecified organism (principal); I48.91 Unspecified atrial fibrillation; E11.9 Type 2 diabetes mellitus without complications; I10 Essential (primary) hypertension; M19.90 Unspecified osteoarthritis, unspecified site; Z79.82 Long term (current) use of aspirin; Z88.1 Allergy status to other antibiotic agents; Z88.2 Allergy status to sulfonamides; Z90.49 Acquired absence of other specified parts of digestive tract; Z90.89 Acquired absence of other organs; Z96.653 Presence of artificial knee joint, bilateral; Z87.891 Personal history of nicotine dependence; Z99.2 Dependence on renal dialysis; Z20.822 Contact with and (suspected) exposure to COVID-19
CPT/HCPCS: 99283 ×2; 96372 ×2; 87081; 87430; 87635; 71046; J1885

== ENCOUNTER → 2021-10-21 | Outpatient (CLI) | payer OTHER, MEDICARE ==
--- NOTE | 2021-10-21 13:10 | XR ---
EXAMINATION TYPE: XR chest 2V DATE OF EXAM: 10/21/2021 COMPARISON: 10/05/2021 TECHNIQUE: PA and lateral views submitted. HISTORY: Cough FINDINGS: The lungs are clear and there is no pneumothorax, pleural effusion, or focal pneumonia. Heart size normal. Hypertrophic change of the spine with degenerative changes and curvature. Arthropathy of the shoulders. No overt failure. Biapical pleural thickening. Surgical clips in the abdomen. IMPRESSION: 1. No acute process.
== END | disposition home or self-care (01) ==
LOC: RADXRMAIN 12:49
PROVIDERS: ATTEND Nurse Practitioner Family
DX: R05.9 Cough, unspecified (principal)
CPT/HCPCS: 71046

== ENCOUNTER → 2022-09-20 | Outpatient (CLI) | payer OTHER ==
[2022-09-21 01:01] LABS: African American GFR (CKD) 123.7 (60.0-200.0); Albumin 4.1 g/dL (3.8-4.9); Albumin/Globulin Ratio 1.81 (1.60-3.17); Anion Gap 10.9 mmol/L (10.00-18.00); BUN/Creat Ratio 18.55 Ratio (12.00-20.00); Blood Urea Nitrogen 11.8 mg/dL (9.0-27.0); C Reactive Protein 0.7 mg/dL (0.00-0.80); Calcium 9.2 mg/dL (8.7-10.3); Globulin 2.3 g/dL (1.6-3.3); Non-African American GFR(CKD) 106.7 (60.0-200.0); Potassium 3.9 mmol/L (3.5-5.5); Total Bilirubin 0.3 mg/dL (0.30-1.20); Total Protein 6.3 g/dL (6.2-8.2)
[2022-09-21 01:23] LABS: Basophils # (A) 0.02 X 10*3/uL (0.00-0.10); Basophils % (A) 0.4 %; Eosinophils # (A) 0.05 X 10*3/uL (0.04-0.35); HCT 38.9 % (39.6-50.0); HGB 12.5 g/dL (13.0-17.0); Immature Grans, Automated 0.4 %; Lymphocytes # (A) 2.14 X 10*3/uL (0.90-5.00); Lymphocytes % (A) 40.9 %; MCH 30.1 pg (27.0-32.0); MCHC 32.1 g/dL (32.0-37.0); MCV 93.7 fL (80.0-97.0); Mean Platelet Volume 10.6 fL (9.5-12.2); Monocytes # (A) 0.64 X 10*3/uL (0.20-1.00); Monocytes % (A) 12.2 %; NRBC Per 100 WBC 0 /100 WBCS (0.0-0.0); Neutrophils # (A) 2.36 X 10*3/uL (1.80-7.70); Neutrophils % (A) 45.1 %; Platelet Count 209 X 10*3/uL (140-440); RBC 4.15 X 10*6/uL (4.40-5.60); RDW 14.3 % (11.5-14.5); WBC 5.23 X 10*3/uL (4.50-10.00)
[2022-09-21 02:16] LABS: Erythrocyte Sedimentation Rate 7 mm/Hr (0-20)
== END | disposition home or self-care (01) ==
LOC: LABWHC1 14:58
PROVIDERS: ATTEND Internal Medicine Gastroenterology
DX: K51.90 Ulcerative colitis, unspecified, without complications (principal)
CPT/HCPCS: 36415; 80053; 85025; 85652; 86140

== ENCOUNTER 2023-03-05 22:49 | Emergency (ER) | payer OTHER ==
[2023-03-05 22:58] VITALS: TEMP 98.8
[2023-03-05] MEDS ORDERED: KETOROLAC 15 MG/ML 1 ML VIAL IVP STA (23:08)
--- NOTE | 2023-03-05 23:17 | ED ---
General Adult HPI - General Chief complaint: Chest Pain Stated complaint: Chest Pain Time Seen by Provider: 03/05/23 22:58 Source: patient Mode of arrival: ambulatory Limitations: no limitations - History of Present Illness Initial comments: This is a 62-year-old male with an extensive past medical history including hypertension, hyperlipidemia, atrial fibrillation presents emergency department for bilateral lower rib pain as well as sternal chest pain. The patient stated that this pain is worse with movement and worse with deep breathing. The patient did report that he has been moving over last 3 days and thinks he may have overdone it. The patient reportedly is on disability and stated that he usually does not do this much activity but he has been lifting heavy materials and furniture over the last several days. The patient denied any radiation of this pain and denied any nausea, vomiting and diaphoresis. The patient on evaluation was in minimal distress secondary to anterior bilateral lower rib pain. The patient however denied any trauma denied any other acute distress or pain. - Related Data Home Medications Medication Instructions Recorded Confirmed Benazepril HCl [Lotensin] 40 mg PO HS 03/26/18 02/23/22 buPROPion HCL [Wellbutrin SR] 150 mg PO DAILY 09/09/18 02/23/22 Aspirin 81 mg PO HS 09/16/19 02/23/22 FLUoxetine HCL [PROzac] 40 mg PO DAILY 11/27/19 02/23/22 Ibuprofen 800 mg PO Q6H PRN 11/27/19 02/23/22 Ergocalciferol [Vitamin D2] 50,000 unit PO QMONTHLY 11/10/20 02/23/22 Fluticasone Nasal [place] [Flonase 1 - 2 spr EA NOSTRIL DAILY PRN 11/10/20 Nasal [place]] Hydrocodone/Acetaminophen [[place] 1 tab PO QID PRN 11/10/20 02/23/22 10-325] Magnesium 500 mg PO DAILY 11/10/20 02/23/22 Multivitamins, Thera [Multivitamin 1 tab PO DAILY 11/10/20 02/23/22 (formulary)] dilTIAZem HCL [Diltiazem HCl 24Hr 120 mg PO DAILY 11/10/20 02/23/22 ER] hydrALAZINE HCL [Apresoline] 100 mg PO DAILY 11/10/20 02/23/22 Adalimumab [Humira Pen] 40 mg SQ [id number] 10/05/21 02/23/22 Pravastatin Sodium [Pravachol] 80 mg PO HS 10/05/21 02/23/22 Allergies Allergy/AdvReac Type Severity Reaction Status Date / Time sulfamethoxazole AdvReac Unknown DIZZY, Verified 02/23/22 08:46 [From Bactrim] FELT LIKE HE HAD THE FLU, HOT & COLD FLASHES trimethoprim [From Bactrim] AdvReac Unknown DIZZY, Verified 02/23/22 08:46 FELT LIKE HE HAD THE FLU, HOT & COLD FLASHES Review of Systems ROS Statement: Those systems with pertinent positive or pertinent negative responses have been documented in the HPI. ROS Other: All systems not noted in ROS Statement are negative. Past Medical History Past Medical History: Atrial Fibrillation, Diabetes Mellitus, GERD/Reflux, GI Bleed, Hypertension, Osteoarthritis (OA), Pneumonia Additional Past Medical History / Comment(s): pericarditis in 2018, L foot neuropathy, L shoulder pain, hx acute kidney failure 4 yrs. ago-one dialysis tx. & kidneys functioning fine now per pt-not sure what caused it. ulcerative colitiis, no rx for diabetes since wt loss-now diet control only, sepsis left elbow after surgery 2019, rectal bleeding currently History of Any Multi-Drug Resistant Organisms: MRSA Date of last positivie culture/infection: 2007 MDRO Source:: LEFT KNEE Past Surgical History: Bariatric Surgery, Cholecystectomy, Joint Replacement, Orthopedic Surgery, Tonsillectomy Additional Past Surgical History / Comment(s): 2018 gastric sleeve, bilateral ca rpal tunnel releases, zuly knee arthroscopies, R total knee arthroplasty, L total knee-hardware problem/replaced then infection and replaced again-multiple surgeries on, R rotator cuff repair, L patellar stabilization, EGD, colonoscopy. left elbow surgery/developed post op sepsis Past Anesthesia/Blood Transfusion Reactions: No Reported Reaction Past Psychological History: No Psychological Hx Reported Smoking Status: Former smoker - Past Family History Brother(s) Family Medical History: CVA/TIA Additional Family Medical History / Comment(s): Brother had a CVA at the age of 52 yrs. Father Family Medical History: Deep Vein Thrombosis (DVT) Additional Family Medical History / Comment(s): . Mother Family Medical History: No Reported History General Exam Limitations: no limitations General appearance: in distress (In mild distress 2/2 anterior chest wall and sternal pain), obese Head exam: Present: atraumatic, normocephalic, normal inspection Eye exam: Present: normal appearance, PERRL Pupils: Present: normal accommodation ENT exam: Present: normal exam, normal oropharynx, mucous membranes moist Neck exam: Present: normal inspection, full ROM Respiratory exam: Present: normal lung sounds bilaterally, chest wall tenderness (TTP over the anterior bilateral lower ribs, sternum ) Cardiovascular Exam: Present: regular rate, normal rhythm, normal heart sounds GI/Abdominal exam: Present: soft, normal bowel sounds Extremities exam: Present: normal inspection, full ROM Back exam: Present: normal inspection, full ROM Neurological exam: Present: alert, oriented X3, CN II-XII intact Psychiatric exam: Present: normal affect, normal mood Skin exam: Present: warm, dry Course Vital Signs 03/05/23 03/05/23 22:53 23:57 Temperature 98.8 F Pulse Rate 89 74 Respiratory 16 18 Rate Blood Pressure 131/91 127/72 O2 Sat by Pulse 96 94 L Oximetry EKG Findings - EKG Comments: EKG Findings:: An EKG was obtained and was interpreted by myself showing a rate of 82, MN interval of 183, QRS duration of 90 and QTC of 382. This EKG showed a normal sinus rhythm with no ST segment elevation or depression noted. Medical Decision Making - Medical Decision Making Was pt. sent in by a medical professional or institution (, PA, PRIEST, urgent care, hospital, or fpc...) When possible be specific @ -No Did you speak to anyone other than the patient for history (EMS, parent, family, police, friend...)? What history was obtained from this source @ -No Did you review nursing and triage notes (agree or disagree)? Why? @ -I reviewed and agree with nursing and triage notes Were old charts reviewed (outside hosp., previous admission, EMS record, old EKG, old radiological studies, urgent care reports/EKG's, fpc records)? Report findings @ -No old charts were reviewed Differential Diagnosis (chest pain, altered mental status, abdominal pain women, abdominal pain men, vaginal bleeding, weakness, fever, dyspnea, syncope, headache, dizziness, GI bleed, back pain, seizure, CVA, palpatations, mental health)? @ -Chest wall muscle strain, costochondritis, ACS EKG interpreted by me (3pts min.). @ -As above X-rays interpreted by me (1pt min.). @ -A chest x-ray was obtained and was interpreted by myself showing mild pulmonary congestion CT interpreted by me (1pt min.). @ -None done U/S interpreted by me (1pt. min.). @ -None done What testing was considered but not performed or refused? (CT, X-rays, U/S, labs)? Why? @ -None What meds were considered but not given or refused? Why? @ -None Did you discuss the management of the patient with other professionals (professionals i.e. , PA, PRIEST, lab, RT, psych nurse, forensic social worker, operations research director, te acher, field artillery officer, case assistant)? Give summary @ -No Was smoking cessation discussed for >3mins.? @ -No Was critical care preformed (if so, how long)? @ -No Were there social determinants of health that impacted care today? How? (Homelessness, low income, unemployed, alcoholism, drug addiction, transportation, low edu. Level, literacy, decrease access to med. care, retirement, rehab)? @ -No Was there de-escalation of care discussed even if they declined (Discuss DNR or withdrawal of care, Hospice)? DNR status @ -No What co-morbidities impacted this encounter? (DM, HTN, Smoking, COPD, CAD, Cancer, CVA, ARF, Chemo, Hep., AIDS, mental health diagnosis, sleep apnea, morbid obesity)? @ -Hypertension, hyperlipidemia, atrial fibrillation Was patient admitted / discharged? Hospital course, mention meds given and route, prescriptions, significant lab abnormalities, going to OR and other pertinent info. @ -The patient was seen and evaluated in emergency department. Physical exam, the patient was resting in bed without any acute distress. Vital signs admission were stable. The patient did have reproducibility of pain on palpation to the anterior chest wall and sternum. All workup was negative and the patient was given 30 mg of Toradol. On reevaluation, the patient had complete resolution of his pain, adding to the diagnosis of likely cost ochondritis and chest muscle strain. The patient was deemed stable for discharge and told to continue to take anti-inflammatory medications at home for treatment. He was advised to continue to monitor his symptoms and to report back to the emergency department if he had worsening chest pain or shortness of breath. The patient was agreeable to this and all his questions were answered. The patient was discharged home in stable condition. Undiagnosed new problem with uncertain prognosis? @ -No Drug Therapy requiring intensive monitoring for toxicity (Heparin, Nitro, Insulin, Cardizem)? @ -No Were any procedures done? @ -No Diagnosis/symptom? @ -Chest wall muscle strain, costochondritis Acute, or Chronic, or Acute on Chronic? @ -Acute Uncomplicated (without systemic symptoms) or Complicated (systemic symptoms)? @ -Uncomplicated Side effects of treatment? @ -No Exacerbation, Progression, or Severe Exacerbation? @ -No Poses a threat to life or bodily function? How? (Chest pain, [place], AR, pneumonia, PE, COPD, DKA, ARF, appy, cholecystitis, CVA, Diverticulitis, Homicidal, Suicidal, threat to staff... and all critical care pts) @ -No - Lab Data Result diagrams: 03/05/23 23:37 03/05/23 23:37 Lab Results 03/05/23 03/05/23 03/05/23 Range/Units 23:37 23:37 23:37 WBC 4.9 (3.8-10.6) k/uL RBC 3.89 L (4.30-5.90) m/uL Hgb 12.4 L (13.0-17.5) gm/dL Hct 34.6 L (39.0-53.0) % MCV 89.0 (80.0-100.0) fL MCH 32.0 (25.0-35.0) pg MCHC 35.9 (31.0-37.0) g/dL RDW 14.4 (11.5-15.5) % Plt Count 196 (150-450) k/uL MPV 7.9 Neutrophils % 42 % Lymphocytes % 43 % Monocytes % 8 % Eosinophils % 2 % Basophils % 0 % Neutrophils # 2.0 (1.3-7.7) k/uL Lymphocytes # 2.1 (1.0-4.8) k/uL Monocytes # 0.4 (0-1.0) k/uL Eosinophils # 0.1 (0-0.7) k/uL Basophils # 0.0 (0-0.2) k/uL Manual Slide Review Performed PT (9.0-12.0) sec INR (<1.2) APTT (22.0-30.0) sec Sodium 136 L (137-145) mmol/L Potassium 4.0 (3.5-5.1) mmol/L Chloride 103 (98-107) mmol/L Carbon Dioxide 19 L (22-30) mmol/L Anion Gap 14 mmol/L BUN 24 H (9-20) mg/dL Creatinine 1.14 (0.66-1.25) mg/dL Est GFR (CKD-EPI)AfAm 81 (>60 ml/min/1.73 sqM) Est GFR (CKD-EPI)NonAf 70 (>60 ml/min/1.73 sqM) Glucose 122 H (74-99) mg/dL Calcium 10.0 (8.4-10.2) mg/dL Magnesium 1.3 L (1.6-2.3) mg/dL Total Bilirubin 0.6 (0.2-1.3) mg/dL AST 39 (17-59) U/L ALT 36 (4-49) U/L Alkaline Phosphatase 67 (38-126) U/L Troponin I <0.012 (0.000-0.034) ng/mL Total Protein 7.6 (6.3-8.2) g/dL Albumin 4.6 (3.5-5.0) g/dL Lipase 72 (23-300) U/L 03/05/23 Range/Units 23:37 WBC (3.8-10.6) k/uL RBC (4.30-5.90) m/uL Hgb (13.0-17.5) gm/dL Hct (39.0-53.0) % MCV (80.0-100.0) fL MCH (25.0-35.0) pg MCHC (31.0-37.0) g/dL RDW (11.5-15.5) % Plt Count (150-450) k/uL MPV Neutrophils % % Lymphocytes % % Monocytes % % Eosinophils % % Basophils % % Neutrophils # (1.3-7.7) k/uL Lymphocytes # (1.0-4.8) k/uL Monocytes # (0-1.0) k/uL Eosinophils # (0-0.7) k/uL Basophils # (0-0.2) k/uL Manual Slide Review PT 11.1 (9.0-12.0) sec INR 1.1 (<1.2) APTT 24.1 (22.0-30.0) sec Sodium (137-145) mmol/L Potassium (3.5-5.1) mmol/L Chloride (98-107) mmol/L Carbon Dioxide (22-30) mmol/L Anion Gap mmol/L BUN (9-20) mg/dL Creatinine (0.66-1.25) mg/dL Est GFR (CKD-EPI)AfAm (>60 ml/min/1.73 sqM) Est GFR (CKD-EPI)NonAf (>60 ml/min/1.73 sqM) Glucose (74-99) mg/dL Calcium (8.4-10.2) mg/dL Magnesium (1.6-2.3) mg/dL Total Bilirubin (0.2-1.3) mg/dL AST (17-59) U/L ALT (4-49) U/L Alkaline Phosphatase (38-126) U/L Troponin I (0.000-0.034) ng/mL Total Protein (6.3-8.2) g/dL Albumin (3.5-5.0) g/dL Lipase (23-300) U/L Disposition Clinical Impression: Chest wall muscle strain, Costochondritis Disposition: HOME SELF-CARE Condition: Stable Instructions (If sedation given, give patient instructions): Costochondritis (ED), Chest Wall Pain (ED) Is patient prescribed a controlled substance at d/c from ED?: No Referrals: Alex Mobley DO [Primary Care Provider] - 1-2 days Time of Disposition: 02:20
[2023-03-05 23:48] LABS: Basophils % (A) 0 %; Eosinophils # (A) 0.1 k/uL (0-0.7); Eosinophils % (A) 2 %; HCT 34.6 % (39.0-53.0); HGB 12.4 gm/dL (13.0-17.5); Lymphocytes # (A) 2.1 k/uL (1.0-4.8); Lymphocytes % (A) 43 %; MCHC 35.9 g/dL (31.0-37.0); Mean Platelet Volume 7.9; Monocytes # (A) 0.4 k/uL (0-1.0); Monocytes % (A) 8 %; Neutrophils % (A) 42 %; Platelet Count 196 k/uL (150-450); RBC 3.89 m/uL (4.30-5.90); RDW 14.4 % (11.5-15.5); WBC 4.9 k/uL (3.8-10.6)
[2023-03-05 23:59] LABS: Albumin 4.6 g/dL (3.5-5.0); INR 1.1 (<1.2); Magnesium 1.3 mg/dL (1.6-2.3); Partial Thromboplastin Time 24.1 sec (22.0-30.0); Prothrombin Time 11.1 sec (9.0-12.0); Total Bilirubin 0.6 mg/dL (0.2-1.3); Total Protein 7.6 g/dL (6.3-8.2)
[2023-03-06 00:55] VITALS: RESP 18
[2023-03-06] MEDS: MAGNESIUM SULFATE-D5W PMX 1 GM in DEXTROSE/WATER 1 100ML.BAG IVPB SCH ×2 (01:45→02:48)
--- NOTE | 2023-03-06 02:13 | XR ---
EXAM: XR Chest, 2 Views CLINICAL HISTORY: ITS.REASON XR Reason: CP TECHNIQUE: Frontal and lateral views of the chest. COMPARISON: 10/21/21 FINDINGS: Lungs: Mild pulmonary vascular congestion. Pleural space: No significant abnormality. No pneumothorax. Heart: No significant abnormality. No cardiomegaly. Mediastinum: No significant abnormality. Bones/joints: No acute abnormality. IMPRESSION: Mild pulmonary vascular congestion.
[2023-03-06 02:48] VITALS: BP 127/77; PULSE 66
== END 2023-03-06 02:49 | disposition home or self-care (01) ==
LOC: EC 22:49
DX: S29.011A Strain of muscle and tendon of front wall of thorax, initial encounter (principal); M94.0 Chondrocostal junction syndrome [Tietze]; I48.91 Unspecified atrial fibrillation; E11.9 Type 2 diabetes mellitus without complications; I10 Essential (primary) hypertension; K21.9 Gastro-esophageal reflux disease without esophagitis; M19.90 Unspecified osteoarthritis, unspecified site; Z87.891 Personal history of nicotine dependence; Z88.2 Allergy status to sulfonamides; Z79.82 Long term (current) use of aspirin; Z79.899 Other long term (current) drug therapy; X50.0XXA Overexertion from strenuous movement or load, initial encounter
CPT/HCPCS: 36415; 93005; 80053; 83690; 83735; 84484; 85025; 85610; 85730; 71046; 99285; 96365; 96375; J3475; J1885

== ENCOUNTER 2024-09-20 18:47 | Observation (INO) | payer OTHER, MEDICARE ==
--- NOTE | 2024-09-20 19:14 | ED ---
Nausea/Vomiting/Diarrhea HPI - General Chief complaint: Nausea/Vomiting/Diarrhea Stated complaint: Dizziness,nausea Time Seen by Provider: 09/20/24 19:01 Source: patient, RN notes reviewed Mode of arrival: ambulatory Limitations: no limitations - History of Present Illness Initial comments: This is a 64-year-old male with a history of atrial fibrillation on Eliquis, ulcerative colitis on prednisone, and diabetes who is presenting to the emergency department with chief complaint of fatigue, lightheadedness, nausea and vomiting and shortness of breath. Patient states that since Monday he has been feeling very tired. Over the last few days his symptoms have been worsening and has been experiencing nausea and emesis. Patient endorses heart palpitations and mild shortness of breath as well. States that he is concerned that he is in A-fib. Patient has been taking all of his medications as prescribed, he takes cardizem 180mg two times a day, with his most recent dose being this morning. - Related Data Home Medications Medication Instructions Recorded Confirmed Benazepril HCl [Lotensin] 40 mg PO DAILY 03/26/18 09/20/24 FLUoxetine HCL [PROzac] 40 mg PO DAILY 11/27/19 09/20/24 Fluticasone Nasal [place] [Flonase 2 spr EA NOSTRIL DAILY 11/10/20 09/20/24 Nasal [place]] Hydrocodone/Acetaminophen [[place] 1 tab PO QID PRN 11/10/20 09/20/24 10-325] Multivitamins, Thera [Multivitamin 1 tab PO DAILY 11/10/20 09/20/24 (formulary)] Pravastatin Sodium [Pravachol] 40 mg PO HS 10/05/21 09/20/24 Albuterol Inhaler [Ventolin Hfa 2 puff INHALATION RT-Q4H PRN 09/20/24 09/20/24 Inhaler] Apixaban [Eliquis] 5 mg PO BID 09/20/24 09/20/24 Diltiazem Cd [Cardizem CD] 180 mg PO BID 09/20/24 09/20/24 Empagliflozin [Jardiance] 25 mg PO DAILY 09/20/24 09/20/24 [place] 40mg/0.4ml 40 mg SQ TH 09/20/24 09/20/24 (Adalimumab)Pushtouch Autoinjector Pantoprazole [Protonix] 40 mg PO DAILY 09/20/24 09/20/24 Thiamine [Vitamin B-1] 100 mg PO DAILY 09/20/24 09/20/24 tadalafiL 20 mg PO DAILY PRN 09/20/24 09/20/24 Allergies Allergy/AdvReac Type Severity Reaction Status Date / Time sulfamethoxazole AdvReac Unknown DIZZY, Verified 02/23/22 08:46 [From Bactrim] FELT LIKE HE HAD THE FLU, HOT & COLD FLASHES trimethoprim [From Bactrim] AdvReac Unknown DIZZY, Verified 02/23/22 08:46 FELT LIKE HE HAD THE FLU, HOT & COLD FLASHES Review of Systems ROS Statement: Those systems with pertinent positive or pertinent negative responses have been documented in the HPI. ROS Other: All systems not noted in ROS Statement are negative. Past Medical History Past Medical History: Atrial Fibrillation, Diabetes Mellitus, GERD/Reflux, GI Bleed, Hypertension, Osteoarthritis (OA), Pneumonia Additional Past Medical History / Comment(s): pericarditis in 2018, L foot neuropathy, L shoulder pain, hx acute kidney failure 4 yrs. ago-one dialysis tx. & kidneys functioning fine now per pt-not sure what caused it. ulcerative colitiis, no rx for diabetes since wt loss-now diet control only, sepsis left elbow after surgery 2019, rectal bleeding currently History of Any Multi-Drug Resistant Organisms: MRSA Date of last positivie culture/infection: 2007 MDRO Source:: LEFT KNEE Past Surgical History: Bariatric Surgery, Cholecystectomy, Joint Replacement, Orthopedic Surgery, Tonsillectomy Additional Past Surgical History / Comment(s): 2018 gastric sleeve, bilateral carpal tunnel releases, zuly knee arthroscopies, R total knee arthroplasty, L total knee-hardware problem/replaced then infection and replaced again-multiple surgeries on, R rotator cuff repair, L patellar stabilization, EGD, colonoscopy. left elbow surgery/developed post op sepsis Past Anesthesia/Blood Transfusion Reactions: No Reported Reaction Past Psychological History: No Psychological Hx Reported Smoking Status: Former smoker Past Alcohol Use History: Occasional Past Drug Use History: None Reported - Past Family History Brother(s) Family Medical History: CVA/TIA Additional Family Medical History / Comment(s): Brother had a CVA at the age of 52 yrs. Father Family Medical History: Deep Vein Thrombosis (DVT) Additional Family Medical History / Comment(s): . Mother Family Medical History: No Reported History General Exam Limitations: no limitations General appearance: alert, in no apparent distress Eye exam: Present: normal appearance, PERRL, EOMI. Absent: scleral icterus, conjunctival injection, periorbital swelling ENT exam: Present: normal exam, mucous membranes moist Neck exam: Present: normal inspection. Absent: tenderness, meningismus, lymphadenopathy Respiratory exam: Present: normal lung sounds bilaterally. Absent: respiratory distress, wheezes, rales, rhonchi, stridor Cardiovascular Exam: Present: tachycardia, irregular rhythm, normal heart sounds. Absent: systolic murmur, diastolic murmur, rubs, gallop, clicks GI/Abdominal exam: Present: soft, normal bowel sounds. Absent: distended, tenderness, guarding, rebound, rigid Extremities exam: Present: normal inspection, full ROM, normal capillary refill. Absent: tenderness, pedal edema, joint swelling, calf tenderness Back exam: Present: normal inspection Neurological exam: Present: alert, oriented X3, CN II-XII intact Course Vital Signs 09/20/24 09/20/24 09/20/24 18:49 22:17 23:45 Temperature 98.6 F Pulse Rate 114 H 125 H 108 H Respiratory 18 18 18 Rate Blood Pressure 126/78 105/88 135/91 O2 Sat by Pulse 97 97 98 Oximetry 09/20/24 09/21/24 23:54 01:05 Temperature 98.1 F Pulse Rate 94 106 H Respiratory 18 18 Rate Blood Pressure 150/76 126/89 O2 Sat by Pulse 94 L 98 Oximetry Medical Decision Making - Medical Decision Making Was pt. sent in by a medical professional or institution (, PA, MARKETING SERVICES REP, urgent care, hospital, or correction...) When possible be specific @ -No Did you speak to anyone other than the patient for history (EMS, parent, family, police, friend...)? What history was obtained from this source @ -No Did you review nursing and triage notes (agree or disagree)? Why? @ -I reviewed and agree with nursing and triage notes Were old charts reviewed (outside hosp., previous admission, EMS record, old EKG, old radiological studies, urgent care reports/EKG's, correction records)? Report findings @ -No old charts were reviewed Differential Diagnosis (chest pain, altered mental status, abdominal pain women, abdominal pain men, vaginal bleeding, weakness, fever, dyspnea, syncope, headache, dizziness, GI bleed, back pain, seizure, CVA, palpatations, mental health, musculoskeletal)? @ -Differential Dyspnea: Coronary syndrome, arrhythmia, tamponade, asthma, COPD, pulmonary embolism, pneumonia, pneumothorax, pulmonary effusion, anaphylaxis, diabetic ketoacidosis, flailed chest, pulmonary contusion, diaphragmatic rupture, anemia, neuromuscular, this is not meant to be an all-inclusive list. EKG interpreted by me (3pts min.). @ -Completed at 1904 atrial fibrillation with rapid ventricular response, ventri cular rate 110, QRS 100, QTc 364. X-rays interpreted by me (1pt min.). @ -Chest x-ray reveals no acute cardiopulmonary process or disease CT interpreted by me (1pt min.). @ -None done U/S interpreted by me (1pt. min.). @ -None done What testing was considered but not performed or refused? (CT, X-rays, U/S, labs)? Why? @ -None What meds were considered but not given or refused? Why? @ -None Did you discuss the management of the patient with other professionals (professionals i.e. , PA, MARKETING SERVICES REP, lab, RT, psych nurse, social media intern, supervisor display fabrication, teacher, sailing officer, home health care case manager)? Give summary @ -I spoke with [facility] internal medicine physician, Dr. Martin, in regard to the patient's presentation and laboratory results concerning for DKA. Patient accepted for admission. Was smoking cessation discussed for >3mins.? @ -No Was critical care preformed (if so, how long)? @ -No Were there social determinants of health that impacted care today? How? (Homelessness, low income, unemployed, alcoholism, drug addiction, transportation, low edu. Level, literacy, decrease access to med. care, assisted, rehab)? @ -No Was there de-escalation of care discussed even if they declined (Discuss DNR or withdrawal of care, Hospice)? DNR status @ -No What co-morbidities impacted this encounter? (DM, HTN, Smoking, COPD, CAD, Cancer, CVA, ARF, Chemo, Hep., AIDS, mental health diagnosis, sleep apnea, morbid obesity)? @ -afib, HTN, diabetes mellitus Was patient admitted / discharged? Hospital course, mention meds given and route, prescriptions, significant lab abnormalities, going to OR and other pertinent info. @ -Admitted. 64-year-old male with shortness of breath, heart palpitations. On patient's arrival to the emergency department he is noted to be in atrial fibrillation with rapid ventricular response noted on EKG. His heart rate is fluctuating between the 100s and 120s. Patient states that he is having with heart palpitations and feeling short of breath as well. CBC unremarkable, coagulation profile including D-dimer within normal limits, troponin nonelevated less than 0.012, BNP, patient is mildly acidotic with a CO2 of 13 and an elevated anion gap of 19, COVID, Flu, RSV, negative. This time patient is provided with 500 mL fluid bolus and additional laboratory studies added on including acetone and urinalysis. Patient's acetone is positive and urinalysis remarkable for glucose and ketones consistent with the patient being in DKA. Patient is started on insulin drip and will continue to have electrolytes monitored. Patient is admitted to internal medicine for further evaluation. Case discussed with my attending Dr. Scales Undiagnosed new problem with uncertain prognosis? @ -No Drug Therapy requiring intensive monitoring for toxicity (Heparin, Nitro, Insulin, Cardizem)? @ -No Were any procedures done? @ -No Diagnosis/symptom? @ -Diabetic ketoacidosis Acute, or Chronic, or Acute on Chronic? @ -acute Uncomplicated (without systemic symptoms) or Complicated (systemic symptoms)? @ -Complicated Side effects of treatment? @ -No Exacerbation, Progression, or Severe Exacerbation? @ -No Poses a threat to life or bodily function? How? (Chest pain, [place], [place], pneumonia, PE, COPD, DKA, ARF, appy, cholecystitis, CVA, Diverticulitis, Homicidal, Suicidal, threat to staff... and all critical care pts) @ -yes - Lab Data Result diagrams: 09/20/24 19:43 09/20/24 19:43 Lab Results 09/20/24 09/20/24 09/20/24 Range/Units 19:43 19:43 19:43 WBC 6.0 (3.8-10.6) k/uL RBC 5.30 (4.30-5.90) m/uL Hgb 15.1 (13.0-17.5) gm/dL Hct 46.7 (39.0-53.0) % MCV 88.1 (80.0-100.0) fL MCH 28.5 (25.0-35.0) pg MCHC 32.4 (31.0-37.0) g/dL RDW 16.4 H (11.5-15.5) % Plt Count 224 (150-450) k/uL MPV 7.7 Neutrophils % 53 % Lymphocytes % 31 % Monocytes % 11 % Eosinophils % 1 % Basophils % 0 % Neutrophils # 3.2 (1.3-7.7) k/uL Lymphocytes # 1.9 (1.0-4.8) k/uL Monocytes # 0.6 (0-1.0) k/uL Eosinophils # 0.1 (0-0.7) k/uL Basophils # 0.0 (0-0.2) k/uL Anisocytosis Slight PT 10.8 (10.0-12.5) sec INR 1.0 (<1.2) APTT 26.5 (22.0-30.0) sec D-Dimer 0.22 (<0.60) mg/L FEU Sodium 136 L (137-145) mmol/L Potassium 5.0 (3.5-5.1) mmol/L Chloride 104 (98-107) mmol/L Carbon Dioxide 13 L (22-30) mmol/L Anion Gap 19 mmol/L BUN 24 H (9-20) mg/dL Creatinine 1.17 (0.66-1.25) mg/dL Est GFR (CKD-EPI)AfAm 77 (>60 ml/min/1.73 sqM) Est GFR (CKD-EPI)NonAf 66 (>60 ml/min/1.73 sqM) Glucose 155 H (74-99) mg/dL Calcium 10.2 (8.4-10.2) mg/dL Magnesium 2.3 (1.6-2.3) mg/dL Total Bilirubin 0.7 (0.2-1.3) mg/dL AST 53 (17-59) U/L ALT 42 (4-49) U/L Alkaline Phosphatase 115 (38-126) U/L Troponin I (0.000-0.034) ng/mL NT-Pro-B Natriuret Pep 229 pg/mL Total Protein 8.4 H (6.3-8.2) g/dL Albumin 5.3 H (3.5-5.0) g/dL Amylase 53 (30-110) U/L Lipase 173 (23-300) U/L Urine Color Urine Appearance (Clear) Urine pH (5.0-8.0) Ur Specific [place] (1.001-1.035) Urine Protein (Negative) Urine Glucose (UA) (Negative) Urine Ketones (Negative) Urine Blood (Negative) Urine Nitrite (Negative) Urine Bilirubin (Negative) Urine Urobilinogen (<2.0) mg/dL Ur Leukocyte Esterase (Negative) Acetone, Qual (Negative) Influenza Type A (PCR) (Not Detectd) Influenza Type B (PCR) (Not Detectd) RSV (PCR) (Not Detectd) SARS-CoV-2 (PCR) (Not Detectd) 09/20/24 09/20/24 09/20/24 Range/Units 19:43 19:43 19:43 WBC (3.8-10.6) k/uL RBC (4.30-5.90) m/uL Hgb (13.0-17.5) gm/dL Hct (39.0-53.0) % MCV (80.0-100.0) fL MCH (25.0-35.0) pg MCHC (31.0-37.0) g/dL RDW (11.5-15.5) % Plt Count (150-450) k/uL MPV Neutrophils % % Lymphocytes % % Monocytes % % Eosinophils % % Basophils % % Neutrophils # (1.3-7.7) k/uL Lymphocytes # (1.0-4.8) k/uL Monocytes # (0-1.0) k/uL Eosinophils # (0-0.7) k/uL Basophils # (0-0.2) k/uL Anisocytosis PT (10.0-12.5) sec INR (<1.2) APTT (22.0-30.0) sec D-Dimer (<0.60) mg/L FEU Sodium (137-145) mmol/L Potassium (3.5-5.1) mmol/L Chloride (98-107) mmol/L Carbon Dioxide (22-30) mmol/L Anion Gap mmol/L BUN (9-20) mg/dL Creatinine (0.66-1.25) mg/dL Est GFR (CKD-EPI)AfAm (>60 ml/min/1.73 sqM) Est GFR (CKD-EPI)NonAf (>60 ml/min/1.73 sqM) Glucose (74-99) mg/dL Calcium (8.4-10.2) mg/dL Magnesium (1.6-2.3) mg/dL Total Bilirubin (0.2-1.3) mg/dL AST (17-59) U/L ALT (4-49) U/L Alkaline Phosphatase (38-126) U/L Troponin I <0.012 (0.000-0.034) ng/mL NT-Pro-B Natriuret Pep pg/mL Total Protein (6.3-8.2) g/dL Albumin (3.5-5.0) g/dL Amylase (30-110) U/L Lipase (23-300) U/L Urine Color Urine Appearance (Clear) Urine pH (5.0-8.0) Ur Specific [place] (1.001-1.035) Urine Protein (Negative) Urine Glucose (UA) (Negative) Urine Ketones (Negative) Urine Blood (Negative) Urine Nitrite (Negative) Urine Bilirubin (Negative) Urine Urobilinogen (<2.0) mg/dL Ur Leukocyte Esterase (Negative) Acetone, Qual Positive (Negative) Influenza Type A (PCR) Not Detected (Not Detectd) Influenza Type B (PCR) Not Detected (Not Detectd) RSV (PCR) Not Detected (Not Detectd) SARS-CoV-2 (PCR) Not Detected (Not Detectd) 09/20/24 Range/Units 21:18 WBC (3.8-10.6) k/uL RBC (4.30-5.90) m/uL Hgb (13.0-17.5) gm/dL Hct (39.0-53.0) % MCV (80.0-100.0) fL MCH (25.0-35.0) pg MCHC (31.0-37.0) g/dL RDW (11.5-15.5) % Plt Count (150-450) k/uL MPV Neutrophils % % Lymphocytes % % Monocytes % % Eosinophils % % Basophils % % Neutrophils # (1.3-7.7) k/uL Lymphocytes # (1.0-4.8) k/uL Monocytes # (0-1.0) k/uL Eosinophils # (0-0.7) k/uL Basophils # (0-0.2) k/uL Anisocytosis PT (10.0-12.5) sec INR (<1.2) APTT (22.0-30.0) sec D-Dimer (<0.60) mg/L FEU Sodium (137-145) mmol/L Potassium (3.5-5.1) mmol/L Chloride (98-107) mmol/L Carbon Dioxide (22-30) mmol/L Anion Gap mmol/L BUN (9-20) mg/dL Creatinine (0.66-1.25) mg/dL Est GFR (CKD-EPI)AfAm (>60 ml/min/1.73 sqM) Est GFR (CKD-EPI)NonAf (>60 ml/min/1.73 sqM) Glucose (74-99) mg/dL Calcium (8.4-10.2) mg/dL Magnesium (1.6-2.3) mg/dL Total Bilirubin (0.2-1.3) mg/dL AST (17-59) U/L ALT (4-49) U/L Alkaline Phosphatase (38-126) U/L Troponin I (0.000-0.034) ng/mL NT-Pro-B Natriuret Pep pg/mL Total Protein (6.3-8.2) g/dL Albumin (3.5-5.0) g/dL Amylase (30-110) U/L Lipase (23-300) U/L Urine Color Colorless Urine Appearance Clear (Clear) Urine pH 6.0 (5.0-8.0) Ur Specific [place] 1.028 (1.001-1.035) Urine Protein Negative (Negative) Urine Glucose (UA) 4+ H (Negative) Urine Ketones 3+ H (Negative) Urine Blood Negative (Negative) Urine Nitrite Negative (Negative) Urine Bilirubin 1+ H (Negative) Urine Urobilinogen 2.0 (<2.0) mg/dL Ur Leukocyte Esterase Negative (Negative) Acetone, Qual (Negative) Influenza Type A (PCR) (Not Detectd) Influenza Type B (PCR) (Not Detectd) RSV (PCR) (Not Detectd) SARS-CoV-2 (PCR) (Not Detectd) Disposition Clinical Impression: DKA (diabetic ketoacidosis), Atrial fibrillation with RVR Disposition: ADMITTED IP TO THIS HOSP Condition: Serious Decision to Admit Reason: Admit from EC
[2024-09-20 20:11] LABS: Anisocytosis Slight; Basophils % (A) 0 %; Eosinophils # (A) 0.1 k/uL (0-0.7); Eosinophils % (A) 1 %; HCT 46.7 % (39.0-53.0); HGB 15.1 gm/dL (13.0-17.5); Lymphocytes # (A) 1.9 k/uL (1.0-4.8); Lymphocytes % (A) 31 %; MCH 28.5 pg (25.0-35.0); MCHC 32.4 g/dL (31.0-37.0); MCV 88.1 fL (80.0-100.0); Mean Platelet Volume 7.7; Monocytes # (A) 0.6 k/uL (0-1.0); Monocytes % (A) 11 %; Neutrophils # (A) 3.2 k/uL (1.3-7.7); Neutrophils % (A) 53 %; Platelet Count 224 k/uL (150-450); RDW 16.4 % (11.5-15.5)
[2024-09-20] MEDS: DILTIAZEM CD 180 MG CAP.ER.24H PO STA (20:22)
--- NOTE | 2024-09-20 20:25 | XR ---
EXAMINATION TYPE: XR chest 2V DATE OF EXAM: 09/20/2024 7:55 PM COMPARISON: Chest radiographs from 03/06/2023 CLINICAL INDICATION: Male, 64 years old with history of SOB, heart palpitations; TECHNIQUE: XR chest 2V Frontal and lateral views of the chest. FINDINGS: Lungs/Pleura: There is no evidence of pleural effusion, focal consolidation, or pneumothorax. Pulmonary vascularity: Unremarkable. Heart/mediastinum: Cardiomediastinal silhouette is unremarkable. Musculoskeletal: No acute osseous pathology. IMPRESSION: No acute cardiopulmonary disease/process. [facility] Alyssia James, , 09/20/2024 8:23 PM
[2024-09-20 20:26] LABS: Partial Thromboplastin Time 26.5 sec (22.0-30.0); Prothrombin Time 10.8 sec (10.0-12.5)
[2024-09-20 20:27] LABS: ALT 42 U/L (4-49); AST 53 U/L (17-59); African American GFR (CKD) 77 (>60 ml/min/1.73 sqM); Albumin 5.3 g/dL (3.5-5.0); Alkaline Phosphatase 115 U/L (38-126); Amylase 53 U/L (30-110); Anion Gap 19 mmol/L; Blood Urea Nitrogen 24 mg/dL (9-20); Calcium 10.2 mg/dL (8.4-10.2); Carbon Dioxide 13 mmol/L (22-30); Chloride 104 mmol/L (98-107); Glucose 155 mg/dL (74-99); Lipase 173 U/L (23-300); Magnesium 2.3 mg/dL (1.6-2.3); Non-African American GFR(CKD) 66 (>60 ml/min/1.73 sqM); Sodium 136 mmol/L (137-145); Total Bilirubin 0.7 mg/dL (0.2-1.3); Total Protein 8.4 g/dL (6.3-8.2)
[2024-09-20 20:30] LABS: NT-Pro-B-Type Natriuretic Pept 229 pg/mL
[2024-09-20] MEDS: SODIUM CHLORIDE 0.9% 500 ML 500 ML IV STA (20:47)
[2024-09-20 21:49] LABS: Appearance,Urine Clear (Clear); Bilirubin,Urine 1+ (Negative); Blood,Urine Negative (Negative); Color,Urine Colorless; Glucose,Urine (UA) 4+ (Negative); Leukocyte Esterase,Urine Negative (Negative); Nitrite,Urine Negative (Negative); Protein,Urine Negative (Negative); Specific Gravity,Urine 1.028 (1.001-1.035)
[2024-09-20 22:16] LABS: Ketones,Urine 3+ (Negative)
[2024-09-20] MEDS ORDERED: ACETAMINOPHEN TAB 325 MG TAB PO PRN (22:48)
[2024-09-20] MEDS ORDERED: ONDANSETRON 4 MG/2 ML VIAL IVP PRN (22:48)
[2024-09-20] MEDS ORDERED: IBUPROFEN 400 MG TAB PO PRN (22:48)
[2024-09-20] MEDS ORDERED: NALOXONE 0.4 MG/ML 1 ML VIAL IV PRN (22:48)
[2024-09-20] MEDS ORDERED: ALBUTEROL NEBULIZED 2.5 MG/3 ML INHALATION PRN (22:49)
[2024-09-20 23:04] LABS: Glucose,Whole Blood 124 mg/dL (70-110)
[2024-09-20] MEDS: INSULIN REGULAR 100 UNIT in SODIUM CHLORIDE 0.9% 100 ML IV SCH (23:36)
[2024-09-20] MEDS: INSULIN REGULAR BOLUS (FROM DRIP BAG) IV ONE (23:37)
[2024-09-20] MEDS: D5-0.45% NACL WITH KCL 20MEQ/L 1,000 ML IV SCH (23:37)
[2024-09-20 23:47] LABS: Glucose,Whole Blood 137 mg/dL (70-110)
[2024-09-21] MEDS: SODIUM CHLORIDE 0.9% 1,000 ML IV SCH (00:01)
[2024-09-21] MEDS: HYDROcodone/APAP 10-325MG 1 EACH TAB PO PRN (00:21)
[2024-09-21 00:36] LABS: Glucose,Whole Blood 105 mg/dL (70-110)
[2024-09-21 01:09] LABS: VBG PH 7.29 (7.31-7.41)
[2024-09-21] MEDS: APIXABAN 5 MG TAB PO SCH (01:15)
[2024-09-21 01:32] LABS: Glucose,Whole Blood 74 mg/dL (70-110)
[2024-09-21 01:33] LABS: African American GFR (CKD) >90 (>60 ml/min/1.73 sqM); Anion Gap 18 mmol/L; Blood Urea Nitrogen 21 mg/dL (9-20); Carbon Dioxide 12 mmol/L (22-30); Chloride 106 mmol/L (98-107); Glucose 76 mg/dL (74-99); Non-African American GFR(CKD) >90 (>60 ml/min/1.73 sqM); Sodium 136 mmol/L (137-145)
[2024-09-21] MEDS: PRAVASTATIN SODIUM 40 MG TAB PO SCH (01:47)
[2024-09-21 01:59] LABS: Glucose,Whole Blood 84 mg/dL (70-110)
[2024-09-21 04:04] LABS: Glucose,Whole Blood 123 mg/dL (70-110)
[2024-09-21 05:06] LABS: Glucose,Whole Blood 144 mg/dL (70-110)
[2024-09-21 05:58] LABS: ALT 37 U/L (4-49); AST 40 U/L (17-59); African American GFR (CKD) >90 (>60 ml/min/1.73 sqM); Albumin 4.8 g/dL (3.5-5.0); Alkaline Phosphatase 107 U/L (38-126); Anion Gap 23 mmol/L; Blood Urea Nitrogen 20 mg/dL (9-20); Calcium 9.7 mg/dL (8.4-10.2); Carbon Dioxide 10 mmol/L (22-30); Chloride 102 mmol/L (98-107); Glucose 120 mg/dL (74-99); Non-African American GFR(CKD) 89 (>60 ml/min/1.73 sqM); Sodium 135 mmol/L (137-145); Total Bilirubin 0.7 mg/dL (0.2-1.3); Total Protein 7.5 g/dL (6.3-8.2)
[2024-09-21 06:07] LABS: Glucose,Whole Blood 145 mg/dL (70-110)
[2024-09-21 06:18] LABS: Anisocytosis Slight; Basophils % (A) 0 %; Eosinophils # (A) 0.1 k/uL (0-0.7); Eosinophils % (A) 1 %; HCT 43.8 % (39.0-53.0); HGB 14.2 gm/dL (13.0-17.5); Hypochromasia Slight; Lymphocytes # (A) 1.7 k/uL (1.0-4.8); Lymphocytes % (A) 29 %; MCHC 32.3 g/dL (31.0-37.0); MCV 89.6 fL (80.0-100.0); Mean Platelet Volume 7.4; Monocytes # (A) 0.6 k/uL (0-1.0); Monocytes % (A) 10 %; Neutrophils # (A) 3.4 k/uL (1.3-7.7); Neutrophils % (A) 56 %; Platelet Count 192 k/uL (150-450); RBC 4.89 m/uL (4.30-5.90); RDW 16.4 % (11.5-15.5)
[2024-09-21 07:37] LABS: Glucose,Whole Blood 141 mg/dL (70-110)
[2024-09-21 08:17] LABS: Glucose,Whole Blood 135 mg/dL (70-110)
[2024-09-21 09:10] LABS: Glucose,Whole Blood 157 mg/dL (70-110)
[2024-09-21] MEDS: MULTIVITAMINS, THERA 1 EACH TAB PO SCH (09:39)
[2024-09-21] MEDS: FLUoxetine HCL 20 MG CAP PO SCH (09:39)
[2024-09-21] MEDS: lisinopriL 20 MG TAB PO SCH (09:39)
[2024-09-21] MEDS: DILTIAZEM CD 180 MG CAP.ER.24H PO SCH (09:39)
[2024-09-21] MEDS: FLUTICASONE NASAL 50MCG/SPRAY 16GM BTL EA NOSTRIL SCH (09:41)
[2024-09-21 10:06] LABS: Glucose,Whole Blood 150 mg/dL (70-110)
[2024-09-21 11:17] LABS: Glucose,Whole Blood 154 mg/dL (70-110)
[2024-09-21 12:16] LABS: African American GFR (CKD) >90 (>60 ml/min/1.73 sqM); Anion Gap 17 mmol/L; Blood Urea Nitrogen 16 mg/dL (9-20); Calcium 9.4 mg/dL (8.4-10.2); Carbon Dioxide 15 mmol/L (22-30); Chloride 102 mmol/L (98-107); Glucose 157 mg/dL (74-99); Non-African American GFR(CKD) >90 (>60 ml/min/1.73 sqM); Potassium 4.6 mmol/L (3.5-5.1); Sodium 134 mmol/L (137-145)
[2024-09-21 13:15] LABS: Glucose,Whole Blood 163 mg/dL (70-110)
[2024-09-21 13:26] LABS: Phosphorus 3.5 mg/dL (2.5-4.5)
--- NOTE | 2024-09-21 13:27 | P.HPIM ---
History of Present Illness H&P Date: 09/21/24 Patient is a 64 male with atrial fibrillation (on Eliquis), type II diabetes mellitus, history of GI bleed, hypertension, history of pericarditis presenting with fatigue, nausea, vomiting, shortness of breath. Patient states started feeling symptoms of dizziness, lightheadedness, insomnia on Monday. States that symptoms gotten worse and started become short of breath had started to feel nauseous and had multiple episodes of vomiting. Denies any hematemesis. States started to feel weak and lethargic and noticed heart palpitations. He denies any chest pain, abdominal pain, urinary symptoms. States that he was diagnosed with diabetes in his 40s and is currently taking Jardiance. Not on home insulin or metformin for his diabetes. EKG independently interpreted displays CXR independently interpreted displays VBG pH 7.29, VBG pCO2 36, VBG HCO3 17, 135, potassium 4.0, CO2 10, anion gap 23, glucose 145, acetone positive UA displaying 4+ urine glucose, 3+ ketones, 1+ bilirubin 98.1 F, [place] 85, RR 18, BP 138/94, O2 sat 97% on room air ED documentation reviewed. Review of systems: Pertinent positives and negatives as discussed in HPI, a complete review of systems was performed and all other systems are negative. Social history: Tobacco: Patient started smoking 1983 smoked on and off until 2018 Alcohol: 1-2 drinks nightly Recreational drugs: None open Travel: No recent travel Physical examination: Vital signs reviewed General: non toxic, no distress, appears at stated age, normal weight Derm: no unusual rashes/lesions, warm Head: atraumatic, normocephalic, symmetric Eyes: EOMI, anicteric sclera, pupils equal round reactive to light ENT: Nose and ears atraumatic Neck: No cervical lymphadenopathy, trachea midline, supple Mouth: no lip lesion, mucus membranes moist Cardiovascular: S1S2 reg, no murmur, positive dorsalis pedis pulse bilateral, no edema Lungs: CTA bilateral, no rhonchi, no rales, no accessory muscle use Abdominal: soft, nontender to palpation, no guarding Ext: muscle strength 5 out of 5 in all 4 extremities grossly, no gross muscle atrophy Neuro: CN II-XI grossly intact, no gross focal neuro deficits Psych: Alert, oriented to person, place, and time Assessment/Plan: Patient is a 64 male with atrial fibrillation (on Eliquis), diabetes mellitus, history of GI bleed, hypertension, history of pericarditis presenting with #. Mild DKA, euglycemic Was given normal saline bolus by ED On maintenance fluid of NS at 200 cc/HR Currently on D50.45% NaCl with KCl 20 mEq/L IV at 150 cc/HR Insulin Regular Bolus 11.8 unit IV once Currently on IV insulin Serum corrected sodium 137 (wnl) Keep potassium between 4.05.0 Replete electrolytes as needed BMP every 4 hours Accu-Chek every hour Cardiac monitoring Intake/output #. Atrial fibrillation Continue with Eliquis 5 mg p.o. twice daily Continue with Cardizem 180 mg p.o. twice daily #. Hypertension Continue with lisinopril 40 mg p.o. daily #. Hyperlipidemia Continue with pravastatin 40 mg p.o. at bedtime #. Anxiety Continue with Prozac 40 mg p.o. daily F: NS at 200 cc/HR, D50.45% NaCl with KCl 20 mEq/L IV at 150 cc/HR E: P electrolytes as needed N: N/A A: Ambulatory DVT prophylaxis: Lovenox 40 SQ daily The patient is admitted with an anticipated less than 2 midnight stay for evaluation of mild DKA. Discussed with: Patient Anticipated discharge place: home Attestation I have seen and examined this patient with my resident , discussed the same with the resident/RENAE, and agree with the dictator's assessment and plan as written Dr. Raymond chowdhury Past Medical History Past Medical History: Atrial Fibrillation, Diabetes Mellitus, GERD/Reflux, GI Bleed, Hypertension, Osteoarthritis (OA), Pneumonia Additional Past Medical History / Comment(s): pericarditis in 2018, L foot neuropathy, L shoulder pain, hx acute kidney failure 4 yrs. ago-one dialysis tx. & kidneys functioning fine now per pt-not sure what caused it. ulcerative colitiis, no rx for diabetes since wt loss-now diet control only, sepsis left elbow after surgery 2019, rectal bleeding currently History of Any Multi-Drug Resistant Organisms: MRSA Date of last positivie culture/infection: 2007 MDRO Source:: LEFT KNEE Past Surgical History: Bariatric Surgery, Cholecystectomy, Joint Replacement, Orthopedic Surgery, Tonsillectomy Additional Past Surgical History / Comment(s): 2018 gastric sleeve, bilateral carpal tunnel releases, zuly knee arthroscopies, R total knee arthroplasty, L total knee-hardware problem/replaced then infection and replaced again-multiple surgeries on, R rotator cuff repair, L patellar stabilization, EGD, colonoscopy. left elbow surgery/developed post op sepsis Past Anesthesia/Blood Transfusion Reactions: No Reported Reaction Past Psychological History: No Psychological Hx Reported Smoking Status: Former smoker Past Alcohol Use History: Occasional Past Drug Use History: None Reported - Past Family History Brother(s) Family Medical History: CVA/TIA Additional Family Medical History / Comment(s): Brother had a CVA at the age of 52 yrs. Father Family Medical History: Deep Vein Thrombosis (DVT) Additional Family Medical History / Comment(s): . Mother Family Medical History: No Reported History Medications and Allergies Home Medications Medication Instructions Recorded Confirmed Type Benazepril HCl [Lotensin] 40 mg PO DAILY 03/26/18 09/20/24 History FLUoxetine HCL [PROzac] 40 mg PO DAILY 11/27/19 09/20/24 History Fluticasone Nasal [place] [Flonase 2 spr EA NOSTRIL DAILY 11/10/20 09/20/24 History Nasal [place]] Hydrocodone/Acetaminophen [[place] 1 tab PO QID PRN 11/10/20 09/20/24 History 10-325] Multivitamins, Thera [Multivitamin 1 tab PO DAILY 11/10/20 09/20/24 History (formulary)] Pravastatin Sodium [Pravachol] 40 mg PO HS 10/05/21 09/20/24 History Albuterol Inhaler [Ventolin Hfa 2 puff INHALATION RT-Q4H PRN 09/20/24 09/20/24 History Inhaler] Apixaban [Eliquis] 5 mg PO BID 09/20/24 09/20/24 History Diltiazem Cd [Cardizem CD] 180 mg PO BID 09/20/24 09/20/24 History Empagliflozin [Jardiance] 25 mg PO DAILY 09/20/24 09/20/24 History Hadlim[place] 40mg/0.4ml 40 mg SQ TH 09/20/24 09/20/24 History (Adalimumab)Pushtouch Autoinjector Pantoprazole [Protonix] 40 mg PO DAILY 09/20/24 09/20/24 History Thiamine [Vitamin B-1] 100 mg PO DAILY 09/20/24 09/20/24 History tadalafiL 20 mg PO DAILY PRN 09/20/24 09/20/24 History Allergies Allergy/AdvReac Type Severity Reaction Status Date / Time sulfamethoxazole AdvReac Unknown DIZZY, Verified 02/23/22 08:46 [From Bactrim] FELT LIKE HE HAD THE FLU, HOT & COLD FLASHES trimethoprim [From Bactrim] AdvReac Unknown DIZZY, Verified 02/23/22 08:46 FELT LIKE HE HAD THE FLU, HOT & COLD FLASHES Physical Exam Vitals: Vital Signs Temp Pulse Resp BP Pulse Ox 09/21/24 06:24 85 18 138/94 97 09/21/24 05:03 96 16 115/83 98 09/21/24 01:05 98.1 F 106 H 18 126/89 98 09/20/24 23:54 94 18 150/76 94 L 09/20/24 23:45 108 H 18 135/91 98 09/20/24 22:17 125 H 18 105/88 97 09/20/24 18:49 98.6 F 114 H 18 126/78 97 Intake and Output 09/20/24 09/21/24 09/21/24 22:59 06:59 14:59 Intake Total 20.877 Balance 20.877 Intake: Intake, IV Titration 20.877 Amount Insulin Regular 100 unit 20.877 In Sodium Chloride 0.9% 100 ml @ 0.1 UNITS/KG/HR 11.911 mls/hr IV .[id number] [facility] Rx#:[id number] Other: Weight 117.934 kg Results CBC & Chem 7: 09/21/24 04:25 09/22/24 05:55 Labs: Abnormal Lab Results - Last 24 Hours (Table) 09/20/24 09/20/24 09/20/24 Range/Units 19:43 19:43 21:18 RDW 16.4 H (11.5-15.5) % VBG pH (7.31-7.41) VBG pCO2 (37-51) mmHg VBG HCO3 (24-28) mmol/L Sodium 136 L (137-145) mmol/L Carbon Dioxide 13 L (22-30) mmol/L BUN 24 H (9-20) mg/dL Glucose 155 H (74-99) mg/dL POC Glucose (mg/dL) (70-110) mg/dL Total Protein 8.4 H (6.3-8.2) g/dL Albumin 5.3 H (3.5-5.0) g/dL Urine Glucose (UA) 4+ H (Negative) Urine Ketones 3+ H (Negative) Urine Bilirubin 1+ H (Negative) 09/20/24 09/20/24 09/21/24 Range/Units 22:58 23:44 00:42 RDW (11.5-15.5) % VBG pH 7.29 L (7.31-7.41) VBG pCO2 36 L (37-51) mmHg VBG HCO3 17 L (24-28) mmol/L Sodium (137-145) mmol/L Carbon Dioxide (22-30) mmol/L BUN (9-20) mg/dL Glucose (74-99) mg/dL POC Glucose (mg/dL) 124 H 137 H (70-110) mg/dL Total Protein (6.3-8.2) g/dL Albumin (3.5-5.0) g/dL Urine Glucose (UA) (Negative) Urine Ketones (Negative) Urine Bilirubin (Negative) 09/21/24 09/21/24 09/21/24 Range/Units 00:46 04:02 04:25 RDW (11.5-15.5) % VBG pH (7.31-7.41) VBG pCO2 (37-51) mmHg VBG HCO3 (24-28) mmol/L Sodium 136 L 135 L (137-145) mmol/L Carbon Dioxide 12 L 10 L (22-30) mmol/L BUN 21 H (9-20) mg/dL Glucose 120 H (74-99) mg/dL POC Glucose (mg/dL) 123 H (70-110) mg/dL Total Protein (6.3-8.2) g/dL Albumin (3.5-5.0) g/dL Urine Glucose (UA) (Negative) Urine Ketones (Negative) Urine Bilirubin (Negative) 09/21/24 09/21/24 09/21/24 Range/Units 04:25 05:04 06:03 RDW 16.4 H (11.5-15.5) % VBG pH (7.31-7.41) VBG pCO2 (37-51) mmHg VBG HCO3 (24-28) mmol/L Sodium (137-145) mmol/L Carbon Dioxide (22-30) mmol/L BUN (9-20) mg/dL Glucose (74-99) mg/dL POC Glucose (mg/dL) 144 H 145 H (70-110) mg/dL Total Protein (6.3-8.2) g/dL Albumin (3.5-5.0) g/dL Urine Glucose (UA) (Negative) Urine Ketones (Negative) Urine Bilirubin (Negative)
[2024-09-21 14:18] LABS: Glucose,Whole Blood 164 mg/dL (70-110)
[2024-09-21 15:09] LABS: Glucose,Whole Blood 155 mg/dL (70-110)
[2024-09-21 16:14] LABS: Glucose,Whole Blood 159 mg/dL (70-110)
[2024-09-21 16:53] LABS: VBG PH 7.28 (7.31-7.41)
[2024-09-21 16:56] LABS: Glucose,Whole Blood 171 mg/dL (70-110)
[2024-09-21 17:13] LABS: African American GFR (CKD) >90 (>60 ml/min/1.73 sqM); Anion Gap 17 mmol/L; Blood Urea Nitrogen 13 mg/dL (9-20); Calcium 9.5 mg/dL (8.4-10.2); Carbon Dioxide 16 mmol/L (22-30); Chloride 101 mmol/L (98-107); Glucose 165 mg/dL (74-99); Non-African American GFR(CKD) >90 (>60 ml/min/1.73 sqM); Sodium 134 mmol/L (137-145)
[2024-09-21 18:21] LABS: Glucose,Whole Blood 158 mg/dL (70-110)
[2024-09-21 19:02] LABS: Glucose,Whole Blood 147 mg/dL (70-110)
[2024-09-21 20:05] LABS: Glucose,Whole Blood 146 mg/dL (70-110)
[2024-09-21] MEDS ORDERED: PRAVASTATIN SODIUM 40 MG TAB PO SCH (21:00)
[2024-09-21 21:08] LABS: Glucose,Whole Blood 157 mg/dL (70-110)
[2024-09-21] MEDS: INSULIN DETEMIR (LEVEMIR) 100 UNIT/ML SYR SQ SCH (21:08)
[2024-09-21] MEDS: INSULIN ASPART (NovoLOG) 100 UNIT/ML VIAL SQ SCH (21:09)
[2024-09-21 21:15] LABS: African American GFR (CKD) >90 (>60 ml/min/1.73 sqM); Anion Gap 12 mmol/L; Blood Urea Nitrogen 12 mg/dL (9-20); Calcium 9.1 mg/dL (8.4-10.2); Carbon Dioxide 15 mmol/L (22-30); Chloride 106 mmol/L (98-107); Glucose 143 mg/dL (74-99); Non-African American GFR(CKD) >90 (>60 ml/min/1.73 sqM); Potassium 4.1 mmol/L (3.5-5.1); Sodium 133 mmol/L (137-145)
[2024-09-22 00:45] LABS: African American GFR (CKD) >90 (>60 ml/min/1.73 sqM); Anion Gap 10 mmol/L; Blood Urea Nitrogen 11 mg/dL (9-20); Carbon Dioxide 18 mmol/L (22-30); Chloride 105 mmol/L (98-107); Glucose 182 mg/dL (74-99); Non-African American GFR(CKD) >90 (>60 ml/min/1.73 sqM); Potassium 4.4 mmol/L (3.5-5.1); Sodium 133 mmol/L (137-145)
[2024-09-22 06:19] LABS: Glucose,Whole Blood 111 mg/dL (70-110)
[2024-09-22 07:19] LABS: African American GFR (CKD) >90 (>60 ml/min/1.73 sqM); Anion Gap 12 mmol/L; Blood Urea Nitrogen 11 mg/dL (9-20); Calcium 9.6 mg/dL (8.4-10.2); Carbon Dioxide 23 mmol/L (22-30); Chloride 102 mmol/L (98-107); Glucose 102 mg/dL (74-99); Non-African American GFR(CKD) >90 (>60 ml/min/1.73 sqM); Potassium 5.6 mmol/L (3.5-5.1); Sodium 137 mmol/L (137-145)
[2024-09-22 07:24] LABS: VBG PH 7.28 (7.31-7.41)
[2024-09-22] MEDS: INSULIN REGULAR 100 UNIT/ML VIAL (IV) IV ONE (10:08)
[2024-09-22] MEDS: DEXTROSE 50% SYRINGE 50 ML IVP ONE (10:08)
[2024-09-22 11:06] VITALS: RESP 17
[2024-09-22 11:11] LABS: Glucose,Whole Blood 148 mg/dL (70-110)
[2024-09-22 11:51] VITALS: BP 108/69; PULSE 105; TEMP 98.3
--- NOTE | 2024-09-22 12:43 | P.DS ---
Providers Date of admission: 09/20/24 22:49 Expected date of discharge: 09/22/24 Attending physician: Jojo Martin Primary care physician: Alex Mobley [facility] Course: Discharge diagnoses; DKA, euglycemic resolved Was given normal saline bolus by ED On maintenance fluid of NS at 200 cc/HR Currently on D50.45% NaCl with KCl 20 mEq/L IV at 150 cc/HR Insulin Regular Bolus 11.8 unit IV once Currently on IV insulin Serum corrected sodium 137 (wnl) Keep potassium between 4.05.0 Replete electrolytes as needed BMP every 4 hours Accu-Chek every hour Cardiac monitoring Intake/output 09/22. DKA has resolved. patient tolerating diet. Patient DKA was caused by Jardiance, being discharged on metformin for home. #. Atrial fibrillation Continue with Eliquis 5 mg p.o. twice daily Continue with Cardizem 180 mg p.o. twice daily #. Hypertension Continue home meds #. Hyperlipidemia Continue with pravastatin 40 mg p.o. at bedtime #. Anxiety Continue with Prozac 40 mg p.o. daily Hospital course; Patient is a 64 male with atrial fibrillation (on Eliquis), type II diabetes mellitus, history of GI bleed, hypertension, history of pericarditis presenting with fatigue, nausea, vomiting, shortness of breath. Patient states started feeling symptoms of dizziness, lightheadedness, insomnia on Monday. States that symptoms gotten worse and started become short of breath had started to feel nauseous and had multiple episodes of vomiting. Denies any hematemesis. States started to feel weak and lethargic and noticed heart palpitations. He denies any chest pain, abdominal pain, urinary symptoms. States that he was diagnosed with diabetes in his 40s and is currently taking Jardiance. Not on home insulin or metformin for his diabetes. EKG independently interpreted displays CXR independently interpreted displays VBG pH 7.29, VBG pCO2 36, VBG HCO3 17, 135, potassium 4.0, CO2 10, anion gap 23, glucose 145, acetone positive UA displaying 4+ urine glucose, 3+ ketones, 1+ bilirubin 98.1 F, [place] 85, RR 18, BP 138/94, O2 sat 97% on room air ED documentation reviewed. PHYSICAL EXAMINATION: GENERAL: The patient is alert and oriented x3, not in any acute distress. Well developed, well nourished. HEENT: Pupils are round and equally reacting to light. EOMI. No scleral icterus. No conjunctival pallor. Normocephalic, atraumatic. No pharyngeal erythema. No thyromegaly. CARDIOVASCULAR: S1 and S2 present. No murmurs, rubs, or gallops. PULMONARY: Chest is clear to auscultation, no wheezing or crackles. ABDOMEN: Soft, nontender, nondistended, normoactive bowel sounds. No palpable organomegaly. MUSCULOSKELETAL: No joint swelling or deformity. EXTREMITIES: No cyanosis, clubbing, or pedal edema. NEUROLOGICAL: Gross neurological examination did not reveal any focal deficits. SKIN: No rashes. Dictation was produced using [employer] dictation software. please excuse any grammatical, word or spelling errors. Patient Condition at Discharge: Good Plan - Discharge Summary Discharge Rx Participant: No New Discharge Prescriptions: New metFORMIN HCL 500 mg PO BID 30 Days #60 tablet Continue Benazepril HCl [Lotensin] 40 mg PO DAILY FLUoxetine HCL [PROzac] 40 mg PO DAILY Hydrocodone/Acetaminophen [[place] 10-325] 1 tab PO QID PRN PRN Reason: Pain Multivitamins, Thera [Multivitamin (formulary)] 1 tab PO DAILY Fluticasone Nasal [place] [Flonase Nasal [place]] 2 spr EA NOSTRIL DAILY Pantoprazole [Protonix] 40 mg PO DAILY [place] 40mg/0.4ml (Adalimumab)Pushtouch Autoinjector 40 mg SQ TH Thiamine [Vitamin B-1] 100 mg PO DAILY Diltiazem Cd [Cardizem CD] 180 mg PO BID Pravastatin Sodium [Pravachol] 40 mg PO HS tadalafiL 20 mg PO DAILY PRN PRN Reason: E.D. Apixaban [Eliquis] 5 mg PO BID Albuterol Inhaler [Ventolin Hfa Inhaler] 2 puff INHALATION RT-Q4H PRN PRN Reason: Shortness Of Breath Discontinued Empagliflozin [Jardiance] 25 mg PO DAILY Discharge Medication List Benazepril HCl [Lotensin] 40 mg PO DAILY 03/26/18 [History] FLUoxetine HCL [PROzac] 40 mg PO DAILY 11/27/19 [History] Fluticasone Nasal [place] [Flonase Nasal [place]] 2 spr EA NOSTRIL DAILY 11/10/20 [History] Hydrocodone/Acetaminophen [[place] 10-325] 1 tab PO QID PRN 11/10/20 [History] Multivitamins, Thera [Multivitamin (formulary)] 1 tab PO DAILY 11/10/20 [History] Pravastatin Sodium [Pravachol] 40 mg PO HS 10/05/21 [History] Albuterol Inhaler [Ventolin Hfa Inhaler] 2 puff INHALATION RT-Q4H PRN 09/20/24 [History] Apixaban [Eliquis] 5 mg PO BID 09/20/24 [History] Diltiazem Cd [Cardizem CD] 180 mg PO BID 09/20/24 [History] [place] 40mg/0.4ml (Adalimumab)Pushtouch Autoinjector 40 mg SQ TH 09/20/24 [History] Pantoprazole [Protonix] 40 mg PO DAILY 09/20/24 [History] Thiamine [Vitamin B-1] 100 mg PO DAILY 09/20/24 [History] tadalafiL 20 mg PO DAILY PRN 09/20/24 [History] metFORMIN HCL 500 mg PO BID 30 Days #60 tablet 09/22/24 [Rx] Follow up Appointment(s)/Referral(s): Alex Mobley DO [Primary Care Provider] - 1-2 days Discharge Disposition: HOME SELF-CARE
== END 2024-09-22 13:07 | disposition home or self-care (01) ==
LOC: EC 18:47 → INTOOBSV 22:49 → 3SCARD 22:49 → UNDODISIN 09-22 13:07
PROVIDERS: ADMIT Internal Medicine; ATTEND Internal Medicine
DX: E11.10 Type 2 diabetes mellitus with ketoacidosis without coma (principal); T38.3X5A Adverse effect of insulin and oral hypoglycemic [antidiabetic] drugs, initial encounter; I48.91 Unspecified atrial fibrillation; E78.5 Hyperlipidemia, unspecified; I10 Essential (primary) hypertension; K51.90 Ulcerative colitis, unspecified, without complications; F41.9 Anxiety disorder, unspecified; E11.41 Type 2 diabetes mellitus with diabetic mononeuropathy; Z79.52 Long term (current) use of systemic steroids; Z79.620 Long term (current) use of immunosuppressive biologic; Z79.84 Long term (current) use of oral hypoglycemic drugs; Z79.01 Long term (current) use of anticoagulants; Z79.899 Other long term (current) drug therapy; Z88.2 Allergy status to sulfonamides; Z87.891 Personal history of nicotine dependence; Z11.52 Encounter for screening for COVID-19; Z11.59 Encounter for screening for other viral diseases; Z86.79 Personal history of other diseases of the circulatory system; Z87.19 Personal history of other diseases of the digestive system
CPT/HCPCS: 96375; 96365; 99285; 36415; 93005 ×2; 85379; 83930; 83880; 80051; 80053 ×2; 80048 ×2; 82150; 82565; 82803 ×2; 82009; 83690; 83735; 84100; 84132; 82947; 84520; 84484; 85025 ×2; 85610; 85730; 81003; 83036; 87636; 71046; G0378 ×3; 96360; 96361